=== PATIENT | female | born 1945 | race Caucasian/White ===

== ENCOUNTER 2020-07-30 17:31 | Emergency (ER) | payer OTHER, SELFPAY ==
[2020-07-30] VITALS (7 sets, daily range): BP systolic 78–140; BP diastolic 44–76; PULSE 77–100; RESP 16–24; O2SAT 95–99; BMI 24.1
--- NOTE | ~2020-07-30 | CT_ITS ---
EXAMINATION: CT HEAD WITHOUT CONTRAST CT CERVICAL SPINE WITHOUT CONTRAST CLINICAL INFORMATION: Fall. COMPARISON: CT head 10/11/2013. CT cervical spine 12/03/2012 TECHNIQUE: Imaging was performed from the skull base to vertex without intravenous administration of contrast. In addition, helical noncontrast CT imaging was acquired through the cervical spine and source images were reviewed along with axial reconstructions and sagittal and coronal MPRs. [This CT examination was performed using dose optimization techniques as appropriate, variously including the following: *Automated exposure control *Adjustment of mA and/or kV according to patient size (this includes techniques or standardized protocols for targeted exams where dose is matched to indication/reason for exam; i.e. extremities or head) *Use of iterative reconstruction technique] DLP: 1038 mGy-cm FINDINGS: There is motion which limits exams. HEAD: Small scalp hematoma the posterior right vertex. There is no skull fracture. No intracranial mass, hemorrhage, or midline shift is visualized. There is atrophy with prominence of the ventricles and the sulci and hypodensity of the periventricular white matter due to chronic small vessel ischemic disease. There are vascular calcifications of the internal carotid arteries bilaterally. No extra-axial collections are identified. The paranasal sinuses and mastoid air cells are well aerated. CERVICAL SPINE: There is no evidence of acute cervical spine fracture. Vertebral bodies remain normal in height. Cervical vertebrae have normal alignment. There is multilevel degenerative spondylosis of the cervical spine with disc height narrowing and endplate spurs and facet joint arthrosis No pre- or paravertebral soft tissue abnormality is identified. There are vascular calcification of the carotid arteries at the bifurcation bilaterally. Limited assessment of the lung apices is unremarkable. CT/CT cervical spine wo con IMPRESSION: 1. No acute intracranial pathology. 2. No CT evidence of acute cervical spine fracture or traumatic subluxation
--- NOTE | ~2020-07-30 | XR_ITS ---
EXAMINATION: XR CHEST CLINICAL INFORMATION: Aspiration COMPARISON: Chest x-ray 10/01/2014 TECHNIQUE: Frontal portable view of the chest was obtained. 6:08 PM FINDINGS: Lungs are clear. No pulmonary vascular congestion. There is no pleural effusion. The heart size is normal. The cardiac and mediastinal contours are normal. There are multilevel degenerative changes of dorsal spine. XR/XR chest 1V IMPRESSION: No acute abnormality of the chest.
--- NOTE | 2020-07-30 17:58 | ED_ITS ---
HPI - Alcohol General Chief Complaint: ETOH/Substance Use Stated Complaint: ? Time Seen by Provider: 07/30/20 17:58 Source: EMS Mode of arrival: EMS Limitations: altered mental status History of Present Illness HPI narrative: Patient with history of alcohol abuse was found by the family on the ground face down in her own vomit dried blood on the mouth and the nose initially was lethargic semi responsive to EMS later became agitated and combative patient is confused not answering properly at this time moving her all 4 extremities per family patient usually drinks beer today she had vodka and she fell in the basement complaint: alcohol intoxication Related Data Allergies Allergy/AdvReac Type Severity Reaction Status Date / Time No Known Allergies Allergy Unverified 02/23/20 14:35 Review of Systems Review of Systems: Yes Unobtainable due to mental status [facility] Past Medical History Medical History Alcohol abuse Dementia ETOH abuse Social History Social History Advance Directives: No Advance Directives Information Provided: Yes Physical Exam Vital Signs: Vital Signs: Last Vital Signs Pulse 77 07/30/20 23:51 Resp 16 07/30/20 23:51 BP 100/55 L 07/30/20 23:51 Pulse Ox 95 07/30/20 23:51 Body Mass Index 24.1 Const: General: alert and intoxicated appearing Orientation/consciousness: oriented to person HENMT: Head: Yes No palpable skull fracture present and Yes normocephalic Ears: hearing grossly normal bilaterally General nose exam: Other nasal findings present (Dried blood in the nostrils) Face and sinus: Yes normal facial exam Mouth: Normal oral and palatal mucosa present Eyes: General: appearance normal, both eyes and all related structures Conjunctivae: conjunctivae normal Sclerae: sclerae normal Pupils: Equal, round and reactive pupils present Neck: Neck: Yes normal visual inspection, Yes full ROM, Yes no lymphadenopathy and Yes no meningeal signs Chest: Chest palpation & inspection: normal palpation of entire chest wall Resp: Effort & Inspection: normal respiratory effort Auscultation: clear to auscultation bilaterally, no crackles, no rales, no rhonchi and no wheezes Cardio: Jugular venous distension: no JVD Palpation: normal PMI Rate: regular rate Rhythm: regular rhythm Heart sounds: S1 normal heart sound present and S2 normal heart sound present GI: Inspection: Yes normal to inspection Palpation (GI): Soft to palpation and nontender Auscultation: normal bowel sounds : General: Yes no CVA tenderness Back/Spine/Pelvis: Back: no CVA tenderness Thoracic/Lumbar Spine: thoracic and lumbar spine normal to inspection Skin: General skin exam: no rashes or lesions noted Neuro: General: oriented to person, moves all extremities, no meningeal signs and CN's II-XI intact bilaterally Cranial nerves: Yes Equal, round and reactive pupils present Extrem: General: Yes full ROM, Yes no calf tenderness and No pedal edema Course Reevaluation(s) Reevaluation #1: Patient got up from the floor bed and fell hitting her head to the ground. Will getting CT head and C-spine no significant obvious injury Time: 20:45 MDM - Alcohol MDM Narrative Medical decision making narrative: Patient status post mechanical fall after drinking alcohol on arrival patient ETOH level was 309 at 1840. Patient lives with with her family will watch till morning once she is sober will discharge her home patient's CT scan head and C-spine negative for any acute Differential Diagnosis Differential diagnosis: Likely alcohol dependence and alcohol intoxication Lab Data Attestation: I reviewed the patient's lab results. Result diagrams: 07/30/20 18:41 07/30/20 18:41 Labs: Lab Results 07/30/20 07/30/20 07/30/20 Range/Units 18:06 18:41 18:41 WBC 9.2 (4.8-10.8) X10*3/uL RBC 3.94 L (4.20-5.50) X10*6/uL Hgb 13.6 (12.0-16.0) g/dl Hct 40.6 (37-47) % MCV 103.0 H (80-98) fL MCH 34.5 H (27.0-33.0) pg MCHC 33.5 (31.0-35.0) g/dl RDW 13.3 (11.0-16.0) % Plt Count 354 (160-400) X10*3/uL MPV 9.1 L (9.4-12.3) fL Immature Gran % (Auto) 0.8 H (0.0-0.4) % Neut % (Auto) 66.8 (45-73) % Lymph % (Auto) 24.2 (20-40) % Banks % (Auto) 7.2 (2-11) % Eos % (Auto) 0.3 (0-4) % Baso % (Auto) 0.7 (0-2) % Lymph # (Auto) 2.2 (1.2-4.9) X10*3/uL Banks # (Auto) 0.7 (0.1-1.2) X10*3/uL Eos # (Auto) 0.0 (0.0-0.4) X10*3/uL Baso # (Auto) 0.1 (0.0-0.2) X10*3/uL Abs Immat Gran (auto) 0.07 H (0.00-0.03) X10*3/uL Absolute Neuts (auto) 6.2 (2.0-8.3) X10*3/uL Absolute Nucleated RBC 0.000 (0.0-0.012) X10*3/uL Nucleated RBC % (auto) 0.0 (0.0-0.2) /100WBC PT (10.8-13.0) SEC INR (0.9-1.1) APTT (24.1-38.0) SEC Sodium 143 (135-145) mmol/L Potassium 4.2 (3.3-5.1) mmol/L Chloride 104 (96-108) mmol/L Carbon Dioxide 26 (22-29) mmol/L Anion Gap 17 (12-20) BUN 10 (9-16) mg/dL Creatinine 0.72 (0.5-1.4) mg/dL Estim Creat Clear Calc 63.5 Estimated GFR > 60 POC Glucose 106 (60-115) mg/dL Random Glucose 106 (60-115) mg/dL Calcium 9.0 (8.4-10.2) mg/dL Magnesium (1.6-2.6) mg/dL Total Bilirubin < 0.2 (0.0-1.0) mg/dL Direct Bilirubin < 0.2 (0.0-0.5) mg/dL AST 22 (5-31) U/L ALT 14 (0-31) U/L Alkaline Phosphatase 70 (39-117) U/L Total Creatine Kinase 85 (26-140) U/L Troponin I High Sens (<3.5-17.0) ng/L Total Protein 6.9 (6.5-8.0) g/dL Albumin 4.1 (3.5-5.0) g/dL Lipase (8-78) U/L Urine Color Urine Appearance Urine pH (5.0-8.0) Ur Specific [place] (1.005-1.025) Urine Protein (NEG-TRACE) MG/DL Urine Glucose (UA) (NEG) MG/DL Urine Ketones (NEG) MG/DL Urine Blood (NEG) Urine Nitrite (NEG) Ur Leukocyte Esterase (NEG) Urine RBC (0) /HPF Urine WBC (0-4) /HPF Ur Squamous Epith Cells /LPF Urine Bacteria /LPF Ethyl Alcohol mg/dL COVID-19 (AMBER) (Negative) COVID-19 Clin Com 07/30/20 07/30/20 07/30/20 Range/Units 18:41 18:41 18:41 WBC (4.8-10.8) X10*3/uL RBC (4.20-5.50) X10*6/uL Hgb (12.0-16.0) g/dl Hct (37-47) % MCV (80-98) fL MCH (27.0-33.0) pg MCHC (31.0-35.0) g/dl RDW (11.0-16.0) % Plt Count (160-400) X10*3/uL MPV (9.4-12.3) fL Immature Gran % (Auto) (0.0-0.4) % Neut % (Auto) (45-73) % Lymph % (Auto) (20-40) % Banks % (Auto) (2-11) % Eos % (Auto) (0-4) % Baso % (Auto) (0-2) % Lymph # (Auto) (1.2-4.9) X10*3/uL Banks # (Auto) (0.1-1.2) X10*3/uL Eos # (Auto) (0.0-0.4) X10*3/uL Baso # (Auto) (0.0-0.2) X10*3/uL Abs Immat Gran (auto) (0.00-0.03) X10*3/uL Absolute Neuts (auto) (2.0-8.3) X10*3/uL Absolute Nucleated RBC (0.0-0.012) X10*3/uL Nucleated RBC % (auto) (0.0-0.2) /100WBC PT 11.0 (10.8-13.0) SEC INR 0.9 (0.9-1.1) APTT 33.5 (24.1-38.0) SEC Sodium (135-145) mmol/L Potassium (3.3-5.1) mmol/L Chloride (96-108) mmol/L Carbon Dioxide (22-29) mmol/L Anion Gap (12-20) BUN (9-16) mg/dL Creatinine (0.5-1.4) mg/dL Estim Creat Clear Calc Estimated GFR POC Glucose (60-115) mg/dL Random Glucose (60-115) mg/dL Calcium (8.4-10.2) mg/dL Magnesium 2.1 (1.6-2.6) mg/dL Total Bilirubin (0.0-1.0) mg/dL Direct Bilirubin (0.0-0.5) mg/dL AST (5-31) U/L ALT (0-31) U/L Alkaline Phosphatase (39-117) U/L Total Creatine Kinase (26-140) U/L Troponin I High Sens < 3.5 (<3.5-17.0) ng/L Total Protein (6.5-8.0) g/dL Albumin (3.5-5.0) g/dL Lipase 57 (8-78) U/L Urine Color Urine Appearance Urine pH (5.0-8.0) Ur Specific [place] (1.005-1.025) Urine Protein (NEG-TRACE) MG/DL Urine Glucose (UA) (NEG) MG/DL Urine Ketones (NEG) MG/DL Urine Blood (NEG) Urine Nitrite (NEG) Ur Leukocyte Esterase (NEG) Urine RBC (0) /HPF Urine WBC (0-4) /HPF Ur Squamous Epith Cells /LPF Urine Bacteria /LPF Ethyl Alcohol mg/dL COVID-19 (AMBER) (Negative) COVID-19 Clin Com 07/30/20 07/30/20 07/30/20 Range/Units 18:41 18:41 19:40 WBC (4.8-10.8) X10*3/uL RBC (4.20-5.50) X10*6/uL Hgb (12.0-16.0) g/dl Hct (37-47) % MCV (80-98) fL MCH (27.0-33.0) pg MCHC (31.0-35.0) g/dl RDW (11.0-16.0) % Plt Count (160-400) X10*3/uL MPV (9.4-12.3) fL Immature Gran % (Auto) (0.0-0.4) % Neut % (Auto) (45-73) % Lymph % (Auto) (20-40) % Banks % (Auto) (2-11) % Eos % (Auto) (0-4) % Baso % (Auto) (0-2) % Lymph # (Auto) (1.2-4.9) X10*3/uL Banks # (Auto) (0.1-1.2) X10*3/uL Eos # (Auto) (0.0-0.4) X10*3/uL Baso # (Auto) (0.0-0.2) X10*3/uL Abs Immat Gran (auto) (0.00-0.03) X10*3/uL Absolute Neuts (auto) (2.0-8.3) X10*3/uL Absolute Nucleated RBC (0.0-0.012) X10*3/uL Nucleated RBC % (auto) (0.0-0.2) /100WBC PT (10.8-13.0) SEC INR (0.9-1.1) APTT (24.1-38.0) SEC Sodium (135-145) mmol/L Potassium (3.3-5.1) mmol/L Chloride (96-108) mmol/L Carbon Dioxide (22-29) mmol/L Anion Gap (12-20) BUN (9-16) mg/dL Creatinine (0.5-1.4) mg/dL Estim Creat Clear Calc Estimated GFR POC Glucose (60-115) mg/dL Random Glucose (60-115) mg/dL Calcium (8.4-10.2) mg/dL Magnesium (1.6-2.6) mg/dL Total Bilirubin (0.0-1.0) mg/dL Direct Bilirubin (0.0-0.5) mg/dL AST (5-31) U/L ALT (0-31) U/L Alkaline Phosphatase (39-117) U/L Total Creatine Kinase (26-140) U/L Troponin I High Sens (<3.5-17.0) ng/L Total Protein (6.5-8.0) g/dL Albumin (3.5-5.0) g/dL Lipase (8-78) U/L Urine Color YELLOW Urine Appearance CLEAR Urine pH 6.0 (5.0-8.0) Ur Specific [place] 1.025 (1.005-1.025) Urine Protein 1+ H (NEG-TRACE) MG/DL Urine Glucose (UA) NEG (NEG) MG/DL Urine Ketones NEG (NEG) MG/DL Urine Blood TRACE (NEG) Urine Nitrite NEG (NEG) Ur Leukocyte Esterase NEG (NEG) Urine RBC 1-4 (0) /HPF Urine WBC 0 (0-4) /HPF Ur Squamous Epith Cells NONE /LPF Urine Bacteria 1+ /LPF Ethyl Alcohol 309 H* mg/dL COVID-19 (AMBER) Negative (Negative) COVID-19 Clin Com See Note ECG Data Attestation: I personally reviewed and interpreted this ECG as follows: Interpretation: Normal sinus rhythm heart rate 84 beats per minute normal axis normal intervals no acute ST T wave changes impression normal EKG
--- NOTE | 2020-07-30 17:58 | ECG_ITS ---
Test Reason : AMS Blood Pressure : / mmHG Vent. Rate : 084 BPM Atrial Rate : 084 BPM P-R Int : 154 ms QRS Dur : 074 ms QT Int : 384 ms P-R-T Axes : 072 078 078 degrees QTc Int : 453 ms Normal sinus rhythm Normal ECG When compared with ECG of 01-DEC-2013 15:15, No significant change was found Referred By: Felix Arriaga Electronically Signed By:SHAREE GONZALEZ MD
[2020-07-30 18:11] LABS: Glucose, Whole Blood 106 mg/dL (60-115)
[2020-07-30] MEDS: 0.9 % Sodium Chloride 1,000 ML 999 ML IVCONT ×2 (18:24→23:46)
[2020-07-30 18:50] LABS: MANUAL DIFF FLAG NO
[2020-07-30 18:56] LABS: Basophils Absolute Auto 0.1 X10*3/uL (0.0-0.2); Basophils Percent Auto 0.7 % (0-2); Eosinophils Percent Auto 0.3 % (0-4); Hematocrit 40.6 % (37-47); Hemoglobin 13.6 g/dl (12.0-16.0); Imm Gran Abs Auto 0.07 X10*3/uL (0.00-0.03); Imm Gran Pct Auto 0.8 % (0.0-0.4); Lymphocytes Absolute Auto 2.2 X10*3/uL (1.2-4.9); Lymphocytes Percent Auto 24.2 % (20-40); Mean Corpuscular HGB Conc 33.5 g/dl (31.0-35.0); Mean Corpuscular Hemoglobin 34.5 pg (27.0-33.0); Mean Platelet Volume 9.1 fL (9.4-12.3); Monocytes Absolute Auto 0.7 X10*3/uL (0.1-1.2); Monocytes Percent Auto 7.2 % (2-11); Neutrophils Absolute Auto 6.2 X10*3/uL (2.0-8.3); Neutrophils Percent Auto 66.8 % (45-73); Platelet Count 354 X10*3/uL (160-400); Red Blood Count 3.94 X10*6/uL (4.20-5.50); Red Cell Distribution Width 13.3 % (11.0-16.0); White Blood Count 9.2 X10*3/uL (4.8-10.8)
[2020-07-30 18:58] LABS: INTERNATIONAL NORM RATIO 0.9 (0.9-1.1)
[2020-07-30 19:01] LABS: Partial Thromboplastin Time 33.5 SEC (24.1-38.0)
[2020-07-30 19:10] LABS: COVID-19 Test Negative (Negative)
[2020-07-30 19:30] LABS: Ethanol 309 mg/dL
[2020-07-30 19:31] LABS: Lipase 57 U/L (8-78); Magnesium 2.1 mg/dL (1.6-2.6)
--- NOTE | 2020-07-30 19:33 | PC.NURSE ---
Pt resting on stretcher in NAD, breathing with ease on RA. Monitor in pt's room not working, pt placed on zoll at bedside per recommendation from education and development manager. Pt restless on stretcher but denies pain. Pt alert but disoriented, does respond when her name is called. Pt not answering questions appropriately. Plan for CT. Sitter at bedside.
[2020-07-30 19:37] LABS: Troponin-I High Sensitivity < 3.5 ng/L (<3.5-17.0)
[2020-07-30 19:39] LABS: Alanine Aminotransferase 14 U/L (0-31); Albumin Level 4.1 g/dL (3.5-5.0); Alkaline Phosphatase 70 U/L (39-117); Anion Gap 17 (12-20); Aspartate Amino Transferase 22 U/L (5-31); Bilirubin Direct < 0.2 mg/dL (0.0-0.5); Bilirubin Total < 0.2 mg/dL (0.0-1.0); Blood Urea Nitrogen 10 mg/dL (9-16); Carbon Dioxide 26 mmol/L (22-29); Chloride 104 mmol/L (96-108); Creatinine Clr Calc Pharmacy 63.5; Estimated Glomerular Filt Rate > 60; Glucose Random 106 mg/dL (60-115); Potassium 4.2 mmol/L (3.3-5.1); Sodium 143 mmol/L (135-145); Total Protein 6.9 g/dL (6.5-8.0)
[2020-07-30 20:14] LABS: Appearance Urine CLEAR; Color Urine YELLOW; Glucose Urine UA NEG (NEG); Leukocyte Esterase Urine NEG (NEG); Nitrite Urine NEG (NEG); Specific Gravity - Urine 1.025 (1.005-1.025); Urine Blood TRACE (NEG); Urine Ketones NEG (NEG); Urine Protein 1+ MG/DL (NEG-TRACE)
[2020-07-30 20:24] LABS: Bacteria Urine 1+ /LPF; WBC Urine 0 /HPF (0-4)
--- NOTE | 2020-07-30 20:39 | MHC.RECOVSUP ---
Reason for consult o Current location: 22 o Identified substance use concern: - Support ? Intervention: ? Plan: ? Additional information:pt was asleep the few times that I attempted to go and speak with pt. I will try once again before I leave.
[2020-07-30] MEDS: LORazepam 2 MG/ML VIAL IVPUSH (20:55)
--- NOTE | 2020-07-30 21:13 | PC.NURSE ---
2044 late entry. This RN heard patient as she hit the floor. Had likely climbed over bedrail and fell in a mostly supine position. Pt was alert immediately following fall, c spine precautions were maintained and collar applied while on floor. Provider Bart and Kenyon to bedside. C spine precautions maintained as patient placed back in bed and brought to CT. Ativan administered to insure success of CT. Pt moving all extremities, PEERLA, iv right a/c dislodged during fall then replaced. Pt unable to follow commands p/t fall. RN remains with patient to maintain c spine precautions. Pt has been actively trying to remove equipment. IV's wrapped.
--- NOTE | 2020-07-30 22:44 | PC.NURSE ---
PROVIDER REMOVED COLLAR, PT ABLE TO RELAX AND STOPPED REACHING FOR IV LINE FOLLOWING ATIVAN. PT CURRENTLY SLEEPING. PT'S SON, Ilana CALLED AND UPDATED THAT SHE WILL BE HERE UNTIL MORNING.
--- NOTE | 2020-07-30 22:56 | PC.NURSE ---
Anwer aware of BP, plan to allow IVF to continue infusing, will reassess once infusion complete. Pt asleep on stretcher in NAD, VS WNL with exception of BP.
--- NOTE | 2020-07-30 23:49 | PC.NURSE ---
pt still sleeping, when pupils checked, pt cles eyelids tight. pt will randomly reposition extremities. good respiratory effort and rate.
[2020-07-31 01:49] VITALS: BP 116/57; PULSE 82; RESP 12; O2SAT 96
--- NOTE | 2020-07-31 01:50 | PC.NURSE ---
Pt asleep on stretcher in NAD, O2 sat down to 88% on RA, placed on 1.5LNC and sat now 94-96%. Pt without signs of pain/discomfort. Sitter at bedside. Stretcher in lowest locked position, rails raised x 2
--- NOTE | 2020-07-31 04:48 | PC.NURSE ---
PT MORE ALERT, ASKING WHAT HAPPENED. PT AWARE OF HER SURROUNDINGS, AND THAT SHE WAS AT [facility]. PT DIDN'T REMEMBER FALLING, OR WHY SHE FELL. PT EXPERIENCING NECK PAIN. PT ASKED TO GO TO THE BATHROOM, PT ASSISTED TO BEDSIDE COMMODE. PT UNSTEADY ON HER FEET. PT ABLE TO VOID. PT ALSO ABLE TO DRINK 4 OZ WATER, WITHOUT DIFFICULTY SWALLOWING OR COUGHING.
[2020-07-31 04:55] VITALS: BP 132/69; PULSE 86; RESP 21; O2SAT 94
--- NOTE | 2020-07-31 08:45 | PC.NURSE ---
Ambulated pt andpt remains unsteady at this time
[2020-07-31 09:43] VITALS: BP 154/69; PULSE 86; RESP 16; O2SAT 97
--- NOTE | 2020-07-31 09:47 | PC.NURSE ---
Spoke to Smith (son) aware pt is going to be monitored for sl longer and remains unsteady on feet. Smith states he will be pts ride home when time. Contact [phone] Pt is alert and oriented self only. Can recite the president but unable to say where she is and year. Vitals stable. B/L IV's removed. Pt only reports chronic ankle/foot pain at this time. Ambulatory to bathroom with this RN to void.
--- NOTE | 2020-07-31 11:13 | PC.NURSE ---
Pt ambulated to bathroom again and slow but steady on feet. Ate turkey sandwich and had sukhwinder beka, tolerated well. Spoke to Smith (son) who will pick pt up at approx 1130
== END 2020-07-31 11:50 | disposition home or self-care (01) ==
PROVIDERS: Emergency Provider Internal Medicine
DX: F10.120 Alcohol abuse with intoxication, uncomplicated (principal); Y90.8 Blood alcohol level of 240 mg/100 ml or more; Z20.822 Contact with and (suspected) exposure to COVID-19; Z91.81 History of falling
CPT/HCPCS: 36415; 70450; 71045; 72125; 80048; 80076; 80320; 81001; 82550; 82947; 83690; 83735; 84484; 85025; 85610; 85730; 87635; 93005; 96361; 96374; 99285; J2060

== ENCOUNTER 2021-01-10 19:40 | Emergency (ER) | payer OTHER, SELFPAY ==
--- NOTE | 2021-01-10 | ECG_ITS ---
Test Reason : WEAKNESS Blood Pressure : / mmHG Vent. Rate : 070 BPM Atrial Rate : 070 BPM P-R Int : 146 ms QRS Dur : 074 ms QT Int : 422 ms P-R-T Axes : 061 065 062 degrees QTc Int : 455 ms Sinus rhythm with Premature atrial complexes Otherwise normal ECG When compared with ECG of 30-JUL-2020 19:38, Premature atrial complexes are now Present Referred By: Generic ED Physician Electronically Signed By:Liam Waterman
[2021-01-10 19:41] VITALS: BP 102/56; BP 119/59; PULSE 64; PULSE 74; RESP 18; TEMP 36.6; O2SAT 96; O2SAT 97; BMI 17.9
[2021-01-10 20:18] LABS: MANUAL DIFF FLAG NO
[2021-01-10 20:20] LABS: Basophils Absolute Auto 0.1 X10*3/uL (0.0-0.2); Basophils Percent Auto 0.5 % (0-2); Eosinophils Absolute Auto 0.2 X10*3/uL (0.0-0.4); Eosinophils Percent Auto 1.9 % (0-4); Hematocrit 40.5 % (37-47); Hemoglobin 13.2 g/dl (12.0-16.0); Imm Gran Abs Auto 0.04 X10*3/uL (0.00-0.03); Imm Gran Pct Auto 0.3 % (0.0-0.4); Lymphocytes Absolute Auto 4.6 X10*3/uL (1.2-4.9); Lymphocytes Percent Auto 39.6 % (20-40); Mean Corpuscular HGB Conc 32.6 g/dl (31.0-35.0); Mean Corpuscular Hemoglobin 33.9 pg (27.0-33.0); Mean Corpuscular Volume 104.1 fL (80-98); Monocytes Absolute Auto 0.7 X10*3/uL (0.1-1.2); Monocytes Percent Auto 5.8 % (2-11); Neutrophils Absolute Auto 6.1 X10*3/uL (2.0-8.3); Neutrophils Percent Auto 51.9 % (45-73); Platelet Count 291 X10*3/uL (160-400); Red Blood Count 3.89 X10*6/uL (4.20-5.50); Red Cell Distribution Width 13.7 % (11.0-16.0); White Blood Count 11.7 X10*3/uL (4.8-10.8)
[2021-01-10 20:33] VITALS: BP 122/57; PULSE 70; RESP 15; TEMP 36.9; O2SAT 97
[2021-01-10 20:45] LABS: Alanine Aminotransferase 10 U/L (0-31); Albumin Level 4.1 g/dL (3.5-5.0); Alkaline Phosphatase 61 U/L (39-117); Anion Gap 16 (12-20); Aspartate Amino Transferase 20 U/L (5-31); Bilirubin Total 0.2 mg/dL (0.0-1.0); Blood Urea Nitrogen 12 mg/dL (9-16); Calcium 9.4 mg/dL (8.4-10.2); Carbon Dioxide 21 mmol/L (22-29); Chloride 105 mmol/L (96-108); Creatinine Clr Calc Pharmacy 50.7; Estimated Glomerular Filt Rate > 60; Glucose Random 109 mg/dL (60-115); Lipase 45 U/L (8-78); Potassium 4.2 mmol/L (3.3-5.1); Sodium 138 mmol/L (135-145); Total Protein 6.9 g/dL (6.5-8.0); Troponin-I High Sensitivity < 3.5 ng/L (<3.5-17.0)
[2021-01-10 21:12] LABS: Influenza A PCR NEGATIVE (Negative); Influenza B PCR NEGATIVE (Negative); Resp Syncy Virus RNA Qual PCR NEGATIVE (Negative); SARS COV2 PCR INHOUSE NEGATIVE (Negative)
--- NOTE | 2021-01-10 21:30 | ED_ITS ---
HPI - Abdominal Pain General Chief Complaint: Abdominal Pain Stated Complaint: abd pain vomiting Time Seen by Provider: 01/10/21 21:18 Source: EMS Mode of arrival: EMS Limitations: altered mental status History of Present Illness HPI narrative: Patient is brought to the emergency room by EMS, patient has baseline dementia, patient states that she has been vomiting and having diarrhea. Patient has baseline dementia. According to EMS, the caregiver stated that the patient reported that patient has not bowel movement in several days . Per EMS, patient had a large bowel movement prior to arriving to the emergency room. Patient is poor historian, patient given mg of Zofran by EMS. Patient denies abdominal pain, no nausea. Related Data Home Medications Medication Instructions Recorded Confirmed diclofenac sodium 1 % topical gel 1 applic TOPICAL QID PRN 01/10/21 01/10/21 gabapentin 300 mg capsule 300 mg PO TID 01/10/21 01/10/21 multivitamin (Daily-Loy) 1 tab PO DAILY 01/10/21 01/10/21 sertraline 25 mg tablet 1 tab PO DAILY 01/10/21 01/10/21 Previous Rx's Medication Instructions Recorded ondansetron HCl 4 mg tablet 4 mg PO Q6H PRN #14 tab 01/11/21 (Zofran) Allergies Allergy/AdvReac Type Severity Reaction Status Date / Time No Known Allergies Allergy Unverified 02/23/20 14:35 Review of Systems Review of Systems Constitutional : No Weight loss, No Fever, No Chills, No Night Sweats, No Fatigue, No Malaise ENT/Mouth : No Hearing loss, No Ear Pain, No Nasal Congestion, No Sinus Pain, No Hoarseness, No sore throat, No Rhinorrhea, No Swallowing Difficulty Eyes: No Eye Pain, No Swelling, No Redness, No Foreign Body, No Discharge, No Vision Changes Cardiovascular : No Chest Pain, No SOB, No Dyspnea on Exertion, No Orthopnea, No Edema, No Palpitations Respiratory : No Cough, No Sputum, No Wheezing, No Smoke Exposure, No Dyspnea Gastrointestinal : Complaining of nausea, vomiting and loose stool, per caregiver the patient has been constipated, no abdominal Pain, No Hematochezia, No Melena Genitourinary : no irregular bleeding, No Dysuria, No Urinary Frequency, No Hematuria, No Urinary Incontinence, No Urgency, No Flank Pain, No Urinary Flow Changes, No Hesitancy Musculoskeletal : No joint pain, No Myalgias, No Joint Swelling Skin : No Skin Lesions, No rash Neuro : No Weakness, No Numbness, No Paresthesias, No Loss of Consciousness, No Dizziness, No Headache Psych : No Anxiety/Panic, No Depression, No SI/HI/AH/VH, No Social Issues, Heme/Lymph: No Bruising, No Bleeding,No Lymphadenopathy Endocrine : No Polyuria, No Polydipsia, No Temperature Intolerance Physical Exam Vital Signs: Vital Signs: Last Vital Signs Temp 98.0 F 01/10/21 22:22 Pulse 79 01/10/21 22:59 Resp 18 01/10/21 22:59 BP 133/55 L 01/10/21 22:59 Pulse Ox 100 01/10/21 22:59 Body Mass Index 17.9 Const: Other: Appearance: Alert. Oriented X3. No acute distress. Seems intoxicated Eyes: Pupils equal, round and reactive to light. ENT: Pharynx normal. Neck: Normal inspection. Neck supple. No lymph nodes noted. No crepitus CVS: Normal heart rate and rhythm. Pulses normal. Normal S1 and S2 Respiratory: No respiratory distress. Breath sounds normal. No Wheezing. No rales Abdomen: Soft and nontender. No rigidity. No distention. good BS x4 Skin: Skin warm and dry. Normal skin color. Normal skin turgor. Extremities: No lower extremity edema. No Lacerations. No Rash Neuro: Oriented X 3. No motor deficit. No sensory deficit. Moving all extermities. No slurred speech. Course Course Course Narrative: Patient has a white blood cell count of 11.7. Likely reactive leukocytosis. Patient remains asymptomatic, she has not vomited in the emergency room, no episodes of diarrhea, no abdominal pain. Patient feels well. On physical exam prior to discharge, patient has no abdominal pain in any quadrant. Patient's son will be picking her up. MDM - Abdominal Pain Lab Data Result diagrams: 01/10/21 20:13 01/10/21 20:13 Labs: Lab Results 01/10/21 01/10/21 01/10/21 Range/Units 20:13 20:13 20:13 WBC 11.7 H (4.8-10.8) X10*3/uL RBC 3.89 L (4.20-5.50) X10*6/uL Hgb 13.2 (12.0-16.0) g/dl Hct 40.5 (37-47) % MCV 104.1 H (80-98) fL MCH 33.9 H (27.0-33.0) pg MCHC 32.6 (31.0-35.0) g/dl RDW 13.7 (11.0-16.0) % Plt Count 291 (160-400) X10*3/uL MPV 9.0 L (9.4-12.3) fL Immature Gran % (Auto) 0.3 (0.0-0.4) % Neut % (Auto) 51.9 (45-73) % Lymph % (Auto) 39.6 (20-40) % [place] % (Auto) 5.8 (2-11) % Eos % (Auto) 1.9 (0-4) % Baso % (Auto) 0.5 (0-2) % Lymph # (Auto) 4.6 (1.2-4.9) X10*3/uL [place] # (Auto) 0.7 (0.1-1.2) X10*3/uL Eos # (Auto) 0.2 (0.0-0.4) X10*3/uL Baso # (Auto) 0.1 (0.0-0.2) X10*3/uL Abs Immat Gran (auto) 0.04 H (0.00-0.03) X10*3/uL Absolute Neuts (auto) 6.1 (2.0-8.3) X10*3/uL Absolute Nucleated RBC 0.000 (0.0-0.012) X10*3/uL Nucleated RBC % (auto) 0.0 (0.0-0.2) /100WBC PT (9.9-13.0) SEC INR (0.9-1.1) Sodium 138 (135-145) mmol/L Potassium 4.2 (3.3-5.1) mmol/L Chloride 105 (96-108) mmol/L Carbon Dioxide 21 L (22-29) mmol/L Anion Gap 16 (12-20) BUN 12 (9-16) mg/dL Creatinine 0.74 (0.5-1.4) mg/dL Estim Creat Clear Calc 50.7 Estimated GFR > 60 Random Glucose 109 (60-115) mg/dL Calcium 9.4 (8.4-10.2) mg/dL Total Bilirubin 0.2 (0.0-1.0) mg/dL AST 20 (5-31) U/L ALT 10 (0-31) U/L Alkaline Phosphatase 61 (39-117) U/L Ammonia (13-55) umol/L Troponin I High Sens (<3.5-17.0) ng/L Total Protein 6.9 (6.5-8.0) g/dL Albumin 4.1 (3.5-5.0) g/dL Lipase 45 (8-78) U/L Urine Color Urine Appearance Urine pH (5.0-8.0) Ur Specific [place] (1.005-1.025) Urine Protein (NEG-TRACE) MG/DL Urine Glucose (UA) (NEG) MG/DL Urine Ketones (NEG) MG/DL Urine Blood (NEG) Urine Nitrite (NEG) Ur Leukocyte Esterase (NEG) Urine RBC (0) /HPF Urine WBC (0-4) /HPF Ur Squamous Epith Cells /LPF Urine Bacteria /LPF Urine Opiates Screen (Not Detect) Ur Barbiturates Screen (Not Detect) Ur Phencyclidine Scrn (Not Detect) Ur Amphetamines Screen (Not Detect) U Benzodiazepines Scrn (Not Detect) Urine Cocaine Screen (Not Detect) U Marijuana (THC) Screen (Not Detect) Ethyl Alcohol mg/dL Coronavirus (PCR) NEGATIVE (Negative) Influenza Type A (PCR) NEGATIVE (Negative) Influenza Type B (PCR) NEGATIVE (Negative) RSV RNA Qual (PCR) NEGATIVE (Negative) 01/10/21 01/10/21 01/10/21 Range/Units 20:13 21:50 21:50 WBC (4.8-10.8) X10*3/uL RBC (4.20-5.50) X10*6/uL Hgb (12.0-16.0) g/dl Hct (37-47) % MCV (80-98) fL MCH (27.0-33.0) pg MCHC (31.0-35.0) g/dl RDW (11.0-16.0) % Plt Count (160-400) X10*3/uL MPV (9.4-12.3) fL Immature Gran % (Auto) (0.0-0.4) % Neut % (Auto) (45-73) % Lymph % (Auto) (20-40) % [place] % (Auto) (2-11) % Eos % (Auto) (0-4) % Baso % (Auto) (0-2) % Lymph # (Auto) (1.2-4.9) X10*3/uL [place] # (Auto) (0.1-1.2) X10*3/uL Eos # (Auto) (0.0-0.4) X10*3/uL Baso # (Auto) (0.0-0.2) X10*3/uL Abs Immat Gran (auto) (0.00-0.03) X10*3/uL Absolute Neuts (auto) (2.0-8.3) X10*3/uL Absolute Nucleated RBC (0.0-0.012) X10*3/uL Nucleated RBC % (auto) (0.0-0.2) /100WBC PT 11.1 (9.9-13.0) SEC INR 1.0 (0.9-1.1) Sodium (135-145) mmol/L Potassium (3.3-5.1) mmol/L Chloride (96-108) mmol/L Carbon Dioxide (22-29) mmol/L Anion Gap (12-20) BUN (9-16) mg/dL Creatinine (0.5-1.4) mg/dL Estim Creat Clear Calc Estimated GFR Random Glucose (60-115) mg/dL Calcium (8.4-10.2) mg/dL Total Bilirubin (0.0-1.0) mg/dL AST (5-31) U/L ALT (0-31) U/L Alkaline Phosphatase (39-117) U/L Ammonia (13-55) umol/L Troponin I High Sens < 3.5 (<3.5-17.0) ng/L Total Protein (6.5-8.0) g/dL Albumin (3.5-5.0) g/dL Lipase (8-78) U/L Urine Color Urine Appearance Urine pH (5.0-8.0) Ur Specific [place] (1.005-1.025) Urine Protein (NEG-TRACE) MG/DL Urine Glucose (UA) (NEG) MG/DL Urine Ketones (NEG) MG/DL Urine Blood (NEG) Urine Nitrite (NEG) Ur Leukocyte Esterase (NEG) Urine RBC (0) /HPF Urine WBC (0-4) /HPF Ur Squamous Epith Cells /LPF Urine Bacteria /LPF Urine Opiates Screen (Not Detect) Ur Barbiturates Screen (Not Detect) Ur Phencyclidine Scrn (Not Detect) Ur Amphetamines Screen (Not Detect) U Benzodiazepines Scrn (Not Detect) Urine Cocaine Screen (Not Detect) U Marijuana (THC) Screen (Not Detect) Ethyl Alcohol < 10 mg/dL Coronavirus (PCR) (Negative) Influenza Type A (PCR) (Negative) Influenza Type B (PCR) (Negative) RSV RNA Qual (PCR) (Negative) 01/10/21 01/10/21 01/10/21 Range/Units 21:50 22:26 22:26 WBC (4.8-10.8) X10*3/uL RBC (4.20-5.50) X10*6/uL Hgb (12.0-16.0) g/dl Hct (37-47) % MCV (80-98) fL MCH (27.0-33.0) pg MCHC (31.0-35.0) g/dl RDW (11.0-16.0) % Plt Count (160-400) X10*3/uL MPV (9.4-12.3) fL Immature Gran % (Auto) (0.0-0.4) % Neut % (Auto) (45-73) % Lymph % (Auto) (20-40) % [place] % (Auto) (2-11) % Eos % (Auto) (0-4) % Baso % (Auto) (0-2) % Lymph # (Auto) (1.2-4.9) X10*3/uL [place] # (Auto) (0.1-1.2) X10*3/uL Eos # (Auto) (0.0-0.4) X10*3/uL Baso # (Auto) (0.0-0.2) X10*3/uL Abs Immat Gran (auto) (0.00-0.03) X10*3/uL Absolute Neuts (auto) (2.0-8.3) X10*3/uL Absolute Nucleated RBC (0.0-0.012) X10*3/uL Nucleated RBC % (auto) (0.0-0.2) /100WBC PT (9.9-13.0) SEC INR (0.9-1.1) Sodium (135-145) mmol/L Potassium (3.3-5.1) mmol/L Chloride (96-108) mmol/L Carbon Dioxide (22-29) mmol/L Anion Gap (12-20) BUN (9-16) mg/dL Creatinine (0.5-1.4) mg/dL Estim Creat Clear Calc Estimated GFR Random Glucose (60-115) mg/dL Calcium (8.4-10.2) mg/dL Total Bilirubin (0.0-1.0) mg/dL AST (5-31) U/L ALT (0-31) U/L Alkaline Phosphatase (39-117) U/L Ammonia 29 (13-55) umol/L Troponin I High Sens (<3.5-17.0) ng/L Total Protein (6.5-8.0) g/dL Albumin (3.5-5.0) g/dL Lipase (8-78) U/L Urine Color YELLOW Urine Appearance CLEAR Urine pH 6.0 (5.0-8.0) Ur Specific [place] 1.015 (1.005-1.025) Urine Protein TRACE (NEG-TRACE) MG/DL Urine Glucose (UA) NEG (NEG) MG/DL Urine Ketones NEG (NEG) MG/DL Urine Blood 1+ H (NEG) Urine Nitrite NEG (NEG) Ur Leukocyte Esterase NEG (NEG) Urine RBC 5-9 H (0) /HPF Urine WBC 1-4 (0-4) /HPF Ur Squamous Epith Cells 1+ /LPF Urine Bacteria 1+ /LPF Urine Opiates Screen Not Detected (Not Detect) Ur Barbiturates Screen Not Detected (Not Detect) Ur Phencyclidine Scrn Not Detected (Not Detect) Ur Amphetamines Screen Not Detected (Not Detect) U Benzodiazepines Scrn Not Detected (Not Detect) Urine Cocaine Screen Not Detected (Not Detect) U Marijuana (THC) Screen Not Detected (Not Detect) Ethyl Alcohol mg/dL Coronavirus (PCR) (Negative) Influenza Type A (PCR) (Negative) Influenza Type B (PCR) (Negative) RSV RNA Qual (PCR) (Negative) Discharge Plan Discharge Clinical Impression: Vomiting, Diarrhea Patient Disposition: Home, Self-Care Instructions: Acute Nausea and Vomiting (ED) Additional Instructions: Please follow-up with your primary care physician tomorrow. If you have any worsening or new symptoms, please return to the emergency room or call 911 Prescriptions: New ondansetron HCl [Zofran] 4 mg tablet 4 mg PO Q6H PRN (Reason: nausea and vomiting) Qty: 14 RF: 0 No Action multivitamin [Daily-Loy] Tablet 1 tab PO DAILY RF: 0 gabapentin 300 mg capsule 300 mg PO TID RF: 0 sertraline 25 mg tablet 1 tab PO DAILY RF: 0 diclofenac sodium 1 % gel 1 applic topical QID PRN (Reason: pain) RF: 0 PMFSH Past Medical History Medical History Alcohol abuse Dementia ETOH abuse Social History Social History Alcohol intake: unknown Patient Tobacco Use Status: Refuse Tobacco use screen Use of substances other than those prescribed or required for medical reasons: Unknown Advance Directives: No Advance Directives Information Provided: Yes
[2021-01-10] MEDS: 0.9 % Sodium Chloride 1,000 ML 999 ML IVCONT (21:38)
[2021-01-10 22:05] LABS: Ammonia 29 umol/L (13-55)
[2021-01-10 22:09] LABS: Ethanol < 10 mg/dL
[2021-01-10 22:22] VITALS: BP 142/87; PULSE 93; RESP 23; TEMP 36.7; O2SAT 98
[2021-01-10 22:35] LABS: Glucose Urine UA NEG (NEG); Leukocyte Esterase Urine NEG (NEG); Nitrite Urine NEG (NEG); Specific Gravity - Urine 1.015 (1.005-1.025); UACC Culture Trigger NO; Urine Blood 1+ (NEG); Urine Ketones NEG (NEG); Urine Protein TRACE MG/DL (NEG-TRACE)
[2021-01-10 22:40] LABS: Prothrombin Time 11.1 SEC (9.9-13.0)
[2021-01-10 22:41] LABS: Appearance Urine CLEAR; Color Urine YELLOW
[2021-01-10 22:51] LABS: Bacteria Urine 1+ /LPF; Squamous Epithelial Cell Urine 1+ /LPF
[2021-01-10 22:55] LABS: Amphetamine Screen Urine Not Detected (Not Detect); Barbiturates, Urine Not Detected (Not Detect); Benzodiazepines Screen Urine Not Detected (Not Detect); Cannabinoid Screen Urine Not Detected (Not Detect); Cocaine Screen Urine Not Detected (Not Detect); Opiate Screen Urine Not Detected (Not Detect); Phencyclidine Screen Urine Not Detected (Not Detect)
[2021-01-10 22:59] VITALS: BP 133/55; PULSE 79; RESP 18; O2SAT 100
[2021-01-11 00:22] VITALS: BP 164/72; PULSE 75; RESP 16; TEMP 37; O2SAT 96
== END 2021-01-11 01:17 | disposition home or self-care (01) ==
PROVIDERS: Emergency Provider Emergency Medicine
DX: R11.10 Vomiting, unspecified (principal); R19.7 Diarrhea, unspecified; Z79.899 Other long term (current) drug therapy; Z20.822 Contact with and (suspected) exposure to COVID-19
CPT/HCPCS: 0241U; 36415; 80053; 80307; 81001; 82077; 82140; 83690; 84484; 85025; 85610; 87040; 93005; 99285

== ENCOUNTER 2021-06-18 15:46 | Inpatient (IN) | payer OTHER, SELFPAY ==
--- NOTE | ~2021-06-18 | IR_ITS ---
EXAMINATION: FL GUIDANCE FOR ANGIOGRAM FL STENT FEM/POP WITH ATHERECTOMY CLINICAL INFORMATION: Peripheral vascular disease. Pain and redness. COMPARISON: Noninvasive arterial ultrasound exam 06/18/2020 TECHNIQUE/FINDINGS:: Fluoroscopy guidance was provided for angiogram: aortogram, pelvic arteriogram, right leg runoff and right SFA balloon angioplasty and stent placement and limited angiogram imaging of the left thigh. Fluoroscopy time 70 minutes. 297 cGy-cm2. See Dr. Ortzi's report for detailed findings. IR/IR stent fem/pop w atherectomy IMPRESSION: Fluoroscopy guidance for angiogram, right SFA angioplasty and stent.
--- NOTE | ~2021-06-18 | US_ITS ---
EXAMINATION: NONINVASIVE ASSESSMENT OF THE ARTERIES OF THE RIGHT LOWER EXTREMITY WITH LOWER EXTREMITY DUPLEX. CLINICAL INFORMATION: Pain and redness with no palpable pulses COMPARISON: CT abdomen pelvis 06/30/2015 TECHNIQUE: Doppler techniques with wave form analysis and measurement of velocities in the common femoral, profunda femoral, superficial femoral, popliteal, tibial and peroneal arteries. The study was performed only at rest. FINDINGS: RIGHT LEG DIRECT DUPLEX: Scattered plaque is seen with moderate in the profunda femoris as well as in distal SFA (image 23/67). Collateral vessels are seen around this area of stenosis. The waveforms are as follows: Common femoral artery: 170 cm/s, triphasic Profunda femoris artery: 115 cm/s, monophasic Superficial femoral artery (proximal): 66 cm/s, biphasic Superficial femoral artery (mid): 294 cm/s, monophasic Superficial femoral artery (distal): 43 cm/s, monophasic Proximal Popliteal artery: 37 cm/s, monophasic Distal popliteal artery versus collateral: 294 cm/s, monophasic Mid posterior tibial artery: 4 cm/s, monophasic Peroneal artery: 70 cm/s, monophasic US/US arterial duplex LE RT IMPRESSION: Significant peripheral vascular disease with monophasic flow in the profunda femoris artery and probable severe SFA disease as well. Some element of inflow disease may be present as well.
--- NOTE | ~2021-06-18 | IR_ITS ---
EXAMINATION: FL GUIDANCE FOR ANGIOGRAM FL STENT FEM/POP WITH ATHERECTOMY CLINICAL INFORMATION: Peripheral vascular disease. Pain and redness. COMPARISON: Noninvasive arterial ultrasound exam 06/18/2020 TECHNIQUE/FINDINGS:: Fluoroscopy guidance was provided for angiogram: aortogram, pelvic arteriogram, right leg runoff and right SFA balloon angioplasty and stent placement and limited angiogram imaging of the left thigh. Fluoroscopy time 70 minutes. 297 cGy-cm2. See Dr. Ortiz's report for detailed findings. IR/IR us guide venous access IMPRESSION: Fluoroscopy guidance for angiogram, right SFA angioplasty and stent.
[2021-06-18 16:52] VITALS: BP 139/64; PULSE 75; RESP 18; TEMP 36.1; O2SAT 99; BMI 23.2
--- NOTE | 2021-06-18 21:40 | ECG_ITS ---
Test Reason : WEAKNESS Blood Pressure : / mmHG Vent. Rate : 076 BPM Atrial Rate : 076 BPM P-R Int : 148 ms QRS Dur : 072 ms QT Int : 388 ms P-R-T Axes : 063 043 048 degrees QTc Int : 436 ms Normal sinus rhythm Normal ECG When compared with ECG of 10-JAN-2021 20:04, No significant changes seen Referred By: Armida Luna Electronically Signed By:ALIDA FUNK
--- NOTE | 2021-06-18 21:42 | ED_ITS ---
HPI - Extremity Problem General Chief complaint: Skin/Abscess/Foreign Body Stated complaint: hole R foot pain Time Seen by Provider: 06/18/21 21:39 Source: patient Mode of arrival: ambulatory History of Present Illness HPI Narrative: 75-year-old female, every day smoker as well as every day alcohol consumption comes in with complaints of about 5 days of right foot pain, redness, swelling and had been started on antibiotics by urgent care but patient denies any fever, chills. Patient ask whether not she experiences pain in her calf when she walks and she denies. Patient additionally asked if it feels better when her foot is hanging over the edge of the bed and she is unable to qualify whether not that occurs. Related Data Home Medications Medication Instructions Recorded Confirmed diclofenac sodium 1 % topical gel 1 applic TOPICAL QID PRN 01/10/21 01/10/21 gabapentin 300 mg capsule 300 mg PO TID 01/10/21 01/10/21 multivitamin (Daily-Loy) 1 tab PO DAILY 01/10/21 01/10/21 sertraline 25 mg tablet 1 tab PO DAILY 01/10/21 01/10/21 Previous Rx's Medication Instructions Recorded ondansetron HCl 4 mg tablet 4 mg PO Q6H PRN #14 tab 01/11/21 (Zofran) cephalexin 500 mg capsule 500 mg PO TID #30 cap 06/15/21 Allergies Allergy/AdvReac Type Severity Reaction Status Date / Time No Known Allergies Allergy Verified 06/15/21 11:25 Review of Systems Review of Systems: Pertinent positives and negatives as stated in HPI 10 point review of systems is otherwise negative. [facility] Past Medical History Source: nursing notes reviewed Medical History Alcohol abuse Dementia ETOH abuse Social History Social History Alcohol intake: unknown Patient Tobacco Use Status: Refuse Tobacco use screen Advance Directives: No Advance Directives Information Provided: Yes Physical Exam Vital Signs: Vital Signs: Last Vital Signs Temp 97.0 F 06/18/21 16:52 Pulse 75 06/18/21 16:52 Resp 18 06/18/21 16:52 BP 139/64 06/18/21 16:52 Pulse Ox 99 06/18/21 16:52 BMI result Body Mass Index 23.2 VITAL SIGNS: Reviewed. GENERAL: Chronically ill, cachectic, in no acute distress. HEAD: Normocephalic/atraumatic EYES: PERRLA, EOMI OROPHARYNX: no oral lesions noted, posterior pharynx clear LUNGS: Normal breath sounds. No adventitious sounds or accessory muscle use. SpO2<99> CARDIOVASCULAR: Regular rate and rhythm without noted murmurs, no JVD or lower extremity edema. ABDOMEN: Soft, non-tender, non-distended with bowel sounds. LOWER RIGHT EXTREMITY: There are punctate ulcerations along the medial aspect of the ankle that are dry and non erythematous and appear to be arterial in nature as patient has no history of diabetes, unable to palpate either PT or DP (Doppler AT obtained, but PT is not dopplerable), entire foot appears red and edematous more consistent with lack of low than infectious in appearance although there is noted ulceration between the 4th and 3rd toes. FEMORAL PULSE PALPABLE, POPLITEAL PULSE UNABLE TO PALPATE LOWER LEFT EXTREMITY: PALPABLE FEMORAL, POPLITEAL, BUT PT AND AT REQUIRE DOPPLER, IS NOT RED/WHITE AND CAPILLARY REFILL IS LESS THAN 3 SECONDS. NEUROLOGIC: Alert and oriented x 3. Strength and sensation to light touch were grossly intact x 4. Course Course Course Narrative: 75-year-old female with history and clinical presentation consistent with vascular compromise, this is not acute limb ischemia but suspect gradual progression. Obtained arterial duplex as well as labs and then discussed the case with vascular surgery. Review of all investigations otherwise negative for acute findings. Patient started on a CIWA and given a negative derm patch. All results and findings discussed with her at bedside as well as informing her son. I also discussed this case with the inpatient hospitalist who accepts admission. Initial antibiotics provided here in the emergency room. Reevaluation(s) Reevaluation #1: I discussed the case with vascular surgery, Dr. Ortiz, and jocelyne mmendation is for admission no heparin at this time/start on antibiotics, and he will see the patient in the morning. Time: 22:59 MDM - Extremity (Nontraumatic) Lab Data Result diagrams: 06/18/21 21:55 06/18/21 21:55 Labs: Lab Results 06/18/21 06/18/21 06/18/21 Range/Units 21:55 21:55 21:55 WBC 10.1 (4.8-10.8) X10*3/uL RBC 4.26 (4.20-5.50) X10*6/uL Hgb 13.6 (12.0-16.0) g/dl Hct 42.4 (37.0-47.0) % MCV 99.5 H (80.0-98.0) fL MCH 31.9 (27.0-33.0) pg MCHC 32.1 (31.0-35.0) g/dl RDW 13.8 (11.0-16.0) % Plt Count 360 (160-400) X10*3/uL MPV 8.8 L (9.4-12.3) fL Immature Gran % (Auto) 0.6 H (0.0-0.4) % Neut % (Auto) 47.8 (45-73) % Lymph % (Auto) 38.6 (20-40) % [place] % (Auto) 9.5 (2-11) % Eos % (Auto) 2.7 (0-4) % Baso % (Auto) 0.8 (0-2) % Lymph # (Auto) 3.9 (1.2-4.9) X10*3/uL [place] # (Auto) 1.0 (0.1-1.2) X10*3/uL Eos # (Auto) 0.3 (0.0-0.4) X10*3/uL Baso # (Auto) 0.1 (0.0-0.2) X10*3/uL Abs Immat Gran (auto) 0.06 H (0.00-0.03) X10*3/uL Absolute Neuts (auto) 4.8 (2.0-8.3) x10*3/uL Absolute Nucleated RBC 0.000 (0.0-0.012) X10*3/uL Nucleated RBC % (auto) 0.0 (0.0-0.2) /100WBC PT (9.9-13.0) SEC INR (0.9-1.1) APTT (24.1-38.0) SEC Sodium 137 (135-145) mmol/L Potassium 4.4 (3.3-5.1) mmol/L Chloride 103 (96-108) mmol/L Carbon Dioxide 28 (22-29) mmol/L Anion Gap 10 L (12-20) BUN 7 L (9-16) mg/dL Creatinine 0.68 (0.5-1.4) mg/dL Estim Creat Clear Calc 58.2 Estimated GFR > 60 Random Glucose 105 (60-115) mg/dL Lactic Acid (0.5-2.0) mmol/L Calcium 9.6 (8.4-10.2) mg/dL Total Bilirubin 0.2 (0.0-1.0) mg/dL AST 19 (5-31) U/L ALT 11 (0-31) U/L Alkaline Phosphatase 82 D (39-117) U/L Total Protein 6.9 (6.5-8.0) g/dL Albumin 3.8 (3.5-5.0) g/dL COVID-19 (AMBER) Negative (Negative) COVID-19 Clin Com See Note 06/18/21 06/18/21 Range/Units 21:55 21:55 WBC (4.8-10.8) X10*3/uL RBC (4.20-5.50) X10*6/uL Hgb (12.0-16.0) g/dl Hct (37.0-47.0) % MCV (80.0-98.0) fL MCH (27.0-33.0) pg MCHC (31.0-35.0) g/dl RDW (11.0-16.0) % Plt Count (160-400) X10*3/uL MPV (9.4-12.3) fL Immature Gran % (Auto) (0.0-0.4) % Neut % (Auto) (45-73) % Lymph % (Auto) (20-40) % [place] % (Auto) (2-11) % Eos % (Auto) (0-4) % Baso % (Auto) (0-2) % Lymph # (Auto) (1.2-4.9) X10*3/uL [place] # (Auto) (0.1-1.2) X10*3/uL Eos # (Auto) (0.0-0.4) X10*3/uL Baso # (Auto) (0.0-0.2) X10*3/uL Abs Immat Gran (auto) (0.00-0.03) X10*3/uL Absolute Neuts (auto) (2.0-8.3) x10*3/uL Absolute Nucleated RBC (0.0-0.012) X10*3/uL Nucleated RBC % (auto) (0.0-0.2) /100WBC PT 11.0 (9.9-13.0) SEC INR 1.0 (0.9-1.1) APTT 33.3 (24.1-38.0) SEC Sodium (135-145) mmol/L Potassium (3.3-5.1) mmol/L Chloride (96-108) mmol/L Carbon Dioxide (22-29) mmol/L Anion Gap (12-20) BUN (9-16) mg/dL Creatinine (0.5-1.4) mg/dL Estim Creat Clear Calc Estimated GFR Random Glucose (60-115) mg/dL Lactic Acid 1.6 (0.5-2.0) mmol/L Calcium (8.4-10.2) mg/dL Total Bilirubin (0.0-1.0) mg/dL AST (5-31) U/L ALT (0-31) U/L Alkaline Phosphatase (39-117) U/L Total Protein (6.5-8.0) g/dL Albumin (3.5-5.0) g/dL COVID-19 (AMBER) (Negative) COVID-19 Clin Com ECG Data Attestation EKG: I personally reviewed and interpreted this ECG as follows: Prior ECG tracings: available for review (01/10/2021) Interpretation: Normal sinus rhythm, HR-76, no STEMI, GA/QRS/QTC are within normal limits. Discharge Plan Discharge Clinical Impression: Insufficiency, vascular, Alcohol dependence, Cigarette smoker Patient Disposition: Admitted As Inpatient Prescriptions: No Action multivitamin [Daily-Loy] Tablet 1 tab PO DAILY RF: 0 gabapentin 300 mg capsule 300 mg PO TID RF: 0 sertraline 25 mg tablet 1 tab PO DAILY RF: 0 diclofenac sodium 1 % gel 1 applic topical QID PRN (Reason: pain) RF: 0 ondansetron HCl [Zofran] 4 mg tablet 4 mg PO Q6H PRN (Reason: nausea and vomiting) Qty: 14 RF: 0 cephalexin 500 mg capsule 500 mg PO TID Qty: 30 RF: 0
[2021-06-18 22:07] LABS: MANUAL DIFF FLAG NO
[2021-06-18 22:09] LABS: Basophils Absolute Auto 0.1 X10*3/uL (0.0-0.2); Basophils Percent Auto 0.8 % (0-2); Eosinophils Absolute Auto 0.3 X10*3/uL (0.0-0.4); Eosinophils Percent Auto 2.7 % (0-4); Hematocrit 42.4 % (37.0-47.0); Hemoglobin 13.6 g/dl (12.0-16.0); Imm Gran Abs Auto 0.06 X10*3/uL (0.00-0.03); Imm Gran Pct Auto 0.6 % (0.0-0.4); Lymphocytes Absolute Auto 3.9 X10*3/uL (1.2-4.9); Lymphocytes Percent Auto 38.6 % (20-40); Mean Corpuscular HGB Conc 32.1 g/dl (31.0-35.0); Mean Corpuscular Hemoglobin 31.9 pg (27.0-33.0); Mean Corpuscular Volume 99.5 fL (80.0-98.0); Mean Platelet Volume 8.8 fL (9.4-12.3); Monocytes Percent Auto 9.5 % (2-11); Neutrophils Absolute Auto 4.8 x10*3/uL (2.0-8.3); Neutrophils Percent Auto 47.8 % (45-73); Platelet Count 360 X10*3/uL (160-400); Red Blood Count 4.26 X10*6/uL (4.20-5.50); Red Cell Distribution Width 13.8 % (11.0-16.0); White Blood Count 10.1 X10*3/uL (4.8-10.8)
[2021-06-18 22:18] LABS: Lactic Acid 1.6 mmol/L (0.5-2.0)
[2021-06-18 22:24] LABS: Alanine Aminotransferase 11 U/L (0-31); Albumin Level 3.8 g/dL (3.5-5.0); Alkaline Phosphatase 82 U/L (39-117); Anion Gap 10 (12-20); Aspartate Amino Transferase 19 U/L (5-31); Bilirubin Total 0.2 mg/dL (0.0-1.0); Blood Urea Nitrogen 7 mg/dL (9-16); Calcium 9.6 mg/dL (8.4-10.2); Carbon Dioxide 28 mmol/L (22-29); Chloride 103 mmol/L (96-108); Creatinine Clr Calc Pharmacy 58.2; Estimated Glomerular Filt Rate > 60; Glucose Random 105 mg/dL (60-115); Potassium 4.4 mmol/L (3.3-5.1); Sodium 137 mmol/L (135-145); Total Protein 6.9 g/dL (6.5-8.0)
[2021-06-18 22:29] LABS: COVID-19 Test Negative (Negative)
[2021-06-18 22:59] LABS: Partial Thromboplastin Time 33.3 SEC (24.1-38.0)
[2021-06-18] MEDS: Nicotine 21 MG PATCH.TD24 TRANSDERMA (23:14)
[2021-06-18] MEDS: Piperacillin Sodium/Tazobactam 3.375 GM in 0.9 % Sodium Chloride 50 ML IV (23:15)
[2021-06-18 23:25] VITALS: BP 126/72; PULSE 98; RESP 22; TEMP 36.9; O2SAT 98
[2021-06-18 23:49] LABS: Ethanol < 10 mg/dL
--- NOTE | 2021-06-18 23:58 | PM.IMHP ---
History of Present Illness Date of Service: 06/18/21 Chief Complaint: feet pain 75-year-old female with past medical history of alcohol and tobacco abuse who is brought into the hospital by her son with complaints of bilateral foot pain. Patient appears to have some dementia as she is oriented to self and place but not date. She thinks she is in the 90s. Her son reports that she has had progressive dementia. Patient reports that for the past 4-5 day she has had pain in her toes bilaterally. She describes the pain as severe, nonradiating, and she also reports changes in the color of her feet that have now turned purplish. She denies any fever or chills, no chest pain, no shortness of breath, no abdominal pain nausea or vomiting, no diarrhea constipation, no urinary symptoms and no lower extremity edema. On arrival to the ED patient hemodynamically stable with no significant abnormal vitals Labs are significant for WBC count of 10.1, otherwise unremarkable Arterial duplex of bilateral lower extremity show significant peripheral vascular disease with monophasic flow in the profundus femoris artery and probable severe SFA disease as well. Some element of inflow disease may be present as well. Case was discussed with vascular surgery use will see patient in am Review of Systems Review of Systems: Yes all other systems are reviewed and are negative PMFSH Medical History Alcohol abuse Dementia ETOH abuse Pertinent family history: denies any cardiovascularh istory and family Surgical History (Updated 06/19/21 @ 06:50 by Gera Drew MD) No pertinent past surgical history Social History Alcohol intake: current Alcohol intake frequency: a few times a week Alcohol type: beer Patient Tobacco Use Status: Current everyday Tobacco user Use of substances other than those prescribed or required for medical reasons: No Advance Directives: No Advance Directives Information Provided: Yes Meds Allergies Allergy/AdvReac Type Severity Reaction Status Date / Time No Known Allergies Allergy Verified 06/15/21 11:25 Home Medications Medication Instructions Recorded Confirmed Last Taken Type diclofenac sodium 1 % topical gel 1 applic TOPICAL QID PRN 01/10/21 01/10/21 Unknown History gabapentin 300 mg capsule 300 mg PO TID 01/10/21 01/10/21 Unknown History multivitamin (Daily-Loy) 1 tab PO DAILY 01/10/21 01/10/21 Unknown History sertraline 25 mg tablet 1 tab PO DAILY 01/10/21 01/10/21 Unknown History Physical Exam Vital Signs and Narrative: Vital Signs: Last Vital Signs Temp 98.5 F 06/18/21 23:25 Pulse 98 06/18/21 23:25 Resp 22 H 06/18/21 23:25 BP 126/72 06/18/21 23:25 Pulse Ox 98 06/18/21 23:25 BMI result Body Mass Index 23.2 Const: General: cooperative and no acute distress Eyes: General: appearance normal, both eyes and all related structures Pupils: Equal, round and reactive pupils present Resp: Effort & Inspection: normal respiratory effort Auscultation: clear to auscultation bilaterally Cardio: Rate: regular rate Rhythm: regular rhythm GI: Palpation (GI): Soft to palpation Auscultation: normal bowel sounds Skin: General skin exam: no rashes or lesions noted Neuro: Cranial nerves: Yes Equal, round and reactive pupils present Cognition (Neuro): normal cognition Extrem: Other: bilateral toes discoloration, pedal pulses present by dopple General: Yes no pedal edema Results Labs CBC and Chem 7: 06/19/21 04:10 06/19/21 04:10 Labs: Laboratory Results - last 24 hr 06/18/21 06/18/21 06/18/21 21:55 21:55 21:55 MCV 99.5 H MCH 31.9 MCHC 32.1 RDW 13.8 Plt Count 360 MPV 8.8 L Immature Gran % (Auto) 0.6 H Neut % (Auto) 47.8 Lymph % (Auto) 38.6 [place] % (Auto) 9.5 Eos % (Auto) 2.7 Baso % (Auto) 0.8 Lymph # (Auto) 3.9 [place] # (Auto) 1.0 Eos # (Auto) 0.3 Baso # (Auto) 0.1 Abs Immat Gran (auto) 0.06 H Absolute Neuts (auto) 4.8 Absolute Nucleated RBC 0.000 Nucleated RBC % (auto) 0.0 PT INR APTT Anion Gap 10 L Estim Creat Clear Calc 58.2 Estimated GFR > 60 Random Glucose 105 Lactic Acid Calcium 9.6 Total Bilirubin 0.2 AST 19 ALT 11 Alkaline Phosphatase 82 D Total Protein 6.9 Albumin 3.8 Ethyl Alcohol COVID-19 (AMBER) Negative COVID-19 Clin Com See Note 06/18/21 06/18/21 06/18/21 21:55 21:55 21:55 MCV MCH MCHC RDW Plt Count MPV Immature Gran % (Auto) Neut % (Auto) Lymph % (Auto) [place] % (Auto) Eos % (Auto) Baso % (Auto) Lymph # (Auto) [place] # (Auto) Eos # (Auto) Baso # (Auto) Abs Immat Gran (auto) Absolute Neuts (auto) Absolute Nucleated RBC Nucleated RBC % (auto) PT 11.0 INR 1.0 APTT 33.3 Anion Gap Estim Creat Clear Calc Estimated GFR Random Glucose Lactic Acid 1.6 Calcium Total Bilirubin AST ALT Alkaline Phosphatase Total Protein Albumin Ethyl Alcohol < 10 COVID-19 (AMBER) COVID-19 Clin Com Imaging Radiologist's Impressions: Impressions Duplex Scan Lower Extremity Artery 06/18/21 22:31 IMPRESSION: Significant peripheral vascular disease with monophasic flow in the profunda femoris artery and probable severe SFA disease as well. Some element of inflow disease may be present as well. Assessment and Plan (1) Insufficiency, vascular: Status: Acute (2) Alcohol dependence: Status: Acute (3) Cigarette smoker: Status: Acute 75-year-old female with past medical history of dementia, tobacco and alcohol dependence presents to the hospital with bilateral toe pain found to have vascular insufficiency # vascular insufficiency - arterial duplex as above - most likely related to her history of alcohol and tobacco use - vascular surgery consult, recommended antibiotics and will evaluate patient in a.m. - IV antibiotics ordered - follow culture # tobacco use disorder - nicotine patch order # alcohol depending - reports last drink was 2-3 days ago - no evidence of withdrawal at this time - CIWA # dementia - will most likely need workup palpation DVT prophylaxis: SCDs in the anticipation of possible surgical intervention per vascular surgeon Quality Stroke Does the patient have a stroke diagnosis?: No VTE Prior VTE?: No VTE Risk Level:: Medical - moderate - high VTE Device Contraindication: N/A - Device Ordered VTE Drug Contraindication: Treatment Not Indicated
[2021-06-19] MEDS: hydrOXYzine HCL 50 MG TABLET PO (00:58)
--- NOTE | 2021-06-19 01:00 | PC.NURSE ---
pt pull out Iv, second Iv placed and pt medicated per Mar.
--- NOTE | 2021-06-19 01:20 | PC.NURSE ---
pt medicated and taken to x-ray.
--- NOTE | 2021-06-19 03:44 | PC.NURSE ---
pt is sleeping no sign of distress at this time. pt has positive pedal pulses to right foot area by Doppler marked with marker. Will continue to monitor.
[2021-06-19 03:50] VITALS: BP 148/72; PULSE 78; RESP 17
[2021-06-19] MEDS: vancomycin HCL 1,000 MG in 0.9 % Sodium Chloride 250 ML 270 MG IV (04:14)
[2021-06-19] MEDS: 0.9 % Sodium Chloride Flush 3 ML SYRINGE IVFLUSH ×3 (04:18→17:28)
[2021-06-19 04:24] LABS: MANUAL DIFF FLAG NO
[2021-06-19 04:29] LABS: Basophils Absolute Auto 0.1 X10*3/uL (0.0-0.2); Basophils Percent Auto 0.8 % (0-2); Eosinophils Absolute Auto 0.3 X10*3/uL (0.0-0.4); Eosinophils Percent Auto 2.5 % (0-4); Hemoglobin 12.7 g/dl (12.0-16.0); Imm Gran Abs Auto 0.03 X10*3/uL (0.00-0.03); Imm Gran Pct Auto 0.3 % (0.0-0.4); Lymphocytes Absolute Auto 3.6 X10*3/uL (1.2-4.9); Lymphocytes Percent Auto 31.2 % (20-40); Mean Corpuscular HGB Conc 31.8 g/dl (31.0-35.0); Mean Corpuscular Hemoglobin 31.4 pg (27.0-33.0); Monocytes Percent Auto 8.9 % (2-11); Neutrophils Absolute Auto 6.5 x10*3/uL (2.0-8.3); Neutrophils Percent Auto 56.3 % (45-73); Platelet Count 367 X10*3/uL (160-400); Red Blood Count 4.04 X10*6/uL (4.20-5.50); Red Cell Distribution Width 13.6 % (11.0-16.0); White Blood Count 11.5 X10*3/uL (4.8-10.8)
[2021-06-19 04:40] LABS: Anion Gap 12 (12-20); Blood Urea Nitrogen 7 mg/dL (9-16); Calcium 9.2 mg/dL (8.4-10.2); Carbon Dioxide 25 mmol/L (22-29); Chloride 105 mmol/L (96-108); Creatinine Clr Calc Pharmacy 62.9; Estimated Glomerular Filt Rate > 60; Glucose Random 85 mg/dL (60-115); Sodium 138 mmol/L (135-145)
[2021-06-19] MEDS: Enoxaparin Sodium 40 MG/0.4 ML SYRINGE SUBCUT (05:41)
[2021-06-19] MEDS: Piperacillin Sodium/Tazobactam 3.375 GM in 0.9 % Sodium Chloride 50 ML IV ×3 (05:41→17:30)
--- NOTE | 2021-06-19 07:03 | PHA.PROG ---
Admission Date/Time: June 18, 2021 23:58 Indication: Skin infection due to vascular insufficiency Weight in k.606 kg Adjusted body weight in K kg [place] body weight in K kg Obesity Dosing Indication % IBW:N/A Serum Creatinine - Last 168 Hours 06/18/21 06/19/21 21:55 04:10 Creatinine 0.68 0.63 Estimated CrCl and GFR - Last 168 Hours 06/18/21 06/19/21 21:55 04:10 Estim Creat Clear Calc 58.2 62.9 Estimated GFR > 60 > 60 Vancomycin Loading Dose: N/A Current Vancomycin Dosing Regimen: 1250 mg Q24H Date and Time for next Vancomycin Level to be drawn: 06/21 @ 1999 Pharmacist Comments on Vancomycin Plan: First dose Vancomycin 1000 mg given in the ED at 06/19 @ 0414 Will start Maintenance dose Vancomycin 1250 mg on 06/19 @ 2200 which is 18 hours first dose to create a LD so that patient with be in therapuetic ranges after 3 doses. Trough to be drawn prior to 4th dose Pharmacy will monitor renal function daily Juanita Green PharmD Vancomycin dosing will take advantage of [employer] as a clinical decision support tool that uses Bayesian modeling to calculate individual patient's pharmacokinetic parameters and forecast the patient's drug concentration time course with the target goal AUC 24 range of 400 - 600 mg/L/hr.
--- NOTE | 2021-06-19 08:00 | PHA.MEDREC ---
Pharmacy Consult ? Medication Reconciliation Pharmacy has completed the medication reconciliation. Patient had no idea what medications she takes. Reports no one helps her with her medications. Contacted [facility] to confirm medications. Juanita Green, AmyD
[2021-06-19] MEDS: Thiamine HCL 100 MG TABLET PO (08:25)
[2021-06-19] MEDS: Folic Acid 1 MG TABLET PO (08:25)
[2021-06-19 08:26] VITALS: BP 152/69; PULSE 82; RESP 20; O2SAT 96
[2021-06-19] MEDS: Acetaminophen 325 MG TABLET 650 MG PO (08:31)
--- NOTE | 2021-06-19 08:32 | PC.NURSE ---
pt awake and alert. medicated as charted. states she has a headache and was given tylenol otherwise no stated complaints.
[2021-06-19] MEDS: Gabapentin 300 MG CAPSULE 600 MG PO ×3 (09:06→22:31)
[2021-06-19] MEDS: Sertraline HCL 25 MG TABLET PO (09:06)
[2021-06-19] MEDS: Multivitamin TABLET 1 TAB PO (09:06)
[2021-06-19 09:16] LABS: Estimated Average Glucose 100 mg/dL; Hemoglobin A1c % 5.1 %
[2021-06-19 09:21] LABS: Appearance Urine HAZY; Color Urine YELLOW; Glucose Urine UA NEG (NEG); Leukocyte Esterase Urine NEG (NEG); Nitrite Urine NEG (NEG); PH 6.5 (5.0-8.0); Urine Blood NEG (NEG); Urine Ketones NEG (NEG); Urine Protein NEG (NEG-TRACE)
[2021-06-19 09:34] LABS: Thyroid Stimulating Hormone 3.18 uIU/mL (0.32-4.0)
[2021-06-19 09:48] LABS: Vitamin B12 436 pg/mL (200-900)
--- NOTE | 2021-06-19 09:57 | P.CONGS_ITS ---
History of Present Illness Consult details Consult date: 06/19/21 Reason for consult: ischemic leg Narrative: 75-year-old female with a longstanding history of smoking nearly a pack a day presents for right lower extremity ischemia. It appears to be all chronic in nature as it has been progressing over the past several months. She has had a difficult time ambulating. It has gotten to the point where it is nearly rest pain. She has some skin discoloration and is quite tender on the right lower extremity. She was admitted yesterday evening due to intractable pain. Of note she was seen an outpatient urgent care clinic and was treated for cellulitis with no improvement. Noninvasive testing has been performed. Review of Systems Review of Systems: Yes all other systems are reviewed and are negative Constitutional: Constitutional: Reports no additional constitutional complaints ENT: Reports Normal hearing present Cardiovascular: Cardiovascular: Denies chest pain, Denies chest pain at rest, Denies chest pain with activity and Denies pedal edema Respiratory: Respiratory: Denies cough Gastrointestinal: Gastrointestinal: Denies abdominal pain Musculoskeletal: Musculoskeletal: Reports abnormal gait, Reports muscle cramps and Reports radiating pain into limb Integumentary/Breasts: Skin/Breast: Denies skin ulcer and Denies wounds Neurologic: Reports Normal hearing present and Reports abnormal gait Psychiatric: Psychiatric: Reports no additional psychiatric complaints PMFSH Past Medical History Medical History Alcohol abuse Dementia ETOH abuse Surgical History Surgical History (Updated 06/19/21 @ 06:50 by Gera Drew MD) No pertinent past surgical history Social History Social History Alcohol intake: current Alcohol intake frequency: a few times a week Alcohol type: beer Patient Tobacco Use Status: Current everyday Tobacco user Use of substances other than those prescribed or required for medical reasons: No Advance Directives: No Advance Directives Information Provided: Yes Meds Allergies Allergy/AdvReac Type Severity Reaction Status Date / Time No Known Allergies Allergy Verified 06/15/21 11:25 Active Medications: Current Medications Acetaminophen (Acetaminophen 325 Mg Tablet) 650 mg PO Q6H PRN PRN Reason: Pain, Mild (Pain Scale 1-3) Last Admin: 06/19/21 08:31 Dose: 650 mg Documented by: Docusate Sodium (Docusate Sodium 100 Mg Capsule) 100 mg PO DAILY PRN PRN Reason: Constipation Enoxaparin Sodium (Enoxaparin Sodium 40 Mg/0.4 Ml Syringe) 40 mg SUBCUT Q24H [facility] Last Admin: 06/19/21 05:41 Dose: 40 mg Documented by: Folic Acid (Folic Acid 1 Mg Tablet) 1 mg PO DAILY [facility] Last Admin: 06/19/21 08:25 Dose: 1 mg Documented by: Gabapentin (Gabapentin 300 Mg Capsule) 600 mg PO TID [facility] Last Admin: 06/19/21 09:06 Dose: 600 mg Documented by: Piperacillin Sod/Tazobactam (Sod 3.375 gm/ Sodium Chloride) 50 mls @ 100 mls/hr IV Q6H [facility] Last Admin: 06/19/21 05:41 Dose: 100 mls/hr Documented by: Vancomycin HCl 1,250 mg/ (Sodium Chloride) 250 mls @ 166.667 mls/hr IV Q24H [facility] Multivitamins/Vitamin C (Multivitamin Tablet) 1 tab PO DAILY [facility] Last Admin: 06/19/21 09:06 Dose: 1 tab Documented by: Ondansetron HCl (Ondansetron Hcl 4 Mg/2 Ml Vial) 4 mg IVPUSH Q8H PRN PRN Reason: Nausea and Vomiting Oxycodone HCl (Oxycodone Hcl Immed Release 5 Mg Tablet) 5 mg PO Q6H PRN PRN Reason: Pain, Severe (Pain Scale 7-10) Pharmacy Consult (Consult Rx Vancomycin Dosing) 1 each MISCELLANE DAILY PRN PRN Reason: Consult order Sertraline HCl (Sertraline Hcl 25 Mg Tablet) 25 mg PO DAILY [facility] Last Admin: 06/19/21 09:06 Dose: 25 mg Documented by: Sodium Chloride (0.9 % Sodium Chloride Flush 3 Ml Syringe) 3 ml IVFLUSH QSHIFT [facility] Last Admin: 06/19/21 08:25 Dose: 3 ml Documented by: Thiamine HCl (Thiamine Hcl 100 Mg Tablet) 100 mg PO DAILY [facility] Last Admin: 06/19/21 08:25 Dose: 100 mg Documented by: Home Medications Medication Instructions Recorded Confirmed Last Taken Type gabapentin 300 mg capsule 600 mg PO TID 01/10/21 06/19/21 Unknown History multivitamin (Daily-Loy) 1 tab PO DAILY 01/10/21 06/19/21 Unknown History sertraline 25 mg tablet 1 tab PO DAILY 01/10/21 06/19/21 Unknown History Physical Exam Vital Signs: Vital Signs: Last Vital Signs Temp 98.5 F 06/18/21 23:25 Pulse 82 06/19/21 08:26 Resp 20 06/19/21 08:26 BP 152/69 H 06/19/21 08:26 Pulse Ox 96 06/19/21 08:26 BMI result Body Mass Index 23.2 Const: General: cooperative, healthy appearing and comfortable Orientation/consciousness: oriented to person, oriented to place and oriented to time HENMT: Head: Yes normal to inspection Neck: Neck: Yes normal visual inspection Carotids: no bruits Chest: Chest palpation & inspection: normal inspection of the chest Resp: Effort & Inspection: normal respiratory effort and able to speak in complete sentences Auscultation: clear to auscultation bilaterally, no crackles, no rales, no rhonchi and no wheezes Cardio: Rate: regular rate Rhythm: regular rhythm Heart sounds: S1 normal heart sound present and S2 normal heart sound present Bruits: no carotid bruits Peripheral pulses: dorsalis pedis present (Bilateral DP signals) GI: Inspection: Yes normal to inspection Skin: Wounds: no wounds Hair: normal Neuro: General: oriented to person, oriented to place and oriented to time Cranial nerves: Yes CN's II-XII intact bilaterally and Yes Normal hearing present Cognition (Neuro): normal cognition Motor exam (neuro): 5/5 motor strength present throughout Extrem: Other: venous exam: No significant superficial varicosities or spider telangiectasias, minimal edema General: No clubbing, No cyanosis and No edema Psych: Appearance: grossly normal Mental Status: mental status grossly n ormal Speech and movement: Normal speech and movement present Results Labs Result diagrams: 06/19/21 04:10 06/19/21 04:10 Labs: Abnormal lab results 06/18/21 06/18/21 06/19/21 Range/Units 21:55 21:55 04:10 WBC 11.5 H (4.8-10.8) X10*3/uL RBC 4.04 L (4.20-5.50) X10*6/uL MCV 99.5 H 99.0 H (80.0-98.0) fL MPV 8.8 L 9.0 L (9.4-12.3) fL Immature Gran % (Auto) 0.6 H (0.0-0.4) % Abs Immat Gran (auto) 0.06 H (0.00-0.03) X10*3/uL Anion Gap 10 L (12-20) BUN 7 L (9-16) mg/dL 06/19/21 Range/Units 04:10 WBC (4.8-10.8) X10*3/uL RBC (4.20-5.50) X10*6/uL MCV (80.0-98.0) fL MPV (9.4-12.3) fL Immature Gran % (Auto) (0.0-0.4) % Abs Immat Gran (auto) (0.00-0.03) X10*3/uL Anion Gap (12-20) BUN 7 L (9-16) mg/dL Short CBC 06/18/21 06/19/21 Range/Units 21:55 04:10 WBC 10.1 11.5 H (4.8-10.8) X10*3/uL Hgb 13.6 12.7 (12.0-16.0) g/dl Hct 42.4 40.0 (37.0-47.0) % Plt Count 360 367 (160-400) X10*3/uL BMP 06/18/21 06/19/21 21:55 04:10 Sodium 137 138 Potassium 4.4 4.0 Chloride 103 105 Carbon Dioxide 28 25 BUN 7 L 7 L Creatinine 0.68 0.63 Calcium 9.6 9.2 Liver Function 06/18/21 Range/Units 21:55 Total Bilirubin 0.2 (0.0-1.0) mg/dL AST 19 (5-31) U/L ALT 11 (0-31) U/L Alkaline Phosphatase 82 D (39-117) U/L Albumin 3.8 (3.5-5.0) g/dL Urine 06/19/21 Range/Units 09:15 Urine Color YELLOW Urine Appearance HAZY Urine pH 6.5 (5.0-8.0) Ur Specific [place] 1.010 (1.005-1.025) Urine Protein NEG (NEG-TRACE) MG/DL Urine Glucose (UA) NEG (NEG) MG/DL All other labs normal. Imaging Additional studies: Arterial ultrasound from 06/18 noted SFA disease written report and images were reviewed. Assessment and Plan (1) PAD (peripheral artery disease): Status: Acute Patient notes critical right lower extremity ischemia with rest pain equivalent I have discussed the pathophysiology of peripheral vascular disease with the patient. I have also discussed risk factor modification. I have reviewed the patient's arterial testing which reveals right SFA disease. the patient would benefit from a right leg endovascular peripheral angiogram with possible angioplasty, stent, and/or atherectomy. This has been discussed in detail with the patient along with risks, benefits, and complications. This includes but is not limited to bleeding, infection, heart attack, need for emergent surgical repair, limb ischemia, blood vessel damage, bleeding, puncture, kidney injury, bruising, allergic reaction, and skin reaction. The patient demonstrates a clear understanding. We will schedule for the next appropriate time. Thank you for allowing us to assist in this patient's care. Procedures Date of Service Date of Service: 06/19/21
[2021-06-19 10:42] VITALS: BP 169/77; PULSE 85; RESP 17; TEMP 36.9; O2SAT 95
[2021-06-19 14:12] VITALS: BP 108/83; PULSE 81; RESP 18; TEMP 36.9; O2SAT 95
--- NOTE | 2021-06-19 15:13 | P.PNIM_ITS ---
Subjective Subjective Date of Service: 06/19/21 Interval History: RLE discoloration over the past few weeks, painful. No chest pain. Review of Systems Review of Systems: Yes all other systems are reviewed and are negative Physical Exam Vital Signs: Vital Signs: Last Vital Signs Temp 98.5 F 06/19/21 14:12 Pulse 81 06/19/21 14:12 Resp 18 06/19/21 14:12 BP 108/83 06/19/21 14:12 Pulse Ox 95 06/19/21 14:12 BMI result Body Mass Index 23.2 Gen: in no acute distress HEENT: sclera anicteric, moist mucus membranes Neck: supple Lungs: clear to auscultation bilaterally Heart: regular rate and rhythm, no murmurs Abd: soft, non-tender, non-distended Ext: no edema Skin: discoloration of R foot Neuro: alert and oriented x3, no focal findings Psych: appropriate affect Objective Data Active Medications Acetaminophen (Acetaminophen 325 Mg Tablet) 650 mg PO Q6H PRN PRN Reason: Pain, Mild (Pain Scale 1-3) Last Admin: 06/19/21 08:31 Dose: 650 mg Documented by: DORITA Docusate Sodium (Docusate Sodium 100 Mg Capsule) 100 mg PO DAILY PRN PRN Reason: Constipation Enoxaparin Sodium (Enoxaparin Sodium 40 Mg/0.4 Ml Syringe) 40 mg SUBCUT Q24H [facility] Last Admin: 06/19/21 05:41 Dose: 40 mg Documented by: ANTONIO Folic Acid (Folic Acid 1 Mg Tablet) 1 mg PO DAILY [facility] Last Admin: 06/19/21 08:25 Dose: 1 mg Documented by: DORITA Gabapentin (Gabapentin 300 Mg Capsule) 600 mg PO TID [facility] Last Admin: 06/19/21 09:06 Dose: 600 mg Documented by: DORITA Piperacillin Sod/Tazobactam (Sod 3.375 gm/ Sodium Chloride) 50 mls @ 100 mls/hr IV Q6H [facility] Last Admin: 06/19/21 11:41 Dose: 100 mls/hr Documented by: DORITA Vancomycin HCl 1,250 mg/ (Sodium Chloride) 250 mls @ 166.667 mls/hr IV Q24H [facility] Sodium Chloride (Ns) 1,000 mls @ 100 mls/hr IVCONT .Q10H [facility] Multivitamins/Vitamin C (Multivitamin Tablet) 1 tab PO DAILY [facility] Last Admin: 06/19/21 09:06 Dose: 1 tab Documented by: DORITA Ondansetron HCl (Ondansetron Hcl 4 Mg/2 Ml Vial) 4 mg IVPUSH Q8H PRN PRN Reason: Nausea and Vomiting Oxycodone HCl (Oxycodone Hcl Immed Release 5 Mg Tablet) 5 mg PO Q6H PRN PRN Reason: Pain, Severe (Pain Scale 7-10) Pharmacy Consult (Consult Rx Vancomycin Dosing) 1 each MISCELLANE DAILY PRN PRN Reason: Consult order Sertraline HCl (Sertraline Hcl 25 Mg Tablet) 25 mg PO DAILY [facility] Last Admin: 06/19/21 09:06 Dose: 25 mg Documented by: DORITA Sodium Chloride (0.9 % Sodium Chloride Flush 3 Ml Syringe) 3 ml IVFLUSH QSHIFT [facility] Last Admin: 06/19/21 08:25 Dose: 3 ml Documented by: DORITA Thiamine HCl (Thiamine Hcl 100 Mg Tablet) 100 mg PO DAILY [facility] Last Admin: 06/19/21 08:25 Dose: 100 mg Documented by: DORITA Labs CBC & Chem 7: 06/19/21 04:10 06/19/21 04:10 Labs: Laboratory Results - last 24 hr 06/18/21 06/18/21 06/18/21 21:55 21:55 21:55 MCV 99.5 H MCH 31.9 MCHC 32.1 RDW 13.8 Plt Count 360 MPV 8.8 L Immature Gran % (Auto) 0.6 H Neut % (Auto) 47.8 Lymph % (Auto) 38.6 King % (Auto) 9.5 Eos % (Auto) 2.7 Baso % (Auto) 0.8 Lymph # (Auto) 3.9 King # (Auto) 1.0 Eos # (Auto) 0.3 Baso # (Auto) 0.1 Abs Immat Gran (auto) 0.06 H Absolute Neuts (auto) 4.8 Absolute Nucleated RBC 0.000 Nucleated RBC % (auto) 0.0 PT INR APTT Anion Gap 10 L Estim Creat Clear Calc 58.2 Estimated GFR > 60 Random Glucose 105 Estimat Average Glucose Hemoglobin A1c % Lactic Acid Calcium 9.6 Total Bilirubin 0.2 AST 19 ALT 11 Alkaline Phosphatase 82 D Total Protein 6.9 Albumin 3.8 Vitamin B12 TSH Urine Color Urine Appearance Urine pH Ur Specific [place] Urine Protein Urine Glucose (UA) Urine Ketones Urine Blood Urine Nitrite Ur Leukocyte Esterase Ethyl Alcohol COVID-19 ([facility]BER) Negative COVID-19 Clin Com See Note 06/18/21 06/18/21 06/18/21 21:55 21:55 21:55 MCV MCH MCHC RDW Plt Count MPV Immature Gran % (Auto) Neut % (Auto) Lymph % (Auto) King % (Auto) Eos % (Auto) Baso % (Auto) Lymph # (Auto) King # (Auto) Eos # (Auto) Baso # (Auto) Abs Immat Gran (auto) Absolute Neuts (auto) Absolute Nucleated RBC Nucleated RBC % (auto) PT 11.0 INR 1.0 APTT 33.3 Anion Gap Estim Creat Clear Calc Estimated GFR Random Glucose Estimat Average Glucose Hemoglobin A1c % Lactic Acid 1.6 Calcium Total Bilirubin AST ALT Alkaline Phosphatase Total Protein Albumin Vitamin B12 TSH Urine Color Urine Appearance Urine pH Ur Specific [place] Urine Protein Urine Glucose (UA) Urine Ketones Urine Blood Urine Nitrite Ur Leukocyte Esterase Ethyl Alcohol < 10 COVID-19 ([facility]) COVID-19 Clin Com 06/19/21 06/19/21 06/19/21 04:10 04:10 04:10 MCV 99.0 H MCH 31.4 MCHC 31.8 RDW 13.6 Plt Count 367 MPV 9.0 L Immature Gran % (Auto) 0.3 Neut % (Auto) 56.3 Lymph % (Auto) 31.2 King % (Auto) 8.9 Eos % (Auto) 2.5 Baso % (Auto) 0.8 Lymph # (Auto) 3.6 King # (Auto) 1.0 Eos # (Auto) 0.3 Baso # (Auto) 0.1 Abs Immat Gran (auto) 0.03 Absolute Neuts (auto) 6.5 Absolute Nucleated RBC 0.000 Nucleated RBC % (auto) 0.0 PT INR APTT Anion Gap 12 Estim Creat Clear Calc 62.9 Estimated GFR > 60 Random Glucose 85 Estimat Average Glucose 100 Hemoglobin A1c % 5.1 Lactic Acid Calcium 9.2 Total Bilirubin AST ALT Alkaline Phosphatase Total Protein Albumin Vitamin B12 TSH 3.18 Urine Color Urine Appearance Urine pH Ur Specific [place] Urine Protein Urine Glucose (UA) Urine Ketones Urine Blood Urine Nitrite Ur Leukocyte Esterase Ethyl Alcohol COVID-19 ([facility]) COVID-19 Clin Com 06/19/21 06/19/21 04:10 09:15 MCV MCH MCHC RDW Plt Count MPV Immature Gran % (Auto) Neut % (Auto) Lymph % (Auto) King % (Auto) Eos % (Auto) Baso % (Auto) Lymph # (Auto) King # (Auto) Eos # (Auto) Baso # (Auto) Abs Immat Gran (auto) Absolute Neuts (auto) Absolute Nucleated RBC Nucleated RBC % (auto) PT INR APTT Anion Gap Estim Creat Clear Calc Estimated GFR Random Glucose Estimat Average Glucose Hemoglobin A1c % Lactic Acid Calcium Total Bilirubin AST ALT Alkaline Phosphatase Total Protein Albumin Vitamin B12 436 TSH Urine Color YELLOW Urine Appearance HAZY Urine pH 6.5 Ur Specific [place] 1.010 Urine Protein NEG Urine Glucose (UA) NEG Urine Ketones NEG Urine Blood NEG Urine Nitrite NEG Ur Leukocyte Esterase NEG Ethyl Alcohol COVID-19 ([facility]) COVID-19 Clin Com Assessment and Plan (1) Arterial insufficiency of lower extremity: Status: Acute (2) PAD (peripheral artery disease): Status: Acute (3) Alcohol dependence: Status: Acute (4) Cigarette smoker: Status: Acute Assessment and Plan: hospital d#2 75yo F with dementia, tobacco + EtOH abuse presenting with foot pain and admitted for arterial insufficiency, possible cellulitis of R foot # PAD - Vascular Surgery consulted, NPO for angiogram in am - on broad-spectrm ABX- vanco + pip/fahad d#2 - start statin - prn oxycodone for pain # dementia - TSH + B12 normal. check thiamine level and give empiric thiamine for suspected EtOH dementia # AUD - CIWA scoring, Addiction Medicine consultation # tobacco abuse - NRT # VTE ppx - SCDs Quality Stroke Does the patient have a stroke diagnosis?: No VTE Prior VTE?: No VTE Risk Level:: Medical - moderate - high VTE Device Contraindication: N/A - Device Ordered VTE Drug Contraindication: Treatment Not Indicated
--- NOTE | 2021-06-19 16:01 | PC.NURSE ---
up to bedside commode with assist of one
[2021-06-19 20:33] VITALS: BP 115/92; PULSE 89; RESP 20; TEMP 36.9; O2SAT 98
--- NOTE | 2021-06-19 20:57 | MHC.CM.PN ---
CM met with admitted patient with bed assignment pending. A&Ox3. IMM reviewed and signed per protocol 06/19/2021@[id number]. Pt is a bit vague, poor historian and repeats herself. Has hx of dementia. daily etoh & smoking and PVD. Pt thinks she had a covid vaccine but cannot remember. Pt is aware that her HCP is her son, Epifanio and that he is helpful. Tells CM she has a boarder who helps her. Tells CM she has MOW and a deep well contractor. No CLERICAL AND ADMINISTRATIVE WORKERS. Pt thinks her other son, Silas is in prison. She is not sure. Permission given to speak with her son/HCP Epifanio ([phone]). Epifanio tells CM that his mother is at times confused, especially at night. He tells PORSCHE that his friend lives in the basement, keeps an eye on her, cooks for her and helps with medication management. Epifanio is in process of having [facility] evaluate his mother for additional home services. He is hoping for CLERICAL AND ADMINISTRATIVE WORKERS assistance. Epifanio verifies that [facility] is involved and provides INTELLIGENCE SUPPORT OFFICER and MOW. Epifanio feels his mother is safe at home, but needs extra services. Epifanio tells PORSCHE that his brother was in prison and has been in and out of his mother's home, causing much disruption for her. There is a restraining order against Silas Marbella to enter his mother's home. Epifanio tells PORSCHE that he has cameras set up at home. Epifanio feels that the extra stress of his brother at the home recently has not been good for his mother. Epifanio verifies that the [facility] gave his mother the J&J Covid Vaccination. Both Epifanio and the patient are willing to have [facility] referral at discharge. Son will provide transportation home. Referral placed with [facility]. CM to follow for d/c needs.
[2021-06-19] MEDS: Atorvastatin Calcium 80 MG TABLET PO (22:31)
[2021-06-19] MEDS: vancomycin HCL 1,250 MG in 0.9 % Sodium Chloride 250 ML 166.67 MG IV (22:33)
[2021-06-20] VITALS (14 sets, daily range): BP systolic 105–172; BP diastolic 52–76; PULSE 72–87; RESP 16–18; TEMP 36.1–37.2; O2SAT 93–96
[2021-06-20] MEDS: Piperacillin Sodium/Tazobactam 3.375 GM in 0.9 % Sodium Chloride 50 ML IV ×3 (02:40→18:51)
--- NOTE | 2021-06-20 05:57 | PC.NURSE ---
Report given to PACKING AND STAMPING MACHINE OPERATOR.
[2021-06-20] MEDS: 0.9 % Sodium Chloride 1,000 ML 100 ML IVCONT ×2 (07:17→18:34)
[2021-06-20] MEDS: Gabapentin 300 MG CAPSULE 600 MG PO ×3 (09:47→21:10)
[2021-06-20] MEDS: Sertraline HCL 25 MG TABLET PO (09:48)
--- NOTE | 2021-06-20 09:49 | W.PM.OPN ---
Operative Note Operative Note Date of Service: 06/20/21 Narrative: Angiogram report from [facility] Preoperative diagnosis: Atherosclerosis of right lower extremity with rest pain Postoperative diagnosis: Same Procedure: 1. Ultrasound-guided left common femoral access 2. Aortogram with right lower extremity runoff 3. Atherectomy and stent of right SFA Surgeon:Marcus Ortiz M.D., FACS, RPVI Anthropology Lecturer:None Anesthesia: Local with moderate conscious sedation. Total intraservice moderate sedation time was 70 minutes. I monitored the patient's level of consciousness and physiologic status continuously throughout the procedure. Specimens:none Drains:none Estimated blood loss: Less than 10 ml Implant: Medtronic Ev 3: 5 x 120 and 5 x 60 Indications: 75-year-old female presented to the emergency room with onset of right lower extremity rest pain. She had actually originally presented to an Urgent Care Center week prior which was treated for cellulitis no significant improvement she had intractable pain and was subsequently admitted. She had noninvasive testing which demonstrated SFA disease she now presents for endovascular intervention The patient healthcare proxy the informed consent after reviewing risks, complications, benefits, and alternatives previously discussed with the patient. The patient was given the opportunity to ask any additional questions or voice any concerns. All questions were answered to the patient's satisfaction. Procedure in detail: Patient was brought to the angiography suite prior to which a time-out was called for patient identification and site verification. Bilateral groins were prepped and draped in the standard surgical fashion. Under ultrasound guidance left common femoral was punctured with micro puncture needle and wire. Subsequently a precision 5 [place] sheath was then placed. Bentson wire was advanced to the level of the aorta. 5 [place] Flush catheter was brought up and parked at the level of the renal arteries. Aortogram was then undertaken. Catheter was brought down to the level of the iliac bifurcation. Iliacs were subsequently imaged. Catheter was then brought in up and over to the right side SFA. Runoff study was then undertaken. It was recognized that there was a total occlusion in the mid SFA. At this time 5000 units of systemic heparin was administered. After 5 minutes of circulation time up and over 6 [place] sheath was then placed. We were then able to traverse the lesion with a 035 glidewire Advantage. We confirmed true lumen with a now be cross catheter instilled with contrast. Subsequent to that we exchanged out for 5 [place] spider wire. Hawk 1 atherectomy was performed in the mid to distal SFA. Multiple unidirectional passes were undertaken. Lumen was created and improved. Once this was accomplished there was residual stenosis. This area was plasty and with a 5 x 100 balloon. There was still residual stenosis a decision was then made to place stents. We 1st placed a 5 x 120 stent and subsequently more proximally we placed a 5 x 60 stent. We then subsequently plasty this with a 5 x 100 balloon to obtain good wall apposition. Completion angiogram was then undertaken. Catheter wire sheath were then removed. StarClose closure device was then placed. Patient tolerated the procedure well. Returned to recovery with stable vitals. Interpretation of films: 1. Ultrasound demonstrates appropriate femoral puncture. Image of which was saved. 2. Aortogram demonstrates appropriate caliber aorta. Minimal disease. Appropriate take-off of the renals. 3. Iliac images demonstrate mild disease throughout 4. RightLeg Common femoral artery: Patent no significant disease Profundus Femoris: No significant disease Superficial femoral artery: Occlusion mid to distal SFA with reconstitution at the above knee popliteal Popliteal artery (p1,p2,p3): Patent Anterior tibial artery: Jkea-hd-kintffua disease but dominant runoff Peroneal artery: Occluded Posterior tibial artery: Occluded Dorsalis pedis/plantar arch: Partial fill via anterior tibial 5. Post atherectomy and stent right lower extremity good fill throughout the SFA Conclusion: 1. Successful atherectomy and stent placement of right SFA 2. Anticoagulation status: Patient will require 6 months of aspirin and Plavix This note is constructed using voice recognition software. While every effort has been made to ensure accuracy, development representative errors may have been included. Thank you for allowing me to participate in the care of your patient. Yours sincerely, Marcus Ortiz MD, FACS, R.P.V.I.
[2021-06-20] MEDS: Morphine Sulfate 4 MG/ML CARTRIDGE IVPUSH (10:21)
[2021-06-20] MEDS: ondansetron HCL 4 MG/2 ML VIAL IVPUSH (10:32)
[2021-06-20] MEDS: Clopidogrel Bisulfate 300 MG TABLET PO (10:32)
[2021-06-20] MEDS: Aspirin 325 MG TABLET 650 MG PO (10:52)
[2021-06-20] MEDS: Thiamine HCL 100 MG TABLET PO (10:53)
[2021-06-20] MEDS: Folic Acid 1 MG TABLET PO (10:53)
[2021-06-20] MEDS: Multivitamin TABLET 1 TAB PO (10:53)
[2021-06-20 13:06] LABS: Hematocrit 39.1 % (37.0-47.0); Hemoglobin 12.5 g/dl (12.0-16.0); Mean Corpuscular Hemoglobin 31.9 pg (27.0-33.0); Mean Corpuscular Volume 99.7 fL (80.0-98.0); Mean Platelet Volume 8.8 fL (9.4-12.3); Platelet Count 351 X10*3/uL (160-400); Red Blood Count 3.92 X10*6/uL (4.20-5.50); Red Cell Distribution Width 13.6 % (11.0-16.0); White Blood Count 8.3 X10*3/uL (4.8-10.8)
[2021-06-20 13:16] LABS: Creatinine Clr Calc Pharmacy 52.1; Estimated Glomerular Filt Rate > 60
--- NOTE | 2021-06-20 16:06 | HO.PM.IMPN ---
Subjective Subjective Date of Service: 06/20/21 Interval History: Patient seen at [facility] , awake alert oriented to self only, patient underwent atherectomy and stent placement of right SFA this a.m. by Dr. Ortiz for diagnosis of right lower extremity rest pain due to atherosclerosis, patient complaining of right foot pain, otherwise no other acute complaints. Review of Systems Review of Systems: Yes Unobtainable due to mental status Physical Exam Vital Signs: Vital Signs: Last Vital Signs Temp 97.8 F 06/20/21 16:00 Pulse 76 06/20/21 16:00 Resp 18 06/20/21 16:00 BP 113/53 L 06/20/21 16:00 Pulse Ox 96 06/20/21 16:00 BMI result Body Mass Index 23.2 Gen: Awake alert, in no acute distress HEENT: sclera anicteric, moist mucus membranes Neck: supple Lungs: clear to auscultation bilaterally Heart: regular rate and rhythm, no murmurs Abd: soft, non-tender, non-distended Ext: no edema Skin: discoloration of R foot toes extending towards the dorsum of foot Neuro: alert and oriented x 1, no focal findings Psych: appropriate affect Objective Data Active Medications Acetaminophen (Acetaminophen 325 Mg Tablet) 650 mg PO Q6H PRN PRN Reason: Pain, Mild (Pain Scale 1-3) Last Admin: 06/19/21 08:31 Dose: 650 mg Documented by: DORITA Aspirin (Aspirin 81 Mg Tab.Chew) 81 mg PO DAILY [facility] Atorvastatin Calcium (Atorvastatin Calcium 80 Mg Tablet) 80 mg PO BEDTIME [facility] Last Admin: 06/19/21 22:31 Dose: 80 mg Documented by: KENDRICK Clopidogrel Bisulfate (Clopidogrel Bisulfate 75 Mg Tablet) 75 mg PO DAILY [facility] Docusate Sodium (Docusate Sodium 100 Mg Capsule) 100 mg PO DAILY PRN PRN Reason: Constipation Enoxaparin Sodium (Enoxaparin Sodium 40 Mg/0.4 Ml Syringe) 40 mg SUBCUT Q24H [facility] Last Admin: 06/19/21 05:41 Dose: 40 mg Documented by: ANTONIO Folic Acid (Folic Acid 1 Mg Tablet) 1 mg PO DAILY [facility] Last Admin: 06/20/21 10:53 Dose: 1 mg Documented by: NALINI Gabapentin (Gabapentin 300 Mg Capsule) 600 mg PO TID [facility] Last Admin: 06/20/21 14:37 Dose: 600 mg Documented by: NALINI Piperacillin Sod/Tazobactam (Sod 3.375 gm/ Sodium Chloride) 50 mls @ 100 mls/hr IV Q6H [facility] Last Infusion: 06/20/21 12:07 Dose: 0 mls/hr Documented by: NALINI Vancomycin HCl 1,250 mg/ (Sodium Chloride) 250 mls @ 166.667 mls/hr IV Q24H [facility] Last Infusion: 06/20/21 02:01 Dose: 0 mls/hr Documented by: KENDRICK Sodium Chloride (Ns) 1,000 mls @ 100 mls/hr IVCONT .Q10H [facility] Last Admin: 06/20/21 07:17 Dose: 100 mls/hr Documented by: CHARLEY Sodium Chloride (Ns) 1,000 mls @ 100 mls/hr IVCONT .Q10H [facility] Morphine Sulfate (Morphine Sulfate 4 Mg/Ml Cartridge) 4 mg IVPUSH Q2H PRN; Protocol PRN Reason: Pain, Severe (Pain Scale 7-10) Last Admin: 06/20/21 10:21 Dose: 4 mg Documented by: NALINI Multivitamins/Vitamin C (Multivitamin Tablet) 1 tab PO DAILY [facility] Last Admin: 06/20/21 10:53 Dose: 1 tab Documented by: NALINI Ondansetron HCl (Ondansetron Hcl 4 Mg/2 Ml Vial) 4 mg IVPUSH Q8H PRN PRN Reason: Nausea and Vomiting Last Admin: 06/20/21 10:32 Dose: 4 mg Documented by: NALINI Oxycodone HCl (Oxycodone Hcl Immed Release 5 Mg Tablet) 5 mg PO Q6H PRN PRN Reason: Pain, Severe (Pain Scale 7-10) Pharmacy Consult (Consult Rx Vancomycin Dosing) 1 each MISCELLANE DAILY PRN PRN Reason: Consult order Sertraline HCl (Sertraline Hcl 25 Mg Tablet) 25 mg PO DAILY [facility] Last Admin: 06/20/21 09:48 Dose: 25 mg Documented by: NALINI Sodium Chloride (0.9 % Sodium Chloride Flush 3 Ml Syringe) 3 ml IVFLUSH QSHIFT [facility] Last Admin: 06/20/21 02:41 Dose: Not Given Documented by: KENDRICK Non-Admin Reason: IV Running Thiamine HCl (Thiamine Hcl 100 Mg Tablet) 100 mg PO DAILY [facility] Last Admin: 06/20/21 10:53 Dose: 100 mg Documented by: WARM Labs CBC & Chem 7: 06/20/21 12:50 06/20/21 12:50 Labs: Laboratory Results - last 24 hr 06/20/21 06/20/21 12:50 12:50 MCV 99.7 H MCH 31.9 MCHC 32.0 RDW 13.6 Plt Count 351 MPV 8.8 L Absolute Nucleated RBC 0.000 Nucleated RBC % (auto) 0.0 Estim Creat Clear Calc 52.1 Estimated GFR > 60 Microbiology Microbiology Results: Microbiology 06/18/21 22:46 Blood Culture - Preliminary Blood - Venous No growth after 24 hours. 06/18/21 22:46 Blood Culture - Preliminary Blood - Venous No growth after 24 hours. Assessment and Plan (1) Arterial insufficiency of lower extremity: Status: Acute (2) PAD (peripheral artery disease): Status: Acute (3) Cellulitis of right foot: Status: Acute (4) Cigarette smoker: Status: Acute (5) Alcohol dependence: Status: Acute Assessment and Plan: 75yo F with dementia, tobacco + EtOH abuse presenting with foot pain and admitted for arterial insufficiency, possible cellulitis of R foot # PAD/right foot cellulitis - status post right SFA stent placement and atherectomy by Dr. Ortiz - continue IV vanco + pip/fahad d#3 - continue prn IV morphine and oxycodone for pain -continue dual antiplatelet therapy as per vascular surgeon # dementia - TSH + B12 normal, thiamine level pending , CT head last year showed no acute abnormality # alcohol use disorder - follow CIWA scoring, await Addiction Medicine and care team consultation # tobacco abuse - will add Nicorette gums as needed for cravings # VTE ppx - on Lovenox Quality Stroke Does the patient have a stroke diagnosis?: No VTE Prior VTE?: No VTE Risk Level:: Medical - moderate - high VTE Device Contraindication: N/A - Device Ordered VTE Drug Contraindication: Treatment Not Indicated
[2021-06-20] MEDS: vancomycin HCL 1,250 MG in 0.9 % Sodium Chloride 250 ML 166.67 MG IV (21:09)
[2021-06-20] MEDS: Atorvastatin Calcium 80 MG TABLET PO (21:09)
[2021-06-21] VITALS (7 sets, daily range): BP systolic 112–168; BP diastolic 57–110; PULSE 71–99; RESP 18–20; TEMP 36.2–37; O2SAT 92–98
[2021-06-21] MEDS: Piperacillin Sodium/Tazobactam 3.375 GM in 0.9 % Sodium Chloride 50 ML IV ×5 (00:34→23:15)
[2021-06-21] MEDS: Enoxaparin Sodium 40 MG/0.4 ML SYRINGE SUBCUT (05:20)
[2021-06-21] MEDS: 0.9 % Sodium Chloride 1,000 ML 100 ML IVCONT ×2 (05:59→19:32)
[2021-06-21 06:47] LABS: Estimated Glomerular Filt Rate > 60
[2021-06-21] MEDS: oxyCODONE HCl Immed Release 5 MG TABLET PO ×2 (07:18→13:05)
[2021-06-21] MEDS: Clopidogrel Bisulfate 75 MG TABLET PO (07:19)
[2021-06-21] MEDS: Aspirin 81 MG TAB.CHEW PO (07:19)
[2021-06-21] MEDS: Thiamine HCL 100 MG TABLET PO (07:19)
[2021-06-21] MEDS: Folic Acid 1 MG TABLET PO (07:19)
[2021-06-21] MEDS: Multivitamin TABLET 1 TAB PO (07:19)
[2021-06-21] MEDS: Gabapentin 300 MG CAPSULE 600 MG PO ×3 (07:19→21:30)
[2021-06-21] MEDS: 0.9 % Sodium Chloride Flush 3 ML SYRINGE IVFLUSH (07:19)
[2021-06-21] MEDS: Sertraline HCL 25 MG TABLET PO (07:19)
--- NOTE | 2021-06-21 11:29 | P.PNVS_ITS ---
Subjective Subjective Date of Service: 06/21/21 Patient reports: no new complaints and feels better Interval history: 75-year-old female postop day 1 status post right lower extremity endovascular intervention. She appears to be doing significantly better. Pain and discomfort have decreased. She still does have some pain and erythema of the foot. She is now for routine postprocedure follow-up. Physical Exam 2 Vital Signs: Vital Signs: Last Vital Signs Temp 97.7 F 06/21/21 08:00 Pulse 71 06/21/21 08:00 Resp 20 06/21/21 08:00 BP 144/69 H 06/21/21 08:00 Pulse Ox 92 06/21/21 08:00 BMI result Body Mass Index 23.2 Const: General: cooperative, healthy appearing and no acute distress Orientation/consciousness: oriented to person, oriented to place and oriented to time HENMT: Head: Yes normal to inspection Neck: Carotids: no bruits Chest: Chest palpation & inspection: normal inspection of the chest Resp: Effort & Inspection: normal respiratory effort and able to speak in complete sentences Auscultation: clear to auscultation bilaterally Cardio: Rate: regular rate Heart sounds: S1 normal heart sound present and S2 normal heart sound present GI: Inspection: Yes normal to inspection Skin: General skin exam: no rashes or lesions noted Wounds: wounds noted (Right foot between 3rd and 4th toe web) Neuro: General: oriented to person, oriented to place, oriented to time and CN's II-XI intact bilaterally Extrem: General: Yes normal to inspection, Yes full ROM and Yes no clubbing, cyanosis or edema Psych: Appearance: grossly normal and well kempt Speech and movement: Normal speech and movement present Affect: normal affect Progress Note: A&P Assessment and plan (1) PAD (peripheral artery disease): Status: Acute Assessment and Plan: Patient is status post right SFA atherectomy and stent placement. She has done extremely well with the procedure. She is stable from a vascular standpoint. Upon discharge she will require to be on aspirin 81 mg and Plavix 75 mg daily. In addition I would treat the superficial cellulitis of the foot. She has a nonhealing ulcer between the webspace and may benefit from referral to [facility] as well. Thank you for allowing us to assist in her care. If there are any questions or concerns please do not hesitate to contact us. Fall Risk Details Current Medications: Current Medications Acetaminophen (Acetaminophen 325 Mg Tablet) 650 mg PO Q6H PRN PRN Reason: Pain, Mild (Pain Scale 1-3) Last Admin: 06/19/21 08:31 Dose: 650 mg Documented by: Aspirin (Aspirin 81 Mg Tab.Chew) 81 mg PO DAILY [facility] Last Admin: 06/21/21 07:19 Dose: 81 mg Documented by: Atorvastatin Calcium (Atorvastatin Calcium 80 Mg Tablet) 80 mg PO BEDTIME [facility] Last Admin: 06/20/21 21:09 Dose: 80 mg Documented by: Clopidogrel Bisulfate (Clopidogrel Bisulfate 75 Mg Tablet) 75 mg PO DAILY [facility] Last Admin: 06/21/21 07:19 Dose: 75 mg Documented by: Docusate Sodium (Docusate Sodium 100 Mg Capsule) 100 mg PO DAILY PRN PRN Reason: Constipation Enoxaparin Sodium (Enoxaparin Sodium 40 Mg/0.4 Ml Syringe) 40 mg SUBCUT Q24H [facility] Last Admin: 06/21/21 05:20 Dose: 40 mg Documented by: Folic Acid (Folic Acid 1 Mg Tablet) 1 mg PO DAILY [facility] Last Admin: 06/21/21 07:19 Dose: 1 mg Documented by: Gabapentin (Gabapentin 300 Mg Capsule) 600 mg PO TID [facility] Last Admin: 06/21/21 07:19 Dose: 600 mg Documented by: Piperacillin Sod/Tazobactam (Sod 3.375 gm/ Sodium Chloride) 50 mls @ 100 mls/hr IV Q6H [facility] Last Infusion: 06/21/21 05:59 Dose: Infused Documented by: Vancomycin HCl 1,250 mg/ (Sodium Chloride) 250 mls @ 166.667 mls/hr IV Q24H [facility] Last Infusion: 06/21/21 00:07 Dose: Infused Documented by: Sodium Chloride (Ns) 1,000 mls @ 100 mls/hr IVCONT .Q10H [facility] Last Admin: 06/21/21 05:59 Dose: 100 mls/hr Documented by: Morphine Sulfate (Morphine Sulfate 4 Mg/Ml Cartridge) 4 mg IVPUSH Q2H PRN; Protocol PRN Reason: Pain, Severe (Pain Scale 7-10) Last Admin: 06/20/21 10:21 Dose: 4 mg Documented by: Multivitamins/Vitamin C (Multivitamin Tablet) 1 tab PO DAILY [facility] Last Admin: 06/21/21 07:19 Dose: 1 tab Documented by: Nicotine Polacrilex (Nicotine Polacrilex Lozenge 2 Mg Lozenge) 2 mg BUCCAL Q2H PRN PRN Reason: Nicotine Cravings Ondansetron HCl (Ondansetron Hcl 4 Mg/2 Ml Vial) 4 mg IVPUSH Q8H PRN PRN Reason: Nausea and Vomiting Last Admin: 06/20/21 10:32 Dose: 4 mg Documented by: Oxycodone HCl (Oxycodone Hcl Immed Release 5 Mg Tablet) 5 mg PO Q6H PRN PRN Reason: Pain, Severe (Pain Scale 7-10) Last Admin: 06/21/21 07:18 Dose: 5 mg Documented by: Pharmacy Consult (Consult Rx Vancomycin Dosing) 1 each MISCELLANE DAILY PRN PRN Reason: Consult order Sertraline HCl (Sertraline Hcl 25 Mg Tablet) 25 mg PO DAILY [facility] Last Admin: 06/21/21 07:19 Dose: 25 mg Documented by: Sodium Chloride (0.9 % Sodium Chloride Flush 3 Ml Syringe) 3 ml IVFLUSH QSHIFT [facility] Last Admin: 06/21/21 07:19 Dose: 3 ml Documented by: Thiamine HCl (Thiamine Hcl 100 Mg Tablet) 100 mg PO DAILY [facility] Last Admin: 06/21/21 07:19 Dose: 100 mg Documented by: Time Spent With Patient Time: Total time spent is greater than 50% in coordination of care (as documented) at patient's floor/unit and/or counseling patient: Time with patient: 15 - 24 minutes Procedures Date of Service Date of Service: 06/21/21 Quality Stroke Does the patient have a stroke diagnosis?: No VTE Prior VTE?: No VTE Risk Level:: Medical - moderate - high VTE Device Contraindication: N/A - Device Ordered VTE Drug Contraindication: Treatment Not Indicated
--- NOTE | 2021-06-21 11:53 | MHC.RECOVRN ---
Met with pt in 347 after consult placed to CARE Team and Addiction Medicine for alcohol use. Pt awake, alert, engaged in conversation, however, pt is a poor historian and answers questions vaguely. When asked about alcohol use pt states I don't have a problem. I can't even tell you the last time I was drunk. I only drink when someone brings it over, I don't have the money anymore. Pt unable to elaborate on frequency of alcohol use. Reports if someone is visiting and brings a 6 pack of beer, pt will drink 4. Pt denies experiencing withdrawal symptoms as well as any history of treatment for AUD. Pt is not interested in recovery support at this time but is accepting of written materials. Pt provided with resources as well as t/w contact information if needed.
--- NOTE | 2021-06-21 13:54 | P.PNIM_ITS ---
Subjective Subjective Date of Service: 06/21/21 Interval History: Patient awake alert, admits to have less right leg pain, agreeing for nicotine patch smokes 1 pack per day, no other acute issues overnight, no fevers, no chills, Review of Systems Review of Systems: Yes all other systems are reviewed and are negative Physical Exam Vital Signs: Vital Signs: Last Vital Signs Temp 97.2 F 06/21/21 12:00 Pulse 71 06/21/21 12:01 Resp 20 06/21/21 12:00 BP 144/69 H 06/21/21 12:01 Pulse Ox 92 06/21/21 12:01 BMI result Body Mass Index 23.2 Gen:? Awake alert, no acute distress HEENT: sclera anicteric, moist mucus membranes Neck: supple Lungs: clear to auscultation bilaterally Heart: regular rate and rhythm, no murmurs Abd: soft, non-tender, non-distended Ext: no edema Skin: Less erythema dorsum of right foot good peripheral pulses Neuro: alert and oriented x 1, no focal findings Psych: appropriate affect Objective Data Active Medications Acetaminophen (Acetaminophen 325 Mg Tablet) 650 mg PO Q6H PRN PRN Reason: Pain, Mild (Pain Scale 1-3) Last Admin: 06/19/21 08:31 Dose: 650 mg Documented by: DORITA Aspirin (Aspirin 81 Mg Tab.Chew) 81 mg PO DAILY [facility] Last Admin: 06/21/21 07:19 Dose: 81 mg Documented by: RUDDY Atorvastatin Calcium (Atorvastatin Calcium 80 Mg Tablet) 80 mg PO BEDTIME [facility] Last Admin: 06/20/21 21:09 Dose: 80 mg Documented by: THEODORE Clopidogrel Bisulfate (Clopidogrel Bisulfate 75 Mg Tablet) 75 mg PO DAILY [facility] Last Admin: 06/21/21 07:19 Dose: 75 mg Documented by: RUDDY Docusate Sodium (Docusate Sodium 100 Mg Capsule) 100 mg PO DAILY PRN PRN Reason: Constipation Enoxaparin Sodium (Enoxaparin Sodium 40 Mg/0.4 Ml Syringe) 40 mg SUBCUT Q24H [facility] Last Admin: 06/21/21 05:20 Dose: 40 mg Documented by: THEODORE Folic Acid (Folic Acid 1 Mg Tablet) 1 mg PO DAILY [facility] Last Admin: 06/21/21 07:19 Dose: 1 mg Documented by: RUDDY Gabapentin (Gabapentin 300 Mg Capsule) 600 mg PO TID [facility] Last Admin: 06/21/21 07:19 Dose: 600 mg Documented by: RUDDY Piperacillin Sod/Tazobactam (Sod 3.375 gm/ Sodium Chloride) 50 mls @ 100 mls/hr IV Q6H [facility] Last Infusion: 06/21/21 05:59 Dose: 0 mls/hr Documented by: THEODORE Vancomycin HCl 1,250 mg/ (Sodium Chloride) 250 mls @ 166.667 mls/hr IV Q24H [facility] Last Infusion: 06/21/21 00:07 Dose: 0 mls/hr Documented by: THEODORE Sodium Chloride (Ns) 1,000 mls @ 100 mls/hr IVCONT .Q10H [facility] Last Admin: 06/21/21 13:04 Dose: Not Given Documented by: RUDDY Non-Admin Reason: IV Running Morphine Sulfate (Morphine Sulfate 4 Mg/Ml Cartridge) 4 mg IVPUSH Q2H PRN; Protocol PRN Reason: Pain, Severe (Pain Scale 7-10) Last Admin: 06/20/21 10:21 Dose: 4 mg Documented by: ANLINI Multivitamins/Vitamin C (Multivitamin Tablet) 1 tab PO DAILY [facility] Last Admin: 06/21/21 07:19 Dose: 1 tab Documented by: RUDDY Nicotine Polacrilex (Nicotine Polacrilex Lozenge 2 Mg Lozenge) 2 mg BUCCAL Q2H PRN PRN Reason: Nicotine Cravings Ondansetron HCl (Ondansetron Hcl 4 Mg/2 Ml Vial) 4 mg IVPUSH Q8H PRN PRN Reason: Nausea and Vomiting Last Admin: 06/20/21 10:32 Dose: 4 mg Documented by: NALINI Oxycodone HCl (Oxycodone Hcl Immed Release 5 Mg Tablet) 5 mg PO Q6H PRN PRN Reason: Pain, Severe (Pain Scale 7-10) Last Admin: 06/21/21 13:05 Dose: 5 mg Documented by: RUDDY Pharmacy Consult (Consult Rx Vancomycin Dosing) 1 each MISCELLANE DAILY PRN PRN Reason: Consult order Sertraline HCl (Sertraline Hcl 25 Mg Tablet) 25 mg PO DAILY [facility] Last Admin: 06/21/21 07:19 Dose: 25 mg Documented by: RUDDY Sodium Chloride (0.9 % Sodium Chloride Flush 3 Ml Syringe) 3 ml IVFLUSH QSHIFT [facility] Last Admin: 06/21/21 07:19 Dose: 3 ml Documented by: RUDDY Thiamine HCl (Thiamine Hcl 100 Mg Tablet) 100 mg PO DAILY [facility] Last Admin: 06/21/21 07:19 Dose: 100 mg Documented by: RUDDY Labs CBC & Chem 7: 06/20/21 12:50 06/21/21 06:00 Labs: Laboratory Results - last 24 hr 06/21/21 06:00 Estim Creat Clear Calc 55.0 Estimated GFR > 60 Microbiology Microbiology Results: Microbiology 06/18/21 22:46 Blood Culture - Preliminary Blood - Venous No growth after 48 hours. 06/18/21 22:46 Blood Culture - Preliminary Blood - Venous No growth after 48 hours. Assessment and Plan (1) Arterial insufficiency of lower extremity: Status: Acute (2) PAD (peripheral artery disease): Status: Acute (3) Alcohol dependence: Status: Acute (4) Cigarette smoker: Status: Acute (5) Cellulitis of right foot: Status: Acute Assessment and Plan: 75yo F with dementia, tobacco + EtOH abuse presenting with foot pain and admitted for arterial insufficiency, possible cellulitis of R foot # PAD/right foot cellulitis - less foot pain and erythema, allowing examination - status post right SFA stent placement and atherectomy pod #2 - continue IV vanco + pip/fahad d#4 will transition to by mouth Keflex at a.m. - continue oxycodone for pain, DC IV morphine - continue dual antiplatelet therapy as per vascular surgeon - small open ulcer in between 3rd and 4th toes, continue dry dressing and outpatient wound care follow-up -patient seen by physical therapy they recommend 1-2 days of close 247 follow up, case discussed with son he agreed for short-term rehab but if unable to find a place than he will take patient home and arrange for 247 care. # dementia - TSH + B12 normal, thiamine level pending , CT head last year showed no acute abnormality # alcohol use disorder - no withdrawal symptoms, seen by care team, patient not interested in recovery support at this time but accepted written material # tobacco abuse - will order nicotine patch 21 mg daily, continue Nicorette gums as needed for cravings, counseling # VTE ppx - on Lovenox Quality Stroke Does the patient have a stroke diagnosis?: No VTE Prior VTE?: No VTE Risk Level:: Medical - moderate - high VTE Device Contraindication: N/A - Device Ordered VTE Drug Contraindication: Treatment Not Indicated
--- NOTE | 2021-06-21 15:36 | MHC.CM.PN ---
physical therapy receommending str called and spoke with son leola /hcpwho is agreeable to str referrals made
--- NOTE | 2021-06-21 17:11 | PM.EVENT ---
Event Note Date of Service: 06/21/21 Event Note: Addiction consult: Please see Recovery support RN note
[2021-06-21 21:10] LABS: Vancomycin Trough 8.8 mcg/mL (10.0-20.0)
[2021-06-21] MEDS: vancomycin HCL 1,500 MG in 0.9 % Sodium Chloride 500 ML 333.33 MG IV (21:29)
[2021-06-21] MEDS: Atorvastatin Calcium 80 MG TABLET PO (21:30)
[2021-06-22] VITALS: BP 160/71; PULSE 96; RESP 18; TEMP 36.5; O2SAT 99
[2021-06-22 04:00] VITALS: BP 163/77; PULSE 94; RESP 18; TEMP 36.3; O2SAT 94
[2021-06-22] MEDS: Piperacillin Sodium/Tazobactam 3.375 GM in 0.9 % Sodium Chloride 50 ML IV (05:03)
[2021-06-22] MEDS: Enoxaparin Sodium 40 MG/0.4 ML SYRINGE SUBCUT (05:05)
[2021-06-22 05:49] LABS: Creatinine Clr Calc Pharmacy 62.9; Estimated Glomerular Filt Rate > 60
[2021-06-22] MEDS: cephALEXin 500 MG CAPSULE PO ×3 (08:24→22:33)
[2021-06-22] MEDS: Gabapentin 300 MG CAPSULE 600 MG PO ×3 (08:24→21:24)
[2021-06-22] MEDS: Folic Acid 1 MG TABLET PO (08:24)
[2021-06-22] MEDS: Sertraline HCL 25 MG TABLET PO (08:25)
[2021-06-22] MEDS: Multivitamin TABLET 1 TAB PO (08:25)
[2021-06-22] MEDS: Nicotine 14 MG PATCH.TD24 TRANSDERMA (08:25)
[2021-06-22] MEDS: Thiamine HCL 100 MG TABLET PO (08:25)
[2021-06-22] MEDS: Aspirin 81 MG TAB.CHEW PO (08:25)
[2021-06-22] MEDS: Clopidogrel Bisulfate 75 MG TABLET PO (08:25)
[2021-06-22 11:20] VITALS: BP 125/62; PULSE 76; RESP 18; TEMP 35.5; O2SAT 94
--- NOTE | 2021-06-22 12:06 | P.PNIM_ITS ---
Subjective Subjective Date of Service: 06/22/21 Interval History: Feeling better this morning less foot pain, denies fever chills no other acute issues overnight tolerating diet. Review of Systems Review of Systems: Yes all other systems are reviewed and are negative Physical Exam Vital Signs: Vital Signs: Last Vital Signs Temp 96 F L 06/22/21 11:20 Pulse 76 06/22/21 11:20 Resp 18 06/22/21 11:20 BP 125/62 06/22/21 11:20 Pulse Ox 94 06/22/21 11:20 BMI result Body Mass Index 23.2 Gen:? Awake alert, no acute distress HEENT: sclera ani cteric, moist mucu s membranes Neck: supple Lungs: chang r to auscultation bilaterally Heart: regular rate and rhythm, no murmurs Abd: soft, non-te nder, non-distende d Ext: no edema Sk in:? Less erythema dorsum of right f oot good periphera l pulses, small op en area in between 3rd and 4th toe N euro: alert and or iented x 1, no foc al findings Psych: appropriate affec t Objective Data Active Medications Acetaminophen (Acetaminophen 325 Mg Tablet) 650 mg PO Q6H PRN PRN Reason: Pain, Mild (Pain Scale 1-3) Last Admin: 06/19/21 08:31 Dose: 650 mg Documented by: DORITA Aspirin (Aspirin 81 Mg Tab.Chew) 81 mg PO DAILY [facility] Last Admin: 06/22/21 08:25 Dose: 81 mg Documented by: JOANNE Atorvastatin Calcium (Atorvastatin Calcium 80 Mg Tablet) 80 mg PO BEDTIME [facility] Last Admin: 06/21/21 21:30 Dose: 80 mg Documented by: ABHISHEK Cephalexin HCl (Cephalexin 500 Mg Capsule) 500 mg PO Q8H [facility] Last Admin: 06/22/21 08:24 Dose: 500 mg Documented by: JOANNE Clopidogrel Bisulfate (Clopidogrel Bisulfate 75 Mg Tablet) 75 mg PO DAILY [facility] Last Admin: 06/22/21 08:25 Dose: 75 mg Documented by: JOANNE Docusate Sodium (Docusate Sodium 100 Mg Capsule) 100 mg PO DAILY PRN PRN Reason: Constipation Enoxaparin Sodium (Enoxaparin Sodium 40 Mg/0.4 Ml Syringe) 40 mg SUBCUT Q24H [facility] Last Admin: 06/22/21 05:05 Dose: 40 mg Documented by: ABHISHEK Folic Acid (Folic Acid 1 Mg Tablet) 1 mg PO DAILY [facility] Last Admin: 06/22/21 08:24 Dose: 1 mg Documented by: JOANNE Gabapentin (Gabapentin 300 Mg Capsule) 600 mg PO TID [facility] Last Admin: 06/22/21 08:24 Dose: 600 mg Documented by: JOANNE Morphine Sulfate (Morphine Sulfate 4 Mg/Ml Cartridge) 4 mg IVPUSH Q2H PRN; Protocol PRN Reason: Pain, Severe (Pain Scale 7-10) Last Admin: 06/20/21 10:21 Dose: 4 mg Documented by: NALINI Multivitamins/Vitamin C (Multivitamin Tablet) 1 tab PO DAILY [facility] Last Admin: 06/22/21 08:25 Dose: 1 tab Documented by: JOANNE Nicotine (Nicotine 14 Mg Patch.Td24) 14 mg TRANSDERMA DAILY [facility] Last Admin: 06/22/21 08:25 Dose: 14 mg Documented by: JOANNE Nicotine Polacrilex (Nicotine Polacrilex Lozenge 2 Mg Lozenge) 2 mg BUCCAL Q2H PRN PRN Reason: Nicotine Cravings Ondansetron HCl (Ondansetron Hcl 4 Mg/2 Ml Vial) 4 mg IVPUSH Q8H PRN PRN Reason: Nausea and Vomiting Last Admin: 06/20/21 10:32 Dose: 4 mg Documented by: NALINI Oxycodone HCl (Oxycodone Hcl Immed Release 5 Mg Tablet) 5 mg PO Q6H PRN PRN Reason: Pain, Severe (Pain Scale 7-10) Last Admin: 06/21/21 13:05 Dose: 5 mg Documented by: RUDDY Pharmacy Consult (Consult Rx Vancomycin Dosing) 1 each MISCELLANE DAILY PRN PRN Reason: Consult order Sertraline HCl (Sertraline Hcl 25 Mg Tablet) 25 mg PO DAILY [facility] Last Admin: 06/22/21 08:25 Dose: 25 mg Documented by: JOANNE Sodium Chloride (0.9 % Sodium Chloride Flush 3 Ml Syringe) 3 ml IVFLUSH QSHIFT [facility] Last Admin: 06/22/21 08:23 Dose: Not Given Documented by: JOANNE Non-Admin Reason: IV Running Thiamine HCl (Thiamine Hcl 100 Mg Tablet) 100 mg PO DAILY [facility] Last Admin: 06/22/21 08:25 Dose: 100 mg Documented by: JOANNE Labs CBC & Chem 7: 06/20/21 12:50 06/22/21 05:16 Labs: Laboratory Results - last 24 hr 06/21/21 06/22/21 19:52 05:16 Estim Creat Clear Calc 62.9 Estimated GFR > 60 Vancomycin Trough 8.8 L Assessment and Plan (1) Arterial insufficiency of lower extremity: Status: Acute (2) PAD (peripheral artery disease): Status: Acute (3) Cellulitis of right foot: Status: Acute (4) Cigarette smoker: Status: Acute (5) Alcohol dependence: Status: Acute Assessment and Plan: 75yo F with dementia, tobacco + EtOH abuse presenting with foot pain and admitted for arterial insufficiency, possible cellulitis of R foot # PAD/right foot cellulitis - less foot pain and erythema gradually improving - status post right SFA stent placement and atherectomy pod #3 - on IV vanco + pip/fahad d#5 will transition to by mouth Keflex 500 mg q.8 hours - continue oxycodone for pain - continue dual antiplatelet therapy as per vascular surgeon - small open ulcer in between 3rd and 4th toes, continue dry dressing and outpatient wound care follow-up - patient seen by physical therapy they recommend 1-2 days of close 247 follow up, case discussed with son he agreed for short-term rehab but if unable to find a place than he will take patient home and arrange for 247 care. Case management looking for rehab bed # dementia - TSH + B12 normal, thiamine level pending , CT head last year showed no acute abnormality # alcohol use disorder - no withdrawal symptoms, seen by care team, patient not interested in recovery support at this time but accepted written material # tobacco abuse - will order nicotine patch 14 mg daily, continue Nicorette gums as needed for cravings, counseling done # VTE ppx - on Lovenox Quality Stroke Does the patient have a stroke diagnosis?: No VTE Prior VTE?: No VTE Risk Level:: Medical - moderate - high VTE Device Contraindication: N/A - Device Ordered VTE Drug Contraindication: Treatment Not Indicated
[2021-06-22] MEDS: 0.9 % Sodium Chloride Flush 3 ML SYRINGE IVFLUSH ×2 (15:15→21:25)
[2021-06-22 15:24] VITALS: BP 165/74; PULSE 88; RESP 18; TEMP 36.2; O2SAT 99
[2021-06-22 19:37] VITALS: BP 144/69; PULSE 88; RESP 18; TEMP 36.7; O2SAT 97
[2021-06-22] MEDS: Atorvastatin Calcium 80 MG TABLET PO (21:25)
[2021-06-23 00:17] VITALS: BP 123/75; PULSE 95; RESP 16; TEMP 36.8; O2SAT 94
[2021-06-23] MEDS: Enoxaparin Sodium 40 MG/0.4 ML SYRINGE SUBCUT (04:48)
[2021-06-23 06:31] LABS: Estimated Glomerular Filt Rate > 60
[2021-06-23 07:12] VITALS: BP 114/55; PULSE 77; RESP 18; TEMP 36.1; O2SAT 93
[2021-06-23] MEDS: Sertraline HCL 25 MG TABLET PO (07:52)
[2021-06-23] MEDS: Aspirin 81 MG TAB.CHEW PO (07:52)
[2021-06-23] MEDS: Gabapentin 300 MG CAPSULE 600 MG PO ×3 (07:52→19:30)
[2021-06-23] MEDS: Folic Acid 1 MG TABLET PO (07:52)
[2021-06-23] MEDS: Clopidogrel Bisulfate 75 MG TABLET PO (07:52)
[2021-06-23] MEDS: cephALEXin 500 MG CAPSULE PO ×3 (07:52→22:21)
[2021-06-23] MEDS: 0.9 % Sodium Chloride Flush 3 ML SYRINGE IVFLUSH ×3 (07:52→19:31)
[2021-06-23] MEDS: Thiamine HCL 100 MG TABLET PO (07:53)
[2021-06-23] MEDS: Multivitamin TABLET 1 TAB PO (07:53)
[2021-06-23] MEDS: Nicotine 14 MG PATCH.TD24 TRANSDERMA (07:53)
[2021-06-23 11:09] VITALS: BP 123/61; PULSE 74; RESP 18; TEMP 36.1; O2SAT 95
--- NOTE | 2021-06-23 12:11 | HO.PM.IMPN ---
Subjective Subjective Date of Service: 06/23/21 Interval History: vague historian, history of baseline confusion with underlying dementia, complaining of right foot discomfort but better, no overnight issues, no fevers, no chills, no nausea, no vomiting, tolerating diet, denies withdrawal symptoms. Review of Systems Review of Systems: Yes all other systems are reviewed and are negative Physical Exam Vital Signs: Vital Signs: Last Vital Signs Temp 97 F 06/23/21 11:09 Pulse 74 06/23/21 11:09 Resp 18 06/23/21 11:09 BP 123/61 06/23/21 11:09 Pulse Ox 95 06/23/21 11:09 BMI result Body Mass Index 23.2 Gen:? Awake alert,?no acute distress HEENT: sclera anicteric, moist mucus membranes Neck:supple Lungs: clear to auscultation Heart:?regular rate andrhythm, no murmurs Abd: soft, non-tender, non-distended Ext: no edema Skin:? Less erythema?dorsum of right foot good peripheral pulses, small open area in between?3rd and 4th toe Neuro: alert and oriented x 1, no focal findings Objective Data Active Medications Acetaminophen (Acetaminophen 325 Mg Tablet) 650 mg PO Q6H PRN PRN Reason: Pain, Mild (Pain Scale 1-3) Last Admin: 06/19/21 08:31 Dose: 650 mg Documented by: DORITA Aspirin (Aspirin 81 Mg Tab.Chew) 81 mg PO DAILY [facility] Last Admin: 06/23/21 07:52 Dose: 81 mg Documented by: JOANNE Atorvastatin Calcium (Atorvastatin Calcium 80 Mg Tablet) 80 mg PO BEDTIME [facility] Last Admin: 06/22/21 21:25 Dose: 80 mg Documented by: ABHISHEK Cephalexin HCl (Cephalexin 500 Mg Capsule) 500 mg PO Q8H [facility] Last Admin: 06/23/21 07:52 Dose: 500 mg Documented by: JOANNE Clopidogrel Bisulfate (Clopidogrel Bisulfate 75 Mg Tablet) 75 mg PO DAILY [facility] Last Admin: 06/23/21 07:52 Dose: 75 mg Documented by: JOANNE Docusate Sodium (Docusate Sodium 100 Mg Capsule) 100 mg PO DAILY PRN PRN Reason: Constipation Enoxaparin Sodium (Enoxaparin Sodium 40 Mg/0.4 Ml Syringe) 40 mg SUBCUT Q24H [facility] Last Admin: 06/23/21 04:48 Dose: 40 mg Documented by: ABHISHEK Folic Acid (Folic Acid 1 Mg Tablet) 1 mg PO DAILY [facility] Last Admin: 06/23/21 07:52 Dose: 1 mg Documented by: JOANNE Gabapentin (Gabapentin 300 Mg Capsule) 600 mg PO TID [facility] Last Admin: 06/23/21 07:52 Dose: 600 mg Documented by: JOANNE Morphine Sulfate (Morphine Sulfate 4 Mg/Ml Cartridge) 4 mg IVPUSH Q2H PRN; Protocol PRN Reason: Pain, Severe (Pain Scale 7-10) Last Admin: 06/20/21 10:21 Dose: 4 mg Documented by: NALINI Multivitamins/Vitamin C (Multivitamin Tablet) 1 tab PO DAILY [facility] Last Admin: 06/23/21 07:53 Dose: 1 tab Documented by: JOANNE Nicotine (Nicotine 14 Mg Patch.Td24) 14 mg TRANSDERMA DAILY [facility] Last Admin: 06/23/21 07:53 Dose: 14 mg Documented by: JOANNE Nicotine Polacrilex (Nicotine Polacrilex Lozenge 2 Mg Lozenge) 2 mg BUCCAL Q2H PRN PRN Reason: Nicotine Cravings Ondansetron HCl (Ondansetron Hcl 4 Mg/2 Ml Vial) 4 mg IVPUSH Q8H PRN PRN Reason: Nausea and Vomiting Last Admin: 06/20/21 10:32 Dose: 4 mg Documented by: NALINI Oxycodone HCl (Oxycodone Hcl Immed Release 5 Mg Tablet) 5 mg PO Q6H PRN PRN Reason: Pain, Severe (Pain Scale 7-10) Last Admin: 06/21/21 13:05 Dose: 5 mg Documented by: RUDDY Pharmacy Consult (Consult Rx Vancomycin Dosing) 1 each MISCELLANE DAILY PRN PRN Reason: Consult order Sertraline HCl (Sertraline Hcl 25 Mg Tablet) 25 mg PO DAILY [facility] Last Admin: 06/23/21 07:52 Dose: 25 mg Documented by: JOANNE Sodium Chloride (0.9 % Sodium Chloride Flush 3 Ml Syringe) 3 ml IVFLUSH QSHIFT [facility] Last Admin: 06/23/21 07:52 Dose: 3 ml Documented by: JOANNE Thiamine HCl (Thiamine Hcl 100 Mg Tablet) 100 mg PO DAILY [facility] Last Admin: 06/23/21 07:53 Dose: 100 mg Documented by: JOANNE Labs CBC & Chem 7: 06/20/21 12:50 06/23/21 04:48 Labs: Laboratory Results - last 24 hr 06/23/21 04:48 Estim Creat Clear Calc 66.0 Estimated GFR > 60 Assessment and Plan (1) Arterial insufficiency of lower extremity: Status: Acute (2) PAD (peripheral artery disease): Status: Acute (3) Alcohol dependence: Status: Acute (4) Cigarette smoker: Status: Acute (5) Cellulitis of right foot: Status: Acute Assessment and Plan: 75yo F with dementia, tobacco + EtOH abuse presenting with foot pain and admitted for arterial insufficiency, possible cellulitis of R foot # PAD/right foot cellulitis - foot pain and erythema gradually improving - status post right SFA stent placement and atherectomy pod #4 - s/p IV vanco + pip/fahad time 5 days, transitioned to by mouth Keflex 500 mg q.8 hours on 06/22/21 for total 10 days - continue oxycodone for pain - continue dual antiplatelet therapy as per vascular surgeon - small open ulcer in between 3rd and 4th toes, will recommend Aquasol Ag daily dressing and outpatient wound care follow-up - patient seen by physical therapy they recommend 1-2 days of close 247 follow up, case discussed with son he agreed for short-term rehab but if unable to find a place than he will take patient home and arrange for 247 care. ? Case management looking for rehab bed, if goes home will need front wheel walker ? # dementia - TSH + B12 normal, thiamine level pending , CT head last year showed no acute abnormality. # alcohol use disorder - no withdrawal symptoms, seen by care team, patient not interested in recovery support at this time but accepted written material, will DC [facility] protocol # tobacco abuse - continue nicotine patch 14 mg daily, continue Nicorette gums as needed for cravings, counseling done # VTE ppx - on Lovenox Quality Stroke Does the patient have a stroke diagnosis?: No VTE Prior VTE?: No VTE Risk Level:: Medical - moderate - high VTE Device Contraindication: N/A - Device Ordered VTE Drug Contraindication: Treatment Not Indicated
[2021-06-23 15:48] VITALS: BP 135/54; PULSE 84; RESP 18; TEMP 37.2; O2SAT 95
[2021-06-23 19:16] VITALS: BP 113/73; PULSE 85; RESP 18; TEMP 36.6; O2SAT 99
[2021-06-23] MEDS: Atorvastatin Calcium 80 MG TABLET PO (19:30)
[2021-06-23 20:09] LABS: Vancomycin Trough < 3.0 mcg/mL (10.0-20.0)
[2021-06-24] VITALS: BP 146/69; PULSE 80; RESP 20; TEMP 36.4; O2SAT 93
[2021-06-24 03:07] VITALS: BP 137/73; PULSE 85; RESP 20; TEMP 36.3; O2SAT 93
[2021-06-24] MEDS: Enoxaparin Sodium 40 MG/0.4 ML SYRINGE SUBCUT (05:11)
[2021-06-24 05:37] LABS: Creatinine Clr Calc Pharmacy 67.2; Estimated Glomerular Filt Rate > 60
[2021-06-24 07:32] VITALS: BP 136/69; PULSE 87; RESP 18; TEMP 37.1; O2SAT 94
--- NOTE | 2021-06-24 08:28 | HO.VASCPN ---
Subjective Subjective Date of Service: 06/24/21 Patient reports: no new complaints and feels better Interval history: Patient seen and examined. No significant events over the weekend. Now for routine follow-up. Of note her lower extremity feels significantly better pain and erythema have decreased a fair amount. Physical Exam Vital Signs: Vital Signs: Last Vital Signs Temp 98.7 F 06/24/21 07:32 Pulse 87 06/24/21 07:32 Resp 18 06/24/21 07:32 BP 136/69 06/24/21 07:32 Pulse Ox 94 06/24/21 07:32 BMI result Body Mass Index 23.2 Const: General: cooperative, healthy appearing and no acute distress Orientation/consciousness: oriented to person, oriented to place and oriented to time HENMT: Head: Yes normal to inspection Neck: Carotids: no bruits Chest: Chest palpation & inspection: normal inspection of the chest Resp: Effort & Inspection: normal respiratory effort and able to speak in complete sentences Auscultation: clear to auscultation bilaterally Cardio: Rate: regular rate Heart sounds: S1 normal heart sound present and S2 normal heart sound present GI: Inspection: Yes normal to inspection Skin: General skin exam: no rashes or lesions noted Wounds: no wounds Neuro: General: oriented to person, oriented to place, oriented to time and CN's II-XI intact bilaterally Extrem: General: Yes normal to inspection, Yes full ROM and Yes no clubbing, cyanosis or edema Psych: Appearance: grossly normal and well kempt Speech and movement: Normal speech and movement present Affect: normal affect Progress Note: A&P Assessment and plan (1) PAD (peripheral artery disease): Status: Acute Assessment and Plan: Patient is status post right atherectomy and stent placement. She is doing extremely well. Foot appears to be doing significantly better. Stable from my perspective. She will require aspirin and Plavix. Upon discharge see me in approximately 2 weeks time. Thank you for allowing us to assist in this patient's care. Fall Risk Details Current Medications: Current Medications Acetaminophen (Acetaminophen 325 Mg Tablet) 650 mg PO Q6H PRN PRN Reason: Pain, Mild (Pain Scale 1-3) Last Admin: 06/19/21 08:31 Dose: 650 mg Documented by: Aspirin (Aspirin 81 Mg Tab.Chew) 81 mg PO DAILY [facility] Last Admin: 06/23/21 07:52 Dose: 81 mg Documented by: Atorvastatin Calcium (Atorvastatin Calcium 80 Mg Tablet) 80 mg PO BEDTIME [facility] Last Admin: 06/23/21 19:30 Dose: 80 mg Documented by: Cephalexin HCl (Cephalexin 500 Mg Capsule) 500 mg PO Q8H [facility] Last Admin: 06/23/21 22:21 Dose: 500 mg Documented by: Clopidogrel Bisulfate (Clopidogrel Bisulfate 75 Mg Tablet) 75 mg PO DAILY [facility] Last Admin: 06/23/21 07:52 Dose: 75 mg Documented by: Docusate Sodium (Docusate Sodium 100 Mg Capsule) 100 mg PO DAILY PRN PRN Reason: Constipation Enoxaparin Sodium (Enoxaparin Sodium 40 Mg/0.4 Ml Syringe) 40 mg SUBCUT Q24H [facility] Last Admin: 06/24/21 05:11 Dose: 40 mg Documented by: Folic Acid (Folic Acid 1 Mg Tablet) 1 mg PO DAILY [facility] Last Admin: 06/23/21 07:52 Dose: 1 mg Documented by: Gabapentin (Gabapentin 300 Mg Capsule) 600 mg PO TID [facility] Last Admin: 06/23/21 19:30 Dose: 600 mg Documented by: Morphine Sulfate (Morphine Sulfate 4 Mg/Ml Cartridge) 4 mg IVPUSH Q2H PRN; Protocol PRN Reason: Pain, Severe (Pain Scale 7-10) Last Admin: 06/20/21 10:21 Dose: 4 mg Documented by: Multivitamins/Vitamin C (Multivitamin Tablet) 1 tab PO DAILY [facility] Last Admin: 06/23/21 07:53 Dose: 1 tab Documented by: Nicotine (Nicotine 14 Mg Patch.Td24) 14 mg TRANSDERMA DAILY [facility] Last Admin: 06/23/21 07:53 Dose: 14 mg Documented by: Nicotine Polacrilex (Nicotine Polacrilex Lozenge 2 Mg Lozenge) 2 mg BUCCAL Q2H PRN PRN Reason: Nicotine Cravings Ondansetron HCl (Ondansetron Hcl 4 Mg/2 Ml Vial) 4 mg IVPUSH Q8H PRN PRN Reason: Nausea and Vomiting Last Admin: 06/20/21 10:32 Dose: 4 mg Documented by: Pharmacy Consult (Consult Rx Vancomycin Dosing) 1 each MISCELLANE DAILY PRN PRN Reason: Consult order Sertraline HCl (Sertraline Hcl 25 Mg Tablet) 25 mg PO DAILY [facility] Last Admin: 06/23/21 07:52 Dose: 25 mg Documented by: Sodium Chloride (0.9 % Sodium Chloride Flush 3 Ml Syringe) 3 ml IVFLUSH QSHIFT [facility] Last Admin: 06/23/21 19:31 Dose: 3 ml Documented by: Thiamine HCl (Thiamine Hcl 100 Mg Tablet) 100 mg PO DAILY [facility] Last Admin: 06/23/21 07:53 Dose: 100 mg Documented by: Time Spent With Patient Time: Total time spent is greater than 50% in coordination of care (as documented) at patient's floor/unit and/or counseling patient: Time with patient: 15 - 24 minutes Procedures Date of Service Date of Service: 06/24/21 Quality Stroke Does the patient have a stroke diagnosis?: No VTE Prior VTE?: No VTE Risk Level:: Medical - moderate - high VTE Device Contraindication: N/A - Device Ordered VTE Drug Contraindication: Treatment Not Indicated
[2021-06-24] MEDS: Sertraline HCL 25 MG TABLET PO (09:05)
[2021-06-24] MEDS: Nicotine 14 MG PATCH.TD24 TRANSDERMA (09:05)
[2021-06-24] MEDS: Thiamine HCL 100 MG TABLET PO (09:05)
[2021-06-24] MEDS: Clopidogrel Bisulfate 75 MG TABLET PO (09:05)
[2021-06-24] MEDS: Aspirin 81 MG TAB.CHEW PO (09:05)
[2021-06-24] MEDS: cephALEXin 500 MG CAPSULE PO ×2 (09:05→15:38)
[2021-06-24] MEDS: Multivitamin TABLET 1 TAB PO (09:05)
[2021-06-24] MEDS: Folic Acid 1 MG TABLET PO (09:05)
[2021-06-24] MEDS: Gabapentin 300 MG CAPSULE 600 MG PO ×3 (09:05→20:05)
[2021-06-24] MEDS: 0.9 % Sodium Chloride Flush 3 ML SYRINGE IVFLUSH ×2 (09:06→18:11)
--- NOTE | 2021-06-24 11:46 | PC.NURSE ---
Skin/wound assessment completed today. Patient has venous stasis ulcers to inner 3rd and 4th toes. Silver alginate applied to wound bed wrapped with roll gauze and taped. Scattered bruising to arms. no other skin issues noted at this time.
[2021-06-24 12:00] VITALS: BP 132/55; PULSE 91; RESP 18; TEMP 36.8; O2SAT 95
--- NOTE | 2021-06-24 13:22 | MHC.CM.PN ---
SNF search is ongoing and CM will continue to follow.
--- NOTE | 2021-06-24 14:23 | HO.PM.IMPN ---
Subjective Subjective Date of Service: 06/24/21 Interval History: R foot pain controlled Review of Systems Review of Systems: Yes all other systems are reviewed and are negative Physical Exam Vital Signs: Vital Signs: Last Vital Signs Temp 98.3 F 06/24/21 12:00 Pulse 91 06/24/21 12:00 Resp 18 06/24/21 12:00 BP 132/55 L 06/24/21 12:00 Pulse Ox 95 06/24/21 12:00 BMI result Body Mass Index 23.2 Gen:? Awake alert,?no acute distress HEENT: sclera anicteric, moist mucus membranes Neck:supple Lungs: clear to auscultation Heart:?regular rate andrhythm, no murmurs Abd: soft, non-tender, non-distended Ext: no edema Skin:? Less erythema?dorsum of right foot good peripheral pulses, small open area in between?3rd and 4th toe Neuro: alert and oriented x 1, no focal findings Objective Data Active Medications Acetaminophen (Acetaminophen 325 Mg Tablet) 650 mg PO Q6H PRN PRN Reason: Pain, Mild (Pain Scale 1-3) Last Admin: 06/19/21 08:31 Dose: 650 mg Documented by: DORITA Aspirin (Aspirin 81 Mg Tab.Chew) 81 mg PO DAILY [facility] Last Admin: 06/24/21 09:05 Dose: 81 mg Documented by: ALONSO Atorvastatin Calcium (Atorvastatin Calcium 80 Mg Tablet) 80 mg PO BEDTIME [facility] Last Admin: 06/23/21 19:30 Dose: 80 mg Documented by: ABHISHEK Cephalexin HCl (Cephalexin 500 Mg Capsule) 500 mg PO Q8H [facility] Last Admin: 06/24/21 09:05 Dose: 500 mg Documented by: ALONSO Clopidogrel Bisulfate (Clopidogrel Bisulfate 75 Mg Tablet) 75 mg PO DAILY [facility] Last Admin: 06/24/21 09:05 Dose: 75 mg Documented by: ALONSO Docusate Sodium (Docusate Sodium 100 Mg Capsule) 100 mg PO DAILY PRN PRN Reason: Constipation Enoxaparin Sodium (Enoxaparin Sodium 40 Mg/0.4 Ml Syringe) 40 mg SUBCUT Q24H [facility] Last Admin: 06/24/21 05:11 Dose: 40 mg Documented by: ABHISHEK Folic Acid (Folic Acid 1 Mg Tablet) 1 mg PO DAILY [facility] Last Admin: 06/24/21 09:05 Dose: 1 mg Documented by: ALONSO Gabapentin (Gabapentin 300 Mg Capsule) 600 mg PO TID [facility] Last Admin: 06/24/21 09:05 Dose: 600 mg Documented by: ALONSO Morphine Sulfate (Morphine Sulfate 4 Mg/Ml Cartridge) 4 mg IVPUSH Q2H PRN; Protocol PRN Reason: Pain, Severe (Pain Scale 7-10) Last Admin: 06/20/21 10:21 Dose: 4 mg Documented by: NALINI Multivitamins/Vitamin C (Multivitamin Tablet) 1 tab PO DAILY [facility] Last Admin: 06/24/21 09:05 Dose: 1 tab Documented by: ALONSO Nicotine (Nicotine 14 Mg Patch.Td24) 14 mg TRANSDERMA DAILY [facility] Last Admin: 06/24/21 09:05 Dose: 14 mg Documented by: ALONSO Nicotine Polacrilex (Nicotine Polacrilex Lozenge 2 Mg Lozenge) 2 mg BUCCAL Q2H PRN PRN Reason: Nicotine Cravings Ondansetron HCl (Ondansetron Hcl 4 Mg/2 Ml Vial) 4 mg IVPUSH Q8H PRN PRN Reason: Nausea and Vomiting Last Admin: 06/20/21 10:32 Dose: 4 mg Documented by: NALINI Pharmacy Consult (Consult Rx Vancomycin Dosing) 1 each MISCELLANE DAILY PRN PRN Reason: Consult order Sertraline HCl (Sertraline Hcl 25 Mg Tablet) 25 mg PO DAILY [facility] Last Admin: 06/24/21 09:05 Dose: 25 mg Documented by: ALONSO Sodium Chloride (0.9 % Sodium Chloride Flush 3 Ml Syringe) 3 ml IVFLUSH QSHIFT [facility] Last Admin: 06/24/21 09:06 Dose: 3 ml Documented by: ALONSO Thiamine HCl (Thiamine Hcl 100 Mg Tablet) 100 mg PO DAILY [facility] Last Admin: 06/24/21 09:05 Dose: 100 mg Documented by: ALONSO Labs CBC & Chem 7: 06/20/21 12:50 06/24/21 04:20 Labs: Laboratory Results - last 24 hr 06/23/21 06/24/21 19:40 04:20 Estim Creat Clear Calc 67.2 Estimated GFR > 60 Vancomycin Trough < 3.0 L Microbiology Microbiology Results: Microbiology 06/18/21 22:46 Blood Culture - Final Blood - Venous No growth after 5 days. 06/18/21 22:46 Blood Culture - Final Blood - Venous No growth after 5 days. Assessment and Plan (1) Arterial insufficiency of lower extremity: Status: Acute (2) PAD (peripheral artery disease): Status: Acute (3) Alcohol dependence: Status: Acute (4) Cigarette smoker: Status: Acute (5) Cellulitis of right foot: Status: Acute Assessment and Plan: hospital d#7 75yo F with dementia, tobacco + EtOH abuse presenting with foot pain and admitted for arterial insufficiency, possible cellulitis of R foot # PAD/right foot cellulitis - foot pain and erythema gradually improving - POD#5 right SFA stent placement and atherectomy - s/p IV vanco + pip/fahad x5d, transitioned to by mouth cephalexin 500 mg q8h on 06/22/21 for total 10 days - continue oxycodone for pain - continue dual antiplatelet therapy as per vascular surgeon - small open ulcer in between 3rd and 4th toes: recommend Aquasol Ag daily dressing and outpatient wound care follow-up - patient seen by physical therapy they recommend 1-2 days of close 24/7 follow up, case discussed with son he agreed for short-term rehab but if unable to find a place than he will take patient home and arrange for 24/7 care. - case management looking for rehab bed, if goes home will need front wheel walker ? # dementia - TSH + B12 normal, thiamine level pending , CT head last year showed no acute abnormality. # alcohol use disorder - no withdrawal symptoms, seen by care team, patient not interested in recovery support at this time but accepted written material, [facility] protocol d/c'ed # tobacco abuse - continue nicotine patch 14 mg daily, continue Nicorette gums as needed for cravings, counseling done # VTE ppx - on Lovenox Quality Stroke Does the patient have a stroke diagnosis?: No VTE Prior VTE?: No VTE Risk Level:: Medical - moderate - high VTE Device Contraindication: N/A - Device Ordered VTE Drug Contraindication: Treatment Not Indicated
[2021-06-24 15:13] VITALS: BP 138/71; PULSE 87; RESP 18; TEMP 36.4; O2SAT 97
[2021-06-24 19:08] VITALS: BP 149/70; PULSE 90; RESP 18; TEMP 36.8; O2SAT 98
[2021-06-24] MEDS: Atorvastatin Calcium 80 MG TABLET PO (20:05)
[2021-06-24] MEDS: Acetaminophen 325 MG TABLET 650 MG PO (20:05)
[2021-06-25] VITALS: BP 140/72; PULSE 79; RESP 18; TEMP 36.3; O2SAT 94
[2021-06-25] MEDS: cephALEXin 500 MG CAPSULE PO ×3 (00:11→15:55)
[2021-06-25] MEDS: 0.9 % Sodium Chloride Flush 3 ML SYRINGE IVFLUSH ×3 (00:12→15:57)
[2021-06-25 03:37] VITALS: BP 119/63; PULSE 74; RESP 18; TEMP 36.4; O2SAT 93
[2021-06-25] MEDS: Enoxaparin Sodium 40 MG/0.4 ML SYRINGE SUBCUT (05:44)
[2021-06-25 07:19] VITALS: BP 122/57; PULSE 76; RESP 18; TEMP 36.9; O2SAT 95
[2021-06-25] MEDS: Nicotine 14 MG PATCH.TD24 TRANSDERMA (08:44)
[2021-06-25] MEDS: Gabapentin 300 MG CAPSULE 600 MG PO ×2 (08:46→15:55)
[2021-06-25] MEDS: Clopidogrel Bisulfate 75 MG TABLET PO (08:46)
[2021-06-25] MEDS: Folic Acid 1 MG TABLET PO (08:46)
[2021-06-25] MEDS: Sertraline HCL 25 MG TABLET PO (08:47)
[2021-06-25] MEDS: Thiamine HCL 100 MG TABLET PO (08:47)
[2021-06-25] MEDS: Multivitamin TABLET 1 TAB PO (08:47)
[2021-06-25] MEDS: Aspirin 81 MG TAB.CHEW PO (08:47)
[2021-06-25 10:33] VITALS: BP 122/57; PULSE 76; O2SAT 95
--- NOTE | 2021-06-25 11:33 | MHC.CM.PN ---
Patient has been accepted at [facility] pending [facility] auth.PORSCHE spoke with Son/HCP/Epifanio at [phone], who is agreeable to the dc plan.CM addressed IMM and original to be mailed certified letter to Epifanio and a copy placed on the chart.
[2021-06-25 11:45] VITALS: BP 132/65; PULSE 79; RESP 18; TEMP 36.6; O2SAT 94
--- NOTE | 2021-06-25 13:59 | HO.PM.IMPN ---
Subjective Subjective Date of Service: 06/25/21 Interval History: R foot pain controlled No fever Review of Systems Review of Systems: Yes all other systems are reviewed and are negative Physical Exam Vital Signs: Vital Signs: Last Vital Signs Temp 97.9 F 06/25/21 11:45 Pulse 79 06/25/21 11:45 Resp 18 06/25/21 11:45 BP 132/65 06/25/21 11:45 Pulse Ox 94 06/25/21 11:45 BMI result Body Mass Index 23.2 Gen:? Awake alert,?no acute distress HEENT: sclera anicteric, moist mucus membranes Neck:supple Lungs: clear to auscultation Heart:?regular rate andrhythm, no murmurs Abd: soft, non-tender, non-distended Ext: no edema Skin:?minimal erythema?dorsum of right foot, good peripheral pulses, small open area in between?3rd and 4th toe Neuro: alert and oriented x 1, no focal findings Objective Data Active Medications Acetaminophen (Acetaminophen 325 Mg Tablet) 650 mg PO Q6H PRN PRN Reason: Pain, Mild (Pain Scale 1-3) Last Admin: 06/24/21 20:05 Dose: 650 mg Documented by: HARSH Aspirin (Aspirin 81 Mg Tab.Chew) 81 mg PO DAILY [facility] Last Admin: 06/25/21 08:47 Dose: 81 mg Documented by: SULY Atorvastatin Calcium (Atorvastatin Calcium 80 Mg Tablet) 80 mg PO BEDTIME [facility] Last Admin: 06/24/21 20:05 Dose: 80 mg Documented by: HARSH Cephalexin HCl (Cephalexin 500 Mg Capsule) 500 mg PO Q8H [facility] Last Admin: 06/25/21 08:45 Dose: 500 mg Documented by: SULY Clopidogrel Bisulfate (Clopidogrel Bisulfate 75 Mg Tablet) 75 mg PO DAILY [facility] Last Admin: 06/25/21 08:46 Dose: 75 mg Documented by: SULY Docusate Sodium (Docusate Sodium 100 Mg Capsule) 100 mg PO DAILY PRN PRN Reason: Constipation Enoxaparin Sodium (Enoxaparin Sodium 40 Mg/0.4 Ml Syringe) 40 mg SUBCUT Q24H [facility] Last Admin: 06/25/21 05:44 Dose: 40 mg Documented by: JJ Folic Acid (Folic Acid 1 Mg Tablet) 1 mg PO DAILY [facility] Last Admin: 06/25/21 08:46 Dose: 1 mg Documented by: SULY Gabapentin (Gabapentin 300 Mg Capsule) 600 mg PO TID [facility] Last Admin: 06/25/21 08:46 Dose: 600 mg Documented by: SULY Multivitamins/Vitamin C (Multivitamin Tablet) 1 tab PO DAILY [facility] Last Admin: 06/25/21 08:47 Dose: 1 tab Documented by: SULY Nicotine (Nicotine 14 Mg Patch.Td24) 14 mg TRANSDERMA DAILY [facility] Last Admin: 06/25/21 08:44 Dose: 14 mg Documented by: SULY Nicotine Polacrilex (Nicotine Polacrilex Lozenge 2 Mg Lozenge) 2 mg BUCCAL Q2H PRN PRN Reason: Nicotine Cravings Ondansetron HCl (Ondansetron Hcl 4 Mg/2 Ml Vial) 4 mg IVPUSH Q8H PRN PRN Reason: Nausea and Vomiting Last Admin: 06/20/21 10:32 Dose: 4 mg Documented by: NALINI Pharmacy Consult (Consult Rx Vancomycin Dosing) 1 each MISCELLANE DAILY PRN PRN Reason: Consult order Sertraline HCl (Sertraline Hcl 25 Mg Tablet) 25 mg PO DAILY [facility] Last Admin: 06/25/21 08:47 Dose: 25 mg Documented by: SULY Sodium Chloride (0.9 % Sodium Chloride Flush 3 Ml Syringe) 3 ml IVFLUSH QSHIFT [facility] Last Admin: 06/25/21 08:44 Dose: 3 ml Documented by: SULY Thiamine HCl (Thiamine Hcl 100 Mg Tablet) 100 mg PO DAILY [facility] Last Admin: 06/25/21 08:47 Dose: 100 mg Documented by: SULY Labs CBC & Chem 7: 06/20/21 12:50 06/24/21 04:20 Assessment and Plan (1) Arterial insufficiency of lower extremity: Status: Acute (2) PAD (peripheral artery disease): Status: Acute (3) Alcohol dependence: Status: Acute (4) Cigarette smoker: Status: Acute (5) Cellulitis of right foot: Status: Acute Assessment and Plan: hospital d#8 75yo F with dementia, tobacco + EtOH abuse presenting with foot pain and admitted for arterial insufficiency, possible cellulitis of R foot # PAD/right foot cellulitis - foot pain and erythema gradually improving - POD#6 right SFA stent placement and atherectomy - s/p IV vanco + pip/fahad x5d, transitioned to by mouth cephalexin 500 mg q8h on 06/22/21 for total 10 days - continue oxycodone for pain - continue dual antiplatelet therapy as per vascular surgeon - small open ulcer in between 3rd and 4th toes: recommend Aquasol Ag daily dressing and outpatient wound care follow-up - patient seen by physical therapy they recommend 1-2 days of close 29/12 follow up, case discussed with son he agreed for short-term rehab but if unable to find a place than he will take patient home and arrange for 29/12 care. - case management looking for rehab bed, if goes home will need front wheel walker ? # dementia - TSH + B12 normal, thiamine level pending, CT head last year showed no acute abnormality. # alcohol use disorder - no withdrawal symptoms, seen by care team, patient not interested in recovery support at this time but accepted written material, [facility] protocol d/c'ed # tobacco abuse - continue nicotine patch 14 mg daily, continue Nicorette gums as needed for cravings, counseling done # VTE ppx - on Lovenox Quality Stroke Does the patient have a stroke diagnosis?: No VTE Prior VTE?: No VTE Risk Level:: Medical - moderate - high VTE Device Contraindication: N/A - Device Ordered VTE Drug Contraindication: Treatment Not Indicated
[2021-06-25 14:24] LABS: COVID-19 Test Negative (Negative)
--- NOTE | 2021-06-25 15:34 | PM.DS ---
DS: Providers Provider Date of Service: 06/25/21 Date of admission: 06/18/21 23:58 Date of discharge: 06/25/21 Primary care physician: George Goldstein Admitting clinician: Gera Drew Consults: 06/19/21 03:45 Consult to Vascular Surgery Routine Consulting Provider: Marcus Ortiz Reason for consultation: PVD Has provider been notified: Yes 06/19/21 15:18 Addiction Medicine Routine Consulting Provider: Francheska Rod Reason for consultation: AUD Consult to Care Team Routine Comment: Reason for consultation: AUD Attending physician on discharge: Babak Boswell DS: Diagnosis Discharge Diagnosis (1) Arterial insufficiency of lower extremity: Status: Acute (2) PAD (peripheral artery disease): Status: Acute (3) Alcohol dependence: Status: Acute (4) Cigarette smoker: Status: Acute (5) Cellulitis of right foot: Status: Acute (6) Dementia: Status: Acute DS: Summary Hospital Course Hospital Course: from admit H+P, 06/18/21: 75-year-old female with past medical history of alcohol and tobacco abuse who? is brought into the hospital by her son with complaints of bilateral foot pain.? Patient appears to have some dementia as she is oriented to self? and place but not date.? She thinks she is in the 90s.? Her son reports that she has had progressive dementia.? Patient reports that for the past? 4-5 day she has had pain in her toes bilaterally.? She describes the pain as severe, nonradiating, and she also reports changes in the color of her feet that have now turned purplish.? She denies any fever or chills, no chest pain, no shortness of breath, no abdominal pain nausea or vomiting, no diarrhea constipation, no urinary symptoms and no lower extremity edema. ? On arrival to the ED patient hemodynamically stable with no significant abnormal? vitals Labs are significant for WBC count of? 10.1, otherwise unremarkable Arterial duplex of bilateral lower extremity show significant peripheral vascular disease with monophasic flow in the profundus femoris artery and probable severe SFA disease as well.? Some element of inflow disease may be present as well.? Case was discussed with? vascular surgery use will see patient in am This 75yo F with dementia, tobacco + EtOH abuse presenting with foot pain was admitted for arterial insufficiency with cellulitis of the R foot. Vascular Surgery was consulted. She underwent right SFA stent placement and atherotomy on 06/20/21. She was treated with vancomycin and piperacillin/tazobactam for 5 days then transitioned to cephalexin. Dual antiplatelet therapy and high-intensity statin were started. See has a small open ulcer between the R 3rd and 4th toes that was treated with Aquasol Ag daily dressing and outpatient wound care follow-up. Workup for reversible causes of dementia showed normal TSH and B12; thiamine level is pending; CT of the brain last year was normal. She was given thiamine and multivitamin empirically. She had no symptoms of alcohol withdrawal. She was counseled to quit smoking and started on NRT to aid in this. She was discharged to short-term SNF rehabilitation and will need Vascular Surgery and Wound Care follow-up. Time Spent with Patient Time attestation: Total time spent providing and/or coordinating discharge services: Discharge coordination time: Greater than 30 minutes Quality: Stroke Does the patient have a stroke diagnosis?: No Physical Exam Vital Signs: Vital Signs: Last Vital Signs Temp 97.9 F 06/25/21 11:45 Pulse 79 06/25/21 11:45 Resp 18 06/25/21 11:45 BP 132/65 06/25/21 11:45 Pulse Ox 94 06/25/21 11:45 BMI result Body Mass Index 23.2 Gen:? Awake alert,?no acute distress HEENT: sclera anicteric, moist mucus membranes Neck:supple Lungs: clear to auscultation Heart:?regular rate andrhythm, no murmurs Abd: soft, non-tender, non-distended Ext: no edema Skin:?minimal erythema?dorsum of right foot, good peripheral pulses, small open area in between?3rd and 4th toe Neuro: alert and oriented x 1, no focal findings DS: Data Data Completed and Pending Completed studies during hospitalization [Text1]: Laboratory Results WBC 8.3 X10*3/uL (4.8-10.8) 06/20/21 12:50 RBC 3.92 X10*6/uL (4.20-5.50) L 06/20/21 12:50 Hgb 12.5 g/dl (12.0-16.0) 06/20/21 12:50 Hct 39.1 % (37.0-47.0) 06/20/21 12:50 MCV 99.7 fL (80.0-98.0) H 06/20/21 12:50 MCH 31.9 pg (27.0-33.0) 06/20/21 12:50 MCHC 32.0 g/dl (31.0-35.0) 06/20/21 12:50 RDW 13.6 % (11.0-16.0) 06/20/21 12:50 Plt Count 351 X10*3/uL (160-400) 06/20/21 12:50 MPV 8.8 fL (9.4-12.3) L 06/20/21 12:50 Immature Gran % (Auto) 0.3 % (0.0-0.4) 06/19/21 04:10 Neut % (Auto) 56.3 % (45-73) 06/19/21 04:10 Lymph % (Auto) 31.2 % (20-40) 06/19/21 04:10 Gilmer % (Auto) 8.9 % (2-11) 06/19/21 04:10 Eos % (Auto) 2.5 % (0-4) 06/19/21 04:10 Baso % (Auto) 0.8 % (0-2) 06/19/21 04:10 Lymph # (Auto) 3.6 X10*3/uL (1.2-4.9) 06/19/21 04:10 Gilmer # (Auto) 1.0 X10*3/uL (0.1-1.2) 06/19/21 04:10 Eos # (Auto) 0.3 X10*3/uL (0.0-0.4) 06/19/21 04:10 Baso # (Auto) 0.1 X10*3/uL (0.0-0.2) 06/19/21 04:10 Abs Immat Gran (auto) 0.03 X10*3/uL (0.00-0.03) 06/19/21 04:10 Absolute Neuts (auto) 6.5 x10*3/uL (2.0-8.3) 06/19/21 04:10 Absolute Nucleated RBC 0.000 X10*3/uL (0.0-0.012) 06/20/21 12:50 Nucleated RBC % (auto) 0.0 /100WBC (0.0-0.2) 06/20/21 12:50 PT 11.0 SEC (9.9-13.0) 06/18/21 21:55 INR 1.0 (0.9-1.1) 06/18/21 21:55 APTT 33.3 SEC (24.1-38.0) 06/18/21 21:55 Sodium 138 mmol/L (135-145) 06/19/21 04:10 Potassium 4.0 mmol/L (3.3-5.1) 06/19/21 04:10 Chloride 105 mmol/L (96-108) 06/19/21 04:10 Carbon Dioxide 25 mmol/L (22-29) 06/19/21 04:10 Anion Gap 12 (12-20) 06/19/21 04:10 BUN 7 mg/dL (9-16) L 06/19/21 04:10 Creatinine 0.59 mg/dL (0.5-1.4) 06/24/21 04:20 Estim Creat Clear Calc 67.2 06/24/21 04:20 Estimated GFR > 60 06/24/21 04:20 Random Glucose 85 mg/dL (60-115) 06/19/21 04:10 Estimat Average Glucose 100 mg/dL 06/19/21 04:10 Hemoglobin A1c % 5.1 % 06/19/21 04:10 Lactic Acid 1.6 mmol/L (0.5-2.0) 06/18/21 21:55 Calcium 9.2 mg/dL (8.4-10.2) 06/19/21 04:10 Total Bilirubin 0.2 mg/dL (0.0-1.0) 06/18/21 21:55 AST 19 U/L (5-31) 06/18/21 21:55 ALT 11 U/L (0-31) 06/18/21 21:55 Alkaline Phosphatase 82 U/L (39-117) D 06/18/21 21:55 Total Protein 6.9 g/dL (6.5-8.0) 06/18/21 21:55 Albumin 3.8 g/dL (3.5-5.0) 06/18/21 21:55 Vitamin B12 436 pg/mL (200-900) 06/19/21 04:10 TSH 3.18 uIU/mL (0.32-4.0) 06/19/21 04:10 Urine Color YELLOW 06/19/21 09:15 Urine Appearance HAZY 06/19/21 09:15 Urine pH 6.5 (5.0-8.0) 06/19/21 09:15 Ur Specific Wilsons 1.010 (1.005-1.025) 06/19/21 09:15 Urine Protein NEG MG/DL (NEG-TRACE) 06/19/21 09:15 Urine Glucose (UA) NEG MG/DL (NEG) 06/19/21 09:15 Urine Ketones NEG MG/DL (NEG) 06/19/21 09:15 Urine Blood NEG (NEG) 06/19/21 09:15 Urine Nitrite NEG (NEG) 06/19/21 09:15 Ur Leukocyte Esterase NEG (NEG) 06/19/21 09:15 Vancomycin Trough < 3.0 mcg/mL (10.0-20.0) L 06/23/21 19:40 Ethyl Alcohol < 10 mg/dL 06/18/21 21:55 COVID-19 (AMBER) Negative (Negative) 06/25/21 14:00 COVID-19 Clin Com See Note 06/25/21 14:00 Impressions Duplex Scan Lower Extremity Artery 06/18/21 22:31 IMPRESSION: Significant peripheral vascular disease with monophasic flow in the profunda femoris artery and probable severe SFA disease as well. Some element of inflow disease may be present as well. Guidance Ultrasound 06/20/21 09:00 IMPRESSION: Fluoroscopy guidance for angiogram, right SFA angioplasty and stent. Vascular Stent Procedure 06/20/21 09:00 IMPRESSION: Fluoroscopy guidance for angiogram, right SFA angioplasty and stent. Discharge Plan Discharge Patient Disposition: [facility] Discharge Diagnosis: arterial insufficiency, cellulitis, tobacco abuse Referrals: George Goldstein [Primary Care Provider] - 1 Week Marcus Ortiz MD [Physician] - 2 Weeks Reba Greene MD [Physician] - 2 Weeks Discharge Medications: New atorvastatin 80 mg Tablet 80 mg PO BEDTIME Qty: 30 RF: 0 nicotine 14 mg/24 hr Patch 24 Hour 14 mg transdermal DAILY Qty: 30 RF: 0 clopidogrel 75 mg Tablet 75 mg PO DAILY Qty: 30 RF: 0 cephalexin 500 mg Capsule 500 mg PO Q8H Qty: 18 RF: 0 aspirin 81 mg Tablet,Chewable 81 mg PO DAILY Qty: 30 RF: 0 folic acid 1 mg Tablet 1 mg PO DAILY Qty: 30 RF: 0 nicotine (polacrilex) 2 mg Lozenge 2 mg buccal Q2H PRN (Reason: Nicotine Cravings) Qty: 100 RF: 0 thiamine mononitrate (vit B1) 100 mg Tablet 100 mg PO DAILY Qty: 30 RF: 0 Continued multivitamin [Daily-Loy] Tablet 1 tab PO DAILY RF: 0 gabapentin 300 mg capsule 600 mg PO TID RF: 0 sertraline 25 mg tablet 1 tab PO DAILY RF: 0 Discontinued cephalexin 500 mg capsule 500 mg PO TID Qty: 30 RF: 0 Discharge Orders: Discharge Order (Routine); Ordered 06/25/21 Ordered By: Babak Boswell Diet: advance to usual diet and low salt diet Activity on Discharge: As tolerated Stand Alone Forms: Patient Portal Discharge page Care Plan Goals: vascular health Health Concerns: arterial insufficiency, cellulitis, tobacco abuse, foot ulcer Plan of Treatment: start atorvastatin 80 mg daily PLUS aspirin 81 mg daily PLUS clopidogrel 75 mg daily; see Dr Ortiz [Vascular Surgery] in 2 weeks take cephalexin 500 mg q8h for 6 more days quit smoking; use nicotine patch/gum to quit take vitamins as prescribed; avoid alcohol; vitamin B1 [thiamine] level pending for foot ulcer: Aquasol Ag daily dressing and outpatient wound care follow-up see primary care doctor upon discharge from SNF Assessment: see Discharge Summary Patient Instructions: Peripheral Artery Disease (DC)
[2021-06-25 15:38] VITALS: BP 139/71; PULSE 77; RESP 20; TEMP 36.1; O2SAT 95
--- NOTE | 2021-06-25 15:43 | MHC.CM.PN ---
Patient has been medically cleared for dc to STR/SNF today. Patient will dc to [facility] today at 6PM, via [facility]. Son/HCP/Epifanio at [phone] is aware of and in agreement with the dc plan. IMM addressed with Epifanio and original will be mailed certified letter to Epifanio and a copy has been placed on the chart.
[2021-06-25] MEDS: Acetaminophen 325 MG TABLET 650 MG PO (15:56)
--- NOTE | 2021-06-25 16:03 | PC.NURSE ---
Attempted to call [facility] [place] [phone] was unavailable.Attempted second call to [facility] [place] [phone] was also unavailable.
[2021-06-25 16:57] LABS: Vitamin B1 50 nmol/L (8-30)
== END 2021-06-25 18:06 | disposition skilled nursing facility (03) | DRG 271 ==
LOC: HO.ED 23:31 → HO.EDOVER 06-19 → HO.S3 06-20 11:33
PROVIDERS: Surgery Vascular Surgery; Admitting Provider Internal Medicine; Emergency Provider Student in an Organized Health Care Education/Training Program; PCP Hospitalist; Visit Provider Family Medicine
PROC: 04CK3ZZ Extirpation of Matter from Right Femoral Artery, Percutaneous Approach (ICD-10-PCS; principal; 2021-06-20 07:30)
DX: I70.221 Atherosclerosis of native arteries of extremities with rest pain, right leg (principal); L03.115 Cellulitis of right lower limb; F03.90 Unspecified dementia, unspecified severity, without behavioral disturbance, psychotic disturbance, mood disturbance, and anxiety; F10.20 Alcohol dependence, uncomplicated; F17.210 Nicotine dependence, cigarettes, uncomplicated; Z71.6 Tobacco abuse counseling; Z20.822 Contact with and (suspected) exposure to COVID-19; Z79.02 Long term (current) use of antithrombotics/antiplatelets; Z79.82 Long term (current) use of aspirin; Z79.899 Other long term (current) drug therapy
CPT/HCPCS: 36415; 37227; 76937; 80048; 80053; 80202; 81003; 82077; 82565; 82607; 83036; 83605; 84425; 84443; 85025; 85027; 85610; 85730; 87040; 87635; 93005; 93926; 97110; 97116; 97162; 99152; 99153; 99285; C1714; C1725; C1760; C1769; C1876; C1884; C1887; J1650; J2270; J2405; J2543; J3370

== ENCOUNTER → 2021-07-09 13:41 | Outpatient (BNVA) | payer OTHER, SELFPAY | PROVIDERS: PCP Hospitalist; Visit Provider Surgery Vascular Surgery | DX: Z48.812 Encounter for surgical aftercare following surgery on the circulatory system (principal); I73.9 Peripheral vascular disease, unspecified; Z95.820 Peripheral vascular angioplasty status with implants and grafts | CPT/HCPCS: 99212 ==

== ENCOUNTER 2021-09-06 17:52 | Emergency (ER) | payer OTHER, SELFPAY ==
--- NOTE | ~2021-09-06 | US_ITS ---
EXAMINATION: US VENOUS ULTRASOUND WITH DOPPLER LOWER EXTREMITY, RIGHT CLINICAL INFORMATION: Right lower extremity swelling COMPARISON: None TECHNIQUE: Ultrasound of the deep veins is performed from the hip to the calf with compression sonography and color and pulse Doppler assessment. Spectral analysis with color-flow imaging is performed. FINDINGS: There is normal venous compression and respiratory variation and augmented flow. The visualized common femoral vein, superficial femoral vein, profunda femoral vein, popliteal vein, and the trifurcation region shows no evidence of deep venous thrombosis. There is no significant popliteal fossa cyst. If the patient's symptoms persist, followup ultrasound in 5 days 7 days might be of value to exclude proximal propagation from a non-visualized calf vein. US/US venous duplex LE RT IMPRESSION: No DVT demonstrated in the right lower extremity.
--- NOTE | ~2021-09-06 | XR_ITS ---
EXAMINATION: XR FOOT, RIGHT CLINICAL INFORMATION: Foot pain. COMPARISON: None TECHNIQUE: AP, lateral, and oblique views of the right foot. FINDINGS: The bones and soft tissues are normal. No fracture. Alignment is anatomic. Joint spaces are maintained. XR/XR foot RT 2V IMPRESSION: Normal right foot.
--- NOTE | ~2021-09-06 | US_ITS ---
EXAMINATION: NONINVASIVE ASSESSMENT OF THE ARTERIES OF THE RIGHT LOWER EXTREMITIES Lalo Gomez MD CLINICAL INFORMATION: Right lower extremity swelling with history of PVD TECHNIQUE: Bilateral lower extremity duplex ultrasound was performed with velocity measurements and waveform analysis in the common femoral arteries, profunda femoris arteries, proximal mid and distal superficial femoral arteries, popliteal arteries and tibial vessels. This study was performed only at rest. COMPARISON: Right lower extremity arterial study 06/18/2021 right lower extremity angiogram 06/20/2021 FINDINGS: Velocities in cm/sec and phasicity as well as the presence of plaque are reported below. RIGHT LEG: Since the prior study, the patient has undergone placement of a SFA stent. Common Femoral: 120 Profunda Femoris: 180 Proximal SFA: 390 -a tight focal stenosis can be seen at this level -monophasic flow is noted throughout extremity below this level. Proximal SFA in the stent: Patent with low velocity of 33 Mid SFA: Stent widely patent but decreased velocity 25 Distal SFA: Stent widely patent but decreased velocity at 39 Popliteal: An area of stenosis is seen in the popliteal with poststenotic velocity of 67 Posterior tibial artery: patent but with low flow Peroneal: Patent but with low flow US/US arterial duplex LE RT IMPRESSION: An SFA stent has been placed since the prior study which is patent. Proximal to this stent, there is a tight area of stenosis seen. Monophasic flow is present distal to this throughout the remainder of the lower extremity as described above with low flow.
[2021-09-06 18:06] VITALS: BP 140/66; PULSE 76; O2SAT 96; BMI 23.1
--- NOTE | 2021-09-06 18:14 | ED_ITS ---
HPI - General Adult General Chief complaint: Extremity Problem Stated complaint: r foot pain Time Seen by Provider: 09/06/21 18:14 Source: patient Mode of arrival: ambulatory Limitations: no limitations History of Present Illness HPI narrative: Patient is a 76 year old female presenting to the emergency department today with right foot pain. Patient states that she has chronic problems with her right foot. Patient states that she had a stent placed in her right femoral artery not too long ago and she is taking Eliquis still. Patient endorses alcohol consumption. Patient denies any dizziness, lightheadedness, abdominal pain, nausea, vomiting, fever, chills, blurry vision, double vision, loss of vision, chest pain, difficulty breathing, shortness of breath, back pain, night sweats, pain with urination, increased urinary frequency, increased urinary urgency, blood in her urine or stool, syncope or a near syncopal episode, recent trauma or falls, bowel incontinence, bladder incontinence, bowel retention, bladder retention, or any other complaints at this time. Onset (ago): month(s) Location: lower extremity Radiation: non-radiation Severity: mild Severity scale (1-10): 3 Quality: dull Pain Consistency: intermittent Relieving factors: none Exacerbating factors: none Associated symptoms: denies other symptoms Treatments prior to arrival: none Related Data Home Medications Medication Instructions Recorded Confirmed gabapentin 300 mg capsule 600 mg PO TID 01/10/21 06/19/21 multivitamin (Daily-Loy) 1 tab PO DAILY 01/10/21 06/19/21 sertraline 25 mg tablet 1 tab PO DAILY 01/10/21 06/19/21 Previous Rx's Medication Instructions Recorded aspirin 81 mg chewable tablet 81 mg PO DAILY #30 tab 06/25/21 atorvastatin 80 mg tablet 80 mg PO BEDTIME #30 tab 06/25/21 cephalexin 500 mg capsule 500 mg PO Q8H #18 cap 06/25/21 clopidogrel 75 mg tablet 75 mg PO DAILY #30 tab 06/25/21 folic acid 1 mg tablet 1 mg PO DAILY #30 tab 06/25/21 nicotine (polacrilex) 2 mg buccal 2 mg BUCCAL Q2H PRN #100 ea 06/25/21 lozenge nicotine 14 mg/24 hr daily 14 mg TRANSDERMAL DAILY #30 ea 06/25/21 transdermal patch thiamine mononitrate (vit B1) 100 100 mg PO DAILY #30 tab 06/25/21 mg tablet Allergies Allergy/AdvReac Type Severity Reaction Status Date / Time No Known Allergies Allergy Verified 07/09/21 13:53 Review of Systems Constitutional: Constitutional: Reports no additional constitutional complaints, Denies chills, Denies fever(s) and Denies night sweats Eyes: Eyes: Reports no additional eye complaints, Denies blurry vision, Denies change in vision, Denies diplopia, Denies eye discharge, Denies loss of vision and Denies eye pain ENT: Denies dizziness Cardiovascular: Cardiovascular: Reports no additional cardiovascular complai nts, Denies chest pain, Denies lightheadedness, Denies Loss of Consciousness and Denies dyspnea Respiratory: Respiratory: Reports no additional respiratory complaints and Denies dyspnea Gastrointestinal: Gastrointestinal: Reports no additional gastrointestinal complaints, Denies abdominal pain, Denies melena, Denies hematochezia, Denies change in bowel habits and Denies change in stool character Genitourinary: Genitourinary: Denies hematuria, Denies urinary frequency, Denies dysuria, Denies urinary incontinence, Denies urinary hesitancy and Denies urinary urgency Musculoskeletal: Musculoskeletal: Reports no additional musculoskeletal complaints, Denies numbness and Denies tingling Comments: right foot pain Neurologic: Denies dizziness, Denies loss of vision, Denies numbness and Denies tingling Psychiatric: Psychiatric: Reports no additional psychiatric complaints Endocrine: Endocrine: Reports no additional endocrine complaints Hematologic/Lymphatic: Hematologic/Lymphatic: Reports no additional hematologic/lymphatic complaints Allergic/Immunologic: Allergic/Immunologic: Reports no additional allergic/immunologic complaints PENDING SALE TO [facility] Past Medical History Attestation statement: The following information was validated with the patient. Source: old records reviewed Medical History Alcohol abuse Alcohol dependence Arterial insufficiency of lower extremity Cellulitis of right foot Cigarette smoker Dementia ETOH abuse Insufficiency, vascular PAD (peripheral artery disease) S/P angiogram of extremity (06/20/21) Surgical History No pertinent past surgical history Social History Social History Household Members: Family Housing: House Do you presently have visiting nurse or other home services: No Alcohol intake: current Alcohol intake frequency: a few times a week Alcohol type: beer Patient Tobacco Use Status: Current everyday Tobacco user Tobacco use type: Cigarette Second Hand Smoke Exposure: No Advance Directives: No Advance Directives Information Provided: Yes service: No Current occupational status: retired Physical Exam ED Vital Signs: BMI result Body Mass Index 23.1 Const General: cooperative, no acute distress, alert and awake Nutritional Appearance: well nourished Orientation/consciousness: patient oriented x3 Limitations: no limitations HENMT Head: Yes normal to inspection and Yes atraumatic Ears: hearing grossly normal bilaterally and external ears normal General nose exam: Normal external nose present, no nasal discharge noted and no epistaxis Face and sinus: Yes normal facial exam, No abrasion and No laceration Mouth: Normal oral and palatal mucosa present, no drooling and no muffled voice Eyes General: appearance normal, both eyes and all related structures Periorbital: periorbital findings normal Eyelids: Yes eyelids normal Conjunctivae: conjunctivae normal Pupils: Equal, round and reactive pupils present EOM: EOMs intact bilaterally Neck Neck: Yes normal visual inspection, Yes full ROM and Yes no lymphadenopathy Chest Chest palpation & inspection: normal inspection of the chest Resp Effort & Inspection: normal respiratory effort and able to speak in complete sentences Auscultation: clear to auscultation bilaterally Cardio Rate: regular rate Rhythm: regular rhythm GI Inspection: Yes normal to inspection Skin Other: venous stasis changes to bilateral lower extremities, mild swelling to the right ankle Neuro General: patient oriented x3 and moves all extremities Cranial nerves: Yes Equal, round and reactive pupils present Cognition (Neuro): normal cognition Motor exam (neuro): 5/5 motor strength present throughout Sensory Exam: Normal double simultaneous stimulation for sensation Coordination: [id number] test normal Extrem General: Yes normal to inspection, Yes full ROM and Yes capillary refill normal Psych Appearance: grossly normal Mental Status: mental status grossly normal Affect: normal affect Attitude: cooperative Thought process: Normal thought process present Thought content: Normal thought content present Insight: Good insight present (Psych) Medical Decision Making MDM Narrative Medical decision making narrative: Patient is a 76 year old female presenting to the emergency department today with right foot pain. Patient's physical exam was unremarkable. ROM, circulation, strength, and sensation were intact to the entire right lower extremity. Patient's right foot x-ray showed no acute process. Patient's right venous US showed no acute process. Patient's right arterial US showed an area of stenosis above the SFA stent however, flow was appreciated. Due to the patient's normal examination, flow being present on the US, and the patient still being no Eliquis, the patient is stable for discharge. I explained my physical exam findings as well as all test results to the patient. I answered all questions asked by the patient. I stressed the importance of the patient taking her medication as prescribed. I stressed the importance of the patient following up with her primary care provider and her vascular surgeon. I stressed the importance of the patient returning to the emergency department immediately if his symptoms were to worsen or if she were to develop any dizziness, shortness of breath, difficulty breathing, chest pain, blurry vision, loss of vision, nausea, vomiting, abdominal pain, fever, chills, back pain, or any other complaints. Patient verbalized agreement and understanding with this treatment plan and discharge. Differential Diagnosis Differential Diagnosis: PAD, alcoholic neuropathy Medical Records Medical records reviewed: Yes I reviewed the patient's medical records. Imaging Data Right foot x-ray: Attestation: I personally reviewed and interpreted this imaging study as follows: My impression: No acute process. Radiologist's impression: EXAMINATION: XR FOOT, RIGHT CLINICAL INFORMATION: Foot pain.? COMPARISON: None? TECHNIQUE: AP, lateral, and oblique views of the right foot. FINDINGS: The bones and soft tissues are normal. No fracture. Alignment is anatomic. Joint spaces are maintained.? XR/XR foot RT 2V IMPRESSION: Normal right foot. Dictated By: Andrei Cedillo MD Signed By: Electronically signed by Andrei Cedillo MD 09/06/21 9900 Right lower extremity artey US: Attestation: I personally reviewed and interpreted this imaging study as follows: Radiologist's impression: EXAMINATION: NONINVASIVE ASSESSMENT OF THE ARTERIES OF THE RIGHT LOWER EXTREMITIES Lalo Gomez MD CLINICAL INFORMATION: Right lower extremity swelling with history of PVD TECHNIQUE: Bilateral lower extremity duplex ultrasound was performed with velocity measurements and waveform analysis in the common femoral arteries, profunda femoris arteries, proximal mid and distal superficial femoral arteries, popliteal arteries and tibial vessels. This study was performed only at rest. COMPARISON: Right lower extremity arterial study 06/18/2021 right lower extremity angiogram 06/20/2021 FINDINGS: Velocities in cm/sec and phasicity as well as the presence of plaque are reported below. RIGHT LEG: Since the prior study, the patient has undergone placement of a SFA stent. Common Femoral: 120 Profunda Femoris: 180 Proximal SFA: 390 -a tight focal stenosis can be seen at this level -monophasic flow is noted throughout extremity below this level. Proximal SFA in the stent: Patent with low velocity of 33 Mid SFA: Stent widely patent but decreased velocity 25 Distal SFA: Stent widely patent but decreased velocity at 39 Popliteal: An area of stenosis is seen in the popliteal with poststenotic velocity of 67 Posterior tibial artery:? patent but with low flow Peroneal: Patent but with low flow US/US arterial duplex LE RT IMPRESSION: An SFA stent has been placed since the prior study which is patent. Proximal to this stent, there is a tight area of stenosis seen. Monophasic flow is present distal to this throughout the remainder of the lower extremity as described above with low flow. Dictated By: Lalo Gomez MD Signed By: Electronically signed by Lalo Gomez MD 09/06/212040 Right lower extremity venous US: Attestation: I personally reviewed and interpreted this imaging study as follows: My impression: No DVT. Radiologist's impression: EXAMINATION:? US VENOUS ULTRASOUND WITH DOPPLER LOWER EXTREMITY, RIGHT CLINICAL INFORMATION:? Right lower extremity swelling COMPARISON:? None TECHNIQUE: Ultrasound of the deep veins is performed from the hip to the calf with compression sonography and color and pulse Doppler assessment. Spectral analysis with color-flow imaging is performed. FINDINGS: There is normal venous compression and respiratory variation and augmented flow. The visualized common femoral vein, superficial femoral vein, profunda femoral vein, popliteal vein, and the trifurcation region shows no evidence of deep venous thrombosis. ? There is no significant popliteal fossa cyst. If the patient's symptoms persist, followup ultrasound in 5 days 7 days might be of value to exclude proximal propagation from a non-visualized calf vein. US/US venous duplex LE RT IMPRESSION: No DVT demonstrated in the right lower extremity. Dictated By: Lalo Gomez MD Signed By: Electronically signed by Lalo Gomez MD 09/06/21 2030 Discharge Plan Discharge Clinical Impression: PAD (peripheral artery disease) Patient Disposition: Home, Self-Care Additional Instructions: Follow up with your primary care provider and your vascular surgeon. Return to the emergency department immediately if your symptoms worsen or if you develop any dizziness, shortness of breath, difficulty breathing, chest pain, blurry vision, loss of vision, nausea, vomiting, abdominal pain, fever, chills, back pain, or any other complaints. Prescriptions: No Action multivitamin [Daily-Loy] Tablet 1 tab PO DAILY 0RF gabapentin 300 mg capsule 600 mg PO TID 0RF sertraline 25 mg tablet 1 tab PO DAILY 0RF atorvastatin 80 mg Tablet 80 mg PO BEDTIME Qty: 30 0RF nicotine 14 mg/24 hr Patch 24 Hour 14 mg transdermal DAILY Qty: 30 0RF clopidogrel 75 mg Tablet 75 mg PO DAILY Qty: 30 0RF cephalexin 500 mg Capsule 500 mg PO Q8H Qty: 18 0RF aspirin 81 mg Tablet,Chewable 81 mg PO DAILY Qty: 30 0RF folic acid 1 mg Tablet 1 mg PO DAILY Qty: 30 0RF nicotine (polacrilex) 2 mg Lozenge 2 mg buccal Q2H PRN (Reason: Nicotine Cravings) Qty: 100 0RF thiamine mononitrate (vit B1) 100 mg Tablet 100 mg PO DAILY Qty: 30 0RF Referrals: ED Physician,Generic [Physician] - 2 days (Follow up with your PCP) Interventions: ED Discharge Assessment Last Done: 09/06/21 21:20 Discharge Date/Time: 09/06/21 21:30 Print Language: Bhutanese
== END 2021-09-06 21:30 | disposition home or self-care (01) ==
PROVIDERS: Emergency Provider Student in an Organized Health Care Education/Training Program; PCP Hospitalist
DX: I73.9 Peripheral vascular disease, unspecified (principal); M79.671 Pain in right foot; F03.90 Unspecified dementia, unspecified severity, without behavioral disturbance, psychotic disturbance, mood disturbance, and anxiety; F17.200 Nicotine dependence, unspecified, uncomplicated; Z79.01 Long term (current) use of anticoagulants; Z79.02 Long term (current) use of antithrombotics/antiplatelets; Z79.899 Other long term (current) drug therapy; Z95.820 Peripheral vascular angioplasty status with implants and grafts
CPT/HCPCS: 73620; 93926; 93971; 99284

== ENCOUNTER 2021-10-30 14:28 | Emergency (ER) | payer OTHER, SELFPAY ==
--- NOTE | ~2021-10-30 | XR_ITS ---
EXAMINATION: XR ANKLE, RIGHT CLINICAL INFORMATION: Right ankle wound. COMPARISON: None TECHNIQUE: AP, lateral, and mortise views of the right ankle. FINDINGS: The ankle joint and mortise are intact. There is no acute fracture or dislocation. The joint spaces are unremarkable. Small plantar and retrocalcaneal spurs are seen. Mild soft tissue swelling. XR/XR ankle RT min 3V IMPRESSION: Mild soft tissue swelling and small degenerative calcaneal spurs. No acute abnormality. No overt cortical erosive changes.
[2021-10-30 14:36] VITALS: BP 172/80; O2SAT 96; BMI 18.6
--- NOTE | 2021-10-30 14:48 | PC.NURSE ---
EMS states pt walked with steady gait outside to EMS truck. Not falls risk at this time
[2021-10-30 14:50] VITALS: BP 147/78; PULSE 80; RESP 18; TEMP 36.6; O2SAT 97
[2021-10-30 14:57] VITALS: BP 147/71; PULSE 80; RESP 16; TEMP 37; O2SAT 98
--- NOTE | 2021-10-30 16:02 | ED.WOUNDLAC ---
HPI - Wound/Laceration General Chief Complaint: Wound/Laceration Stated Complaint: SORE ON RT FOOT S/P PROCEDURE Time Seen by Provider: 10/30/21 15:38 Source: patient Mode of arrival: ambulatory Limitations: no limitations History of Present Illness HPI narrative: 76-year-old female alcoholic presents to the emergency department complaining of right ankle sore. She states to triage that she had surgery 1 month ago there is no note here that she had surgery when asked if she has had surgery she states she has not she states she noticed have this bruising to her right ankle today she denies any falls or injuries she states it is tender to touch but she has got chronic peripheral arterial disease and she has seen Dr. Ortiz multiple times in the past. Related Data Home Medications Medication Instructions Recorded Confirmed gabapentin 300 mg capsule 600 mg PO TID 01/10/21 06/19/21 multivitamin (Daily-Loy) 1 tab PO DAILY 01/10/21 06/19/21 sertraline 25 mg tablet 1 tab PO DAILY 01/10/21 06/19/21 Previous Rx's Medication Instructions Recorded aspirin 81 mg chewable tablet 81 mg PO DAILY #30 tab 06/25/21 atorvastatin 80 mg tablet 80 mg PO BEDTIME #30 tab 06/25/21 cephalexin 500 mg capsule 500 mg PO Q8H #18 cap 06/25/21 clopidogrel 75 mg tablet 75 mg PO DAILY #30 tab 06/25/21 folic acid 1 mg tablet 1 mg PO DAILY #30 tab 06/25/21 nicotine (polacrilex) 2 mg buccal 2 mg BUCCAL Q2H PRN #100 ea 06/25/21 lozenge nicotine 14 mg/24 hr daily 14 mg TRANSDERMAL DAILY #30 ea 06/25/21 transdermal patch thiamine mononitrate (vit B1) 100 100 mg PO DAILY #30 tab 06/25/21 mg tablet Allergies Allergy/AdvReac Type Severity Reaction Status Date / Time No Known Allergies Allergy Verified 07/09/21 13:53 Review of Systems Review of Systems: Review of systems: General: Patient denies any fever chills recent illness or falls Musculoskeletal: Denies back pain or body aches or other injuries HEENT: denies headache, runny nose, ear pain Respiratory: denies shortness of breath, cough Cardiovascular: no chest pain or palpitations : denies dysuria, frequency Abdomen: no nausea vomiting denies abdominal pain Extremities: Right ankle pain no swelling Skin: no diaphoresis Yes all other systems are reviewed and are negative PMFSH Past Medical History Medical History Alcohol abuse Alcohol dependence Arterial insufficiency of lower extremity Cellulitis of right foot Cigarette smoker Dementia ETOH abuse Insufficiency, vascular PAD (peripheral artery disease) S/P angiogram of extremity (06/20/21) Surgical History No pertinent past surgical history Social History Social History Household Members: Family Housing: House Do you presently have visiting nurse or other home services: No Alcohol intake: current Alcohol intake frequency: a few times a week Alcohol type: beer Patient Tobacco Use Status: Current everyday Tobacco user Tobacco use type: Cigarette Second Hand Smoke Exposure: No Advance Directives: No Advance Directives Information Provided: Yes service: No Current occupational status: retired Physical Exam Vital Signs: Vital Signs: Last Vital Signs Temp 98.6 F 10/30/21 14:57 Pulse 80 10/30/21 14:57 Resp 16 10/30/21 14:57 BP 147/71 H 10/30/21 14:57 Pulse Ox 98 10/30/21 14:57 BMI result Body Mass Index 18.6 General: Well-appearing well-nourished in no signs of distress HEENT: Normocephalic atraumatic Neck: No signs of JVD, no masses no tenderness or lymphadenopathy Cardiovascular: Regular rate and rhythm Respiratory: Clear to auscultation bilaterally Abdomen: Soft nontender no masses Extremities: Small lesion around medial malleolus of the right ankle no signs of cellulitis no extension of redness up the leg patient has normal pulses all the way down the leg the they are definitely decreased in the dorsalis pedis both feet are warm and perfused she will move her extremities just fine. Normal pedal pulses no signs of edema Skin: Dry warm no rashes Back: No tenderness full ROM MDM - Wound/Laceration MDM Narrative Medical decision making narrative: Small abrasion to right ankle with word story that she had had surgery 1 month ago trans but is denying it for me. 1716 x-ray is normal patient had the wound dressed with foam some samples to change dressings explained need for the patient to come back does not look like it is infected at this time. Differential Diagnosis Differential diagnosis: Likely abrasion Medical Records Attestation: I reviewed the patient's medical records. Discharge Plan Discharge Clinical Impression: PAD (peripheral artery disease), Abrasion Patient Disposition: Home, Self-Care Instructions: Abrasion (ED) Additional Instructions: Pleaes change the dressing daily if it gets more painful you notice streaking or redness please return to the ED. Prescriptions: No Action multivitamin [Daily-Loy] Tablet 1 tab PO DAILY 0RF gabapentin 300 mg capsule 600 mg PO TID 0RF sertraline 25 mg tablet 1 tab PO DAILY 0RF atorvastatin 80 mg Tablet 80 mg PO BEDTIME Qty: 30 0RF nicotine 14 mg/24 hr Patch 24 Hour 14 mg transdermal DAILY Qty: 30 0RF clopidogrel 75 mg Tablet 75 mg PO DAILY Qty: 30 0RF cephalexin 500 mg Capsule 500 mg PO Q8H Qty: 18 0RF aspirin 81 mg Tablet,Chewable 81 mg PO DAILY Qty: 30 0RF folic acid 1 mg Tablet 1 mg PO DAILY Qty: 30 0RF nicotine (polacrilex) 2 mg Lozenge 2 mg buccal Q2H PRN (Reason: Nicotine Cravings) Qty: 100 0RF thiamine mononitrate (vit B1) 100 mg Tablet 100 mg PO DAILY Qty: 30 0RF
[2021-10-30] MEDS: Acetaminophen 325 MG TABLET 650 MG PO (16:38)
[2021-10-30 17:53] VITALS: BP 171/77; PULSE 86; RESP 16; O2SAT 95
== END 2021-10-30 18:18 | disposition home or self-care (01) ==
PROVIDERS: Emergency Provider Student in an Organized Health Care Education/Training Program; PCP Internal Medicine
DX: S90.511A Abrasion, right ankle, initial encounter (principal); I73.9 Peripheral vascular disease, unspecified; X58.XXXA Exposure to other specified factors, initial encounter; Y93.9 Activity, unspecified; Y92.9 Unspecified place or not applicable; Y99.9 Unspecified external cause status; Z79.899 Other long term (current) drug therapy; F17.210 Nicotine dependence, cigarettes, uncomplicated; Z71.6 Tobacco abuse counseling
CPT/HCPCS: 73610; 99283; 99284

== ENCOUNTER 2021-11-07 19:50 | Emergency (ER) | payer OTHER, SELFPAY ==
--- NOTE | ~2021-11-07 | XR_ITS ---
EXAMINATION: XR CHEST CLINICAL INFORMATION: Cough COMPARISON: 07/30/2020 TECHNIQUE: Frontal view of the chest was obtained. FINDINGS: Lung volumes are symmetric. Mild chronic interstitial prominence is noted. No focal consolidation is seen. No evidence of pneumothorax, significant pleural effusion, or overt pulmonary edema. Cardiac size is within normal limits. Calcification is present at the aortic arch. No acute osseous findings are seen. XR/XR chest 1V IMPRESSION: No acute cardiopulmonary findings.
--- NOTE | ~2021-11-07 | XR_ITS ---
EXAMINATION: XR ANKLE, RIGHT CLINICAL INFORMATION: Ulcer medial aspect COMPARISON: 10/30/2021 TECHNIQUE: AP, lateral, and mortise views of the right ankle. FINDINGS: Osseous alignment is anatomic. Diffuse osteopenia is noted. No acute fracture is seen. Mild to moderate diffuse soft tissue swelling is noted. No appreciable soft tissue gas or cortical erosion. Posterior and plantar calcaneal spurs are present. XR/XR ankle RT min 3V IMPRESSION: Soft tissue swelling without acute osseous findings.
[2021-11-07 20:34] VITALS: BP 154/94; BP 180/78; PULSE 112; PULSE 82; RESP 14; TEMP 36.9; O2SAT 95; O2SAT 97; BMI 28.3
[2021-11-08] VITALS (11 sets, daily range): BP systolic 135–162; BP diastolic 61–88; PULSE 71–93; RESP 14–18; TEMP 36.5–36.9; O2SAT 93–98
[2021-11-08] MEDS: Amoxicillin/Potassium Clav 875 MG TABLET PO (00:49)
--- NOTE | 2021-11-08 00:49 | ED_ITS ---
HPI - General Adult General Chief complaint: Extremity Injury, Lower Stated complaint: ankle pain Time Seen by Provider: 11/08/21 00:36 History of Present Illness HPI narrative: This is a 77-year-old female with history of alcohol abuse, dementia, peripheral artery disease, status post placement of a femoral artery stent in June, complains of pain to her right medial ankle. She notes she has a scab to the ankle and severe pain to the area. She is able to get around with a cane. She denies any fever. Patient is a poor historian and despite her history of having had vascular surgery, does not seem to recognize what a vascular surgeon is. Related Data Home Medications Medication Instructions Recorded Confirmed gabapentin 300 mg capsule 600 mg PO TID 01/10/21 06/19/21 multivitamin (Daily-Loy) 1 tab PO DAILY 01/10/21 06/19/21 sertraline 25 mg tablet 1 tab PO DAILY 01/10/21 06/19/21 Previous Rx's Medication Instructions Recorded aspirin 81 mg chewable tablet 81 mg PO DAILY #30 tab 06/25/21 atorvastatin 80 mg tablet 80 mg PO BEDTIME #30 tab 06/25/21 cephalexin 500 mg capsule 500 mg PO Q8H #18 cap 06/25/21 clopidogrel 75 mg tablet 75 mg PO DAILY #30 tab 06/25/21 folic acid 1 mg tablet 1 mg PO DAILY #30 tab 06/25/21 nicotine (polacrilex) 2 mg buccal 2 mg BUCCAL Q2H PRN #100 ea 06/25/21 lozenge nicotine 14 mg/24 hr daily 14 mg TRANSDERMAL DAILY #30 ea 06/25/21 transdermal patch thiamine mononitrate (vit B1) 100 100 mg PO DAILY #30 tab 06/25/21 mg tablet amoxicillin 875 mg-potassium 1 tab PO Q12H #20 tab 11/08/21 clavulanate 125 mg tablet Allergies Allergy/AdvReac Type Severity Reaction Status Date / Time No Known Allergies Allergy Verified 07/09/21 13:53 Review of Systems Constitutional: Constitutional: Denies fever(s) Eyes: Eyes: Reports no additional eye complaints ENT: Reports system reviewed and no additional complaints, except as documented Cardiovascular: Cardiovascular: Reports no additional cardiovascular complaints Respiratory: Respiratory: Reports cough Gastrointestinal: Gastrointestinal: Reports no additional gastrointestinal complaints Musculoskeletal: Comments: Right lower leg and ankle pain PMFSH Past Medical History Medical History Alcohol abuse Alcohol dependence Arterial insufficiency of lower extremity Cellulitis of right foot Cigarette smoker Dementia ETOH abuse Insufficiency, vascular PAD (peripheral artery disease) S/P angiogram of extremity (06/20/21) Surgical History No pertinent past surgical history Social History Social History Household Members: Family Housing: House Do you presently have visiting nurse or other home services: No Alcohol intake: current Alcohol intake frequency: a few times a week Alcohol type: beer Patient Tobacco Use Status: Current everyday Tobacco user Tobacco use type: Cigarette Second Hand Smoke Exposure: No Advance Directives: No service: No Current occupational status: retired Physical Exam ED Vital Signs: Vital Signs - 24 hr 11/07/21 20:34 11/08/21 01:12 11/08/21 01:50 Temperature 98.4 F 98.2 F 97.9 F Pulse Rate 112 H 84 93 Respiratory Rate 14 16 16 Blood Pressure 154/94 H 162/88 H 162/67 H Pulse Oximetry 97 98 BMI result Body Mass Index 28.3 Const General: no acute distress Orientation/consciousness: oriented to person HENWV Head: Yes normal to inspection General nose exam: Normal external nose present Mouth: moist mucous membranes Throat: Yes posterior oropharynx normal, Yes tonsils normal and Yes uvula midline Eyes Eyelids: Yes eyelids normal Conjunctivae: conjunctivae normal Pupils: Equal, round and reactive pupils present Neck Neck: Yes supple Resp Effort & Inspection: normal respiratory effort Auscultation: clear to auscultation bilaterally Cardio Rate: regular rate Rhythm: regular rhythm Heart sounds: S1 normal heart sound present, S2 normal heart sound present, no gallops, no murmurs and no rubs GI Inspection: No distended Palpation (GI): Soft to palpation and nontender Auscultation: normal bowel sounds Skin Other: Approximately 1.5 cm superficial ulcer right medial malleolus with localized erythema, mild swelling, no drainage. Right toes are cool to touch with decreased capillary refill. Proximal foot and ankle are not cold. Dorsalis pedis pulse cannot be palpated. General skin exam: other (Warm and dry) Neuro General: oriented to person and CN's II-XI intact bilaterally Cranial nerves: Yes Equal, round and reactive pupils present Extrem General: Yes no pedal edema Psych Affect: normal affect Attitude: cooperative Medical Decision Making MDM Narrative Medical decision making narrative: The patient had had her atrial vascular studies done in September, as workup for right foot pain, which showed IMPRESSION: An SFA stent has been placed since the prior study which is patent. Proximal to this stent, there is a tight area of stenosis seen. Monophasic flow is present distal to this throughout the remainder of the lower extremity as described above with low flow. Case was discussed with Dr. Ortiz of vascular surgery. He is familiar with the patient. He will have his office reach out and make sure the patient gets followed up early next week. I explained to Dr. Scott that the patient has dementia and does not seem competent, and he said he was aware of that and in the past had work with the family member to get her evaluated. He agreed with starting p.o. antibiotics I called the patient's son 2 discussed the patient's condition with him. He stated that he works in [place] and could not be in the area until around 3 04:00 o'clock tomorrow. He stated in the past the patient got admitted to a rehab facility for treatment. I explained that he needed vascular surgery consultation. Patient appears mentally incompetent to take care of herself at home. Patient has been started on Augmentin. Labs and chest x-ray unremarkable. X-ray of the right ankle shows soft tissue swelling no osteomyelitis. Patient is to stay in the ED and have case management consul tation in the morning for possible rehab placement. Lab Data Lab results reviewed: Yes I reviewed the patient's lab results. Result diagrams: 11/08/21 03:00 11/08/21 03:00 Labs: Lab Results 11/08/21 11/08/21 Range/Units 03:00 03:00 WBC 9.8 (4.8-10.8) X10*3/uL RBC 4.42 (4.20-5.50) X10*6/uL Hgb 13.2 (12.0-16.0) g/dl Hct 40.4 (37.0-47.0) % MCV 91.4 (80.0-98.0) fL MCH 29.9 (27.0-33.0) pg MCHC 32.7 (31.0-35.0) g/dl RDW 15.0 (11.0-16.0) % Plt Count 451 H D (160-400) X10*3/uL MPV 9.2 L (9.4-12.3) fL Immature Gran % (Auto) 0.3 (0.0-0.4) % Neut % (Auto) 53.5 (45-73) % Lymph % (Auto) 34.8 (20-40) % [place] % (Auto) 7.9 (2-11) % Eos % (Auto) 2.6 (0-4) % Baso % (Auto) 0.9 (0-2) % Lymph # (Auto) 3.4 (1.2-4.9) X10*3/uL [place] # (Auto) 0.8 (0.1-1.2) X10*3/uL Eos # (Auto) 0.3 (0.0-0.4) X10*3/uL Baso # (Auto) 0.1 (0.0-0.2) X10*3/uL Abs Immat Gran (auto) 0.03 (0.00-0.03) X10*3/uL Absolute Neuts (auto) 5.3 (2.0-8.3) x10*3/uL Absolute Nucleated RBC 0.000 (0.0-0.012) X10*3/uL Nucleated RBC % (auto) 0.0 (0.0-0.2) /100WBC Sodium 138 (135-145) mmol/L Potassium 4.1 (3.3-5.1) mmol/L Chloride 103 (96-108) mmol/L Carbon Dioxide 23 (22-29) mmol/L Anion Gap 16 (12-20) BUN 16 D (9-16) mg/dL Creatinine 0.65 (0.5-1.4) mg/dL Estim Creat Clear Calc 69.7 Estimated GFR > 60 Random Glucose 86 (60-115) mg/dL Calcium 10.1 D (8.4-10.2) mg/dL Total Bilirubin 0.5 (0.0-1.0) mg/dL AST 25 (5-31) U/L ALT 15 (0-31) U/L Alkaline Phosphatase 88 (39-117) U/L Total Protein 7.4 (6.5-8.0) g/dL Albumin 4.1 (3.5-5.0) g/dL Imaging Data Right ankle x-ray: Radiologist's impression: MPRESSION: Soft tissue swelling without acute osseous findings. Discharge Plan Discharge Clinical Impression: Ulcer of right ankle, PAD (peripheral artery disease) Patient Disposition: Still a Patient Instructions: Peripheral Artery Disease (ED), Acute Wounds (ED) Additional Instructions: Start the antibiotics as prescribed. Follow-up with your vascular surgeon, Dr. Ortiz. I discussed her case with him and he is going to reach out to make sure you get into the office next week for follow-up, as your blood flow to yourright foot is compromised today. Soak your right foot in warm water for 10 minutes daily, then pat dry and apply antibiotic ointment to the skin ulcer on the ankle. Cover with a bandage. Prescriptions: New amoxicillin-pot clavulanate 875-125 mg tablet 1 tab PO Q12H Qty: 20 0RF No Action multivitamin [Daily-Loy] Tablet 1 tab PO DAILY 0RF gabapentin 300 mg capsule 600 mg PO TID 0RF sertraline 25 mg tablet 1 tab PO DAILY 0RF atorvastatin 80 mg Tablet 80 mg PO BEDTIME Qty: 30 0RF nicotine 14 mg/24 hr Patch 24 Hour 14 mg transdermal DAILY Qty: 30 0RF clopidogrel 75 mg Tablet 75 mg PO DAILY Qty: 30 0RF cephalexin 500 mg Capsule 500 mg PO Q8H Qty: 18 0RF aspirin 81 mg Tablet,Chewable 81 mg PO DAILY Qty: 30 0RF folic acid 1 mg Tablet 1 mg PO DAILY Qty: 30 0RF nicotine (polacrilex) 2 mg Lozenge 2 mg buccal Q2H PRN (Reason: Nicotine Cravings) Qty: 100 0RF thiamine mononitrate (vit B1) 100 mg Tablet 100 mg PO DAILY Qty: 30 0RF Referrals: Marcus Ortiz MD [Physician] - 3 days
[2021-11-08 03:05] LABS: Basophils Absolute Auto 0.1 X10*3/uL (0.0-0.2); Basophils Percent Auto 0.9 % (0-2); Eosinophils Absolute Auto 0.3 X10*3/uL (0.0-0.4); Eosinophils Percent Auto 2.6 % (0-4); Hematocrit 40.4 % (37.0-47.0); Hemoglobin 13.2 g/dl (12.0-16.0); Imm Gran Abs Auto 0.03 X10*3/uL (0.00-0.03); Imm Gran Pct Auto 0.3 % (0.0-0.4); Lymphocytes Absolute Auto 3.4 X10*3/uL (1.2-4.9); Lymphocytes Percent Auto 34.8 % (20-40); MANUAL DIFF FLAG NO; Mean Corpuscular HGB Conc 32.7 g/dl (31.0-35.0); Mean Corpuscular Hemoglobin 29.9 pg (27.0-33.0); Mean Corpuscular Volume 91.4 fL (80.0-98.0); Mean Platelet Volume 9.2 fL (9.4-12.3); Monocytes Absolute Auto 0.8 X10*3/uL (0.1-1.2); Monocytes Percent Auto 7.9 % (2-11); Neutrophils Absolute Auto 5.3 x10*3/uL (2.0-8.3); Neutrophils Percent Auto 53.5 % (45-73); Platelet Count 451 X10*3/uL (160-400); Red Blood Count 4.42 X10*6/uL (4.20-5.50); White Blood Count 9.8 X10*3/uL (4.8-10.8)
[2021-11-08 03:25] LABS: Alanine Aminotransferase 15 U/L (0-31); Albumin Level 4.1 g/dL (3.5-5.0); Alkaline Phosphatase 88 U/L (39-117); Anion Gap 16 (12-20); Aspartate Amino Transferase 25 U/L (5-31); Bilirubin Total 0.5 mg/dL (0.0-1.0); Blood Urea Nitrogen 16 mg/dL (9-16); Calcium 10.1 mg/dL (8.4-10.2); Carbon Dioxide 23 mmol/L (22-29); Chloride 103 mmol/L (96-108); Creatinine Clr Calc Pharmacy 69.7; Estimated Glomerular Filt Rate > 60; Glucose Random 86 mg/dL (60-115); Potassium 4.1 mmol/L (3.3-5.1); Sodium 138 mmol/L (135-145); Total Protein 7.4 g/dL (6.5-8.0)
--- NOTE | 2021-11-08 07:09 | PC.NURSE ---
Report given KRISTEL Vargas
[2021-11-08 09:04] LABS: Influenza A PCR NEGATIVE (Negative); Influenza B PCR NEGATIVE (Negative); Resp Syncy Virus RNA Qual PCR NEGATIVE (Negative); SARS COV2 PCR INHOUSE NEGATIVE (Negative)
--- NOTE | 2021-11-08 09:09 | PC.NURSE ---
pt has a dime size scabbed area to r ankle and r ankle swelling/slight redness noted.
--- NOTE | 2021-11-08 10:46 | PHA.MEDREC ---
Pharmacy Consult ? Medication Reconciliation Pharmacy has completed the medication reconciliation. Patient seems confused. Reports medications get delivered to house. Claim history up to date and matched pervious medical records. Juanita Green, AmyD
[2021-11-08] MEDS: oxyCODONE HCl Immed Release 5 MG TABLET PO (11:24)
[2021-11-08] MEDS: Acetaminophen 325 MG TABLET PO (11:24)
--- NOTE | 2021-11-08 12:17 | MHC.CM.ED ---
Received case management consult overnight. Patient came to the ER due to left ankle pain. Physical therapy eval completed. Short term rehab is recommended. Attempted to meet with patient in regards to discharge planning. Patient currently confused. Spoke with patient's son/HCP, Epifanio, via telephone at [phone]. Patient lives alone, but family has a patient friend that stays in the house to keep an eye on patient. Patient ambulates independently and has some services through [facility]. PCP verified. Copy of HCP verified to be on file. Patient received J&J vaccine. No booster. Epifanio aware patient may be difficult to place due to not being Covid boosted. Epifanio agreeable to referral being broadcasted in [facility]. Referral broadcasted in [facility] to all facilities that are contracted with patient's insurance within [address]. [facility] will be able to offer a bed on 11/09 with insurance auth has been obtained. Epifanio aware and agreeable. Continue to monitor for d/c needs.
[2021-11-08] MEDS: Atorvastatin Calcium 80 MG TABLET PO (20:34)
[2021-11-08] MEDS: Gabapentin 300 MG CAPSULE 600 MG PO (20:34)
--- NOTE | 2021-11-08 22:34 | PC.NURSE ---
Tele monitor placed at bedside as pt noted to be a high fall risk. Per primary RN, pt very impulsive and unsteady on feet.
--- NOTE | 2021-11-08 22:36 | PC.NURSE ---
Addendum entered by Estuardo Marie 11/08/21 22:43: Bed rails up, fall risk socks on. Patient moved to room 22, closer to the nurses station. Observation camera still in patients room. Original Note: Patient increasingly confused and disoriented. Observation camera placed in room and confirmed vision with observation room.
[2021-11-09 00:26] VITALS: BP 174/82; PULSE 86; RESP 16; TEMP 36.9; O2SAT 97
[2021-11-09] MEDS: oxyCODONE HCl Immed Release 5 MG TABLET PO (00:38)
[2021-11-09 08:00] VITALS: BP 172/88; PULSE 81; RESP 18; O2SAT 92
[2021-11-09] MEDS: Clopidogrel Bisulfate 75 MG TABLET PO (08:39)
[2021-11-09] MEDS: Multivitamin TABLET 1 TAB PO (08:39)
[2021-11-09] MEDS: Thiamine HCL 100 MG TABLET PO (08:39)
[2021-11-09] MEDS: Gabapentin 300 MG CAPSULE 600 MG PO (08:39)
[2021-11-09] MEDS: Folic Acid 1 MG TABLET PO (08:39)
[2021-11-09] MEDS: Sertraline HCL 25 MG TABLET PO (08:40)
[2021-11-09] MEDS: Aspirin 81 MG TAB.CHEW PO (08:40)
== END 2021-11-09 09:33 | disposition home or self-care (01) ==
PROVIDERS: Student in an Organized Health Care Education/Training Program; Emergency Provider Emergency Medicine; PCP Hospitalist
DX: L97.319 Non-pressure chronic ulcer of right ankle with unspecified severity (principal); I73.9 Peripheral vascular disease, unspecified; M25.571 Pain in right ankle and joints of right foot; F03.90 Unspecified dementia, unspecified severity, without behavioral disturbance, psychotic disturbance, mood disturbance, and anxiety; Z95.820 Peripheral vascular angioplasty status with implants and grafts; Z20.822 Contact with and (suspected) exposure to COVID-19
CPT/HCPCS: 0241U; 36415; 71045; 73610; 80053; 85025; 97162; 99284; 99285

== ENCOUNTER 2021-12-23 13:26 | Outpatient (REF) | payer OTHER, SELFPAY ==
--- NOTE | ~2021-12-23 | US_ITS ---
EXAMINATION: Noninvasive assessment of the bilateral lower extremities with ARTERIAL DUPLEX and ANKLE BRACHIAL INDICES (ABIs). ? CLINICAL INFORMATION: Peripheral vascular disease, history of prior angiogram ? TECHNIQUE: Duplex Doppler techniques with waveform analysis and measurement of velocities in the bilateral common femoral, profunda femoris, superficial femoral, popliteal and tibial arteries were performed. Additionally, ankle pulse volume recordings, ankle pressure measurements and ankle brachial indices were obtained of the lower extremity arterial system bilaterally. The study was performed only at rest. ? COMPARISON: 09/06/2021 ? FINDINGS: ? DIRECT DUPLEX DOPPLER FINDINGS: ? RIGHT LEG: Common femoral artery:?164 cm/s, phasicity: Triphasic. Mild atherosclerotic plaque Profunda femoris artery:??234 cm/s, phasicity: Triphasic Superficial femoral artery (proximal):?Occluded. Pre-existing stent is occluded Superficial femoral artery (mid):?Occluded. Pre-existing stent is occluded Superficial femoral artery (distal):?23 cm/s. Pre-existing stent is occluded. Reconstituted flow seen just distal to the stent with monophasic waveforms Popliteal artery:?37 cm/s, phasicity: Monophasic Posterior tibial artery:?59 cm/s, phasicity: Monophasic. Posterior tibial artery is occluded in the mid and distal calf Peroneal artery:?38.1 cm/s, phasicity: Monophasic ? LEFT LEG: Common femoral artery:?160 cm/s, phasicity: Biphasic. Mild atherosclerotic plaque Profunda femoris artery:?167?cm/s, phasicity: Triphasic Superficial femoral artery (proximal):?122?cm/s, phasicity: Biphasic Superficial femoral artery (mid):?102 cm/s, phasicity: Triphasic Superficial femoral artery (distal):?126?cm/s, phasicity: Monophasic. Moderate atherosclerotic plaque Popliteal artery:?192?cm/s, phasicity: Monophasic Posterior tibial artery:?Occluded? Peroneal artery:?Occluded ANKLE-BRACHIAL INDEX: ? Right: 0.21? Left: 0.6 ? ANKLE PRESSURES: ? Right: PT occluded, DP?37?? Left: PT?101, DP?106?? ? ANKLE PVR WAVEFORMS: ? Right: Abnormal Left: Abnormal? ? Right leg:???Severely decreased ankle brachial index and arterial waveforms. There is occlusion of the right superficial femoral artery through pre-existing stents. This is new compared to the prior exam. Severely dampened reconstituted flow seen in the distal superficial femoral artery, popliteal artery and runoff vessels just below the stent. ? Left leg:???Moderately decreased ankle brachial index and arterial waveforms. Mild to moderate stenoses is seen in the distal left superficial femoral artery and popliteal artery. Occlusive changes in the below-knee runoff vessels. ? ?? SINDI Reference: - >1.4 = calcified vessels - 0.9 - 1.4 = normal - no significant arterial disease - 0.7 - 0.89 = mild peripheral arterial disease - 0.51 - 0.69 = moderate peripheral arterial disease - ? 0.50 = severe peripheral arterial disease - < .30 = critical arterial disease US/US arterial duplex LE BI IMPRESSION: ?
== END 2021-12-23 13:27 | disposition home or self-care (01) ==
LOC: HO.US 13:26
PROVIDERS: Visit Provider Surgery Vascular Surgery
DX: I73.9 Peripheral vascular disease, unspecified (principal)
CPT/HCPCS: 93923; 93925

== ENCOUNTER → 2021-12-26 13:07 | Outpatient (BNVA) | payer OTHER, SELFPAY | PROVIDERS: PCP Internal Medicine; Visit Provider Surgery Vascular Surgery | DX: I73.9 Peripheral vascular disease, unspecified (principal); L97.519 Non-pressure chronic ulcer of other part of right foot with unspecified severity; Z95.820 Peripheral vascular angioplasty status with implants and grafts | CPT/HCPCS: 99212 ==

== ENCOUNTER 2021-12-31 14:45 | Inpatient (IN) | payer OTHER, SELFPAY ==
[2021-12-31] VITALS (13 sets, daily range): BP systolic 118–162; BP diastolic 62–82; PULSE 82–107; RESP 16–20; TEMP 36.6–37.8; O2SAT 91–98; BMI 28.3
--- NOTE | ~2021-12-31 | XR_ITS ---
EXAMINATION: XR FOOT, RIGHT CLINICAL INFORMATION: Ulcer right foot. COMPARISON: Radiographs right ankle 11/08/2021 and right foot 09/06/2021. TECHNIQUE: Right foot is imaged portably in 4 views. FINDINGS: There is mild generalized osteopenia. There is no focal bony destructive process seen. No periostitis. No acute or healing fracture or dislocation. There is no gas tracking in the soft tissues. Again, there are moderate posterior and plantar calcaneal spurs. XR/XR foot RT min 3V IMPRESSION: -No bony destructive process or periostitis. -No gas tracking in soft tissues.
--- NOTE | ~2021-12-31 | XR_ITS ---
EXAMINATION: XR CHEST CLINICAL INFORMATION: Cough and fever COMPARISON: 11/08/2021 TECHNIQUE: Frontal view of the chest was obtained. FINDINGS: Patchy opacities in the left lower lung. Background chronic lung markings. Normal heart size and pulmonary vascularity. No pleural effusion or pneumothorax. No acute osseous abnormalities. XR/XR chest 1V IMPRESSION: Left lower lung patchy airspace opacities compatible with pneumonia Chronic lung markings redemonstrated.
[2021-12-31] MEDS: 0.9 % Sodium Chloride 1,000 ML 100 ML IVCONT ×2 (10:24→19:00)
[2021-12-31 10:29] LABS: MANUAL DIFF FLAG NO
--- NOTE | 2021-12-31 10:44 | PC.NURSE ---
when touching right leg patient yelling in pain repositioned patient for comfort with minimial relief dr robertson aware of patient pain status no new orders
[2021-12-31 10:45] LABS: Anion Gap 12 (12-20); Blood Urea Nitrogen 10 mg/dL (9-16); Calcium 8.8 mg/dL (8.4-10.2); Carbon Dioxide 25 mmol/L (22-29); Chloride 102 mmol/L (96-108); Creatinine Clr Calc Pharmacy 74.3; Estimated Glomerular Filt Rate > 60; Glucose Random 100 mg/dL (60-115); Potassium 4.4 mmol/L (3.3-5.1); Sodium 135 mmol/L (135-145)
[2021-12-31 10:46] LABS: Basophils Absolute Auto 0.1 X10*3/uL (0.0-0.2); Basophils Percent Auto 0.4 % (0-2); Eosinophils Absolute Auto 0.1 X10*3/uL (0.0-0.4); Eosinophils Percent Auto 0.5 % (0-4); Imm Gran Abs Auto 0.06 X10*3/uL (0.00-0.03); Imm Gran Pct Auto 0.5 % (0.0-0.4); Lymphocytes Absolute Auto 1.9 X10*3/uL (1.2-4.9); Lymphocytes Percent Auto 16.7 % (20-40); Mean Corpuscular HGB Conc 31.7 g/dl (31.0-35.0); Mean Corpuscular Hemoglobin 28.4 pg (27.0-33.0); Mean Corpuscular Volume 89.8 fL (80.0-98.0); Mean Platelet Volume 8.4 fL (9.4-12.3); Monocytes Absolute Auto 1.1 X10*3/uL (0.1-1.2); Monocytes Percent Auto 9.3 % (2-11); Neutrophils Absolute Auto 8.2 x10*3/uL (2.0-8.3); Neutrophils Percent Auto 72.6 % (45-73); Platelet Count 661 X10*3/uL (160-400); Red Blood Count 3.34 X10*6/uL (4.20-5.50); Red Cell Distribution Width 15.8 % (11.0-16.0); White Blood Count 11.4 X10*3/uL (4.8-10.8)
--- NOTE | 2021-12-31 10:53 | PC.NURSE ---
spoke to monique nurse from the [facility] pt been in pain for 1 week given oxycodone for pain at 0830 today with her plavix, and see mar
[2021-12-31 10:56] LABS: Hemoglobin 9.5 g/dl (12.0-16.0)
--- NOTE | 2021-12-31 11:00 | PC.NURSE ---
pt resting comfortable at this time eyes closed resp easy and reg no grimaicing noted pwd spoke to son leola hcp aware dr robertson will call around 12 for comsent
--- NOTE | 2021-12-31 14:50 | P.OP_ITS ---
Operative Note Operative Note Date of Service: 12/31/21 Narrative: Angiogram report from [facility] Preoperative diagnosis: Atherosclerosis of right lower extremity with nonhealing ulceration Postoperative diagnosis: Same Procedure: 1. Ultrasound-guided left common femoral access 2. Aortogram with right lower extremity runoff 3. right SFA plasty and stent 4. right popliteal plasty Surgeon:Marcus Ortiz M.D., FACS, RPVI Infant Lead Teacher:None Anesthesia: Local with moderate conscious sedation. Total intraservice moderate sedation time was 72 minutes. I monitored the patient's level of consciousness and physiologic status continuously throughout the procedure. Specimens:none Drains:none Estimated blood loss: Less than 10 ml Implant: Medtronic Ev 3 6 x 200 stent; Impact DCB 6 x 200; Impact DCB 5 x 40 Indications: 76-year-old female with a history peripheral vascular disease with a nonhealing right lower extremity ulcer presents for endovascular intervention. Risks benefits complications were discussed with the son Smith who is the healthcare proxy and we informed telephone consent from The patient has signed the informed consent after reviewing risks, complications, benefits, and alternatives previously discussed with the patient. The patient was given the opportunity to ask any additional questions or voice any concerns. All questions were answered to the patient's satisfaction. Procedure in detail: Patient was brought to the angiography suite prior to which a time-out was called for patient identification and site verification. Bilateral groins were prepped and draped in the standard surgical fashion. Under ultrasound guidance common femoral was punctured with micro puncture needle and wire. Subsequently a precision 5 Taiwanese sheath was then placed. Bentson wire was advanced to the level of the aorta. 5 Taiwanese Flush catheter was brought up and parked at the level of the renal arteries. Aortogram was t hen undertaken. Catheter was brought down to the level of the iliac bifurcation. Iliacs were subsequently imaged. Catheter was then brought in up and over to the right side SFA. Runoff study was then undertaken. we then advanced an 035 glidewire Advantage and we were able to traverse the occlusion throughout the SFA. We confirmed true lumen with a now be cross catheter. At this time 5000 units of systemic heparin was administered. After 5 minutes of circulation time an up and over 6 Taiwanese sheath was then placed. We 1st turned our attention to the distal portion and plastied the entire length of the SFA with a regular 6 x 150 balloon. We then turned our attention to the distal SFA and we plasty this with a 6 x 200 drug coated balloon which encompassed the prior stent into that SFA. This was brought into position in under 3 minutes and insufflated for total of 3 minutes in duration. We then brought in a 6 x 200 stent in we stented the proximal portion of the SFA and brought it all the way up to the junction of the common femoral. This was once again plasty did into position after deployment. And we obtained good results a we then did a completion angiogram and there was a short-segment high-grade stenosis at the behind P2 segment of the popliteal. This was plasty and with a 5 x 40 drug coated balloon. Once again this was brought into position in 3 minutes and i nsufflated for a total of 3 minutes in duration. Once this was all accomplished we did a completion angiogram which showed an excellent result. Catheter wire sheath was then brought back to the ipsilateral side. StarClose closure device was then deployed. Patient tolerated the procedure well. Returned to recovery with stable vitals. Interpretation of films: 1. Ultrasound demonstrates appropriate femoral puncture. Image of which was saved. 2. Aortogram demonstrates appropriate caliber aorta. Minimal disease. Appropriate take-off of the renals. 3. Iliac images demonstrate No significant disease 4. right Leg Common femoral artery: no significant disease Profundus Femoris: No significant disease Superficial femoral artery: small proximal portion. Beyond that total occlusion reconstitution at the above knee popliteal Popliteal artery (p1,p2,p3): normal with a high-grade stenosis at the behind knee popliteal P2 segment Anterior tibial artery: supplies down to the ankle Peroneal artery: occluded Posterior tibial artery: occluded Dorsalis pedis/plantar arch: incomplete Conclusion: 1. successful plasty and stent of right SFA and popliteal. Patient has 1 vessel runoff. 2. Anticoagulation status: Patient will require a minimum of 6 months of aspirin and Plavix. This note is constructed using voice recognition software. While every effort has been made to ensure accuracy, pupil personnel services director errors may have been included. Thank you for allowing me to participate in the care of your patient. Yours sincerely, Marcus Ortiz MD, FACS, R.P.V.I.
--- NOTE | 2021-12-31 15:30 | PHA.MEDREC ---
Pharmacy Consult ? Medication Reconciliation Pharmacy has completed the medication reconciliation.
--- NOTE | 2021-12-31 15:38 | HO.VASCH&P ---
History of Present Illness History of Present Illness Date of Service: 12/31/21 Chief complaint: nonhealing ulcer Narrative: Alicia Tyson is a 76 year old female With a history of peripheral vascular disease and dementia. She had originally had an endovascular intervention and the right lower extremity dating back to June she had seen me as an outpatient and she presented for endovascular intervention. She had undergone a angioplasty and stent of a total occlusion of the right SFA. Of concern was her level of pain and the nonhealing ulcers including the right medial calf and gangrene of a toe. She now presents for hospital admission. Review of Systems Review of Systems: Yes all other systems are reviewed and are negative Constitutional: Constitutional: Reports no additional constitutional complaints ENT: Reports Normal hearing present Cardiovascular: Cardiovascular: Denies chest pain, Denies chest pain at rest, Denies chest pain with activity and Denies pedal edema Respiratory: Respiratory: Denies cough Gastrointestinal: Gastrointestinal: Denies abdominal pain Musculoskeletal: Musculoskeletal: Denies abnormal gait, Denies muscle cramps and Denies radiating pain into limb Integumentary/Breasts: Skin/Breast: Denies skin ulcer and Denies wounds Neurologic: Reports Normal hearing present and Denies abnormal gait Psychiatric: Psychiatric: Reports no additional psychiatric complaints PMFSH Past Medical History Medical History Alcohol abuse Alcohol dependence Arterial insufficiency of lower extremity Cellulitis of right foot Cigarette smoker Dementia ETOH abuse Insufficiency, vascular PAD (peripheral artery disease) S/P angiogram of extremity (06/20/21) Surgical History Surgical History No pertinent past surgical history Social History Social History Household Members: Family Housing: House Do you presently have visiting nurse or other home services: No Alcohol intake: never Patient Tobacco Use Status: Current everyday Tobacco user Tobacco use type: Cigarette Second Hand Smoke Exposure: No Advance Directives: No Advance Directives Information Provided: Yes service: No Current occupational status: retired [employer] Allergies Allergy/AdvReac Type Severity Reaction Status Date / Time No Known Allergies Allergy Verified 12/26/21 13:21 Active Medications: Current Medications Aspirin (Aspirin Enteric Coated 81 Mg Tablet.) 81 mg PO DAILY [facility] Clopidogrel Bisulfate (Clopidogrel Bisulfate 75 Mg Tablet) 75 mg PO DAILY [facility] Heparin Sodium (Porcine) (Heparin Sodium,Porcine 5,000 Unit/Ml Vial) 5,000 unit SUBCUT Q8H [facility] Sodium Chloride (Ns) 1,000 mls @ 100 mls/hr IVCONT .Q10H [facility] Last Admin: 12/31/21 10:24 Dose: 100 mls/hr Morphine Sulfate (Morphine Sulfate 2 Mg/Ml Cartridge) 2 mg IVPUSH Q4H PRN; Protocol PRN Reason: Pain, Severe (Pain Scale 7-10) Oxycodone HCl (Oxycodone Hcl Immed Release 5 Mg Tablet) 5 mg PO Q4H PRN PRN Reason: Pain, Moderate (Pain Scale 4-6 Sodium Chloride (0.9 % Sodium Chloride Flush 3 Ml Syringe) 3 ml IVFLUSH QSHIFT [facility] Home Medications Medication Instructions Recorded Confirmed Last Taken Type gabapentin 300 mg capsule 600 mg PO TID 01/10/21 12/31/21 Unknown History multivitamin (Daily-Loy tablet) 1 tab PO DAILY 01/10/21 12/31/21 Unknown History sertraline 25 mg tablet 1 tab PO DAILY 01/10/21 12/31/21 Unknown History oxycodone 5 mg tablet 5 mg PO Q8H PRN Pain 12/26/21 12/31/21 Unknown History thiamine HCl (vitamin B1) 100 mg 100 mg PO DAILY 12/26/21 12/31/21 Unknown History tablet folic acid 1 mg tablet 1,000 mg PO DAILY 12/31/21 12/31/21 Unknown History Physical Exam Vital Signs: Vital Signs: Last Vital Signs Temp 98.9 F 12/31/21 14:55 Pulse 95 12/31/21 15:10 Resp 18 12/31/21 15:10 BP 153/82 H 12/31/21 15:10 Pulse Ox 96 12/31/21 15:10 O2 Del Method 12/31/21 15:10 BMI result Body Mass Index 28.3 Const: General: cooperative, healthy appearing and comfortable Orientation/consciousness: oriented to person, oriented to place and oriented to time HEENT: Head: Yes normal to inspection Neck: Neck: Yes normal visual inspection Carotids: no bruits Chest: Chest palpation & inspection: normal inspection of the chest Resp: Effort & Inspection: normal respiratory effort and able to speak in complete sentences Auscultation: clear to auscultation bilaterally, no crackles, no rales, no rhonchi and no wheezes Cardio: Rate: regular rate Rhythm: regular rhythm Heart sounds: S1 normal heart sound present and S2 normal heart sound present Bruits: no carotid bruits Peripheral pulses: dorsalis pedis present ( Bilateral DP signals) GI: Inspection: Yes normal to inspection Skin: Other: right medial ankle ulcerations and toe gangrene Hair: normal Neuro: General: oriented to person, oriented to place and oriented to time Cranial nerves: Yes CN's II-XII intact bilaterally and Yes Normal hearing present Cognition (Neuro): normal cognition Motor exam (neuro): 5/5 motor strength present throughout Extrem: Other: venous exam: No significant superficial varicosities or spider telangiectasias, minimal edema General: No clubbing, No cyanosis and No edema Psych: Appearance: grossly normal Mental Status: mental status grossly normal Speech and movement: Normal speech and movement present Results Results Labs: Short CBC 12/31/21 Range/Units 10:25 WBC 11.4 H (4.8-10.8) X10*3/uL Hgb 9.5 L D (12.0-16.0) g/dl Hct 30.0 L D (37.0-47.0) % Plt Count 661 H D (160-400) X10*3/uL BMP 12/31/21 10:25 Sodium 135 Potassium 4.4 Chloride 102 Carbon Dioxide 25 BUN 10 Creatinine 0.61 Calcium 8.8 D Assessment and Plan (1) PAD (peripheral artery disease): Status: Acute Plan in short patient has done well with her endovascular intervention. She will be started on aspirin and Plavix. I did admit her for pain control and antibiotic therapy for those nonhealing ulcers. We will continue with local wound care. We will see how she does over the next several days in hopes that the pain does improve. The case was discussed with the hospitalist team who will assist in the patients antibiotic regimen along with medical management. please note a total of 60 minutes was required for this patients admission between coordination of in patient care, discussion with the hospitalist team and discussion with son along with direct patient contact Quality Stroke Does the patient have a stroke diagnosis?: No VTE Prior VTE?: No VTE Risk Level:: Surgical - moderate VTE Device Contraindication: N/A - Device Ordered VTE Drug Contraindication: N/A - Med Ordered Procedures Date of Service Date of Service: 12/31/21
--- NOTE | 2021-12-31 17:05 | P.CONHOSP_ITS ---
History of Present Illness Data of Consult Service Date: 12/31/21 Requesting physician: Marcus Ortiz Primary Care Provider: George MANZANARES 76-year-old female status post right SFA plasty in stent with right popliteal plasty earlier today. Asked to see in consult for nonhealing ankle ulcers. Review of Systems Review of Systems: Denies chest pain Denies shortness of breath Denies nausea vomiting diarrhea Denies fever chills PMFSH Medical History Alcohol abuse Alcohol dependence Arterial insufficiency of lower extremity Cellulitis of right foot Cigarette smoker Dementia ETOH abuse Insufficiency, vascular PAD (peripheral artery disease) S/P angiogram of extremity (06/20/21) Surgical History No pertinent past surgical history Social History Household Members: Other Housing: [facility] Unable to assess alcohol history related to: Unknown Alcohol intake: never Patient Tobacco Use Status: Former Tobacco user Tobacco use type: Cigarette Smoked in Last 30 Days: No Second Hand Smoke Exposure: No Use of substances other than those prescribed or required for medical reasons: No Currently Displaying Signs/Symptoms of Drug Intoxication Withdrawal: No Have you been hit, kicked, punched, or otherwise hurt by someone within the past year? If so, by whom?: No Do you feel safe in your current relationship?: No Current Relationship Is there a partner from a previous relationship who is making you feel unsafe now?: No Are you made to feel afraid or neglected: No Spiritual Healthcare Practices: unknown, patient confused unable to answer questions at this time Advance Directives: No Advance Directives Information Provided: Yes Do you have thoughts of harming others: None Do you have a plan to hurt others: No Plan Recently lost weight without trying: Unsure Nutrition Risks: No Nutritional Risk Patient : No : No Poor oral hygiene: Yes service: No Current occupational status: retired [employer] Allergies Allergy/AdvReac Type Severity Reaction Status Date / Time No Known Allergies Allergy Verified 12/26/21 13:21 Active Medications: Current Medications Aspirin (Aspirin Enteric Coated 81 Mg Tablet.) 81 mg PO DAILY [facility] Clopidogrel Bisulfate (Clopidogrel Bisulfate 75 Mg Tablet) 75 mg PO DAILY [facility] Heparin Sodium (Porcine) (Heparin Sodium,Porcine 5,000 Unit/Ml Vial) 5,000 unit SUBCUT Q8H [facility] Sodium Chloride (Ns) 1,000 mls @ 100 mls/hr IVCONT .Q10H [facility] Last Admin: 12/31/21 10:24 Dose: 100 mls/hr Vancomycin HCl 1,250 mg/ (Sodium Chloride) 250 mls @ 166.667 mls/hr IV ONCE ONE Stop: 12/31/21 18:32 Morphine Sulfate (Morphine Sulfate 2 Mg/Ml Cartridge) 2 mg IVPUSH Q4H PRN; Protocol PRN Reason: Pain, Severe (Pain Scale 7-10) Oxycodone HCl (Oxycodone Hcl Immed Release 5 Mg Tablet) 5 mg PO Q4H PRN PRN Reason: Pain, Moderate (Pain Scale 4-6 Pharmacy Consult (Consult Rx Vancomycin Dosing) 1 each MISCELLANE DAILY PRN PRN Reason: Consult order Sodium Chloride (0.9 % Sodium Chloride Flush 3 Ml Syringe) 3 ml IVFLUSH QSHIFT [facility] Home Medications Medication Instructions Recorded Confirmed Last Taken Type gabapentin 300 mg capsule 600 mg PO TID 01/10/21 12/31/21 Unknown History multivitamin (Daily-Loy tablet) 1 tab PO DAILY 01/10/21 12/31/21 Unknown History sertraline 25 mg tablet 1 tab PO DAILY 01/10/21 12/31/21 Unknown History oxycodone 5 mg tablet 5 mg PO Q8H PRN Pain 12/26/21 12/31/21 Unknown History thiamine HCl (vitamin B1) 100 mg 100 mg PO DAILY 12/26/21 12/31/21 Unknown History tablet folic acid 1 mg tablet 1,000 mcg PO DAILY 12/31/21 12/31/21 Unknown History Physical Exam Vital Signs and Narrative: Vital Signs: Last Vital Signs Temp 98.5 F 12/31/21 16:25 Pulse 96 12/31/21 16:25 Resp 18 12/31/21 16:25 BP 152/75 H 12/31/21 16:25 Pulse Ox 96 12/31/21 16:25 O2 Del Method 12/31/21 16:25 BMI result Body Mass Index 28.3 Results Labs CBC and Chem 7: 01/01/22 06:42 01/01/22 06:42 Labs: Laboratory Results - last 24 hr 12/31/21 12/31/21 10:25 10:25 MCV 89.8 MCH 28.4 MCHC 31.7 RDW 15.8 Plt Count 661 H D MPV 8.4 L Immature Gran % (Auto) 0.5 H Neut % (Auto) 72.6 Lymph % (Auto) 16.7 L Hawkins % (Auto) 9.3 Eos % (Auto) 0.5 Baso % (Auto) 0.4 Lymph # (Auto) 1.9 Hawkins # (Auto) 1.1 Eos # (Auto) 0.1 Baso # (Auto) 0.1 Abs Immat Gran (auto) 0.06 H Absolute Neuts (auto) 8.2 Absolute Nucleated RBC 0.000 Nucleated RBC % (auto) 0.0 Anion Gap 12 Estim Creat Clear Calc 74.3 Estimated GFR > 60 Random Glucose 100 Calcium 8.8 D Assessment and Plan (1) Non-healing ulcer of right ankle: Status: Acute (2) PAD (peripheral artery disease): Status: Acute (3) Dementia: Status: Acute Plan 76-year-old female status post right SFA plasty in stent with right popliteal plasty earlier today.? Asked to see in consult for nonhealing ankle ulcers. 1. Nonhealing right ankle ulcers -vancomycin/Zosyn (2 ( -wound care as per vascular surgery 2. Dementia -continue outpatient therapies 3. PAD -continue Plavix statin Full code Heparin Requires ongoing hospitalization for IV antibiotics to treat nonhealing right ankle ulcers
[2021-12-31] MEDS: Morphine Sulfate 2 MG/ML CARTRIDGE IVPUSH (17:19)
[2021-12-31] MEDS: vancomycin HCL 1,250 MG in 0.9 % Sodium Chloride 250 ML 166.67 MG IV (17:27)
[2021-12-31] MEDS: Clopidogrel Bisulfate 75 MG TABLET PO (17:37)
[2021-12-31] MEDS: Piperacillin Sodium/Tazobactam 3.375 GM in 0.9 % Sodium Chloride 50 ML IV (17:41)
--- NOTE | 2021-12-31 17:49 | PHA.PROG ---
Admission Date/Time: December 31, 2021 14:45 Indication: Skin and Soft Tissue Weight in k.307 kg Adjusted body weight in K.3 [place] body weight in K.2 Obesity Dosing Indication % IBW: 1.20% Serum Creatinine - Last 168 Hours 12/31/21 10:25 Creatinine 0.61 Estimated CrCl and GFR - Last 168 Hours 12/31/21 10:25 Estim Creat Clear Calc 74.3 Estimated GFR > 60 Vancomycin Loading Dose: 1500mg ONCE Current Vancomycin Dosing Regimen: 1250mg Q24h Vancomycin Monitoring using AUC goal of 400 - 600 range with trough as surrogate marker: 497 mg/L/hr Date and Time for next Vancomycin Level to be drawn: Random 01/02/2022 @1600 Pharmacist Comments on Vancomycin Plan: Loading dose of around 20mg/kg. Maintence dose 1250mg Q24h. Patient at her baseline renal function. Q24 dosing chosen to allow patient to clear given her age. Random to be taken before the third dose on 01/02/22 @1600 to monitor efficacy vs safety. Predicted AUC 497 mg/L/hr, Trough 14.7 mg/L. Vancomycin dosing will take advantage of QUIQ as a clinical decision support tool that uses Bayesian modeling to calculate individual patient's pharmacokinetic parameters and forecast the patient's drug concentration time course with the target goal AUC 24 range of 400 - 600 mg/L/hr.
[2021-12-31] MEDS: Aspirin Enteric Coated 81 MG TABLET.DR PO (18:08)
[2021-12-31] MEDS: oxyCODONE HCl Immed Release 5 MG TABLET PO (18:27)
[2021-12-31] MEDS: vancomycin HCL 1,500 MG in 0.9 % Sodium Chloride 500 ML 333.33 MG IV (18:32)
[2021-12-31] MEDS: Gabapentin 300 MG CAPSULE 600 MG PO (20:26)
[2022-01-01 00:12] VITALS: RESP 18
[2022-01-01] MEDS: Morphine Sulfate 2 MG/ML CARTRIDGE IVPUSH (00:12)
[2022-01-01] MEDS: Heparin Sodium,Porcine 5,000 UNIT/ML VIAL 5000 UNIT SUBCUT ×4 (00:12→22:18)
[2022-01-01] MEDS: Piperacillin Sodium/Tazobactam 3.375 GM in 0.9 % Sodium Chloride 50 ML IV ×5 (00:13→22:19)
[2022-01-01] MEDS: 0.9 % Sodium Chloride 1,000 ML 100 ML IVCONT ×3 (00:20→18:41)
[2022-01-01 06:48] LABS: MANUAL DIFF FLAG NO
[2022-01-01 06:50] LABS: Basophils Absolute Auto 0.1 X10*3/uL (0.0-0.2); Basophils Percent Auto 0.6 % (0-2); Eosinophils Absolute Auto 0.1 X10*3/uL (0.0-0.4); Eosinophils Percent Auto 0.4 % (0-4); Hematocrit 25.5 % (37.0-47.0); Hemoglobin 8.2 g/dl (12.0-16.0); Imm Gran Abs Auto 0.05 X10*3/uL (0.00-0.03); Imm Gran Pct Auto 0.4 % (0.0-0.4); Lymphocytes Absolute Auto 2.6 X10*3/uL (1.2-4.9); Lymphocytes Percent Auto 22.4 % (20-40); Mean Corpuscular HGB Conc 32.2 g/dl (31.0-35.0); Mean Corpuscular Hemoglobin 28.6 pg (27.0-33.0); Mean Corpuscular Volume 88.9 fL (80.0-98.0); Mean Platelet Volume 8.5 fL (9.4-12.3); Monocytes Absolute Auto 1.1 X10*3/uL (0.1-1.2); Monocytes Percent Auto 9.5 % (2-11); Neutrophils Absolute Auto 7.7 x10*3/uL (2.0-8.3); Neutrophils Percent Auto 66.7 % (45-73); Platelet Count 559 X10*3/uL (160-400); Red Blood Count 2.87 X10*6/uL (4.20-5.50); Red Cell Distribution Width 15.8 % (11.0-16.0); White Blood Count 11.6 X10*3/uL (4.8-10.8)
[2022-01-01 07:40] VITALS: BP 128/64; PULSE 99; RESP 18; TEMP 36.4; O2SAT 92
[2022-01-01 08:09] LABS: Creatinine Clr Calc Pharmacy 78.1; Estimated Glomerular Filt Rate > 60
[2022-01-01 08:18] LABS: Anion Gap 11 (12-20); Blood Urea Nitrogen 6 mg/dL (9-16); Carbon Dioxide 23 mmol/L (22-29); Chloride 103 mmol/L (96-108); Creatinine Clr Calc Pharmacy 75.5; Estimated Glomerular Filt Rate > 60; Glucose Random 96 mg/dL (60-115); Potassium 3.8 mmol/L (3.3-5.1); Sodium 133 mmol/L (135-145)
[2022-01-01 08:22] LABS: Calcium 8.2 mg/dL (8.4-10.2)
[2022-01-01] MEDS: Thiamine HCL 100 MG TABLET PO (08:59)
[2022-01-01] MEDS: Clopidogrel Bisulfate 75 MG TABLET PO (08:59)
[2022-01-01] MEDS: Sertraline HCL 25 MG TABLET PO (08:59)
[2022-01-01] MEDS: 0.9 % Sodium Chloride Flush 3 ML SYRINGE IVFLUSH ×3 (08:59→22:19)
[2022-01-01] MEDS: Folic Acid 1 MG TABLET PO (08:59)
[2022-01-01] MEDS: Aspirin 81 MG TAB.CHEW PO (08:59)
[2022-01-01] MEDS: Multivitamin TABLET 1 TAB PO (08:59)
[2022-01-01] MEDS: Gabapentin 300 MG CAPSULE 600 MG PO ×3 (08:59→22:17)
[2022-01-01] MEDS: Morphine Sulfate 4 MG/ML CARTRIDGE IVPUSH ×3 (09:17→18:42)
--- NOTE | 2022-01-01 09:35 | HO.VASCPN ---
Subjective Subjective Date of Service: 01/01/22 Patient reports: no new complaints and feels better Interval history: 76-year-old postop day 1 status post right lower extremity endovascular intervention. Appears to be much more coherent today. Pain better controlled. Had only 1 dose of morphine overnight. In general appears to be doing somewhat better since yesterday. Now for routine follow-up. Physical Exam Vital Signs: Vital Signs: Last Vital Signs Temp 97.5 F 01/01/22 07:40 Pulse 99 01/01/22 07:40 Resp 18 01/01/22 07:40 BP 128/64 01/01/22 07:40 Pulse Ox 92 01/01/22 07:40 O2 Del Method 01/01/22 07:40 BMI result Body Mass Index 28.3 Const: General: cooperative, healthy appearing and no acute distress Orientation/consciousness: oriented to person, oriented to place and oriented to time HEENT: Head: Yes normal to inspection Neck: Carotids: no bruits Chest: Chest palpation & inspection: normal inspection of the chest Resp: Effort & Inspection: normal respiratory effort and able to speak in complete sentences Auscultation: clear to auscultation bilaterally Cardio: Rate: regular rate Heart sounds: S1 normal heart sound present and S2 normal heart sound present Peripheral pulses: dorsalis pedis present (Right side biphasic DP signal just above marked x) GI: Inspection: Yes normal to inspection Skin: Other: Right medial ankle 4 cm in diameter ischemic changes of right 2nd and 3rd toe General skin exam: no rashes or lesions noted Neuro: General: oriented to person, oriented to place, oriented to time and CN's II-XI intact bilaterally Extrem: General: Yes normal to inspection, Yes full ROM and Yes no clubbing, cyanosis or edema Psych: Appearance: grossly normal and well kempt Speech and movement: Normal speech and movement present Affect: normal affect Progress Note: A&P Assessment and plan (1) PAD (peripheral artery disease): Status: Acute Plan Patient is status post endovascular intervention of right lower extremity. Appears to be doing somewhat better. Pain is still an issue. I have taken the liberty of ordering an x-ray of that right foot. We will continue to monitor her CBC as her hemoglobin has decreased in her white count is still slightly elevated. Will continue with antibiotics. Case discussed with the hospitalist team. We will see how she progresses over the next few days. Time Spent With Patient Time: Total time spent is greater than 50% in coordination of care (as documented) at patient's floor/unit and/or counseling patient: Procedures Date of Service Date of Service: 01/01/22 Quality Stroke Does the patient have a stroke diagnosis?: No VTE Prior VTE?: No VTE Risk Level:: Surgical - moderate VTE Device Contraindication: N/A - Device Ordered VTE Drug Contraindication: N/A - Med Ordered
[2022-01-01 11:15] VITALS: BP 105/52; PULSE 84; RESP 18; TEMP 36.1
[2022-01-01 12:25] VITALS: BMI 28.3
--- NOTE | 2022-01-01 13:00 | MHC.CM.PN ---
IMM addressed with patient's son (Epifanio), original left at bedside for patient/family per family's request, copy filed in chart. IMM addendum completed. [facility]. HCP on file, Lazara waldron [facility], PCP: [facility] transport. D/C Plan: Return to [facility]
--- NOTE | 2022-01-01 13:14 | HE.PHANOTE ---
RE Vanco Patient SCr remains stable today as 0.58. New predicted AUC is 500; trough is 14.8. Tomorrow's random trough due@1600 on 01/02. In patient's orders, it looks like a vancomycin 1250mg was administered before the order was cancelled. Based on the MAR, patient only received 50mg of that bag before it was stopped and the order was changed to the proper 1500mg load. Verified with PM pharmacist that the 1250mg bag that was hung via override before the order was looked at was stopped shortly after starting. Thanks Roberto
--- NOTE | 2022-01-01 14:53 | HO.PM.IMPN ---
Subjective Subjective Date of Service: 01/01/22 Interval History: No acute issues overnight Review of Systems Complains of right ankle pain Denies chest pain Denies fever chills Denies nausea vomiting diarrhea Physical Exam Vital Signs: Vital Signs: Last Vital Signs Temp 97 F 01/01/22 11:15 Pulse 84 01/01/22 11:15 Resp 18 01/01/22 11:15 BP 105/52 L 01/01/22 11:15 Pulse Ox 92 01/01/22 07:40 O2 Del Method 01/01/22 11:15 BMI result Body Mass Index 28.3 Const: Other: Uncomfortable appearing Resp: Other: Clear to auscultation bilaterally no rales rhonchi wheezes Cardio: Other: No S4; positive S1-S2; no S3 murmurs rubs gallops GI: Other: Soft nontender nondistended normoactive bowel sounds Extrem: Other: Erythema just proximal to medial malleoli distending to the foot Objective Data Active Medications Aspirin (Aspirin 81 Mg Tab.Chew) 81 mg PO DAILY [facility] Last Admin: 01/01/22 08:59 Dose: 81 mg Documented By: EVERT Atorvastatin Calcium (Atorvastatin Calcium 80 Mg Tablet) 80 mg PO BEDTIME [facility] Last Admin: 12/31/21 20:34 Dose: Not Given Documented By: FELIPE Non-Admin Reason: Patient Refused Clopidogrel Bisulfate (Clopidogrel Bisulfate 75 Mg Tablet) 75 mg PO DAILY [facility] Last Admin: 01/01/22 08:59 Dose: 75 mg Documented By: EVERT Folic Acid (Folic Acid 1 Mg Tablet) 1 mg PO DAILY [facility] Last Admin: 01/01/22 08:59 Dose: 1 mg Documented By: EVERT Gabapentin (Gabapentin 300 Mg Capsule) 600 mg PO TID [facility] Last Admin: 01/01/22 08:59 Dose: 600 mg Documented By: EVERT Heparin Sodium (Porcine) (Heparin Sodium,Porcine 5,000 Unit/Ml Vial) 5,000 unit SUBCUT Q8H [facility] Last Admin: 01/01/22 06:06 Dose: 5,000 unit Documented By: FELIPE Sodium Chloride (Ns) 1,000 mls @ 100 mls/hr IVCONT .Q10H [facility] Last Admin: 01/01/22 09:24 Dose: 100 mls/hr Documented By: EVERT Piperacillin Sod/Tazobactam (Sod 3.375 gm/ Sodium Chloride) 50 mls @ 100 mls/hr IV Q6H [facility] Last Infusion: 01/01/22 12:18 Dose: 0 mls/hr Documented By: EVERT Vancomycin HCl 1,250 mg/ (Sodium Chloride) 250 mls @ 166.667 mls/hr IV Q24H [facility] Morphine Sulfate (Morphine Sulfate 4 Mg/Ml Cartridge) 4 mg IVPUSH Q3H PRN; Protocol PRN Reason: Pain, Severe (Pain Scale 7-10) Last Admin: 01/01/22 13:18 Dose: 4 mg Documented By: EVERT Multivitamins/Vitamin C (Multivitamin Tablet) 1 tab PO DAILY [facility] Last Admin: 01/01/22 08:59 Dose: 1 tab Documented By: EVERT Oxycodone HCl (Oxycodone Hcl Immed Release 5 Mg Tablet) 5 mg PO Q4H PRN PRN Reason: Pain, Moderate (Pain Scale 4-6 Last Admin: 12/31/21 18:27 Dose: 5 mg Documented By: [facility] Pharmacy Consult (Consult Rx Vancomycin Dosing) 1 each MISCELLANE DAILY PRN PRN Reason: Consult order Sertraline HCl (Sertraline Hcl 25 Mg Tablet) 25 mg PO DAILY [facility] Last Admin: 01/01/22 08:59 Dose: 25 mg Documented By: EVERT Sodium Chloride (0.9 % Sodium Chloride Flush 3 Ml Syringe) 3 ml IVFLUSH QSHIFT [facility] Last Admin: 01/01/22 08:59 Dose: 3 ml Documented By: EVERT Thiamine HCl (Thiamine Hcl 100 Mg Tablet) 100 mg PO DAILY [facility] Last Admin: 01/01/22 08:59 Dose: 100 mg Documented By: EVERT Labs CBC & Chem 7: 01/01/22 06:42 01/01/22 06:42 Labs: Laboratory Results - last 24 hr 01/01/22 01/01/22 01/01/22 06:42 06:42 06:42 MCV 88.9 MCH 28.6 MCHC 32.2 RDW 15.8 Plt Count 559 H MPV 8.5 L Immature Gran % (Auto) 0.4 Neut % (Auto) 66.7 Lymph % (Auto) 22.4 [place] % (Auto) 9.5 Eos % (Auto) 0.4 Baso % (Auto) 0.6 Lymph # (Auto) 2.6 [place] # (Auto) 1.1 Eos # (Auto) 0.1 Baso # (Auto) 0.1 Abs Immat Gran (auto) 0.05 H Absolute Neuts (auto) 7.7 Absolute Nucleated RBC 0.000 Nucleated RBC % (auto) 0.0 Anion Gap 11 L Estim Creat Clear Calc 75.5 78.1 Estimated GFR > 60 > 60 Random Glucose 96 Calcium 8.2 L D Assessment and Plan (1) Non-healing ulcer of right ankle: Status: Acute (2) PAD (peripheral artery disease): Status: Acute (3) Dementia: Status: Acute Plan 76-year-old female status post right SFA plasty in stent with right popliteal plasty earlier today.? Asked to see in consult for nonhealing ankle ulcers. 1. Nonhealing right ankle ulcers -vancomycin/Zosyn (2) -wound care as per vascular surgery -pain meds adjusted secondary to poor control 2. Dementia -continue outpatient therapies 3. PAD -continue Plavix statin Full code Heparin Requires ongoing hospitalization for IV antibiotics to treat nonhealing right ankle ulcers Quality Stroke Does the patient have a stroke diagnosis?: No VTE Prior VTE?: No VTE Risk Level:: Surgical - moderate VTE Device Contraindication: N/A - Device Ordered VTE Drug Contraindication: N/A - Med Ordered
[2022-01-01 16:00] VITALS: BP 111/62; PULSE 86; RESP 18; TEMP 36.4; O2SAT 93
[2022-01-01] MEDS: vancomycin HCL 1,250 MG in 0.9 % Sodium Chloride 250 ML 166.67 MG IV (18:40)
[2022-01-01 20:00] VITALS: BP 118/58; PULSE 96; RESP 16; TEMP 37.4; O2SAT 92
[2022-01-01] MEDS: Atorvastatin Calcium 80 MG TABLET PO (22:17)
[2022-01-01] MEDS: oxyCODONE HCl Immed Release 5 MG TABLET PO (22:30)
[2022-01-01 22:37] VITALS: TEMP 38.1
[2022-01-01 23:55] LABS: Lactic Acid 0.9 mmol/L (0.5-2.0)
[2022-01-02] VITALS (7 sets, daily range): BP systolic 95–124; BP diastolic 42–76; PULSE 84–111; RESP 14–19; TEMP 36.2–37.8; O2SAT 90–99
[2022-01-02] MEDS: Acetaminophen 325 MG TABLET 650 MG PO (05:43)
[2022-01-02] MEDS: Piperacillin Sodium/Tazobactam 3.375 GM in 0.9 % Sodium Chloride 50 ML IV ×4 (05:47→23:01)
[2022-01-02] MEDS: Heparin Sodium,Porcine 5,000 UNIT/ML VIAL 5000 UNIT SUBCUT ×3 (05:49→23:01)
[2022-01-02] MEDS: 0.9 % Sodium Chloride 1,000 ML 100 ML IVCONT (05:51)
--- NOTE | 2022-01-02 06:00 | MHC.PIE ---
P.TEMP/COUGH I.PT WITH TEMP 100.1,AND CONGESTED BARKING NON PROD COUGH.BLOOD CULTURES DRAWN EARLIER PENDING.PT ON IV ZOSYN AND VANCO. UPDATED.NEW ORDERS FOR PRN TYLENOL AND STAT CXR GIVEN.AND PRN TESSALON. E.CONT TO MONITOR.
--- NOTE | 2022-01-02 06:01 | PM.EVENT ---
Event Note Date of Service: 01/02/22 Event Note: Patient developed fever, hemodynamically stable, will obtain blood cultures, lactic acid, chest x-ray anywhere
[2022-01-02 06:48] LABS: MANUAL DIFF FLAG NO
[2022-01-02 06:54] LABS: Basophils Absolute Auto 0.1 X10*3/uL (0.0-0.2); Basophils Percent Auto 0.4 % (0-2); Eosinophils Absolute Auto 0.1 X10*3/uL (0.0-0.4); Eosinophils Percent Auto 0.9 % (0-4); Hematocrit 22.7 % (37.0-47.0); Hemoglobin 7.2 g/dl (12.0-16.0); Imm Gran Abs Auto 0.09 X10*3/uL (0.00-0.03); Imm Gran Pct Auto 0.8 % (0.0-0.4); Lymphocytes Absolute Auto 2.4 X10*3/uL (1.2-4.9); Lymphocytes Percent Auto 20.7 % (20-40); Mean Corpuscular HGB Conc 31.7 g/dl (31.0-35.0); Mean Corpuscular Volume 91.5 fL (80.0-98.0); Mean Platelet Volume 8.8 fL (9.4-12.3); Monocytes Percent Auto 8.8 % (2-11); Neutrophils Absolute Auto 7.9 x10*3/uL (2.0-8.3); Neutrophils Percent Auto 68.4 % (45-73); Platelet Count 471 X10*3/uL (160-400); Red Blood Count 2.48 X10*6/uL (4.20-5.50); White Blood Count 11.6 X10*3/uL (4.8-10.8)
[2022-01-02 07:24] LABS: Alanine Aminotransferase 15 U/L (0-31); Albumin Level 2.6 g/dL (3.5-5.0); Alkaline Phosphatase 63 U/L (39-117); Anion Gap 11 (12-20); Aspartate Amino Transferase 24 U/L (5-31); Bilirubin Total 0.3 mg/dL (0.0-1.0); Blood Urea Nitrogen 7 mg/dL (9-16); Carbon Dioxide 21 mmol/L (22-29); Chloride 107 mmol/L (96-108); Creatinine Clr Calc Pharmacy 79.5; Estimated Glomerular Filt Rate > 60; Glucose Random 97 mg/dL (60-115); Potassium 4.2 mmol/L (3.3-5.1); Sodium 135 mmol/L (135-145); Total Protein 5.1 g/dL (6.5-8.0)
--- NOTE | 2022-01-02 09:06 | P.PNVS_ITS ---
Subjective Subjective Date of Service: 01/02/22 Patient reports: no new complaints and feels better Interval history: patient seen and examined. No significant events overnight. Reports that the pain is significantly better. She is in much better spirits and much more coherent now that she is in the hospital. She is now for routine follow-up of that right lower extremity. Physical Exam Vital Signs: Vital Signs: Last Vital Signs Temp 98.9 F 01/02/22 07:25 Pulse 84 01/02/22 07:25 Resp 17 01/02/22 07:25 BP 115/59 L 01/02/22 07:25 Pulse Ox 96 01/02/22 07:25 O2 Del Method 01/02/22 07:25 O2 Flow Rate 2 01/02/22 07:25 BMI result Body Mass Index 28.3 Const: General: cooperative, healthy appearing and no acute distress Orientation/consciousness: oriented to person, oriented to place and oriented to time HEENT: Head: Yes normal to inspection Neck: Carotids: no bruits Chest: Chest palpation & inspection: normal inspection of the chest Resp: Effort & Inspection: normal respiratory effort and able to speak in comp lete sentences Auscultation: clear to auscultation bilaterally Cardio: Rate: regular rate Heart sounds: S1 normal heart sound present and S2 normal heart sound present GI: Inspection: Yes normal to inspection Skin: Other: Right leg medial ankle ulcer. Foot has surrounding cellulitis. General skin exam: no rashes or lesions noted Wounds: wounds noted Neuro: General: oriented to person, oriented to place, oriented to time and CN's II-XI intact bilaterally Extrem: General: Yes normal to inspection, Yes full ROM and Yes no clubbing, cyanosis or edema Psych: Appearance: grossly normal and well kempt Speech and movement: Normal speech and movement present Affect: normal affect Progress Note: A&P Assessment and plan (1) PAD (peripheral artery disease): Status: Acute Assessment and Plan: In short patient is doing well with her endovascular treatment. Will continue antibiotics as she has developed cellulitis of that foot. Continue local wound care for now. Of note she has also developed pneumonia as seen on x-ray. Will discuss with the hospitalist team. Thank you for allowing us to assist in Her care per Time Spent With Patient Time: Total time spent is greater than 50% in coordination of care (as documented) at patient's floor/unit and/or counseling patient: Procedures Date of Service Date of Service: 01/02/22 Quality Stroke Does the patient have a stroke diagnosis?: No VTE Prior VTE?: No VTE Risk Level:: Surgical - moderate VTE Device Contraindication: N/A - Device Ordered VTE Drug Contraindication: N/A - Med Ordered
[2022-01-02] MEDS: Morphine Sulfate 4 MG/ML CARTRIDGE IVPUSH ×2 (10:43→23:02)
[2022-01-02] MEDS: Aspirin 81 MG TAB.CHEW PO (10:46)
[2022-01-02] MEDS: Sertraline HCL 25 MG TABLET PO (10:47)
[2022-01-02] MEDS: Folic Acid 1 MG TABLET PO (10:47)
[2022-01-02] MEDS: Thiamine HCL 100 MG TABLET PO (10:47)
[2022-01-02] MEDS: Clopidogrel Bisulfate 75 MG TABLET PO (10:47)
[2022-01-02] MEDS: Gabapentin 300 MG CAPSULE 600 MG PO ×3 (10:47→21:27)
[2022-01-02] MEDS: Multivitamin TABLET 1 TAB PO (10:48)
--- NOTE | 2022-01-02 13:25 | HO.PM.IMPN ---
Subjective Subjective Date of Service: 01/02/22 Interval History: Appears more comfortable today. Overnight issues noted... Developed fever; chest x-ray demonstrates left lower lobe infiltrate Review of Systems Complains of right ankle pain Denies chest pain Denies fever chills Denies nausea vomiting diarrhea Physical Exam Vital Signs: Vital Signs: Last Vital Signs Temp 97.7 F 01/02/22 11:26 Pulse 91 01/02/22 11:26 Resp 18 01/02/22 11:26 BP 121/67 01/02/22 11:26 Pulse Ox 99 01/02/22 11:26 O2 Del Method 01/02/22 11:26 O2 Flow Rate 2 01/02/22 11:26 BMI result Body Mass Index 28.3 Const: Other: Uncomfortable appearing Resp: Other: Dense crackles left lower lobe Cardio: Other: No S4; positive S1-S2; no S3 murmurs rubs gallops GI: Other: Soft nontender nondistended normoactive bowel sounds Extrem: Other: Erythema just proximal to medial malleoli distending to the foot Objective Data Active Medications Acetaminophen (Acetaminophen 325 Mg Tablet) 650 mg PO Q8H PRN PRN Reason: Fever Last Admin: 01/02/22 05:43 Dose: 650 mg Documented By: MIRIAM Aspirin (Aspirin 81 Mg Tab.Chew) 81 mg PO DAILY [facility] Last Admin: 01/02/22 10:46 Dose: 81 mg Documented By: YENI Atorvastatin Calcium (Atorvastatin Calcium 80 Mg Tablet) 80 mg PO BEDTIME [facility] Last Admin: 01/01/22 22:17 Dose: 80 mg Documented By: YADIEL Benzonatate (Benzonatate 100 Mg Capsule) 100 mg PO TID PRN PRN Reason: Cough Clopidogrel Bisulfate (Clopidogrel Bisulfate 75 Mg Tablet) 75 mg PO DAILY [facility] Last Admin: 01/02/22 10:47 Dose: 75 mg Documented By: YENI Folic Acid (Folic Acid 1 Mg Tablet) 1 mg PO DAILY [facility] Last Admin: 01/02/22 10:47 Dose: 1 mg Documented By: YENI Gabapentin (Gabapentin 300 Mg Capsule) 600 mg PO TID [facility] Last Admin: 01/02/22 10:47 Dose: 600 mg Documented By: YENI Heparin Sodium (Porcine) (Heparin Sodium,Porcine 5,000 Unit/Ml Vial) 5,000 unit SUBCUT Q8H [facility] Last Admin: 01/02/22 05:49 Dose: 5,000 unit Documented By: MIRIAM Piperacillin Sod/Tazobactam (Sod 3.375 gm/ Sodium Chloride) 50 mls @ 100 mls/hr IV Q6H [facility] Last Infusion: 01/02/22 11:35 Dose: 0 mls/hr Documented By: YENI Vancomycin HCl 1,250 mg/ (Sodium Chloride) 250 mls @ 166.667 mls/hr IV Q24H [facility] Last Infusion: 01/01/22 22:40 Dose: 0 mls/hr Documented By: YADIEL Morphine Sulfate (Morphine Sulfate 4 Mg/Ml Cartridge) 4 mg IVPUSH Q3H PRN; Protocol PRN Reason: Pain, Severe (Pain Scale 7-10) Last Admin: 01/02/22 10:43 Dose: 4 mg Documented By: YENI Multivitamins/Vitamin C (Multivitamin Tablet) 1 tab PO DAILY [facility] Last Admin: 01/02/22 10:48 Dose: 1 tab Documented By: YENI Oxycodone HCl (Oxycodone Hcl Immed Release 5 Mg Tablet) 5 mg PO Q4H PRN PRN Reason: Pain, Moderate (Pain Scale 4-6 Last Admin: 01/01/22 22:30 Dose: 5 mg Documented By: YADIEL Pharmacy Consult (Consult Rx Vancomycin Dosing) 1 each MISCELLANE DAILY PRN PRN Reason: Consult order Sertraline HCl (Sertraline Hcl 25 Mg Tablet) 25 mg PO DAILY [facility] Last Admin: 01/02/22 10:47 Dose: 25 mg Documented By: YENI Sodium Chloride (0.9 % Sodium Chloride Flush 3 Ml Syringe) 3 ml IVFLUSH QSHIFT [facility] Last Admin: 01/02/22 10:48 Dose: Not Given Documented By: YENI Non-Admin Reason: IV Running Thiamine HCl (Thiamine Hcl 100 Mg Tablet) 100 mg PO DAILY [facility] Last Admin: 01/02/22 10:47 Dose: 100 mg Documented By: YENI Labs CBC & Chem 7: 01/02/22 06:30 01/02/22 06:30 Labs: Laboratory Results - last 24 hr 01/01/22 01/02/22 01/02/22 23:25 06:30 06:30 MCV 91.5 MCH 29.0 MCHC 31.7 RDW 16.0 Plt Count 471 H MPV 8.8 L Immature Gran % (Auto) 0.8 H Neut % (Auto) 68.4 Lymph % (Auto) 20.7 [place] % (Auto) 8.8 Eos % (Auto) 0.9 Baso % (Auto) 0.4 Lymph # (Auto) 2.4 [place] # (Auto) 1.0 Eos # (Auto) 0.1 Baso # (Auto) 0.1 Abs Immat Gran (auto) 0.09 H Absolute Neuts (auto) 7.9 Absolute Nucleated RBC 0.000 Nucleated RBC % (auto) 0.0 Anion Gap 11 L Estim Creat Clear Calc 79.5 Estimated GFR > 60 Random Glucose 97 Lactic Acid 0.9 Calcium 8.0 L Total Bilirubin 0.3 AST 24 ALT 15 Alkaline Phosphatase 63 D Total Protein 5.1 L D Albumin 2.6 L D Assessment and Plan (1) Non-healing ulcer of right ankle: Status: Acute (2) Left lower lobe pulmonary infiltrate: Status: Acute (3) PAD (peripheral artery disease): Status: Acute (4) Dementia: Status: Acute Plan 76-year-old female status post right SFA plasty in stent with right popliteal plasty earlier today.? Asked to see in consult for nonhealing ankle ulcers. 1. Nonhealing right ankle ulcers -vancomycin/Zosyn (3) -wound care as per vascular surgery -pain meds adjusted secondary to poor control 2. Left lower lobe infiltrate -blood cultures pending -continue with vancomycin/Zosyn 3. Dementia -continue outpatient therapies 4. PAD -continue Plavix statin Full code Heparin Requires ongoing hospitalization for IV antibiotics to treat nonhealing right ankle ulcers Quality Stroke Does the patient have a stroke diagnosis?: No VTE Prior VTE?: No VTE Risk Level:: Surgical - moderate VTE Device Contraindication: N/A - Device Ordered VTE Drug Contraindication: N/A - Med Ordered
--- NOTE | 2022-01-02 13:49 | MHC.CM.PN ---
Per ROUNDS discussion, patient is Not yet medically cleared for discharge today r/t need for IV antibiotics to treat non-healing right ankle ulcers. CM will continue to follow for D/C needs.
[2022-01-02] MEDS: 0.9 % Sodium Chloride Flush 3 ML SYRINGE IVFLUSH (17:05)
[2022-01-02] MEDS: oxyCODONE HCl Immed Release 5 MG TABLET PO ×2 (17:06→21:27)
--- NOTE | 2022-01-02 17:13 | HE.PHANOTE ---
Vancomycin Addendum Patient random level came back at 4. Expeceted AUC with Q24H dosing is going to be subtherapuetic. Will Start patient on vancomycin 1000 mg Q12H starting 01/02 @ 1800. Trough to be drawn 01/03 @ 1500. Pharmacy will continue to monitor renal fucntion daily. uJanita Green, AmyD
[2022-01-02] MEDS: vancomycin HCL 1,000 MG in 0.9 % Sodium Chloride 250 ML 270 MG IV (18:15)
[2022-01-02] MEDS: Atorvastatin Calcium 80 MG TABLET PO (21:27)
[2022-01-03] MEDS: 0.9 % Sodium Chloride Flush 3 ML SYRINGE IVFLUSH ×4 (00:16→20:24)
[2022-01-03 04:00] VITALS: BP 126/57; PULSE 102; RESP 19; TEMP 36.4; O2SAT 96
[2022-01-03] MEDS: Piperacillin Sodium/Tazobactam 3.375 GM in 0.9 % Sodium Chloride 50 ML IV ×4 (05:09→23:08)
[2022-01-03] MEDS: Heparin Sodium,Porcine 5,000 UNIT/ML VIAL 5000 UNIT SUBCUT ×3 (05:31→23:07)
[2022-01-03] MEDS: vancomycin HCL 1,000 MG in 0.9 % Sodium Chloride 250 ML 27 MG IV (05:34)
[2022-01-03] MEDS: oxyCODONE HCl Immed Release 5 MG TABLET PO ×3 (06:13→17:46)
[2022-01-03 07:02] LABS: MANUAL DIFF FLAG NO
[2022-01-03 07:05] LABS: Basophils Percent Auto 0.3 % (0-2); Eosinophils Absolute Auto 0.2 X10*3/uL (0.0-0.4); Eosinophils Percent Auto 1.8 % (0-4); Hematocrit 22.8 % (37.0-47.0); Hemoglobin 7.2 g/dl (12.0-16.0); Imm Gran Abs Auto 0.05 X10*3/uL (0.00-0.03); Imm Gran Pct Auto 0.4 % (0.0-0.4); Lymphocytes Absolute Auto 3.1 X10*3/uL (1.2-4.9); Lymphocytes Percent Auto 25.3 % (20-40); Mean Corpuscular HGB Conc 31.6 g/dl (31.0-35.0); Mean Corpuscular Hemoglobin 28.6 pg (27.0-33.0); Mean Corpuscular Volume 90.5 fL (80.0-98.0); Mean Platelet Volume 8.5 fL (9.4-12.3); Monocytes Absolute Auto 1.1 X10*3/uL (0.1-1.2); Neutrophils Absolute Auto 7.8 x10*3/uL (2.0-8.3); Neutrophils Percent Auto 63.2 % (45-73); Platelet Count 483 X10*3/uL (160-400); Red Blood Count 2.52 X10*6/uL (4.20-5.50); Red Cell Distribution Width 15.9 % (11.0-16.0); White Blood Count 12.3 X10*3/uL (4.8-10.8)
[2022-01-03 07:26] LABS: Alanine Aminotransferase 15 U/L (0-31); Albumin Level 2.8 g/dL (3.5-5.0); Alkaline Phosphatase 65 U/L (39-117); Anion Gap 12 (12-20); Aspartate Amino Transferase 23 U/L (5-31); Bilirubin Total 0.3 mg/dL (0.0-1.0); Blood Urea Nitrogen 9 mg/dL (9-16); Calcium 8.2 mg/dL (8.4-10.2); Carbon Dioxide 26 mmol/L (22-29); Chloride 103 mmol/L (96-108); Creatinine Clr Calc Pharmacy 75.5; Estimated Glomerular Filt Rate > 60; Glucose Fasting 99 mg/dL (60-99); Potassium 4.1 mmol/L (3.3-5.1); Sodium 137 mmol/L (135-145); Total Protein 5.3 g/dL (6.5-8.0)
[2022-01-03 08:00] VITALS: BP 106/58; PULSE 103; RESP 17; TEMP 37.4; O2SAT 92
--- NOTE | 2022-01-03 08:54 | P.CDIC_ITS ---
CDI Concurrent Query Documentation Clarification: PHYSICIAN'S DOCUMENTATION REQUEST Date of Query: 01/03/22 0854 Patient Name: Alicia Tyson Admit Date: 12/31/21 Dear Doctor, A review of the medical record indicates additional documentation may be indicated. Please review below and update the documentation accordingly. Clinical Indicators: Risk Factors/Clinical Indicators/Treatments Wound care notes 12/31 -Pressure injury unstageable 3rd digit right foot. Beefy, red, nectrotic, black. placed gauze between toes. Based on the above, could you please provide, in the Progress Notes, further information regarding the ulcer/wound: * For a non-pressure ulcer, please indicate the depth/severity: * Limited to the breakdown of skin * With fat layer exposed * With necrosis of muscle * With necrosis of bone * Other * Unable to determine * If a pressure ulcer, please also include the stage* of the ulcer: * Stage 1 - Skin intact, non-blanchable redness * Stage 2 - Partial thickness loss of dermis, includes intact or open blister * Stage 3 - Full thickness tissue not including bone, tendon, or muscle * Stage 4 - Full thickness tissue loss, including exposed bones, tendon, or muscle * Unstageable Other * Unable to determine *Source: National Pressure Ulcer Advisory Panel (NPUAP) Use of terms such as suspected, likely, concern for, or probable (associated with a specific diagnosis that is being evaluated, monitored, or treated as if it exists) are acceptable and can be coded in the inpatient setting, when documented at the time of discharge. Thank you, Ana Lazaro [facility], CDIS Extension: [phone] Please use your independent medical judgment in providing your response. THIS QUERY IS PART OF THE PERMANENT MEDICAL RECORD Provider Response: Other Other Diagnosis: Non pressure ulcer with fat layer exposed
--- NOTE | 2022-01-03 08:54 | MHC.CDI.CONC ---
CDI Concurrent Query Documentation Clarification: PHYSICIAN'S DOCUMENTATION REQUEST Date of Query: 01/03/22 0854 Patient Name: Alicia Tyson Admit Date: 12/31/21 Dear Doctor, A review of the medical record indicates additional documentation may be indicated. Please review below and update the documentation accordingly. Clinical Indicators: Risk Factors/Clinical Indicators/Treatments Wound care notes 12/31 -Pressure injury unstageable 3rd digit right foot. Beefy, red, nectrotic, black. placed gauze between toes. Based on the above, could you please provide, in the Progress Notes, further information regarding the ulcer/wound: For a non-pressure ulcer, please indicate the depth/severity: Limited to the breakdown of skin With fat layer exposed With necrosis of muscle With necrosis of bone Other Unable to determine If a pressure ulcer, please also include the stage* of the ulcer: Stage 1 - Skin intact, non-blanchable redness Stage 2 - Partial thickness loss of dermis, includes intact or open blister Stage 3 - Full thickness tissue not including bone, tendon, or muscle Stage 4 - Full thickness tissue loss, including exposed bones, tendon, or muscle Unstageable Other Unable to determine *Source: National Pressure Ulcer Advisory Panel (NPUAP) Use of terms such as suspected, likely, concern for, or probable (associated with a specific diagnosis that is being evaluated, monitored, or treated as if it exists) are acceptable and can be coded in the inpatient setting, when documented at the time of discharge. Thank you, Ana Lazaro [facility], CDIS Extension: [phone] Please use your independent medical judgment in providing your response. THIS QUERY IS PART OF THE PERMANENT MEDICAL RECORD Provider Response: Other Other Diagnosis: Non pressure ulcer with fat layer exposed
--- NOTE | 2022-01-03 08:58 | P.CDIC_ITS ---
CDI Concurrent Query Documentation Clarification: PHYSICIAN'S DOCUMENTATION REQUEST Date of Query: 01/03/22 0859 Patient Name: Alicia Tyson Admit Date: 12/31/21 Dear Doctor, A review of the medical record indicates additional documentation may be indicated. Please review below and update the documentation accordingly. Clinical Indicators: Risk Factors/Clinical Indicators/Treatments Wound care notes documents right medial ankle pressure injury unstageable. Open to air. Nutrition 01/01 - patient with increased risk R/T pressure injury. Based on the above, could you please provide, in the Progress Notes, further information regarding the ulcer/wound: * For a non-pressure ulcer, please indicate the depth/severity: * Limited to the breakdown of skin * With necrosis of muscle * With necrosis of bone * Other * Unable to determine * If a pressure ulcer, please also include the stage* of the ulcer: * Stage 1 - Skin intact, non-blanchable redness * Stage 2 - Partial thickness loss of dermis, includes intact or open blister * Stage 3 - Full thickness tissue not including bone, tendon, or muscle * Stage 4 - Full thickness tissue loss, including exposed bones, tendon, or muscle * Unstageable - Full thickness tissue loss in which the base of the ulcer is covered by slough (yellow, aldridge, briseno, green or brown) and/or eschar (aldridge, brown, or black) in the wound bed. Other * Unable to determine *Source: National Pressure Ulcer Advisory Panel (NPUAP) Use of terms such as suspected, likely, concern for, or probable (associated with a specific diagnosis that is being evaluated, monitored, or treated as if it exists) are acceptable and can be coded in the inpatient setting, when documented at the time of discharge. Thank you, Ana Lazaro [facility], CDIS Extension: [phone] Please use your independent medical judgment in providing your response. THIS QUERY IS PART OF THE PERMANENT MEDICAL RECORD Provider Response: Other Other Diagnosis: Unable to determine
--- NOTE | 2022-01-03 08:58 | MHC.CDI.CONC ---
CDI Concurrent Query Documentation Clarification: PHYSICIAN'S DOCUMENTATION REQUEST Date of Query: 01/03/22 0859 Patient Name: Alicia Tyson Admit Date: 12/31/21 Dear Doctor, A review of the medical record indicates additional documentation may be indicated. Please review below and update the documentation accordingly. Clinical Indicators: Risk Factors/Clinical Indicators/Treatments Wound care notes documents right medial ankle pressure injury unstageable. Open to air. Nutrition 01/01 - patient with increased risk R/T pressure injury. Based on the above, could you please provide, in the Progress Notes, further information regarding the ulcer/wound: For a non-pressure ulcer, please indicate the depth/severity: Limited to the breakdown of skin With necrosis of muscle With necrosis of bone Other Unable to determine If a pressure ulcer, please also include the stage* of the ulcer: Stage 1 - Skin intact, non-blanchable redness Stage 2 - Partial thickness loss of dermis, includes intact or open blister Stage 3 - Full thickness tissue not including bone, tendon, or muscle Stage 4 - Full thickness tissue loss, including exposed bones, tendon, or muscle Unstageable - Full thickness tissue loss in which the base of the ulcer is covered by slough (yellow, aldridge, briseno, green or brown) and/or eschar (aldridge, brown, or black) in the wound bed. Other Unable to determine *Source: National Pressure Ulcer Advisory Panel (NPUAP) Use of terms such as suspected, likely, concern for, or probable (associated with a specific diagnosis that is being evaluated, monitored, or treated as if it exists) are acceptable and can be coded in the inpatient setting, when documented at the time of discharge. Thank you, Ana Lazaro [facility], CDIS Extension: [phone] Please use your independent medical judgment in providing your response. THIS QUERY IS PART OF THE PERMANENT MEDICAL RECORD Provider Response: Other Other Diagnosis: Unable to determine
--- NOTE | 2022-01-03 10:12 | HO.VASCPN ---
Subjective Subjective Date of Service: 01/03/22 Patient reports: no new complaints and feels better Interval history: Patient seen examined. No significant events overnight. Appears to be much more coherent and in better spirits. Pain appears to be much better controlled. She is now for routine vascular follow-up. Physical Exam Vital Signs: Vital Signs: Last Vital Signs Temp 99.4 F 01/03/22 08:00 Pulse 103 H 01/03/22 08:00 Resp 17 01/03/22 08:00 BP 106/58 L 01/03/22 08:00 Pulse Ox 92 01/03/22 08:00 O2 Del Method 01/03/22 08:00 O2 Flow Rate 2 01/03/22 08:00 BMI result Body Mass Index 28.3 Const: General: cooperative, healthy appearing and no acute distress Orientation/consciousness: oriented to person, oriented to place and oriented to time HEENT: Head: Yes normal to inspection Neck: Carotids: no bruits Chest: Chest palpation & inspection: normal inspection of the chest Resp: Effort & Inspection: normal respiratory effort and able to speak in complete sentences Auscultation: clear to auscultation bilaterally Cardio: Rate: regular rate Heart sounds: S1 normal heart sound present and S2 normal heart sound present Peripheral pulses: dorsalis pedis present ( Bilateral DP signals) GI: Inspection: Yes normal to inspection Skin: Other: right 2nd and 3rd toe appear ischemic ankle ulcer improving General skin exam: no rashes or lesions noted Wounds: no wounds Neuro: General: oriented to person, oriented to place, oriented to time and CN's II-XI intact bilaterally Extrem: General: Yes normal to inspection, Yes full ROM and Yes no clubbing, cyanosis or edema Psych: Appearance: grossly normal and well kempt Speech and movement: Normal speech and movement present Affect: normal affect Progress Note: A&P Assessment and plan (1) PAD (peripheral artery disease): Status: Acute Plan in short patient has done well with her endovascular intervention. Leg appears to be slowly improving. Would like to manage this as conservatively as possible at the current time. Would recommend continued antibiotics and local wound care. in addition she needs to be continued on aspirin and Plavix.She can follow up with me as an outpatient. If the ankle heals we may be able to salvage the foot. If it does not she is at risk for BKA. Once again we will have to see where it demarcates. We will have the patient see us as an outpatient. Stable from my perspective for discharge. Wound care upon discharge: Aleveyn to ankle ulcer 4x4 gauze in between toes Time Spent With Patient Time: Total time spent is greater than 50% in coordination of care (as documented) at patient's floor/unit and/or counseling patient: Procedures Date of Service Date of Service: 01/03/22 Quality Stroke Does the patient have a stroke diagnosis?: No VTE Prior VTE?: No VTE Risk Level:: Surgical - moderate VTE Device Contraindication: N/A - Device Ordered VTE Drug Contraindication: N/A - Med Ordered
[2022-01-03] MEDS: Gabapentin 300 MG CAPSULE 600 MG PO ×3 (10:55→20:23)
[2022-01-03] MEDS: Sertraline HCL 25 MG TABLET PO (10:55)
[2022-01-03] MEDS: Thiamine HCL 100 MG TABLET PO (10:55)
[2022-01-03] MEDS: Folic Acid 1 MG TABLET PO (10:55)
[2022-01-03] MEDS: Aspirin 81 MG TAB.CHEW PO (10:55)
[2022-01-03] MEDS: Multivitamin TABLET 1 TAB PO (10:56)
[2022-01-03] MEDS: Clopidogrel Bisulfate 75 MG TABLET PO (10:56)
[2022-01-03 11:11] VITALS: BP 109/55; PULSE 105; RESP 17; TEMP 37.2; O2SAT 95
--- NOTE | 2022-01-03 11:46 | MHC.CLN ---
PT WITH INCREASED NUTRITION RISK R/T PRESSURE INJURY PO INTAKE 75% X 3 MEALS DIET RX: REGULAR-APPROPRIATE PT RECEIVING ENSURE BID TO INCREASE KCALS AND PROMOTE WOUND HEALING SUPP PROVIDES 700KCALS, 40G PROTEIN MONITOR PO INTAKE CLOSELY
--- NOTE | 2022-01-03 15:10 | P.PNIM_ITS ---
Subjective Subjective Date of Service: 01/03/22 Interval History: Appears much more comfortable today. No acute events overnight Review of Systems Complains of right ankle pain Denies chest pain Denies fever chills Denies nausea vomiting diarrhea Physical Exam Vital Signs: Vital Signs: Last Vital Signs Temp 99.0 F 01/03/22 11:11 Pulse 105 H 01/03/22 11:11 Resp 17 01/03/22 11:11 BP 109/55 L 01/03/22 11:11 Pulse Ox 95 01/03/22 11:11 O2 Del Method 01/03/22 11:11 O2 Flow Rate 2 01/03/22 08:00 BMI result Body Mass Index 28.3 Const: Other: Uncomfortable appearing Resp: Other: Dense crackles left lower lobe Cardio: Other: No S4; positive S1-S2; no S3 murmurs rubs gallops GI: Other: Soft nontender nondistended normoactive bowel sounds Extrem: Other: Erythema right foot at mid tarsal level distally. Foot markedly less tender Objective Data Active Medications Acetaminophen (Acetaminophen 325 Mg Tablet) 650 mg PO Q8H PRN PRN Reason: Fever Last Admin: 01/02/22 05:43 Dose: 650 mg Documented By: MIRIAM Aspirin (Aspirin 81 Mg Tab.Chew) 81 mg PO DAILY [facility] Last Admin: 01/03/22 10:55 Dose: 81 mg Documented By: AUDELIA Atorvastatin Calcium (Atorvastatin Calcium 80 Mg Tablet) 80 mg PO BEDTIME [facility] Last Admin: 01/02/22 21:27 Dose: 80 mg Documented By: MITCHELL Benzonatate (Benzonatate 100 Mg Capsule) 100 mg PO TID PRN PRN Reason: Cough Clopidogrel Bisulfate (Clopidogrel Bisulfate 75 Mg Tablet) 75 mg PO DAILY [facility] Last Admin: 01/03/22 10:56 Dose: 75 mg Documented By: AUDELIA Folic Acid (Folic Acid 1 Mg Tablet) 1 mg PO DAILY [facility] Last Admin: 01/03/22 10:55 Dose: 1 mg Documented By: AUDELIA Gabapentin (Gabapentin 300 Mg Capsule) 600 mg PO TID [facility] Last Admin: 01/03/22 14:42 Dose: 600 mg Documented By: AUDELIA Heparin Sodium (Porcine) (Heparin Sodium,Porcine 5,000 Unit/Ml Vial) 5,000 unit SUBCUT Q8H [facility] Last Admin: 01/03/22 14:43 Dose: 5,000 unit Documented By: AUDELIA Piperacillin Sod/Tazobactam (Sod 3.375 gm/ Sodium Chloride) 50 mls @ 100 mls/hr IV Q6H [facility] Last Infusion: 01/03/22 11:54 Dose: 0 mls/hr Documented By: AUDELIA Vancomycin HCl 1,000 mg/ (Sodium Chloride) 270 mls @ 270 mls/hr IV Q12H [facility] Last Admin: 01/03/22 05:34 Dose: 27 mls/hr Documented By: MIRIAM Morphine Sulfate (Morphine Sulfate 4 Mg/Ml Cartridge) 4 mg IVPUSH Q3H PRN; Protocol PRN Reason: Pain, Severe (Pain Scale 7-10) Last Admin: 01/02/22 23:02 Dose: 4 mg Documented By: MITCHELL Multivitamins/Vitamin C (Multivitamin Tablet) 1 tab PO DAILY [facility] Last Admin: 01/03/22 10:56 Dose: 1 tab Documented By: AUDELIA Ondansetron HCl (Ondansetron Hcl 4 Mg/2 Ml Vial) 4 mg IVPUSH Q4H PRN PRN Reason: Nausea and Vomiting Oxycodone HCl (Oxycodone Hcl Immed Release 5 Mg Tablet) 5 mg PO Q4H PRN PRN Reason: Pain, Moderate (Pain Scale 4-6 Last Admin: 01/03/22 11:17 Dose: 5 mg Documented By: AUDELIA Pharmacy Consult (Consult Rx Vancomycin Dosing) 1 each MISCELLANE DAILY PRN PRN Reason: Consult order Sertraline HCl (Sertraline Hcl 25 Mg Tablet) 25 mg PO DAILY [facility] Last Admin: 01/03/22 10:55 Dose: 25 mg Documented By: AUDELIA Sodium Chloride (0.9 % Sodium Chloride Flush 3 Ml Syringe) 3 ml IVFLUSH QSHIFT [facility] Last Admin: 01/03/22 10:56 Dose: 3 ml Documented By: AUDELIA Thiamine HCl (Thiamine Hcl 100 Mg Tablet) 100 mg PO DAILY [facility] Last Admin: 01/03/22 10:55 Dose: 100 mg Documented By: AUDELIA Labs CBC & Chem 7: 01/03/22 06:51 01/03/22 06:51 Labs: Laboratory Results - last 24 hr 01/02/22 01/03/22 01/03/22 15:45 06:51 06:51 MCV 90.5 MCH 28.6 MCHC 31.6 RDW 15.9 Plt Count 483 H MPV 8.5 L Immature Gran % (Auto) 0.4 Neut % (Auto) 63.2 Lymph % (Auto) 25.3 Teller % (Auto) 9.0 Eos % (Auto) 1.8 Baso % (Auto) 0.3 Lymph # (Auto) 3.1 Teller # (Auto) 1.1 Eos # (Auto) 0.2 Baso # (Auto) 0.0 Abs Immat Gran (auto) 0.05 H Absolute Neuts (auto) 7.8 Absolute Nucleated RBC 0.000 Nucleated RBC % (auto) 0.0 Anion Gap 12 Estim Creat Clear Calc 75.5 Estimated GFR > 60 Fasting Glucose 99 Calcium 8.2 L Total Bilirubin 0.3 AST 23 ALT 15 Alkaline Phosphatase 65 Total Protein 5.3 L Albumin 2.8 L Random Vancomycin 4.0 L Microbiology Microbiology Results: Microbiology 01/01/22 23:35 Blood Culture - Preliminary Blood - Venous No growth after 24 hours. 01/01/22 23:35 Blood Culture - Preliminary Blood - Venous No growth after 24 hours. Assessment and Plan (1) Non-healing ulcer of right ankle: Status: Acute (2) Left lower lobe pulmonary infiltrate: Status: Acute (3) PAD (peripheral artery disease): Status: Acute (4) Dementia: Status: Acute Plan 76-year-old female status post right SFA plasty in stent with right popliteal plasty earlier today.? Asked to see in consult for nonhealing ankle ulcers. 1. Nonhealing right ankle ulcers -vancomycin/Zosyn (4)... Will switch to Augmentin and doxycycline upon discharge -wound care as per vascular surgery -pain meds adjusted secondary to poor control 2. Left lower lobe infiltrate -blood cultures negative x2 -continue with vancomycin/Zosyn.. As per 1. At discharge 3. Dementia -continue outpatient therapies 4. PAD -continue Plavix statin Full code Heparin Requires ongoing hospitalization for IV antibiotics to treat nonhealing right ankle ulcers Quality Stroke Does the patient have a stroke diagnosis?: No VTE Prior VTE?: No VTE Risk Level:: Surgical - moderate VTE Device Contraindication: N/A - Device Ordered VTE Drug Contraindication: N/A - Med Ordered
--- NOTE | 2022-01-03 15:19 | MHC.CM.PN ---
Per ROUNDS discussion, patient is Not medically cleared for discharge r/t IV antibiotics to treat non-healing right ankle ulcers. D/C is return to [place] [facility]. CM will continue to follow for D/C needs.
[2022-01-03 15:44] VITALS: BP 102/52; PULSE 105; RESP 17; TEMP 37.9; O2SAT 93
[2022-01-03 16:29] LABS: Vancomycin Random 9.3 mcg/mL (15-20)
[2022-01-03] MEDS: vancomycin HCL 1,250 MG in 0.9 % Sodium Chloride 250 ML 166.67 MG IV (18:42)
[2022-01-03 18:49] VITALS: RESP 16
[2022-01-03] MEDS: Morphine Sulfate 4 MG/ML CARTRIDGE IVPUSH (18:49)
[2022-01-03 20:00] VITALS: BP 113/53; PULSE 97; RESP 18; TEMP 36.8; O2SAT 97
[2022-01-03] MEDS: Atorvastatin Calcium 80 MG TABLET PO (20:23)
[2022-01-04] VITALS (7 sets, daily range): BP systolic 101–145; BP diastolic 53–84; PULSE 76–104; RESP 18–20; TEMP 36.1–37.1; O2SAT 94–99
[2022-01-04] MEDS: Piperacillin Sodium/Tazobactam 3.375 GM in 0.9 % Sodium Chloride 50 ML IV ×2 (05:28→12:37)
[2022-01-04] MEDS: vancomycin HCL 1,250 MG in 0.9 % Sodium Chloride 250 ML 166.67 MG IV (06:12)
[2022-01-04] MEDS: Heparin Sodium,Porcine 5,000 UNIT/ML VIAL 5000 UNIT SUBCUT ×2 (06:13→15:59)
[2022-01-04 07:07] LABS: Alanine Aminotransferase 13 U/L (0-31); Albumin Level 2.5 g/dL (3.5-5.0); Alkaline Phosphatase 58 U/L (39-117); Anion Gap 13 (12-20); Aspartate Amino Transferase 16 U/L (5-31); Bilirubin Total 0.2 mg/dL (0.0-1.0); Blood Urea Nitrogen 11 mg/dL (9-16); Calcium 8.1 mg/dL (8.4-10.2); Carbon Dioxide 26 mmol/L (22-29); Chloride 104 mmol/L (96-108); Creatinine Clr Calc Pharmacy 80.9; Estimated Glomerular Filt Rate > 60; Glucose Fasting 97 mg/dL (60-99); Sodium 139 mmol/L (135-145); Total Protein 4.9 g/dL (6.5-8.0)
[2022-01-04] MEDS: Gabapentin 300 MG CAPSULE 600 MG PO ×3 (08:25→20:32)
[2022-01-04] MEDS: Aspirin 81 MG TAB.CHEW PO (08:25)
[2022-01-04] MEDS: Folic Acid 1 MG TABLET PO (08:25)
[2022-01-04] MEDS: Clopidogrel Bisulfate 75 MG TABLET PO (08:25)
[2022-01-04] MEDS: Thiamine HCL 100 MG TABLET PO (08:25)
[2022-01-04] MEDS: 0.9 % Sodium Chloride Flush 3 ML SYRINGE IVFLUSH (08:25)
[2022-01-04] MEDS: Sertraline HCL 25 MG TABLET PO (08:25)
[2022-01-04] MEDS: Multivitamin TABLET 1 TAB PO (08:25)
[2022-01-04] MEDS: oxyCODONE HCl Immed Release 5 MG TABLET PO ×2 (12:37→20:32)
[2022-01-04 14:40] LABS: COVID-19 Test Negative (Negative); IDNOW Serial# 16C4AD1C
--- NOTE | 2022-01-04 14:43 | P.DS_ITS ---
DS: Providers Provider Date of Service: 01/04/22 Date of admission: 12/31/21 14:45 Primary care physician: George Goldstein Consults: 12/31/21 14:45 Consult to Hospitalist Routine Consulting Provider: Hospitalist Reason For Exam: med management DS: Diagnosis Discharge Diagnosis (1) Non-healing ulcer of right ankle: Status: Acute (2) Left lower lobe pulmonary infiltrate: Status: Acute (3) PAD (peripheral artery disease): Status: Acute (4) Dementia: Status: Acute DS: Summary Hospital Course Hospital Course: Admission HPI: Chief complaint: nonhealing ulcer Alicia Tyson is a 76 year old female ? With a history of peripheral vascular disease and dementia.? She had originally had an endovascular intervention and the right lower extremity dating back to June she had seen me as an outpatient and she presented for endovascular intervention.? ? She had undergone a angioplasty and stent of a total occlusion of the right SFA.? Of concern was her level of pain and the nonhealing ulcers including the right medial calf and gangrene of a toe.? She now presents for? hospital admission. Hospital course: # Nonhealing right ankle ulcers-- Dr. Ortiz performed on 12/31 * Aortogram with? right lower extremity runoff * ? right SFA plasty and stent * ? right popliteal plasty. Following surgery she has been treated with IVn vancomycin/Zosyn for 5 days now? Will switch to Augmentin and doxycycline upon discharge. Dr Ortiz writes on 01/03 Would like to manage this as conservatively as possible at the current time.? Would recommend continued antibiotics and local wound care. ? in addition she needs to be continued on aspirin and Plavix.She can follow up with me as an outpatient.? If the ankle heals we may be able to salvage the foot.? If it does not she is at risk for BKA.? Once again we will have to see where it demarcates. ? We will have the patient see us as an outpatient.? Stable from my perspective for discharge.? Wound care upon discharge:? Aleveyn to ankle ulcer 4x4 gauze in between toes # Left lower lobe infiltrate -blood cultures negative x2, treated with Vanco and Zosyn x 5 days # Dementia -continue outpatient therapies # PAD -continue, Aspirin, Plavix and statin Time Spent with Patient Time attestation: Total time spent providing and/or coordinating discharge services: Discharge coordination time: Greater than 30 minutes Quality: Safe Use of Opioids Does Pt have an Active Cancer Diagnosis on the Problem List?: No Quality: Stroke Does the patient have a stroke diagnosis?: No Physical Exam Vital Signs: Vital Signs: Last Vital Signs Temp 98.6 F 01/04/22 11:38 Pulse 98 01/04/22 11:38 Resp 20 01/04/22 11:38 BP 121/56 L 01/04/22 11:38 Pulse Ox 95 01/04/22 11:38 O2 Del Method 01/04/22 11:38 O2 Flow Rate 2 01/03/22 20:00 BMI result Body Mass Index 28.3 DS: Data Data Completed and Pending Completed studies during hospitalization [Text1]: Procedures Dilation of Right Femoral Artery with Intraluminal Device, using Drug-Coated Balloon, Percutaneous Approach (06/18/21) Extirpation of Matter from Right Femoral Artery, Percutaneous Approach (06/18/21) Labs on day of discharge: Laboratory Results - last 24 hr 01/03/22 01/04/22 01/04/22 15:47 05:52 14:10 Sodium 139 Potassium 4.0 Chloride 104 Carbon Dioxide 26 Anion Gap 13 BUN 11 Creatinine 0.56 Estim Creat Clear Calc 80.9 Estimated GFR > 60 Fasting Glucose 97 Calcium 8.1 L Total Bilirubin 0.2 AST 16 ALT 13 Alkaline Phosphatase 58 Total Protein 4.9 L Albumin 2.5 L Random Vancomycin 9.3 L COVID-19 ([facility]) Negative COVID-19 Clin Com See Note Preliminary micro results at discharge 01/01/22 23:35 Blood Culture - Preliminary Blood - Venous No growth after 48 hours. 01/01/22 23:35 Blood Culture - Preliminary Blood - Venous No growth after 48 hours. Discharge Plan Discharge Anticipated Discharge Date/Time: 01/04/22 14:55 Patient Disposition: Xfer SNF Discharge Diagnosis: Non healing foot ulcer Referrals: George Goldstein [Primary Care Provider] - 1 Week Discharge Medications: New clopidogrel 75 mg Tablet 75 mg PO DAILY Qty: 30 0RF oxycodone 5 mg Tablet 5 mg PO Q4H PRN (Reason: Pain, Moderate (Pain Scale 4-6) Qty: 20 0RF Rx Instructions: Partial Fill upon patient request. amoxicillin-pot clavulanate 875-125 mg tablet 1 tab PO BID Qty: 14 0RF doxycycline hyclate 100 mg tablet 100 mg PO BID Qty: 14 0RF Continued multivitamin [Daily-Loy] Tablet 1 tab PO DAILY gabapentin 300 mg capsule 600 mg PO TID sertraline 25 mg tablet 1 tab PO DAILY atorvastatin 80 mg Tablet 80 mg PO BEDTIME Qty: 30 0RF clopidogrel 75 mg Tablet 75 mg PO DAILY Qty: 30 0RF aspirin 81 mg Tablet,Chewable 81 mg PO DAILY Qty: 30 0RF folic acid 1 mg tablet 1,000 mcg PO DAILY oxycodone 5 mg tablet 5 mg PO Q8H PRN (Reason: Pain) thiamine HCl (vitamin B1) 100 mg tablet 100 mg PO DAILY Discharge Orders: Discharge Order (Routine); Ordered 01/04/22 Ordered By: Tommy Giang Diet: Advance to usual diet Activity on Discharge: As tolerated Stand Alone Forms: Patient Portal Discharge page Activity Restrictions/Additional Instructions: Wound care upon discharge: Aleveyn to ankle ulcer 4x4 gauze in between toes Care Plan Goals: Full recovery from non healing ulcer Health Concerns: non healing ulcer Plan of Treatment: take Doxycyline and Augmentin, dressing change as above, follow up with Dr. Ortiz Assessment: As above
--- NOTE | 2022-01-04 15:04 | MHC.CM.PN ---
Addendum entered by Michelle Garsia 01/05/22 08:52: PT WAS STILL HERE THIS MORNING WHEN CM ARRIVED. [facility] WAS ON SCENE AT APPROXIMATELY 0835 TO TRANSPORT CM CALLED [facility] AND SPOKE TO SERENA ON PTS UNIT TO INFORM HER PT WOULD BE ARRIVING SOON SHE WAS AGREEABLE AVOIDABLE DAY ENTERED AND PTS SON NOTIFIED VIA T/C Original Note: PT CLEARED TO RETURN TO SNF TODAY SON/HCP, FABIOLA [phone] CONTACTED VIA T/C AND INFORMED OF INTENT TO DC HE REPORTS BEING AGREEABLE BLS TRANSPORT
[2022-01-04] MEDS: Atorvastatin Calcium 80 MG TABLET PO (20:32)
[2022-01-05] MEDS: Heparin Sodium,Porcine 5,000 UNIT/ML VIAL 5000 UNIT SUBCUT ×2 (00:05→06:35)
[2022-01-05 03:56] VITALS: BP 136/63; PULSE 98; RESP 17; TEMP 37.2; O2SAT 98
[2022-01-05] MEDS: oxyCODONE HCl Immed Release 5 MG TABLET PO (06:38)
[2022-01-05 07:36] LABS: Alanine Aminotransferase 16 U/L (0-31); Albumin Level 2.9 g/dL (3.5-5.0); Alkaline Phosphatase 65 U/L (39-117); Anion Gap 14 (12-20); Aspartate Amino Transferase 20 U/L (5-31); Bilirubin Total 0.3 mg/dL (0.0-1.0); Blood Urea Nitrogen 8 mg/dL (9-16); Calcium 8.5 mg/dL (8.4-10.2); Carbon Dioxide 27 mmol/L (22-29); Chloride 101 mmol/L (96-108); Creatinine Clr Calc Pharmacy 85.5; Estimated Glomerular Filt Rate > 60; Glucose Fasting 90 mg/dL (60-99); Potassium 4.3 mmol/L (3.3-5.1); Sodium 138 mmol/L (135-145); Total Protein 5.6 g/dL (6.5-8.0)
[2022-01-05 07:56] VITALS: BP 131/58; PULSE 86; RESP 20; TEMP 37.1; O2SAT 93
== END 2022-01-05 08:52 | disposition skilled nursing facility (03) | DRG 252 ==
LOC: HO.EDOVER 15:04 → HO.IMC 17:02
PROVIDERS: Hospitalist; Internal Medicine; Admitting Provider Surgery Vascular Surgery; PCP Hospitalist; Visit Provider Internal Medicine
PROC: 047M3D1 Dilation of Right Popliteal Artery with Intraluminal Device, using Drug-Coated Balloon, Percutaneous Approach (ICD-10-PCS; principal; 2021-12-31 12:00)
DX: I70.233 Atherosclerosis of native arteries of right leg with ulceration of ankle (principal); J18.9 Pneumonia, unspecified organism; L97.319 Non-pressure chronic ulcer of right ankle with unspecified severity; L97.512 Non-pressure chronic ulcer of other part of right foot with fat layer exposed; F03.90 Unspecified dementia, unspecified severity, without behavioral disturbance, psychotic disturbance, mood disturbance, and anxiety; Z20.822 Contact with and (suspected) exposure to COVID-19; Z87.891 Personal history of nicotine dependence; Z79.82 Long term (current) use of aspirin; Z79.899 Other long term (current) drug therapy
CPT/HCPCS: 36415; 37226; 71045; 73630; 76937; 80048; 80053; 80202; 82565; 83605; 85025; 87040; 87635; 99152; 99153; C1725; C1760; C1769; C1876; C1887; J2250; J2270; J2543; J3010; J3370; Q9967

== ENCOUNTER → 2022-01-21 12:33 | Outpatient (BNVA) | payer OTHER, SELFPAY | PROVIDERS: PCP Internal Medicine; Visit Provider Surgery Vascular Surgery | DX: I73.9 Peripheral vascular disease, unspecified (principal); Z95.820 Peripheral vascular angioplasty status with implants and grafts | CPT/HCPCS: 99212 ==

== ENCOUNTER 2022-01-24 09:38 | Outpatient (REF) | payer OTHER, SELFPAY ==
--- NOTE | ~2022-01-24 | US_ITS ---
EXAMINATION: US ARTERIAL LOWER EXTREMITY, RIGHT CLINICAL INFORMATION: Peripheral vascular disease. History of right SFA angioplasty and stent and right popliteal angioplasty December 2021. COMPARISON: Previous arterial ultrasound December 2021. TECHNIQUE: Doppler color and grayscale evaluation of the arteries of the right lower extremity including waveform spectral analysis. FINDINGS: There is evidence of atherosclerotic disease with wall calcification. There is mild calcified plaque in the right common femoral artery. Right common femoral artery peak systolic velocity is slightly elevated measuring 212 cm/s. This has a monophasic waveform. There is stenosis at the origin of the right profunda. Right profunda peak systolic velocity is 164 cm/s with a monophasic waveform. There is a stent seen throughout the right superficial femoral artery. The [place] proximal right superficial femoral artery proximal to the stent demonstrates peak systolic velocity of 177 cm/s with a biphasic waveform. The stent is patent with peak systolic velocities measuring 185, 96 and 123 cm/s in the proximal mid and distal portions with a monophasic waveform. The [place] distal superficial femoral artery distal to the stent peak systolic velocity measures 122 cm/s and demonstrates biphasic waveform. There is a collateral vessel arising from the right superficial femoral artery distal to the stent. The right popliteal artery appears patent. Peak systolic velocity measures 75 cm/s with a monophasic waveform. There is diffuse disease of the posterior tibial artery. Peak systolic velocity is elevated measuring 291 cm/s with a monophasic waveform. US/US arterial duplex LE RT IMPRESSION: Diseased posterior tibial artery. Patent right SFA stent. Patent popliteal artery.
== END 2022-01-24 09:39 | disposition home or self-care (01) ==
LOC: HO.US 09:38
PROVIDERS: Visit Provider Surgery Vascular Surgery
DX: I73.9 Peripheral vascular disease, unspecified (principal)
CPT/HCPCS: 93926

== ENCOUNTER → 2022-02-11 12:32 | Outpatient (BNVA) | payer OTHER, SELFPAY | PROVIDERS: PCP Internal Medicine; Visit Provider Surgery Vascular Surgery | DX: I73.9 Peripheral vascular disease, unspecified (principal) | CPT/HCPCS: 99212 ==

== ENCOUNTER 2022-02-12 09:33 | Inpatient (IN) | payer OTHER, SELFPAY ==
--- NOTE | ~2022-02-12 | XR_ITS ---
EXAMINATION: XR FOOT, RIGHT CLINICAL INFORMATION: Gangrene COMPARISON: 01/01/2022 TECHNIQUE: AP, lateral, and oblique views of the right foot. FINDINGS: Diffuse osteopenia limits evaluation. There is demineralization of the distal maryse of the first, second, and fifth toes concerning for osteomyelitis. Multifocal osteoarthritis is present. No fracture seen. There is enthesopathy of the distal Achilles tendon attachment and a small to moderate plantar calcaneal osteophyte. Mild diffuse soft tissue swelling. XR/XR foot RT min 3V IMPRESSION: Limited study due to diffuse osteopenia and suboptimal technique. There is demineralization of the distal maryse of the first, second, and fifth toes concerning for osteomyelitis.
[2022-02-12 09:47] VITALS: BP 115/53; BP 125/60; PULSE 70; PULSE 77; RESP 16; O2SAT 97; O2SAT 98; BMI 24.7
--- NOTE | 2022-02-12 10:02 | ECG_ITS ---
Test Reason : Clearance Blood Pressure : / mmHG Vent. Rate : 071 BPM Atrial Rate : 071 BPM P-R Int : 132 ms QRS Dur : 064 ms QT Int : 404 ms P-R-T Axes : 046 052 060 degrees QTc Int : 439 ms Normal sinus rhythm Normal ECG When compared with ECG of 18-JUN-2021 23:07, No significant change was found Referred By: Laura Brandon Electronically Signed By:ANGELO VILLAREAL
--- NOTE | 2022-02-12 10:18 | ED_ITS ---
HPI - Extremity Injury (Lower) General Chief Complaint: Extremity Injury, Lower Stated Complaint: Gangrene Time Seen by Provider: 02/12/22 09:52 Source: patient Mode of arrival: ambulatory History of Present Illness HPI Narrative: 76-year-old female with a past medical history dementia, ETOH abuse, PAD with nonhealing right lower extremity wounds/gangrene sent to ED by Dr. Ortiz for admission for IV antibiotics and likely amputation. Patient denies fever, chills, CP/SOB, pain, nausea/vomiting MD complaint: foot injury Related Data Home Medications Medication Instructions Recorded Confirmed gabapentin 300 mg capsule 600 mg PO TID 01/10/21 02/12/22 sertraline 25 mg tablet 1 tab PO DAILY 01/10/21 02/12/22 oxycodone 5 mg tablet 5 mg PO TID PRN Pain 12/26/21 02/12/22 thiamine HCl (vitamin B1) 100 mg 100 mg PO DAILY 12/26/21 02/12/22 tablet folic acid 1 mg tablet 1 mg PO DAILY 12/31/21 02/12/22 Previous Rx's Medication Instructions Recorded aspirin 81 mg chewable tablet 81 mg PO DAILY #30 tabs 06/25/21 atorvastatin 80 mg tablet 80 mg PO BEDTIME #30 tabs 06/25/21 clopidogrel 75 mg tablet 75 mg PO DAILY #30 tabs 06/25/21 oxycodone 5 mg tablet 5 mg PO Q4H PRN Pain, Moderate 01/04/22 (Pain Scale 4-6 #20 tabs Allergies Allergy/AdvReac Type Severity Reaction Status Date / Time No Known Allergies Allergy Verified 02/11/22 13:12 Review of Systems Review of Systems: Constitutional:No Fever, No Chills, No Fatigue, No Malaise ENT/Mouth: No Ear Pain, No Nasal Congestion, No Sinus Pain, No Hoarseness, No sore throat, No Rhinorrhea, No Swallowing Difficulty Eyes: No Eye Pain, No Swelling, No Redness, No Vision Changes Cardiovascular: No Chest Pain, No SOB, No Edema, No Palpitations Respiratory: No Cough, No Sputum, No Dyspnea Gastrointestinal: No Nausea, No Vomiting, No Diarrhea, No Constipation, No Abdominal pain Genitourinary: No Dysuria, No Urinary Frequency, No Hematuria, No Urinary Incontinence/retention, No Flank Pain Musculoskeletal: + joint pain, No Myalgias, No Joint Swelling Skin: + Skin Lesions, No rash Neuro: No Weakness, No Numbness, No Dizziness, No Headache Yes all other systems are reviewed and are negative Constitutional: Constitutional: Reports as per [facility] Past Medical History Attestation statement: The following information was validated with the patient. Medical History Alcohol abuse Alcohol dependence Arterial insufficiency of lower extremity Cellulitis of right foot Cigarette smoker Dementia Dementia ETOH abuse Insufficiency, vascular Non-healing ulcer of right ankle PAD (peripheral artery disease) S/P angiogram of extremity (06/20/21) Surgical History No pertinent past surgical history Social History Social History Household Members: Other Housing: Senior Living Unable to assess alcohol history related to: Unknown Alcohol intake: never Patient Tobacco Use Status: Former Tobacco user Tobacco use type: Cigarette Second Hand Smoke Exposure: No Advance Directives: No Advance Directives Information Provided: No service: No Current occupational status: retired Physical Exam Vital Signs: Vital Signs: Last Vital Signs Pulse 70 02/12/22 09:47 Resp 16 02/12/22 09:47 BP 115/53 L 02/12/22 09:47 Pulse Ox 97 02/12/22 09:47 O2 Del Method 02/12/22 09:47 BMI result Body Mass Index 24.7 Const: General: cooperative, healthy appearing and no acute distress Or ientation/consciousness: patient oriented x3 Limitations: no limitations HEENT: Head: Yes normal to inspection and Yes atraumatic Ears: hearing grossly normal bilaterally General nose exam: Normal external nose present Face and sinus: Yes normal facial exam Eyes: General: appearance normal, both eyes and all related structures EOM: EOMs intact bilaterally Neck: Neck: Yes normal visual inspection and Yes no meningeal signs Resp: Effort & Inspection: normal respiratory effort and no respiratory distress Auscultation: clear to auscultation bilaterally Cardio: Rate: regular rate Heart sounds: S1 normal heart sound present and S2 normal heart sound present GI: Inspection: Yes normal to inspection Palpation (GI): Soft to palpation, nontender, no guarding and not rigid : General: Yes no CVA tenderness Back/Spine/Pelvis: Back: no CVA tenderness Skin: Rashes: no rashes Neuro: General: patient oriented x3, tone normal and no meningeal signs Gait exam (Neuro): Normal gait present Extrem: Other: Please refer to images above. Right foot digits 2-4 with noted gangrene and malodor. Swollen with erythema. DP pulses intact Course Course Course Narrative: -no leukocytosis. H&H at patient's baseline. Labs otherwise reassuring. Lact ic acid negative. XR foot RT min 3V IMPRESSION: Limited study due to diffuse osteopenia and suboptimal technique. ? There is demineralization of the distal maryse of the first, second, and fifth toes concerning for osteomyelitis. > plan to admit for further management MDM - Extremity Injury (Lower) MDM Narrative Medical decision making narrative: 76-year-old female with a past medical history dementia, ETOH abuse, PAD with nonhealing right lower extremity wounds Sent to ED by Dr. Ortiz for right foot gangrene, admission for IV antibiotics and likely amputation. On exam vital signs stable, in the ED, nontoxic appearing, physical exam as above, please refer to images. Concern for gangrene and osteomyelitis. Low suspicion for severe sepsis at this time Plan: Labs, lactic/blood cultures, x-ray, empiric Vancomycin/Zosyn, admission Medical Records Attestation: I reviewed the patient's medical records. Lab Data Attestation: I reviewed the patient's lab results. Result diagrams: 02/12/22 10:27 02/12/22 10:27 Labs: Lab Results 02/12/22 02/12/22 02/12/22 Range/Units 10:27 10:27 10:27 WBC 10.5 (4.8-10.8) X10*3/uL RBC 3.66 L D (4.20-5.50) X10*6/uL Hgb 9.6 L D (12.0-16.0) g/dl Hct 31.7 L D (37.0-47.0) % MCV 86.6 (80.0-98.0) fL MCH 26.2 L (27.0-33.0) pg MCHC 30.3 L (31.0-35.0) g/dl RDW 15.9 (11.0-16.0) % Plt Count 545 H (160-400) X10*3/uL MPV 9.2 L (9.4-12.3) fL Immature Gran % (Auto) 0.3 (0.0-0.4) % Neut % (Auto) 67.2 (45-73) % Lymph % (Auto) 21.9 (20-40) % [place] % (Auto) 8.1 (2-11) % Eos % (Auto) 2.1 (0-4) % Baso % (Auto) 0.4 (0-2) % Lymph # (Auto) 2.3 (1.2-4.9) X10*3/uL [place] # (Auto) 0.9 (0.1-1.2) X10*3/uL Eos # (Auto) 0.2 (0.0-0.4) X10*3/uL Baso # (Auto) 0.0 (0.0-0.2) X10*3/uL Abs Immat Gran (auto) 0.03 (0.00-0.03) X10*3/uL Absolute Neuts (auto) 7.1 (2.0-8.3) x10*3/uL Absolute Nucleated RBC 0.000 (0.0-0.012) X10*3/uL Nucleated RBC % (auto) 0.0 (0.0-0.2) /100WBC PT 13.1 (10.0-13.1) SEC INR 1.1 (0.9-1.1) Sodium 141 (135-145) mmol/L Potassium 4.6 (3.3-5.1) mmol/L Chloride 104 (96-108) mmol/L Carbon Dioxide 28 (22-29) mmol/L Anion Gap 14 (12-20) BUN 15 D (9-16) mg/dL Creatinine 0.66 (0.5-1.4) mg/dL Estim Creat Clear Calc 67.1 Estimated GFR > 60 Random Glucose 94 (60-115) mg/dL Lactic Acid (0.5-2.0) mmol/L Calcium 9.3 D (8.4-10.2) mg/dL Magnesium 1.9 (1.6-2.6) mg/dL Total Bilirubin 0.2 (0.0-1.0) mg/dL Direct Bilirubin < 0.2 (0.0-0.5) mg/dL AST 16 (5-31) U/L ALT 11 (0-31) U/L Alkaline Phosphatase 101 D (39-117) U/L Total Protein 6.7 (6.5-8.0) g/dL Albumin 3.6 D (3.5-5.0) g/dL COVID-19 (AMBER) (Negative) COVID-19 Clin Com 02/12/22 02/12/22 Range/Units 10:27 10:27 WBC (4.8-10.8) X10*3/uL RBC (4.20-5.50) X10*6/uL Hgb (12.0-16.0) g/dl Hct (37.0-47.0) % MCV (80.0-98.0) fL MCH (27.0-33.0) pg MCHC (31.0-35.0) g/dl RDW (11.0-16.0) % Plt Count (160-400) X10*3/uL MPV (9.4-12.3) fL Immature Gran % (Auto) (0.0-0.4) % Neut % (Auto) (45-73) % Lymph % (Auto) (20-40) % [place] % (Auto) (2-11) % Eos % (Auto) (0-4) % Baso % (Auto) (0-2) % Lymph # (Auto) (1.2-4.9) X10*3/uL [place] # (Auto) (0.1-1.2) X10*3/uL Eos # (Auto) (0.0-0.4) X10*3/uL Baso # (Auto) (0.0-0.2) X10*3/uL Abs Immat Gran (auto) (0.00-0.03) X10*3/uL Absolute Neuts (auto) (2.0-8.3) x10*3/uL Absolute Nucleated RBC (0.0-0.012) X10*3/uL Nucleated RBC % (auto) (0.0-0.2) /100WBC PT (10.0-13.1) SEC INR (0.9-1.1) Sodium (135-145) mmol/L Potassium (3.3-5.1) mmol/L Chloride (96-108) mmol/L Carbon Dioxide (22-29) mmol/L Anion Gap (12-20) BUN (9-16) mg/dL Creatinine (0.5-1.4) mg/dL Estim Creat Clear Calc Estimated GFR Random Glucose (60-115) mg/dL Lactic Acid 1.5 (0.5-2.0) mmol/L Calcium (8.4-10.2) mg/dL Magnesium (1.6-2.6) mg/dL Total Bilirubin (0.0-1.0) mg/dL Direct Bilirubin (0.0-0.5) mg/dL AST (5-31) U/L ALT (0-31) U/L Alkaline Phosphatase (39-117) U/L Total Protein (6.5-8.0) g/dL Albumin (3.5-5.0) g/dL COVID-19 (AMBER) Negative (Negative) COVID-19 Clin Com See Note Critical Care Time Critical Care Time Critical Care Time: Yes Total Critical Care Time: 40 Attestation: I have personally provided critical care time exclusive of time spent on separately billable procedures. Time includes review of lab data, radiology results, discussion with consultants, and monitoring for potential decompensation. Intervention performed as documented. Discharge Plan Discharge Clinical Impression: Gangrene Patient Disposition: Admitted As Inpatient
[2022-02-12 10:33] LABS: MANUAL DIFF FLAG NO
[2022-02-12 10:36] LABS: Basophils Percent Auto 0.4 % (0-2); Eosinophils Absolute Auto 0.2 X10*3/uL (0.0-0.4); Eosinophils Percent Auto 2.1 % (0-4); Hematocrit 31.7 % (37.0-47.0); Hemoglobin 9.6 g/dl (12.0-16.0); Imm Gran Abs Auto 0.03 X10*3/uL (0.00-0.03); Imm Gran Pct Auto 0.3 % (0.0-0.4); Lymphocytes Absolute Auto 2.3 X10*3/uL (1.2-4.9); Lymphocytes Percent Auto 21.9 % (20-40); Mean Corpuscular HGB Conc 30.3 g/dl (31.0-35.0); Mean Corpuscular Hemoglobin 26.2 pg (27.0-33.0); Mean Corpuscular Volume 86.6 fL (80.0-98.0); Mean Platelet Volume 9.2 fL (9.4-12.3); Monocytes Absolute Auto 0.9 X10*3/uL (0.1-1.2); Monocytes Percent Auto 8.1 % (2-11); Neutrophils Absolute Auto 7.1 x10*3/uL (2.0-8.3); Neutrophils Percent Auto 67.2 % (45-73); Platelet Count 545 X10*3/uL (160-400); Red Blood Count 3.66 X10*6/uL (4.20-5.50); Red Cell Distribution Width 15.9 % (11.0-16.0); White Blood Count 10.5 X10*3/uL (4.8-10.8)
[2022-02-12] MEDS: 0.9 % Sodium Chloride 1,000 ML 999 ML IV (10:38)
[2022-02-12 10:43] LABS: INTERNATIONAL NORM RATIO 1.1 (0.9-1.1); Prothrombin Time 13.1 SEC (10.0-13.1)
[2022-02-12 10:47] LABS: Lactic Acid 1.5 mmol/L (0.5-2.0)
[2022-02-12] MEDS: Piperacillin Sodium/Tazobactam 4.5 GM in 0.9 % Sodium Chloride 100 ML IV ×3 (10:50→22:42)
[2022-02-12 10:51] LABS: COVID-19 Test Negative (Negative); IDNOW Serial# 16C4AD1C
[2022-02-12 10:54] LABS: Alanine Aminotransferase 11 U/L (0-31); Albumin Level 3.6 g/dL (3.5-5.0); Alkaline Phosphatase 101 U/L (39-117); Anion Gap 14 (12-20); Aspartate Amino Transferase 16 U/L (5-31); Blood Urea Nitrogen 15 mg/dL (9-16); Calcium 9.3 mg/dL (8.4-10.2); Carbon Dioxide 28 mmol/L (22-29); Chloride 104 mmol/L (96-108); Creatinine Clr Calc Pharmacy 67.1; Estimated Glomerular Filt Rate > 60; Glucose Random 94 mg/dL (60-115); Magnesium 1.9 mg/dL (1.6-2.6); Potassium 4.6 mmol/L (3.3-5.1); Sodium 141 mmol/L (135-145); Total Protein 6.7 g/dL (6.5-8.0)
--- NOTE | 2022-02-12 10:54 | PHA.MEDREC ---
Pharmacy Consult ? Medication Reconciliation Pharmacy has completed the medication reconciliation. List from [place] [facility]
[2022-02-12 11:06] LABS: Bilirubin Direct < 0.2 mg/dL (0.0-0.5); Bilirubin Total 0.2 mg/dL (0.0-1.0)
[2022-02-12] MEDS: vancomycin HCL 1,500 MG in 0.9 % Sodium Chloride 500 ML 333.33 MG IV (11:15)
--- NOTE | 2022-02-12 11:15 | PC.NURSE ---
Right foot dressing removed, pictures taken by Laura RAMIREZ for chart. toes necrotic with slough in between 4 and 5th toe. minimal drainage. Cleansed and dcd applied. Also noted circular wound to inner malleolus with slough to base and red to maria g wound. Abx infusing as ordered.
[2022-02-12 12:05] VITALS: BP 146/62; PULSE 69; RESP 16; TEMP 36.7; O2SAT 97
--- NOTE | 2022-02-12 15:00 | PM.IMHP ---
History of Present Illness Date of Service: 02/12/22 Attending physician on admission: Deonte Guevara Chief Complaint: gangrene right toes, osteomyelitis 76 y/o female with history of dementia without behavioral disturbance, peripheral arterial disease, and history of alcohol dependence in remission residing at [facility] transported to the hospital from [facility] where she resides at the recommendation of Dr. robertson in vascular surgery who has been following the patient for her PAD. Has slowly healing chronic ulcer of the right medial malleolus and worsening gangrene of the right 2nd, 3rd, 4th toes. Underwent plasty and stent of right SFA and popliteal arteries in 12/27 with no improvement of gangrene but some improvement of the right ankle ulcer. She was seen yesterday and advised to come to ED for possible transmetatarsal amputation right foot. Xray of right foot in ED showing osteomyelitis of the first, second, and fifth toes. No leukocytosis. Blood cultures pending. Afebrile. Vitals stable. She is pleasantly confused at baseline and unable to provide much history and is incontinent of urine. UA negative. Review of Systems Review of Systems: Unable to fully assess history and ROS to patient mental status though answers simple questions. History obtained from SNF notes and ED nursing/provider. General: No fevers, malaise, unintentional weight loss Cardiovascular: No chest pain, palpitations, or leg edema. +pad Respiratory: No shortness of breath, wheezing, cough GI: No abdominal pain, nausea, vomiting, diarrhea, constipation, melena, hematochezia Neuro: No headaches, weakness, paresthesias Skin: No rashes or lesions. +gangrene right toes, +ulcer right ankle [facility] Medical History (Updated 02/12/22 @ 15:06 by JAMES Metcalf) Alcohol abuse Alcohol dependence Arterial insufficiency of lower extremity Cellulitis of right foot Cigarette smoker Dementia Dementia ETOH abuse Insufficiency, vascular Non-healing ulcer of right ankle PAD (peripheral artery disease) S/P angiogram of extremity (06/20/21) Surgical History No pertinent past surgical history Social History Household Members: Other Housing: Senior Living Unable to assess alcohol history related to: Unknown Alcohol intake: never Patient Tobacco Use Status: Former Tobacco user Tobacco use type: Cigarette Second Hand Smoke Exposure: No Advance Directives: No Advance Directives Information Provided: No service: No Current occupational status: retired Meds Allergies Allergy/AdvReac Type Severity Reaction Status Date / Time No Known Allergies Allergy Verified 02/11/22 13:12 Active Medications: Current Medications Pharmacy Consult (Consult Rx Perform Med Rec) 1 each MISCELLANE ONCE PRN PRN Reason: Consult order Pharmacy Consult (Consult Rx Vancomycin Dosing) 1 each MISCELLANE DAILY PRN PRN Reason: Consult order Home Medications Medication Instructions Recorded Confirmed Last Taken Type gabapentin 300 mg capsule 600 mg PO TID 01/10/21 02/12/22 Unknown History sertraline 25 mg tablet 1 tab PO DAILY 01/10/21 02/12/22 Unknown History oxycodone 5 mg tablet 5 mg PO TID PRN Pain 12/26/21 02/12/22 Unknown History thiamine HCl (vitamin B1) 100 mg 100 mg PO DAILY 12/26/21 02/12/22 Unknown History tablet folic acid 1 mg tablet 1 mg PO DAILY 12/31/21 02/12/22 Unknown History Physical Exam Vital Signs and Narrative: Vital Signs: Last Vital Signs Temp 98.1 F 02/12/22 12:05 Pulse 69 02/12/22 12:05 Resp 16 02/12/22 12:05 BP 146/62 H 02/12/22 12:05 Pulse Ox 97 02/12/22 12:05 O2 Del Method 02/12/22 12:05 BMI result Body Mass Index 24.7 Constitutional - Awake and Alert, No apparent distress Eyes - PERRLA, EOMI Cardiovascular - S1S2, RRR, No edema Respiratory - Normal lung expansion, Normal respiratory effort, No respiratory distress, CTA bilaterally Gastrointestinal - NT / ND; +BS; No rebound or guarding - Incontinent of urine Extremities - Tenderness right calf. No swelling. See photo Skin - Warm/Dry Neurological - Alert and orietned to self. Pleasantly confused. No focal deficit Psychological - Appropriate affect Results Labs CBC and Chem 7: 02/12/22 10:27 02/12/22 10:27 Labs: Laboratory Results - last 24 hr 02/12/22 02/12/22 02/12/22 10:27 10:27 10:27 MCV 86.6 MCH 26.2 L MCHC 30.3 L RDW 15.9 Plt Count 545 H MPV 9.2 L Immature Gran % (Auto) 0.3 Neut % (Auto) 67.2 Lymph % (Auto) 21.9 [place] % (Auto) 8.1 Eos % (Auto) 2.1 Baso % (Auto) 0.4 Lymph # (Auto) 2.3 [place] # (Auto) 0.9 Eos # (Auto) 0.2 Baso # (Auto) 0.0 Abs Immat Gran (auto) 0.03 Absolute Neuts (auto) 7.1 Absolute Nucleated RBC 0.000 Nucleated RBC % (auto) 0.0 PT 13.1 INR 1.1 Anion Gap 14 Estim Creat Clear Calc 67.1 Estimated GFR > 60 Random Glucose 94 Lactic Acid Calcium 9.3 D Magnesium 1.9 Total Bilirubin 0.2 Direct Bilirubin < 0.2 AST 16 ALT 11 Alkaline Phosphatase 101 D Total Protein 6.7 Albumin 3.6 D COVID-19 ([facility]BER) COVID-19 Clin Com 02/12/22 02/12/22 10:27 10:27 MCV MCH MCHC RDW Plt Count MPV Immature Gran % (Auto) Neut % (Auto) Lymph % (Auto) [place] % (Auto) Eos % (Auto) Baso % (Auto) Lymph # (Auto) [place] # (Auto) Eos # (Auto) Baso # (Auto) Abs Immat Gran (auto) Absolute Neuts (auto) Absolute Nucleated RBC Nucleated RBC % (auto) PT INR Anion Gap Estim Creat Clear Calc Estimated GFR Random Glucose Lactic Acid 1.5 Calcium Magnesium Total Bilirubin Direct Bilirubin AST ALT Alkaline Phosphatase Total Protein Albumin COVID-19 (AMBER) Negative COVID-19 Clin Com See Note Imaging Radiologist's Impressions: Impressions Foot X-Ray 02/12/22 10:13 IMPRESSION: Limited study due to diffuse osteopenia and suboptimal technique. There is demineralization of the distal maryse of the first, second, and fifth toes concerning for osteomyelitis. Assessment and Plan (1) Gangrene: Status: Acute (2) Non-healing ulcer of right ankle: Status: Acute (3) PAD (peripheral artery disease): Status: Acute Plan 76 y/o female with history of dementia without behavioral disturbance, peripheral arterial disease, and history of alcohol dependence in remission residing at [facility] admitted at the recommendation of vascular surgery for treatment of osteomyelitis and nonhealing wounds of the right foot/ankle with gangrene requiring transmetatarsal amputation. 1- Osteolyelitis right foot with worsening Gangrene 2nd, 3rd, 4th right toes with healing ulcer right ankle -Xray right foot with osteomyelitis. Given IV vanco and zosyn in ED. Continue IV zosyn and vanco -Vascular surgery consult placed for transmetatarsal amputation of right foot per Dr. Robertson. -Hold asa and plavix -Continue atorvastatin -Pain management with oxycodone and dilaudid 2-Peripheral arterial disease -Angiogram 12/31/21 Dr. robertson with plasty and stent R SFA and popliteal arteries. -As above 3-Hx alcohol depedence -No recent use. In remission 4-Dementia without behavioral disturbance -Pt pleasantly confused. At baseline DVT prophylaxis- mechanical for now. Hold anticoagulation as pt may be undergoing surgery. Reassess tomorrow Healthcare proxy on file- Epifanio Tyson Full code Pt requires inpt stay of at least 2 midnights for osteomyelitis with gangrene of the RLE requiring OV antibiotics and transmetatarsal amputation. Quality Stroke Does the patient have a stroke diagnosis?: No VTE Prior VTE?: No VTE Risk Level:: Medical - moderate - high VTE Device Contraindication: N/A - Device Ordered VTE Drug Contraindication: Treatment Not Indicated
--- NOTE | 2022-02-12 15:39 | PHA.PROG ---
Admission Date/Time: February 12, 2022 14:50 Indication: Osteomyelitis Weight in k.503 kg Adjusted body weight in K.84 Edson body weight in K.641 Obesity Dosing Indication % IBW: N/A Serum Creatinine - Last 168 Hours 02/12/22 10:27 Creatinine 0.66 Estimated CrCl and GFR - Last 168 Hours 02/12/22 10:27 Estim Creat Clear Calc 67.1 Estimated GFR > 60 Vancomycin Loading Dose: 1500 mg x 1 (~23 mg/kg) Current Vancomycin Dosing Regimen: 1250 mg Q 24H Vancomycin Monitoring using AUC goal of 400 - 600 range with trough as surrogate marker: 548 mg/L/hr Date and Time for next Vancomycin Level to be drawn: 02/14/22 @0900 Pharmacist Comments on Vancomycin Plan: Patient's Scr is 0.66, CrCl of 67.1. Proper load was given. Q 24 hour dosing chosen to allow patient to fully clear as patient is older. Patient has osteo which calls for a more aggressive approach. 1250 mg dosing to get levels up. Patient has history of substance abuse, however patient is living at [facility] at this time. Predicted AUC 548m mg/L/hr with a trough of 16.3 mg/L. Target trough 15-20 mg/L. Vancomycin dosing will take advantage of [employer] as a clinical decision support tool that uses Bayesian modeling to calculate individual patient's pharmacokinetic parameters and forecast the patient's drug concentration time course with the target goal AUC 24 range of 400 - 600 mg/L/hr.
[2022-02-12 16:00] VITALS: BP 146/67; PULSE 71; RESP 16; TEMP 36.9; O2SAT 98
[2022-02-12] MEDS: Thiamine HCL 100 MG TABLET PO (16:23)
[2022-02-12] MEDS: Folic Acid 1 MG TABLET PO (16:23)
[2022-02-12] MEDS: Gabapentin 300 MG CAPSULE 600 MG PO ×2 (16:23→21:30)
[2022-02-12] MEDS: 0.9 % Sodium Chloride Flush 3 ML SYRINGE IVFLUSH (16:24)
[2022-02-12 17:14] LABS: Appearance Urine Clear; Color Urine Yellow; Glucose Urine UA Negative (Negative); Leukocyte Esterase Urine Moderate (2+) (Negative); Nitrite Urine Negative (Negative); PH 7.5 (5.0-9.0); Urine Blood Negative (Negative); Urine Ketones Negative (Negative); Urine Protein Negative (Neg-Trace)
[2022-02-12 17:20] LABS: Bacteria Urine None Seen (None Seen); Hyaline Casts Urine 0-2 /LPF (0-2); RBC Urine 0-2 /HPF (0-2); Squamous Epithelial Cell Urine 0-2 /HPF (0-2); WBC Urine 21-50 /HPF (0-5)
--- NOTE | 2022-02-12 21:19 | MHC.CM.PN ---
CM attempted to meet with patient with diagnosis of dementia. Unable to review IMM. Pt is very pleasant, but is confused. Is not orientated to place or situation, but can tell CM that her toes are black and that she might be able to walk if they are gone Has gangrene of 3 toes Right foot and osteomyelitis. Will need IV antibiotics and probable amputation. Pt lives at [facility]. Attempted to call HCP/son Epifanio Yammerrociers ([phone]) to review IMM and complete CM assessment, including if HCP has been invoked. No answer and no ability to leave a message. CM attempted to call [place]. Transferred to pt unit, but nurse did not corn picker phone and extension was disconnected. Reviewed little medical record that came with patient. No documentation of HCP form or Covid vax status. Unknown if HCP has been invoked, but ? competency. Pt tells CM she uses a wheelchair. D/C plan: Return to [place]. Pt will need PT and retirement antibiotics. Will need BLS transport.
[2022-02-12] MEDS: Atorvastatin Calcium 80 MG TABLET PO (21:30)
[2022-02-12 22:21] VITALS: BP 140/58; PULSE 65; RESP 16; TEMP 36.7; O2SAT 98
[2022-02-13] VITALS: BP 157/73; PULSE 72; RESP 18; TEMP 36.4
--- NOTE | 2022-02-13 05:45 | PC.NURSE ---
pt continues to sleep without distress and/or issues
[2022-02-13] MEDS: Piperacillin Sodium/Tazobactam 4.5 GM in 0.9 % Sodium Chloride 100 ML IV ×3 (06:00→16:59)
[2022-02-13 08:06] VITALS: BP 161/69; PULSE 88; RESP 17; TEMP 36.6; O2SAT 96
[2022-02-13 08:33] LABS: Creatinine Clr Calc Pharmacy 64.2; Estimated Glomerular Filt Rate > 60
--- NOTE | 2022-02-13 09:26 | HE.PHANOTE ---
RUSSELL STEPHENSON CONTINUE CURRENT DOSE, NEXT TROUGH DUE @ 0900 ON 02/14
[2022-02-13] MEDS: Sertraline HCL 25 MG TABLET PO (09:49)
[2022-02-13] MEDS: Folic Acid 1 MG TABLET PO (09:49)
[2022-02-13] MEDS: Thiamine HCL 100 MG TABLET PO (09:49)
[2022-02-13] MEDS: Gabapentin 300 MG CAPSULE 600 MG PO ×3 (09:49→20:18)
--- NOTE | 2022-02-13 10:13 | P.PNIM_ITS ---
Subjective Subjective Date of Service: 02/13/22 Interval History: patient seen lying in hospital bed in no distress. Patient is a poor historian but denies any complaints at this time. No significant nursing events overnight. Review of Systems Unable to fully assess history and ROS to patient mental status though answers simple questions. History obtained from SNF notes and ED nursing/provider. General: No fevers, malaise, unintentional weight loss Cardiovascular: No chest pain, palpitations, or leg edema. +pad Respiratory: No shortness of breath, wheezing, cough GI: No abdominal pain, nausea, vomiting, diarrhea, constipation, melena, hematochezia Neuro: No headaches, weakness, paresthesias Skin: No rashes or lesions. +gangrene right toes, +ulcer right ankle Physical Exam 2 Vital Signs: Vital Signs: Last Vital Signs Temp 97.9 F 02/13/22 08:06 Pulse 88 02/13/22 08:06 Resp 17 02/13/22 08:06 BP 161/69 H 02/13/22 08:06 Pulse Ox 96 02/13/22 08:06 O2 Del Method 02/13/22 08:06 BMI result Body Mass Index 24.7 Elderly female lying in bed in no distress neck is supple, no JVD regular rate and rhythm, S1-S2 heard equal breath sounds bilaterally, no wheezing or crackles appreciated abdomen soft nontender, non rigid lower extremity: photo attached ; medial ulcer present and gangrene present on 2nd, 3rd and 4th toe patient is awake, alert and oriented only to self, disoriented to place and time Extrem: Other: Please refer to images above. Right foot digits 2-4 with noted gangrene and malodor. Swollen with erythema. DP pulses intact General: Yes normal to inspection Objective Data Active Medications Atorvastatin Calcium (Atorvastatin Calcium 80 Mg Tablet) 80 mg PO BEDTIME [facility] Last Admin: 02/12/22 21:30 Dose: 80 mg Documented By: XUAN Folic Acid (Folic Acid 1 Mg Tablet) 1 mg PO DAILY [facility] Last Admin: 02/13/22 09:49 Dose: 1 mg Documented By: JESSA Gabapentin (Gabapentin 300 Mg Capsule) 600 mg PO TID [facility] Last Admin: 02/13/22 09:49 Dose: 600 mg Documented By: JESSA Hydromorphone HCl (Hydromorphone Hcl 0.5 Mg/0.5 Ml Syringe) 0.5 mg IVPUSH Q4H PRN; Protocol PRN Reason: Pain, Severe (Pain Scale 7-10) Piperacillin Sod/Tazobactam (Sod 4.5 gm/ Sodium Chloride) 100 mls @ 200 mls/hr IV Q6H [facility] Last Admin: 02/13/22 09:52 Dose: 200 mls/hr Documented By: JESSA Vancomycin HCl 1,250 mg/ (Sodium Chloride) 250 mls @ 166.667 mls/hr IV Q24H [facility] Oxycodone HCl (Oxycodone Hcl Immed Release 5 Mg Tablet) 5 mg PO Q4H PRN PRN Reason: Pain, Moderate (Pain Scale 4-6 Pharmacy Consult (Consult Rx Perform Med Rec) 1 each MISCELLANE ONCE PRN PRN Reason: Consult order Pharmacy Consult (Consult Rx Vancomycin Dosing) 1 each MISCELLANE DAILY PRN PRN Reason: Consult order Pharmacy Consult (Consult Rx Vancomycin Dosing) 1 each MISCELLANE DAILY PRN PRN Reason: Consult order Sertraline HCl (Sertraline Hcl 25 Mg Tablet) 25 mg PO DAILY [facility] Last Admin: 02/13/22 09:49 Dose: 25 mg Documented By: JESSA Sodium Chloride (0.9 % Sodium Chloride Flush 3 Ml Syringe) 3 ml IVFLUSH QSHIFT [facility] Last Admin: 02/13/22 09:49 Dose: Not Given Documented By: JESSA Non-Admin Reason: Med Not Available Thiamine HCl (Thiamine Hcl 100 Mg Tablet) 100 mg PO DAILY [facility] Last Admin: 02/13/22 09:49 Dose: 100 mg Documented By: JESSA Labs CBC & Chem 7: 02/12/22 10:27 02/13/22 08:04 Labs: Laboratory Results - last 24 hr 02/12/22 02/12/22 02/12/22 10:27 10:27 10:27 MCV 86.6 MCH 26.2 L MCHC 30.3 L RDW 15.9 Plt Count 545 H MPV 9.2 L Immature Gran % (Auto) 0.3 Neut % (Auto) 67.2 Lymph % (Auto) 21.9 [place] % (Auto) 8.1 Eos % (Auto) 2.1 Baso % (Auto) 0.4 Lymph # (Auto) 2.3 [place] # (Auto) 0.9 Eos # (Auto) 0.2 Baso # (Auto) 0.0 Abs Immat Gran (auto) 0.03 Absolute Neuts (auto) 7.1 Absolute Nucleated RBC 0.000 Nucleated RBC % (auto) 0.0 PT 13.1 INR 1.1 Anion Gap 14 Estim Creat Clear Calc 67.1 Estimated GFR > 60 Random Glucose 94 Lactic Acid Calcium 9.3 D Magnesium 1.9 Total Bilirubin 0.2 Direct Bilirubin < 0.2 AST 16 ALT 11 Alkaline Phosphatase 101 D Total Protein 6.7 Albumin 3.6 D Urine Color Urine Appearance Urine pH Ur Specific [place] Urine Protein Urine Glucose (UA) Urine Ketones Urine Blood Urine Nitrite Ur Leukocyte Esterase Urine RBC Urine WBC Ur Squamous Epith Cells Urine Bacteria Hyaline Casts COVID-19 ([facility]) COVID-A [facility] POW 02/12/22 02/12/22 02/12/22 10:27 10:27 16:54 MCV MCH MCHC RDW Plt Count MPV Immature Gran % (Auto) Neut % (Auto) Lymph % (Auto) [place] % (Auto) Eos % (Auto) Baso % (Auto) Lymph # (Auto) [place] # (Auto) Eos # (Auto) Baso # (Auto) Abs Immat Gran (auto) Absolute Neuts (auto) Absolute Nucleated RBC Nucleated RBC % (auto) PT INR Anion Gap Estim Creat Clear Calc Estimated GFR Random Glucose Lactic Acid 1.5 Calcium Magnesium Total Bilirubin Direct Bilirubin AST ALT Alkaline Phosphatase Total Protein Albumin Urine Color Yellow Urine Appearance Clear Urine pH 7.5 Ur Specific [place] 1.010 Urine Protein Negative Urine Glucose (UA) Negative Urine Ketones Negative Urine Blood Negative Urine Nitrite Negative Ur Leukocyte Esterase Moderate (2+) H Urine RBC 0-2 Urine WBC 21-50 H Ur Squamous Epith Cells 0-2 Urine Bacteria None Seen Hyaline Casts 0-2 COVID-19 ([facility]BER) Negative COVID-19 Clin Com See Note 02/13/22 08:04 MCV MCH MCHC RDW Plt Count MPV Immature Gran % (Auto) Neut % (Auto) Lymph % (Auto) [place] % (Auto) Eos % (Auto) Baso % (Auto) Lymph # (Auto) [place] # (Auto) Eos # (Auto) Baso # (Auto) Abs Immat Gran (auto) Absolute Neuts (auto) Absolute Nucleated RBC Nucleated RBC % (auto) PT INR Anion Gap Estim Creat Clear Calc 64.2 Estimated GFR > 60 Random Glucose Lactic Acid Calcium Magnesium Total Bilirubin Direct Bilirubin AST ALT Alkaline Phosphatase Total Protein Albumin Urine Color Urine Appearance Urine pH Ur Specific [place] Urine Protein Urine Glucose (UA) Urine Ketones Urine Blood Urine Nitrite Ur Leukocyte Esterase Urine RBC Urine WBC Ur Squamous Epith Cells Urine Bacteria Hyaline Casts COVID-19 ([facility]) COVID-19 Clin Com Imaging Chest x-ray: Radiologist's impression: Impressions Foot X-Ray 02/12/22 10:13 IMPRESSION: Limited study due to diffuse osteopenia and suboptimal technique. There is demineralization of the distal maryse of the first, second, and fifth toes concerning for osteomyelitis. Assessment and Plan (1) Gangrene: Status: Acute (2) Non-healing ulcer of right ankle: Status: Acute (3) PAD (peripheral artery disease): Status: Acute (4) Osteomyelitis: Status: Acute Plan 76 y/o female with history of dementia without behavioral disturbance, per ipheral arterial disease, and history of alcohol dependence in remission residing at [facility] admitted at the recommendation of vascular surgery for treatment of osteomyelitis and nonhealing wounds of the right foot/ankle with gangrene requiring transmetatarsal amputation. 1- Worsening wet Gangrene of 2nd, 3rd, 4th right toes with underlying osteomyelitis - imaging evidence of osteomyelitis, no concern for sepsis or bacteremia currently. Patient is on broad-spectrum antibiotics, vancomycin and Zosyn -Vascular surgery consult placed for transmetatarsal amputation of right foot per Dr. Ortiz. -Hold asa and plavix -Continue atorvastatin -Pain management with oxycodone and dilaudid 2-Peripheral arterial disease -Angiogram 12/31/21 Dr. ortiz with plasty and stent R SFA and popliteal arteries. -As above 3-Hx alcohol depedence -No recent use. In remission 4-Dementia without behavioral disturbance -Pt pleasantly confused. At baseline DVT prophylaxis- mechanical for now. Hold anticoagulation as pt may be undergoing surgery. Healthcare proxy on file- Epifanio Tyson Full code Pt requires inpt stay of at least 2 midnights for osteomyelitis with gangrene of the RLE requiring OV antibiotics and transmetatarsal amputation. Quality Stroke Does the patient have a stroke diagnosis?: No VTE Prior VTE?: No VTE Risk Level:: Medical - moderate - high VTE Device Contraindication: N/A - Device Ordered VTE Drug Contraindication: Treatment Not Indicated
--- NOTE | 2022-02-13 10:17 | P.CONGS_ITS ---
History of Present Illness Consult details Consult date: 02/13/22 Narrative: Very pleasant 76-year-old female well known to me presents to the hospital with nonhealing ulcers of the right foot. She has gangrene digits 2 3 and 4. She had originally been seen in the hospital nearly 3 months ago. At that time she had an endovascular intervention. Her leg appears to be doing significantly better. She has gone on to heal a lot of her ankle ulcer and the toes have now demarcated. She was in my office yesterday and was requested by the facility to center to the hospital as the gangrene and the toes were starting to fall apart. She now presents to me for vascular evaluation. Review of Systems Review of Systems: Yes all other systems are reviewed and are negative Constitutional: Constitutional: Reports no additional constitutional complaints ENT: Reports Normal hearing present Cardiovascular: Cardiovascular: Denies chest pain, Denies chest pain at rest, Denies chest pain with activity and Denies pedal edema Respiratory: Respiratory: Denies cough Gastrointestinal: Gastrointestinal: Denies abdominal pain Musculoskeletal: Musculoskeletal: Denies abnormal gait, Denies muscle cramps and Denies radiating pain into limb Integumentary/Breasts: Skin/Breast: Denies skin ulcer and Denies wounds Neurologic: Reports Normal hearing present and Denies abnormal gait Psychiatric: Psychiatric: Reports no additional psychiatric complaints PMFSH Past Medical History Medical History (Updated 02/13/22 @ 10:18 by Deonte Guevara MD) Alcohol abuse Alcohol dependence Arterial insufficiency of lower extremity Cellulitis of right foot Cigarette smoker Dementia Dementia ETOH abuse Insufficiency, vascular Non-healing ulcer of right ankle PAD (peripheral artery disease) S/P angiogram of extremity (06/20/21) Surgical History Surgical History No pertinent past surgical history Social History Social History Household Members: Other Housing: Skilled Nursing Unable to assess alcohol history related to: Unknown Alcohol intake: never Patient Tobacco Use Status: Former Tobacco user Tobacco use type: Cigarette Second Hand Smoke Exposure: No Advance Directives: No Advance Directives Information Provided: No service: No Current occupational status: retired Meds Allergies Allergy/AdvReac Type Severity Reaction Status Date / Time No Known Allergies Allergy Verified 02/11/22 13:12 Active Medications: Current Medications Atorvastatin Calcium (Atorvastatin Calcium 80 Mg Tablet) 80 mg PO BEDTIME [facility] Last Admin: 02/12/22 21:30 Dose: 80 mg Folic Acid (Folic Acid 1 Mg Tablet) 1 mg PO DAILY [facility] Last Admin: 02/13/22 09:49 Dose: 1 mg Gabapentin (Gabapentin 300 Mg Capsule) 600 mg PO TID [facility] Last Admin: 02/13/22 09:49 Dose: 600 mg Hydromorphone HCl (Hydromorphone Hcl 0.5 Mg/0.5 Ml Syringe) 0.5 mg IVPUSH Q4H PRN; Protocol PRN Reason: Pain, Severe (Pain Scale 7-10) Piperacillin Sod/Tazobactam (Sod 4.5 gm/ Sodium Chloride) 100 mls @ 200 mls/hr IV Q6H [facility] Last Admin: 02/13/22 09:52 Dose: 200 mls/hr Vancomycin HCl 1,250 mg/ (Sodium Chloride) 250 mls @ 166.667 mls/hr IV Q24H [facility] Oxycodone HCl (Oxycodone Hcl Immed Release 5 Mg Tablet) 5 mg PO Q4H PRN PRN Reason: Pain, Moderate (Pain Scale 4-6 Pharmacy Consult (Consult Rx Perform Med Rec) 1 each MISCELLANE ONCE PRN PRN Reason: Consult order Pharmacy Consult (Consult Rx Vancomycin Dosing) 1 each MISCELLANE DAILY PRN PRN Reason: Consult order Pharmacy Consult (Consult Rx Vancomycin Dosing) 1 each MISCELLANE DAILY PRN PRN Reason: Consult order Sertraline HCl (Sertraline Hcl 25 Mg Tablet) 25 mg PO DAILY [facility] Last Admin: 02/13/22 09:49 Dose: 25 mg Sodium Chloride (0.9 % Sodium Chloride Flush 3 Ml Syringe) 3 ml IVFLUSH QSHIFT [facility] Last Admin: 02/13/22 09:49 Dose: Not Given Thiamine HCl (Thiamine Hcl 100 Mg Tablet) 100 mg PO DAILY [facility] Last Admin: 02/13/22 09:49 Dose: 100 mg Home Medications Medication Instructions Recorded Confirmed Last Taken Type gabapentin 300 mg capsule 600 mg PO TID 01/10/21 02/12/22 Unknown History sertraline 25 mg tablet 1 tab PO DAILY 01/10/21 02/12/22 Unknown History oxycodone 5 mg tablet 5 mg PO TID PRN Pain 12/26/21 02/12/22 Unknown History thiamine HCl (vitamin B1) 100 mg 100 mg PO DAILY 12/26/21 02/12/22 Unknown History tablet folic acid 1 mg tablet 1 mg PO DAILY 12/31/21 02/12/22 Unknown History Physical Exam Vital Signs: Vital Signs: Last Vital Signs Temp 97.9 F 02/13/22 08:06 Pulse 88 02/13/22 08:06 Resp 17 02/13/22 08:06 BP 161/69 H 02/13/22 08:06 Pulse Ox 96 02/13/22 08:06 O2 Del Method 02/13/22 08:06 BMI result Body Mass Index 24.7 Const: General: cooperative, healthy appearing and comfortable Orientation/consciousness: oriented to person, oriented to place and oriented to time HEENT: Head: Yes normal to inspection Neck: Neck: Yes normal visual inspection Carotids: no bruits Chest: Chest palpation & inspection: normal inspection of the chest Resp: Effort & Inspection: normal respiratory effort and able to speak in complete sentences Auscultation: clear to auscultation bilaterally, no crackles, no rales, no rhonchi and no wheezes Cardio: Rate: regular rate Rhythm: regular rhythm Heart sounds: S1 normal heart sound present and S2 normal heart sound present Bruits: no carotid bruits Peripheral pulses: Peripheral pulses 2+ throughout GI: Inspection: Yes normal to inspection Skin: Other: right foot gangrene digits 2 3 and 4, ankle ulceration as well Wounds: no wounds Hair: normal Neuro: General: oriented to person, oriented to place and oriented to time Cranial nerves: Yes CN's II-XII intact bilaterally and Yes Normal hearing present Cognition (Neuro): normal cognition Motor exam (neuro): 5/5 motor strength present throughout Extrem: Other: venous exam: No significant superficial varicosities or spider telangiectasias, minimal edema General: No clubbing, No cyanosis and No edema Psych: Appearance: grossly normal Mental Status: mental status grossly normal Speech and movement: Normal speech and movement present Results Labs Result diagrams: 02/12/22 10:27 02/13/22 08:04 Labs: Abnormal lab results 02/12/22 02/12/22 Range/Units 10:27 16:54 RBC 3.66 L D (4.20-5.50) X10*6/uL Hgb 9.6 L D (12.0-16.0) g/dl Hct 31.7 L D (37.0-47.0) % MCH 26.2 L (27.0-33.0) pg MCHC 30.3 L (31.0-35.0) g/dl Plt Count 545 H (160-400) X10*3/uL MPV 9.2 L (9.4-12.3) fL Ur Leukocyte Esterase Moderate (2+) H (Negative) Urine WBC 21-50 H (0-5) /HPF Short CBC 02/12/22 Range/Units 10:27 WBC 10.5 (4.8-10.8) X10*3/uL Hgb 9.6 L D (12.0-16.0) g/dl Hct 31.7 L D (37.0-47.0) % Plt Count 545 H (160-400) X10*3/uL BMP 02/12/22 02/13/22 10:27 08:04 Sodium 141 Potassium 4.6 Chloride 104 Carbon Dioxide 28 BUN 15 D Creatinine 0.66 0.69 Calcium 9.3 D Liver Function 02/12/22 Range/Units 10:27 Total Bilirubin 0.2 (0.0-1.0) mg/dL Direct Bilirubin < 0.2 (0.0-0.5) mg/dL AST 16 (5-31) U/L ALT 11 (0-31) U/L Alkaline Phosphatase 101 D (39-117) U/L Albumin 3.6 D (3.5-5.0) g/dL Urine 02/12/22 Range/Units 16:54 Urine Color Yellow Urine Appearance Clear Urine pH 7.5 (5.0-9.0) Ur Specific [place] 1.010 (1.005-1.025) Urine Protein Negative (Neg-Trace) mg/dL Urine Glucose (UA) Negative (Negative) mg/dL All other labs normal. Imaging Additional studies: X-ray images reviewed Assessment and Plan (1) PAD (peripheral artery disease): Status: Acute Plan in short patient has nonhealing ulcers of the right foot. We have reviewed her prior arterial testing which has been within normal limits. She will require right foot transmetatarsal amputation and debridement the ankle ulcer. Risks benefits complications were discussed in detail with the patient she would like to move forward. we will discuss with the family as well. We will schedule her for tomorrow. Thank you for allowing us to assist in her care. If there are any questions or concerns please do not hesitate to contact us. Procedures Date of Service Date of Service: 02/13/22
[2022-02-13] MEDS: vancomycin HCL 1,250 MG in 0.9 % Sodium Chloride 250 ML 166.67 MG IV (11:59)
--- NOTE | 2022-02-13 12:01 | MHC.CDI.CONC ---
CDI Concurrent Query Documentation Clarification: PHYSICIAN'S DOCUMENTATION REQUEST Date of Query: 02/13/22 1202 Patient Name: Alicia Tyson Admit Date: 02/12/22 Dear Doctor, A review of the medical record indicates additional documentation may be needed. Please review below and update the documentation accordingly. Clinical Indicators: Risk Factors/Clinical Indicators/Treatments Dementia without behavioral disturbances. Pleasantly confused. SNF If possible, please further clarify specifics of the Dementia: Dementia (Vascular, Senile, Alzheimer's, Frontal, Presenile or other) without behavioral disturbance Other, please specify if known Unable to determine Use of terms such as suspected, likely, concern for, or probable (associated with a specific diagnosis that is being evaluated, monitored, or treated as if it exists) are acceptable and can be coded in the inpatient setting, when documented at the time of discharge. Thank you, Ana Lazaro [facility], CDIS Extension: [phone] Please use your independent medical judgment in providing your response. THIS QUERY IS PART OF THE PERMANENT MEDICAL RECORD
--- NOTE | 2022-02-13 14:42 | MHC.CM.PN ---
PER [facility] [facility], PATIENT'S HCP IN INVOKED. HCP UPLOADED TO [employer] AND FILED IN CHART. ALSO ZAYRA PULLIAM'Fidencio [employer] 09/17/20, [employer] 01/10/22.
[2022-02-13 16:00] VITALS: BP 148/67; PULSE 69; RESP 16; TEMP 36.5; O2SAT 98
[2022-02-13] MEDS: 0.9 % Sodium Chloride Flush 3 ML SYRINGE IVFLUSH (16:59)
[2022-02-13 20:00] VITALS: BP 134/60; PULSE 72; RESP 16; TEMP 36.9; O2SAT 98
[2022-02-13] MEDS: Atorvastatin Calcium 80 MG TABLET PO (20:18)
[2022-02-13 23:20] VITALS: BP 171/76; PULSE 73; RESP 17; TEMP 36.9; O2SAT 96
[2022-02-14] VITALS (15 sets, daily range): BP systolic 118–151; BP diastolic 59–74; PULSE 61–92; RESP 16–20; TEMP 36.1–37.2; O2SAT 93–100
[2022-02-14] MEDS: Piperacillin Sodium/Tazobactam 4.5 GM in 0.9 % Sodium Chloride 100 ML IV ×4 (00:15→20:53)
[2022-02-14] MEDS: 0.9 % Sodium Chloride Flush 3 ML SYRINGE IVFLUSH ×4 (00:17→20:59)
[2022-02-14 09:20] LABS: MANUAL DIFF FLAG NO
[2022-02-14 09:22] LABS: Basophils Absolute Auto 0.1 X10*3/uL (0.0-0.2); Basophils Percent Auto 0.9 % (0-2); Eosinophils Absolute Auto 0.2 X10*3/uL (0.0-0.4); Hematocrit 32.3 % (37.0-47.0); Hemoglobin 9.8 g/dl (12.0-16.0); Imm Gran Abs Auto 0.04 X10*3/uL (0.00-0.03); Imm Gran Pct Auto 0.4 % (0.0-0.4); Lymphocytes Absolute Auto 2.6 X10*3/uL (1.2-4.9); Lymphocytes Percent Auto 26.9 % (20-40); Mean Corpuscular HGB Conc 30.3 g/dl (31.0-35.0); Mean Corpuscular Hemoglobin 25.7 pg (27.0-33.0); Mean Corpuscular Volume 84.8 fL (80.0-98.0); Mean Platelet Volume 9.8 fL (9.4-12.3); Monocytes Absolute Auto 0.7 X10*3/uL (0.1-1.2); Monocytes Percent Auto 6.9 % (2-11); Neutrophils Absolute Auto 6.1 x10*3/uL (2.0-8.3); Neutrophils Percent Auto 62.9 % (45-73); Platelet Count 578 X10*3/uL (160-400); Red Blood Count 3.81 X10*6/uL (4.20-5.50); Red Cell Distribution Width 15.9 % (11.0-16.0); White Blood Count 9.7 X10*3/uL (4.8-10.8)
--- NOTE | 2022-02-14 09:26 | HO.PM.IMPN ---
Subjective Subjective Date of Service: 02/14/22 Interval History: patient seen lying in hospital bed in no distress. Patient is a poor historian but denies any complaints at this time. No significant nursing events overnight. Review of Systems Unable to fully assess history and ROS to patient mental status though answers simple questions. General: No fevers, malaise, unintentional weight loss Cardiovascular: No chest pain, palpitations, or leg edema. +pad Respiratory: No shortness of breath, wheezing, cough GI: No abdominal pain, nausea, vomiting, diarrhea, constipation, melena, hematochezia Neuro: No headaches, weakness, paresthesias Skin: No rashes or lesions. +gangrene right toes, +ulcer right ankle Physical Exam Vital Signs: Vital Signs: Last Vital Signs Temp 98.5 F 02/14/22 07:32 Pulse 61 02/14/22 07:32 Resp 20 02/14/22 07:32 BP 145/67 H 02/14/22 07:32 Pulse Ox 99 02/14/22 07:32 O2 Del Method 02/14/22 07:32 BMI result Body Mass Index 24.7 Elderly female lying in bed in no distress neck is supple, no JVD regular rate and rhythm, S1-S2 heard equal breath sounds bilaterally, no wheezing or crackles appreciated abdomen soft nontender, non rigid lower extremity: photo attached ;? medial ulcer present and gangrene present on 2nd, 3rd and 4th toe patient is awake, alert and oriented only to self, disoriented to place and time Extrem: Other: Please refer to images above. Right foot digits 2-4 with noted gangrene and malodor. Swollen with erythema. DP pulses intact General: Yes normal to inspection Objective Data Active Medications Atorvastatin Calcium (Atorvastatin Calcium 80 Mg Tablet) 80 mg PO BEDTIME [facility] Last Admin: 02/13/22 20:18 Dose: 80 mg Documented By: ZAMZAM Folic Acid (Folic Acid 1 Mg Tablet) 1 mg PO DAILY [facility] Last Admin: 02/13/22 09:49 Dose: 1 mg Documented By: VIRY-THEODORA Gabapentin (Gabapentin 300 Mg Capsule) 600 mg PO TID [facility] Last Admin: 02/13/22 20:18 Dose: 600 mg Documented By: ZAMZAM Hydromorphone HCl (Hydromorphone Hcl 0.5 Mg/0.5 Ml Syringe) 0.5 mg IVPUSH Q4H PRN; Protocol PRN Reason: Pain, Severe (Pain Scale 7-10) Piperacillin Sod/Tazobactam (Sod 4.5 gm/ Sodium Chloride) 100 mls @ 200 mls/hr IV Q6H [facility] Last Infusion: 02/14/22 06:23 Dose: 0 mls/hr Documented By: LIZZY Vancomycin HCl 1,250 mg/ (Sodium Chloride) 250 mls @ 166.667 mls/hr IV Q24H [facility] Last Infusion: 02/13/22 13:57 Dose: 0 mls/hr Documented By: JESSA Oxycodone HCl (Oxycodone Hcl Immed Release 5 Mg Tablet) 5 mg PO Q4H PRN PRN Reason: Pain, Moderate (Pain Scale 4-6 Pharmacy Consult (Consult Rx Perform Med Rec) 1 each MISCELLANE ONCE PRN PRN Reason: Consult order Pharmacy Consult (Consult Rx Vancomycin Dosing) 1 each MISCELLANE DAILY PRN PRN Reason: Consult order Pharmacy Consult (Consult Rx Vancomycin Dosing) 1 each MISCELLANE DAILY PRN PRN Reason: Consult order Sertraline HCl (Sertraline Hcl 25 Mg Tablet) 25 mg PO DAILY [facility] Last Admin: 02/13/22 09:49 Dose: 25 mg Documented By: JESSA Sodium Chloride (0.9 % Sodium Chloride Flush 3 Ml Syringe) 3 ml IVFLUSH QSHIFT [facility] Last Admin: 02/14/22 00:17 Dose: 3 ml Documented By: LIZZY Thiamine HCl (Thiamine Hcl 100 Mg Tablet) 100 mg PO DAILY [facility] Last Admin: 02/13/22 09:49 Dose: 100 mg Documented By: JESSA Labs CBC & Chem 7: 02/14/22 09:08 02/13/22 08:04 Labs: Laboratory Results - last 24 hr 02/14/22 09:08 MCV 84.8 MCH 25.7 L MCHC 30.3 L RDW 15.9 Plt Count 578 H MPV 9.8 Immature Gran % (Auto) 0.4 Neut % (Auto) 62.9 Lymph % (Auto) 26.9 [place] % (Auto) 6.9 Eos % (Auto) 2.0 Baso % (Auto) 0.9 Lymph # (Auto) 2.6 [place] # (Auto) 0.7 Eos # (Auto) 0.2 Baso # (Auto) 0.1 Abs Immat Gran (auto) 0.04 H Absolute Neuts (auto) 6.1 Absolute Nucleated RBC 0.000 Nucleated RBC % (auto) 0.0 Microbiology Microbiology Results: Microbiology 02/12/22 10:36 Blood Culture - Preliminary Blood - Venous No growth after 24 hours. 02/12/22 10:27 Blood Culture - Preliminary Blood - Venous No growth after 24 hours. Assessment and Plan (1) Osteomyelitis: Status: Acute (2) Non-healing ulcer of right ankle: Status: Acute (3) Gangrene: Status: Acute (4) PAD (peripheral artery disease): Status: Acute (5) Dementia: Status: Acute Plan 76 y/o female with history of dementia without behavioral disturbance, peripheral arterial disease, and history of alcohol dependence in remission residing at [facility] admitted at the recommendation of vascular surgery for treatment of osteomyelitis and nonhealing wounds of the right foot/ankle with gangrene requiring transmetatarsal amputation. 1- Worsening wet Gangrene of 2nd, 3rd, 4th right toes with underlying osteomyelitis - imaging evidence of osteomyelitis, no concern for sepsis or bacteremia currently. Patient is on broad-spectrum antibiotics, vancomycin and Zosyn -Vascular surgery consult placed for transmetatarsal amputation of right foot per Dr. Ortiz, patient to go to the OR today -Hold asa and plavix -Continue atorvastatin -Pain management with oxycodone and dilaudid 2-Peripheral arterial disease -Angiogram 12/31/21 Dr. ortiz with plasty and stent R SFA and popliteal arteries. -As above 3-Hx alcohol depedence -No recent use. In remission 4-Dementia, unspecified, without behavioral disturbance -Pt pleasantly confused. At baseline DVT prophylaxis- mechanical for now. Hold anticoagulation as pt is going for surgery. Healthcare proxy on file- Epifanio Tyson Full code Pt requires inpt stay of at least 2 midnights for osteomyelitis with gangrene of the RLE requiring OV antibiotics and transmetatarsal amputation. Quality Stroke Does the patient have a stroke diagnosis?: No VTE Prior VTE?: No VTE Risk Level:: Medical - moderate - high VTE Device Contraindication: N/A - Device Ordered VTE Drug Contraindication: Treatment Not Indicated
[2022-02-14] MEDS: Thiamine HCL 100 MG TABLET PO (09:32)
[2022-02-14] MEDS: Sertraline HCL 25 MG TABLET PO (09:32)
[2022-02-14] MEDS: Gabapentin 300 MG CAPSULE 600 MG PO ×3 (09:32→20:58)
[2022-02-14] MEDS: Folic Acid 1 MG TABLET PO (09:32)
[2022-02-14 09:35] LABS: Anion Gap 13 (12-20); Blood Urea Nitrogen 12 mg/dL (9-16); Calcium 9.3 mg/dL (8.4-10.2); Carbon Dioxide 23 mmol/L (22-29); Chloride 109 mmol/L (96-108); Creatinine Clr Calc Pharmacy 65.1; Creatinine Clr Calc Pharmacy 67.1; Estimated Glomerular Filt Rate > 60; Glucose Random 99 mg/dL (60-115); Potassium 4.3 mmol/L (3.3-5.1); Sodium 141 mmol/L (135-145)
[2022-02-14 09:45] LABS: Vancomycin Random 7.4 mcg/mL (15-20)
--- NOTE | 2022-02-14 09:46 | HO.ANESPROP2 ---
[facility] Active Problems Active Problems: All Active Problems (Updated 02/14/22 @ 09:29 by Deonte Guevara MD) Dementia (Acute) Osteomyelitis (Acute) Non-healing ulcer of right ankle (Acute) Gangrene (Acute) PAD (peripheral artery disease) (Acute) Past Medical History Medical History Alcohol abuse Alcohol dependence Arterial insufficiency of lower extremity Cellulitis of right foot Cigarette smoker Dementia Dementia ETOH abuse Insufficiency, vascular Non-healing ulcer of right ankle PAD (peripheral artery disease) S/P angiogram of extremity (06/20/21) Surgical History Surgical History No pertinent past surgical history History of Problems with Anesthesia: No Social History Social History Household Members: Other Housing: Senior Care Unable to assess alcohol history related to: Unknown Alcohol intake: never Patient Tobacco Use Status: Former Tobacco user Tobacco use type: Cigarette Second Hand Smoke Exposure: No service: No Current occupational status: retired [employer] Allergies Allergy/AdvReac Type Severity Reaction Status Date / Time No Known Allergies Allergy Verified 02/11/22 13:12 Active Medications: Current Medications Atorvastatin Calcium (Atorvastatin Calcium 80 Mg Tablet) 80 mg PO BEDTIME [facility] Last Admin: 02/13/22 20:18 Dose: 80 mg Folic Acid (Folic Acid 1 Mg Tablet) 1 mg PO DAILY [facility] Last Admin: 02/14/22 09:32 Dose: 1 mg Gabapentin (Gabapentin 300 Mg Capsule) 600 mg PO TID [facility] Last Admin: 02/14/22 09:32 Dose: 600 mg Hydromorphone HCl (Hydromorphone Hcl 0.5 Mg/0.5 Ml Syringe) 0.5 mg IVPUSH Q4H PRN; Protocol PRN Reason: Pain, Severe (Pain Scale 7-10) Piperacillin Sod/Tazobactam (Sod 4.5 gm/ Sodium Chloride) 100 mls @ 200 mls/hr IV Q6H [facility] Last Infusion: 02/14/22 06:23 Dose: Infused Vancomycin HCl 1,250 mg/ (Sodium Chloride) 250 mls @ 166.667 mls/hr IV Q24H [facility] Last Infusion: 02/13/22 13:57 Dose: Infused Oxycodone HCl (Oxycodone Hcl Immed Release 5 Mg Tablet) 5 mg PO Q4H PRN PRN Reason: Pain, Moderate (Pain Scale 4-6 Pharmacy Consult (Consult Rx Perform Med Rec) 1 each MISCELLANE ONCE PRN PRN Reason: Consult order Pharmacy Consult (Consult Rx Vancomycin Dosing) 1 each MISCELLANE DAILY PRN PRN Reason: Consult order Pharmacy Consult (Consult Rx Vancomycin Dosing) 1 each MISCELLANE DAILY PRN PRN Reason: Consult order Sertraline HCl (Sertraline Hcl 25 Mg Tablet) 25 mg PO DAILY [facility] Last Admin: 02/14/22 09:32 Dose: 25 mg Sodium Chloride (0.9 % Sodium Chloride Flush 3 Ml Syringe) 3 ml IVFLUSH QSHIFT [facility] Last Admin: 02/14/22 09:32 Dose: 3 ml Thiamine HCl (Thiamine Hcl 100 Mg Tablet) 100 mg PO DAILY [facility] Last Admin: 02/14/22 09:32 Dose: 100 mg Home Medications Medication Instructions Recorded Confirmed Last Taken Type gabapentin 300 mg capsule 600 mg PO TID 01/10/21 02/12/22 Unknown History sertraline 25 mg tablet 1 tab PO DAILY 01/10/21 02/12/22 Unknown History oxycodone 5 mg tablet 5 mg PO TID PRN Pain 12/26/21 02/12/22 Unknown History thiamine HCl (vitamin B1) 100 mg 100 mg PO DAILY 12/26/21 02/12/22 Unknown History tablet folic acid 1 mg tablet 1 mg PO DAILY 12/31/21 02/12/22 Unknown History Exam Exam Date and Time: February 14, 2022 0946 Height,Weight and Vital Signs: Height 5 ft 3 in Weight 63.503 kg Last Vital Signs Temp 98.5 F 02/14/22 07:32 Pulse 61 02/14/22 07:32 Resp 20 02/14/22 07:32 BP 145/67 H 02/14/22 07:32 Pulse Ox 99 02/14/22 07:32 O2 Del Method 02/14/22 07:32 Pertinent Lab Results Pertinent Lab Results: Laboratory Tests 02/12/22 02/12/22 02/12/22 10:27 10:27 10:27 WBC 10.5 RBC 3.66 L D Hgb 9.6 L D Hct 31.7 L D MCV 86.6 MCH 26.2 L MCHC 30.3 L RDW 15.9 Plt Count 545 H MPV 9.2 L Immature Gran % (Auto) 0.3 Neut % (Auto) 67.2 Lymph % (Auto) 21.9 Darke % (Auto) 8.1 Eos % (Auto) 2.1 Baso % (Auto) 0.4 Lymph # (Auto) 2.3 Darke # (Auto) 0.9 Eos # (Auto) 0.2 Baso # (Auto) 0.0 Abs Immat Gran (auto) 0.03 Absolute Neuts (auto) 7.1 Absolute Nucleated RBC 0.000 Nucleated RBC % (auto) 0.0 PT 13.1 INR 1.1 Sodium 141 Potassium 4.6 Chloride 104 Carbon Dioxide 28 Anion Gap 14 BUN 15 D Creatinine 0.66 Estim Creat Clear Calc 67.1 Estimated GFR > 60 Random Glucose 94 Lactic Acid Calcium 9.3 D Magnesium 1.9 Total Bilirubin 0.2 Direct Bilirubin < 0.2 AST 16 ALT 11 Alkaline Phosphatase 101 D Total Protein 6.7 Albumin 3.6 D Urine Color Urine Appearance Urine pH Ur Specific Pilger Urine Protein Urine Glucose (UA) Urine Ketones Urine Blood Urine Nitrite Ur Leukocyte Esterase Urine RBC Urine WBC Ur Squamous Epith Cells Urine Bacteria Hyaline Casts Random Vancomycin COVID-19 ([facility]BER) COVID-19 Clin Com 02/12/22 02/12/22 02/12/22 10:27 10:27 16:54 WBC RBC Hgb Hct MCV MCH MCHC RDW Plt Count MPV Immature Gran % (Auto) Neut % (Auto) Lymph % (Auto) Darke % (Auto) Eos % (Auto) Baso % (Auto) Lymph # (Auto) Darke # (Auto) Eos # (Auto) Baso # (Auto) Abs Immat Gran (auto) Absolute Neuts (auto) Absolute Nucleated RBC Nucleated RBC % (auto) PT INR Sodium Potassium Chloride Carbon Dioxide Anion Gap BUN Creatinine Estim Creat Clear Calc Estimated GFR Random Glucose Lactic Acid 1.5 Calcium Magnesium Total Bilirubin Direct Bilirubin AST ALT Alkaline Phosphatase Total Protein Albumin Urine Color Yellow Urine Appearance Clear Urine pH 7.5 Ur Specific Pilger 1.010 Urine Protein Negative Urine Glucose (UA) Negative Urine Ketones Negative Urine Blood Negative Urine Nitrite Negative Ur Leukocyte Esterase Moderate (2+) H Urine RBC 0-2 Urine WBC 21-50 H Ur Squamous Epith Cells 0-2 Urine Bacteria None Seen Hyaline Casts 0-2 Random Vancomycin COVID-19 (AMBER) Negative COVID-19 Clin Com See Note 02/13/22 02/14/22 02/14/22 08:04 09:08 09:08 WBC RBC Hgb Hct MCV MCH MCHC RDW Plt Count MPV Immature Gran % (Auto) Neut % (Auto) Lymph % (Auto) Darke % (Auto) Eos % (Auto) Baso % (Auto) Lymph # (Auto) Darke # (Auto) Eos # (Auto) Baso # (Auto) Abs Immat Gran (auto) Absolute Neuts (auto) Absolute Nucleated RBC Nucleated RBC % (auto) PT INR Sodium Potassium Chloride Carbon Dioxide Anion Gap BUN Creatinine 0.69 0.66 Estim Creat Clear Calc 64.2 67.1 Estimated GFR > 60 > 60 Random Glucose Lactic Acid Calcium Magnesium Total Bilirubin Direct Bilirubin AST ALT Alkaline Phosphatase Total Protein Albumin Urine Color Urine Appearance Urine pH Ur Specific Pilger Urine Protein Urine Glucose (UA) Urine Ketones Urine Blood Urine Nitrite Ur Leukocyte Esterase Urine RBC Urine WBC Ur Squamous Epith Cells Urine Bacteria Hyaline Casts Random Vancomycin 7.4 L COVID-19 ([facility]BER) COVID-19 Clin Com 02/14/22 02/14/22 09:08 09:08 WBC 9.7 RBC 3.81 L Hgb 9.8 L Hct 32.3 L MCV 84.8 MCH 25.7 L MCHC 30.3 L RDW 15.9 Plt Count 578 H MPV 9.8 Immature Gran % (Auto) 0.4 Neut % (Auto) 62.9 Lymph % (Auto) 26.9 Darke % (Auto) 6.9 Eos % (Auto) 2.0 Baso % (Auto) 0.9 Lymph # (Auto) 2.6 Darke # (Auto) 0.7 Eos # (Auto) 0.2 Baso # (Auto) 0.1 Abs Immat Gran (auto) 0.04 H Absolute Neuts (auto) 6.1 Absolute Nucleated RBC 0.000 Nucleated RBC % (auto) 0.0 PT INR Sodium 141 Potassium 4.3 Chloride 109 H Carbon Dioxide 23 Anion Gap 13 BUN 12 Creatinine 0.68 Estim Creat Clear Calc 65.1 Estimated GFR > 60 Random Glucose 99 Lactic Acid Calcium 9.3 Magnesium Total Bilirubin Direct Bilirubin AST ALT Alkaline Phosphatase Total Protein Albumin Urine Color Urine Appearance Urine pH Ur Specific Pilger Urine Protein Urine Glucose (UA) Urine Ketones Urine Blood Urine Nitrite Ur Leukocyte Esterase Urine RBC Urine WBC Ur Squamous Epith Cells Urine Bacteria Hyaline Casts Random Vancomycin COVID-19 ([facility]) COVID-19 Clin Com Airway Mallampati Class: II TM Dist: >3cm Neck ROM: Full Denture: Upper Loose/Missing/Broken Teeth: Yes, Upper and Lower Heart: RRR Lungs: CTA Assessment and Plan Assessment Anesthesia Assessment: Anesthesia Plan Discussed and Chart Reviewed Final Anesthetic Review History of Problems with Anesthesia: No NPO: Yes ASA Class: III Final Preanesthetic Review: Meds/Allgs Chart Reviewed, Consent Obtained/Reviewed and Anes Risks/Benef Reviewed Patient Risk: Intermediate Procedure Risk: Low Anesthetic Plan Anesthetic Plan: GA Disposition: Standard PACU
--- NOTE | 2022-02-14 10:02 | HE.PHANOTE ---
RE SEEMA PATIENT TROUGH RETURNED LOW @ 7.4. INCREASING DOSE TO 750 Q 12H. GETTING RANDOM LEVEL AFTER 2 DOSES DUE TO INCREASED RISK IN TOXICITY. NEXT DUE 02/15 @0900
--- NOTE | 2022-02-14 11:05 | PC.NURSE ---
Answers to questions in computer are based on the knowledge that son, Epifanio Tyson, had when contacted regarding todays procedure, education and post op. Dr. Ortiz and Dr. Bowser received consent via telephone with author as witness. Patient is a poor historian, unable to process answers to basic questions (ex. pain) at times. patient alert to person and place. pt was cooerative and rested comfortably in bed in [facility].
--- NOTE | 2022-02-14 12:17 | P.OP_ITS ---
Operative Note Operative Note Date of Service: 02/14/22 Narrative: Operative note by [facility] Preoperative diagnosis:1. Right foot gangrene 2 right ankle ulcer Postoperative diagnosis: Same Procedure:1. Right foot transmetatarsal amputation 2. Right ankle excisional debridement into muscle Surgeon:Marcus Ortiz M.D. Sports Writer: None Anesthesia: General Specimens: 1 - deep culture ankle Drains: None Estimated blood loss:100 ml Indications: 76-year-old female with a history of peripheral vascular disease presented we toe gangrene to the emergency room. In addition she had an ankle ulcer. She had prior endovascular intervention and appear to be doing relatively well. She now presents for amputation. Consent was obtained by chiki Mtz who is healthcare proxy The patient has signed the informed consent after reviewing risks, complications, benefits, and alternatives previously discussed with the patient. The patient was given the opportunity to ask any additional questions or voice any concerns. All questions were answered to the patient's satisfaction. Procedure in detail: Patient was brought to the operating room prior to which a time-out was called for patient identification site verification. Right leg was prepped and draped in standard surgical fashion. Curvilinear incision was carried out over the metatarsals and a posterior flap as well. Once through the skin hemostasis had to be obtained using 2-0 Polysorb stick ties. Once this was all accomplished we created the posterior flap. Using a power saw we went across all metatarsal heads. This was of all 5 digits. Once across using electrocautery we created the posterior flap. This was then taken off and remove the table as specimen. Once this was accomplished using electrocautery we obtained good hemostasis. We irrigated the amputation site out thoroughly with saline. Once this was all accomplished we reapproximated the flap over on to the dorsal surface using 2 0 Polysorb in an interrupted manner. Superficial layer with a 3-0 poly Sorb and finally skin with a 3-0 nylon in a mattress fashion. We skin clips at the incision line. We then turned our attention to t he right medial ankle. There was a 4 cm diameter ulcer. This was debrided using curette pickups and a 15 blade. This was taken down into muscle. Once this was all done we took a deep culture of this area. Post debridement measurement was 4.2 x 4.5 x 0.3 cm. Once this was all accomplished we irrigated the entire foot cleaned we placed Xeroform over the ankle debridement site over and also over the incision line 4x4s fluffs Kerlix and a sterile dressing were applied. At the end the case sponge instrument counts were correct. Patient tolerated the procedure well. Returned to recovery with stable vitals. This note is constructed using voice recognition software. While every effort has been made to ensure accuracy, director of sustainability programs errors may have been included. Thank you for allowing me to participate in the care of your patient. Yours sincerely, Marcus Ortiz MD, FACS, R.P.V.I.
[2022-02-14] MEDS: fentaNYL citrate/PF 100 MCG/2 ML VIAL 25 MCG IVPUSH ×3 (12:34→12:44)
[2022-02-14] MEDS: oxyCODONE HCl Immed Release 5 MG TABLET PO ×2 (12:36→22:49)
[2022-02-14] MEDS: Atorvastatin Calcium 80 MG TABLET PO (20:58)
[2022-02-14] MEDS: vancomycin HCL 750 MG in 0.9 % Sodium Chloride 250 ML 265 MG IV (22:48)
[2022-02-15] VITALS (7 sets, daily range): BP systolic 93–137; BP diastolic 50–60; PULSE 78–95; RESP 14–20; TEMP 36.2–37.9; O2SAT 97–99
[2022-02-15] MEDS: Piperacillin Sodium/Tazobactam 4.5 GM in 0.9 % Sodium Chloride 100 ML IV ×4 (01:17→18:36)
[2022-02-15] MEDS: HYDROmorphone HCl 0.5 MG/0.5 ML SYRINGE IVPUSH ×2 (04:27→12:48)
--- NOTE | 2022-02-15 04:33 | PC.NURSE ---
around 0430, pt became restless and removed her rt foot dressing, she c/o pain when asked and seen grimacing, prn Dilaudid IV given, rt foot dressing replaced, pt was redirected, pt calmed down after and verbalized some relief from pain.
[2022-02-15] MEDS: oxyCODONE HCl Immed Release 5 MG TABLET PO ×2 (05:31→20:25)
--- NOTE | 2022-02-15 07:23 | PC.NURSE ---
Around 6am pt still restless c/o rt foot pain despite of prn Dilaudid and Oxycodone, pt grabbing her leg and grimacing, leg elevate and repositioned, ice pack provided, Dr. Drew was notified, tried to reach Dr. Ortiz, pt repositioned on supine and seen pt with some relief, reported to incoming RN .
[2022-02-15] MEDS: Sertraline HCL 25 MG TABLET PO (07:30)
[2022-02-15] MEDS: Gabapentin 300 MG CAPSULE 600 MG PO ×3 (07:30→20:24)
[2022-02-15] MEDS: Folic Acid 1 MG TABLET PO (07:30)
[2022-02-15] MEDS: Thiamine HCL 100 MG TABLET PO (07:30)
[2022-02-15] MEDS: 0.9 % Sodium Chloride Flush 3 ML SYRINGE IVFLUSH ×3 (07:31→20:25)
[2022-02-15 08:46] LABS: Estimated Glomerular Filt Rate > 60
[2022-02-15 08:53] LABS: Vancomycin Random 7.9 mcg/mL (15-20)
--- NOTE | 2022-02-15 09:03 | HO.PM.IMPN ---
Subjective Subjective Date of Service: 02/15/22 Interval History: seen in f/u for ampuation (right TMA) interval history: c/o pain in the foot Review of Systems no fever pain in the foot Physical Exam Vital Signs: Vital Signs: Last Vital Signs Temp 98.7 F 02/15/22 03:17 Pulse 95 02/15/22 03:17 Resp 20 02/15/22 03:17 BP 121/59 L 02/15/22 03:17 Pulse Ox 99 02/15/22 03:17 O2 Del Method 02/15/22 03:17 O2 Flow Rate 5 02/14/22 12:24 BMI result Body Mass Index 24.7 Const: Other: General: Oriented to self, place Resp: CTA bilateral CVS: S1,S2,RRR GI: +BS, NT, no distention Skin: right foot amputation site dry Neuro: motor grossly intact Psych: appropriate affect Objective Data Active Medications Acetaminophen (Acetaminophen 325 Mg Tablet) 650 mg PO ONCE PRN PRN Reason: Pain, Mild (Pain Scale 1-3) Albuterol Sulfate (Albuterol Sulfate (0.083%) 2.5 Mg/3 Ml Vial.Neb) 2.5 mg INHALE ONCE PRN PRN Reason: Wheezing Atorvastatin Calcium (Atorvastatin Calcium 80 Mg Tablet) 80 mg PO BEDTIME [facility] Last Admin: 02/14/22 20:58 Dose: 80 mg Documented By: LOUIS Fentanyl (Fentanyl Citrate/Pf 100 Mcg/2 Ml Vial) 25 mcg IVPUSH Q5M PRN; Protocol PRN Reason: Pain, Moderate (Pain Scale 4-6 Last Admin: 02/14/22 12:44 Dose: 25 mcg Documented By: DANIEL Folic Acid (Folic Acid 1 Mg Tablet) 1 mg PO DAILY [facility] Last Admin: 02/15/22 07:30 Dose: 1 mg Documented By: RENU Gabapentin (Gabapentin 300 Mg Capsule) 600 mg PO TID [facility] Last Admin: 02/15/22 07:30 Dose: 600 mg Documented By: RENU Hydromorphone HCl (Hydromorphone Hcl 0.5 Mg/0.5 Ml Syringe) 0.5 mg IVPUSH Q4H PRN; Protocol PRN Reason: Pain, Severe (Pain Scale 7-10) Last Admin: 02/15/22 04:27 Dose: 0.5 mg Documented By: LOUIS Vancomycin HCl 750 mg/ Sodium (Chloride) 265 mls @ 265 mls/hr IV Q12H [facility] Last Infusion: 02/15/22 00:00 Dose: 0 mls/hr Documented By: LOUIS Piperacillin Sod/Tazobactam (Sod 4.5 gm/ Sodium Chloride) 100 mls @ 200 mls/hr IV Q6H [facility] Last Infusion: 02/15/22 07:53 Dose: 0 mls/hr Documented By: RENU Ondansetron HCl (Ondansetron Hcl 4 Mg/2 Ml Vial) 4 mg IVPUSH ONCE PRN PRN Reason: Nausea and Vomiting Oxycodone HCl (Oxycodone Hcl Immed Release 5 Mg Tablet) 5 mg PO Q4H PRN PRN Reason: Pain, Moderate (Pain Scale 4-6 Last Admin: 02/15/22 05:31 Dose: 5 mg Documented By: LOUIS Pharmacy Consult (Consult Rx Perform Med Rec) 1 each MISCELLANE ONCE PRN PRN Reason: Consult order Pharmacy Consult (Consult Rx Vancomycin Dosing) 1 each MISCELLANE DAILY PRN PRN Reason: Consult order Pharmacy Consult (Consult Rx Vancomycin Dosing) 1 each MISCELLANE DAILY PRN PRN Reason: Consult order Sertraline HCl (Sertraline Hcl 25 Mg Tablet) 25 mg PO DAILY [facility] Last Admin: 02/15/22 07:30 Dose: 25 mg Documented By: RENU Sodium Chloride (0.9 % Sodium Chloride Flush 3 Ml Syringe) 3 ml IVFLUSH QSHIFT [facility] Last Admin: 02/15/22 07:31 Dose: 3 ml Documented By: RENU Thiamine HCl (Thiamine Hcl 100 Mg Tablet) 100 mg PO DAILY [facility] Last Admin: 02/15/22 07:30 Dose: 100 mg Documented By: RENU Labs CBC & Chem 7: 02/14/22 09:08 02/15/22 08:26 Labs: Laboratory Results - last 24 hr 02/14/22 02/14/22 02/14/22 09:08 09:08 09:08 MCV 84.8 MCH 25.7 L MCHC 30.3 L RDW 15.9 Plt Count 578 H MPV 9.8 Immature Gran % (Auto) 0.4 Neut % (Auto) 62.9 Lymph % (Auto) 26.9 Kimble % (Auto) 6.9 Eos % (Auto) 2.0 Baso % (Auto) 0.9 Lymph # (Auto) 2.6 Kimble # (Auto) 0.7 Eos # (Auto) 0.2 Baso # (Auto) 0.1 Abs Immat Gran (auto) 0.04 H Absolute Neuts (auto) 6.1 Absolute Nucleated RBC 0.000 Nucleated RBC % (auto) 0.0 Anion Gap Estim Creat Clear Calc 67.1 Estimated GFR > 60 Random Glucose Calcium Random Vancomycin 7.4 L 02/14/22 02/15/22 02/15/22 09:08 08:26 08:26 MCV MCH MCHC RDW Plt Count MPV Immature Gran % (Auto) Neut % (Auto) Lymph % (Auto) Kimble % (Auto) Eos % (Auto) Baso % (Auto) Lymph # (Auto) Kimble # (Auto) Eos # (Auto) Baso # (Auto) Abs Immat Gran (auto) Absolute Neuts (auto) Absolute Nucleated RBC Nucleated RBC % (auto) Anion Gap 13 Estim Creat Clear Calc 65.1 66.0 Estimated GFR > 60 > 60 Random Glucose 99 Calcium 9.3 Random Vancomycin 7.9 L Microbiology Microbiology Results: Microbiology 02/14/22 12:08 Gram Stain - Final Ankle Right Routine Culture - Preliminary No growth to date. 02/12/22 10:36 Blood Culture - Preliminary Blood - Venous No growth after 48 hours. 02/12/22 10:27 Blood Culture - Preliminary Blood - Venous No growth after 48 hours. Assessment and Plan (1) Osteomyelitis: Status: Acute (2) Non-healing ulcer of right ankle: Status: Acute (3) Gangrene: Status: Acute (4) PAD (peripheral artery disease): Status: Acute (5) Dementia: Status: Acute Plan 76 y/o female with history of dementia without behavioral disturbance, peripheral arterial disease, and history of alcohol dependence in remission residing at [facility] admitted at the recommendation of vascular surgery for treatment of osteomyelitis and nonhealing wounds of the right foot/ankle with gangrene requiring transmetatarsal amputation. 1- Worsening wet Gangrene of 2nd, 3rd, 4th right toes with underlying osteomyelitis - imaging evidence of osteomyelitis, no concern for sepsis or bacteremia currently. Patient is on broad-spectrum antibiotics, vancomycin and Zosyn -s/p Right TMA 02/14/22 -dressing change by surgery -Pain management with oxycodone and dilaudid 2-Peripheral arterial disease -Angiogram 12/31/21 Dr. robertson with plasty and stent R SFA and popliteal arteries. -resume ASA, Plavix if ok vascular surgery 3-Hx alcohol depedence -No recent use. In remission 4-Dementia, unspecified, without behavioral disturbance -Pt pleasantly confused. At baseline DVT prophylaxis- mechanical for now. Heparin. Healthcare proxy on file- Epifanio Tyson need for inpatient: s/p amputation and need for post op care, and still on IV Abx for osteo Quality Stroke Does the patient have a stroke diagnosis?: No VTE Prior VTE?: No VTE Risk Level:: Medical - moderate - high VTE Device Contraindication: N/A - Device Ordered VTE Drug Contraindication: Treatment Not Indicated
--- NOTE | 2022-02-15 09:17 | HE.PHANOTE ---
Vancomycin Dosing Addendum Vancomycin trough 7.9. Patient missed 02/14 @1100 dose. Continue with same dose for now and rechecking level tonight at 2100.
--- NOTE | 2022-02-15 11:18 | HO.POSTANES ---
Post Anesthesia Evaluation Post Anesthesia Evaluation Vital Signs: Vital Signs Temp Pulse Resp BP Pulse Ox O2 Del Method 02/15/22 03:17 98.7 F 95 20 121/59 L 99 Room Air 02/14/22 23:30 99.0 F 90 18 132/59 L 95 Room Air Anesthesia: General LMA Mental Status: Awake Pain Control: Satisfactory Nausea/Vomiting: None Hydration: Adequate Anesthesia-Related Issues: No Anes. Related Issues
[2022-02-15] MEDS: vancomycin HCL 750 MG in 0.9 % Sodium Chloride 250 ML 265 MG IV (11:34)
[2022-02-15] MEDS: Heparin Sodium,Porcine 5,000 UNIT/ML VIAL 5000 UNIT SUBCUT (12:49)
[2022-02-15] MEDS: Acetaminophen 325 MG TABLET 650 MG PO (20:24)
[2022-02-15] MEDS: Atorvastatin Calcium 80 MG TABLET PO (20:24)
[2022-02-15 22:02] LABS: Vancomycin Trough 7.9 mcg/mL (10.0-20.0)
[2022-02-15] MEDS: vancomycin HCL 1,000 MG in 0.9 % Sodium Chloride 250 ML 270 MG IV (23:20)
[2022-02-16] MEDS: Piperacillin Sodium/Tazobactam 4.5 GM in 0.9 % Sodium Chloride 100 ML IV ×4 (00:47→18:22)
[2022-02-16] MEDS: Heparin Sodium,Porcine 5,000 UNIT/ML VIAL 5000 UNIT SUBCUT ×3 (00:47→23:08)
[2022-02-16 03:52] VITALS: BP 132/63; PULSE 75; RESP 18; TEMP 36.4; O2SAT 97
[2022-02-16] MEDS: oxyCODONE HCl Immed Release 5 MG TABLET PO ×2 (04:37→18:23)
[2022-02-16 06:10] LABS: Creatinine Clr Calc Pharmacy 71.4; Estimated Glomerular Filt Rate > 60
[2022-02-16 07:08] VITALS: BP 132/64; PULSE 72; RESP 18; TEMP 36.6; O2SAT 97
[2022-02-16] MEDS: Gabapentin 300 MG CAPSULE 600 MG PO ×3 (07:17→21:03)
[2022-02-16] MEDS: Thiamine HCL 100 MG TABLET PO (07:17)
[2022-02-16] MEDS: Folic Acid 1 MG TABLET PO (07:17)
[2022-02-16] MEDS: Sertraline HCL 25 MG TABLET PO (07:18)
[2022-02-16] MEDS: 0.9 % Sodium Chloride Flush 3 ML SYRINGE IVFLUSH ×3 (07:18→21:03)
--- NOTE | 2022-02-16 09:19 | HO.PM.IMPN ---
Subjective Subjective Date of Service: 02/16/22 Interval History: seen in f/u for ampuation (right TMA) interval history: c/o some pain in the foot. Review of Systems no fever pain in the foot Physical Exam Vital Signs: Vital Signs: Last Vital Signs Temp 98 F 02/16/22 07:08 Pulse 72 02/16/22 07:08 Resp 18 02/16/22 07:08 BP 132/64 02/16/22 07:08 Pulse Ox 97 02/16/22 07:08 O2 Del Method 02/16/22 07:08 O2 Flow Rate 5 02/14/22 12:24 BMI result Body Mass Index 24.7 Const: Other: General: Oriented to self, place Resp: CTA bilateral CVS: S1,S2,RRR GI: +BS, NT, no distention Skin: right foot amputation site dry (dressing intact) Neuro: motor grossly intact Psych: appropriate affect Objective Data Active Medications Albuterol Sulfate (Albuterol Sulfate (0.083%) 2.5 Mg/3 Ml Vial.Neb) 2.5 mg INHALE ONCE PRN PRN Reason: Wheezing Atorvastatin Calcium (Atorvastatin Calcium 80 Mg Tablet) 80 mg PO BEDTIME [facility] Last Admin: 02/15/22 20:24 Dose: 80 mg Documented By: LOUIS Fentanyl (Fentanyl Citrate/Pf 100 Mcg/2 Ml Vial) 25 mcg IVPUSH Q5M PRN; Protocol PRN Reason: Pain, Moderate (Pain Scale 4-6 Last Admin: 02/14/22 12:44 Dose: 25 mcg Documented By: DANIEL Folic Acid (Folic Acid 1 Mg Tablet) 1 mg PO DAILY [facility] Last Admin: 02/16/22 07:17 Dose: 1 mg Documented By: RENU Gabapentin (Gabapentin 300 Mg Capsule) 600 mg PO TID [facility] Last Admin: 02/16/22 07:17 Dose: 600 mg Documented By: RENU Heparin Sodium (Porcine) (Heparin Sodium,Porcine 5,000 Unit/Ml Vial) 5,000 unit SUBCUT Q12H [facility] Last Admin: 02/16/22 00:47 Dose: 5,000 unit Documented By: LOUIS Hydromorphone HCl (Hydromorphone Hcl 0.5 Mg/0.5 Ml Syringe) 0.5 mg IVPUSH Q4H PRN; Protocol PRN Reason: Pain, Severe (Pain Scale 7-10) Last Admin: 02/15/22 12:48 Dose: 0.5 mg Documented By: RENU Piperacillin Sod/Tazobactam (Sod 4.5 gm/ Sodium Chloride) 100 mls @ 200 mls/hr IV Q6H [facility] Last Infusion: 02/16/22 06:46 Dose: 0 mls/hr Documented By: LOUIS Vancomycin HCl 1,000 mg/ (Sodium Chloride) 270 mls @ 270 mls/hr IV Q12H [facility] Last Infusion: 02/16/22 00:34 Dose: 0 mls/hr Documented By: LOUIS Ondansetron HCl (Ondansetron Hcl 4 Mg/2 Ml Vial) 4 mg IVPUSH ONCE PRN PRN Reason: Nausea and Vomiting Oxycodone HCl (Oxycodone Hcl Immed Release 5 Mg Tablet) 5 mg PO Q4H PRN PRN Reason: Pain, Moderate (Pain Scale 4-6 Last Admin: 02/16/22 04:37 Dose: 5 mg Documented By: LOUIS Pharmacy Consult (Consult Rx Perform Med Rec) 1 each MISCELLANE ONCE PRN PRN Reason: Consult order Pharmacy Consult (Consult Rx Vancomycin Dosing) 1 each MISCELLANE DAILY PRN PRN Reason: Consult order Pharmacy Consult (Consult Rx Vancomycin Dosing) 1 each MISCELLANE DAILY PRN PRN Reason: Consult order Sertraline HCl (Sertraline Hcl 25 Mg Tablet) 25 mg PO DAILY [facility] Last Admin: 02/16/22 07:18 Dose: 25 mg Documented By: RENU Sodium Chloride (0.9 % Sodium Chloride Flush 3 Ml Syringe) [facility] Admin: 02/16/22 07:18 Dose: 3 ml Documented By: RENU Thiamine HCl (Thiamine Hcl 100 Mg Tablet) 100 mg PO DAILY [facility] Last Admin: 02/16/22 07:17 Dose: 100 mg Documented By: RENU Labs CBC & Chem 7: 02/14/22 09:08 02/16/22 04:58 Labs: Laboratory Results - last 24 hr 02/15/22 02/16/22 21:32 04:58 Estim Creat Clear Calc 71.4 Estimated GFR > 60 Vancomycin Trough 7.9 L Microbiology Microbiology Results: Microbiology 02/14/22 12:08 Gram Stain - Final Ankle Right Routine Culture - Preliminary No growth to date. Assessment and Plan (1) Osteomyelitis: Status: Acute (2) Non-healing ulcer of right ankle: Status: Acute (3) Gangrene: Status: Acute (4) PAD (peripheral artery disease): Status: Acute (5) Dementia: Status: Acute Plan 76 y/o female with history of dementia without behavioral disturbance, peripheral arterial disease, and history of alcohol dependence in remission residing at [facility] admitted at the recommendation of vascular surgery for treatment of osteomyelitis and nonhealing wounds of the right foot/ankle with gangrene requiring transmetatarsal amputation. 1- Worsening wet Gangrene of 2nd, 3rd, 4th right toes with underlying osteomyelitis but no sepsis --s/p Right TMA 02/14/22 -Patient is on broad-spectrum antibiotics, vancomycin and Zosyn until until culture from OR available -dressing change by surgery -Pain management with oxycodone and dilaudid 2-Peripheral arterial disease -Angiogram 12/31/21 Dr. robertson with plasty and stent R SFA and popliteal arteries. -resume ASA, Plavix if ok vascular surgery 3-Hx alcohol depedence -No recent use. In remission 4-Dementia, unspecified, without behavioral disturbance -Pt pleasantly confused. At baseline DVT prophylaxis- mechanical for now. Heparin. Healthcare proxy on file- Epifanio Tyson need for inpatient: s/p amputation and need for post op care, and still on IV Abx for osteo Quality Stroke Does the patient have a stroke diagnosis?: No VTE Prior VTE?: No VTE Risk Level:: Medical - moderate - high VTE Device Contraindication: N/A - Device Ordered VTE Drug Contraindication: Treatment Not Indicated
[2022-02-16 11:26] VITALS: BP 101/54; PULSE 83; RESP 16; TEMP 36.1; O2SAT 96
[2022-02-16] MEDS: vancomycin HCL 1,000 MG in 0.9 % Sodium Chloride 250 ML 270 MG IV ×2 (11:42→23:08)
[2022-02-16] MEDS: HYDROmorphone HCl 0.5 MG/0.5 ML SYRINGE IVPUSH (14:03)
[2022-02-16 15:20] VITALS: BP 113/58; PULSE 80; RESP 15; TEMP 37.3; O2SAT 97
[2022-02-16 20:00] VITALS: BP 113/53; PULSE 78; RESP 18; TEMP 37.2; O2SAT 96
[2022-02-16] MEDS: Atorvastatin Calcium 80 MG TABLET PO (21:03)
[2022-02-16 21:38] LABS: Vancomycin Random 12.9 mcg/mL (15-20)
[2022-02-16 23:41] VITALS: BP 121/53; PULSE 84; RESP 18; TEMP 37.1; O2SAT 97
[2022-02-17] MEDS: oxyCODONE HCl Immed Release 5 MG TABLET PO ×3 (00:25→11:42)
[2022-02-17] MEDS: Piperacillin Sodium/Tazobactam 4.5 GM in 0.9 % Sodium Chloride 100 ML IV ×3 (01:04→14:28)
[2022-02-17] MEDS: HYDROmorphone HCl 0.5 MG/0.5 ML SYRINGE IVPUSH ×2 (01:18→07:57)
[2022-02-17 02:56] VITALS: BP 103/54; PULSE 79; RESP 16; TEMP 36.8; O2SAT 94
[2022-02-17 07:24] VITALS: BP 114/54; PULSE 78; RESP 16; TEMP 36.6; O2SAT 95
[2022-02-17] MEDS: Gabapentin 300 MG CAPSULE 600 MG PO ×2 (07:47→14:28)
[2022-02-17] MEDS: Folic Acid 1 MG TABLET PO (07:47)
[2022-02-17] MEDS: Thiamine HCL 100 MG TABLET PO (07:48)
[2022-02-17] MEDS: 0.9 % Sodium Chloride Flush 3 ML SYRINGE IVFLUSH ×2 (07:48→15:46)
[2022-02-17] MEDS: Sertraline HCL 25 MG TABLET PO (07:48)
--- NOTE | 2022-02-17 07:55 | HO.VASCPN ---
Subjective Subjective Date of Service: 02/17/22 Patient reports: no new complaints and still having pain Interval history: 76-year-old female status post transmetatarsal amputation and ankle debridement appears to be doing relatively well. No events over the past weekend. Pain is reasonably well controlled but does still continue to complain of some pain. She is now for dressing change today. Physical Exam Vital Signs: Vital Signs: Last Vital Signs Temp 97.9 F 02/17/22 07:24 Pulse 78 02/17/22 07:24 Resp 16 02/17/22 07:24 BP 114/54 L 02/17/22 07:24 Pulse Ox 95 02/17/22 07:24 O2 Del Method 02/17/22 07:24 O2 Flow Rate 5 02/14/22 12:24 BMI result Body Mass Index 24.7 Const: General: cooperative, healthy appearing and no acute distress Orientation/consciousness: oriented to person, oriented to place and oriented to time HEENT: Head: Yes normal to inspection Neck: Carotids: no bruits Chest: Chest palpation & inspection: normal inspection of the chest Resp: Effort & Inspection: normal respiratory effort and able to speak in complete sentences Auscultation: clear to auscultation bilaterally Cardio: Rate: regular rate Heart sounds: S1 normal heart sound present and S2 normal heart sound present GI: Inspection: Yes normal to inspection Skin: General skin exam: no rashes or lesions noted Wounds: amputation site (Trans met amp site clean) and wounds noted (Ankle wound clean) Neuro: General: oriented to person, oriented to place, oriented to time and CN's II-XI intact bilaterally Extrem: General: Yes normal to inspection, Yes full ROM and Yes no clubbing, cyanosis or edema Psych: Appearance: grossly normal and well kempt Speech and movement: Normal speech and movement present Affect: normal affect Progress Note: A&P Assessment and plan (1) PAD (peripheral artery disease): Status: Acute Assessment and Plan: In short patient is doing extremely well in terms the transmetatarsal amputation. Flap appears to be healing well. Staple line intact. In addition ankle wound seems to be granulating well as well. Will write for wound care instructions. The culture from the ankle is growing Corynebacterium. Would involve Infectious Disease in terms of type and duration of antibiotics. As far as the transmetatarsal amputation I believe all the osteomyelitis has been removed. It may be more short-term antibiotics but once again would discuss with Infectious Disease. Stable from my perspective once antibiotics is sorted out to return to her facility. She can follow up with me in approximately 2 weeks time. Time Spent With Patient Time: Total time spent is greater than 50% in coordination of care (as documented) at patient's floor/unit and/or counseling patient: Procedures Date of Service Date of Service: 02/17/22 Quality Stroke Does the patient have a stroke diagnosis?: No VTE Prior VTE?: No VTE Risk Level:: Medical - moderate - high VTE Device Contraindication: N/A - Device Ordered VTE Drug Contraindication: Treatment Not Indicated
[2022-02-17] MEDS: Heparin Sodium,Porcine 5,000 UNIT/ML VIAL 5000 UNIT SUBCUT (11:36)
[2022-02-17] MEDS: vancomycin HCL 1,000 MG in 0.9 % Sodium Chloride 250 ML 270 MG IV (11:36)
[2022-02-17 12:00] VITALS: BP 115/53; PULSE 74; RESP 18; TEMP 36.8; O2SAT 93
--- NOTE | 2022-02-17 14:11 | P.DS_ITS ---
DS: Providers Provider Date of Service: 02/17/22 Date of admission: 02/12/22 14:50 Primary care physician: Herlinda Guo MD Consults: 02/12/22 15:20 Consult to Vascular Surgery Routine Consulting Provider: Marcus Robertson Reason for consultation: gangrene right 2nd-4th toes Has provider been notified: No 02/17/22 08:24 Consult to Infectious Diseases Routine Consulting Provider: Brandy Jones Reason for consultation: rt foot gangrene s/p amputation Has provider been notified: No DS: Diagnosis Discharge Diagnosis (1) PAD (peripheral artery disease): Status: Acute DS: Summary Hospital Course Hospital Course: History of presenting illness Chief Complaint: gangrene right toes, osteomyelitis 76 y/o female with history of dementia without behavioral disturbance, peripheral arterial disease, and history of alcohol dependence in remission residing at [facility] transported to the hospital from [facility] where she resides at the recommendation of Dr. robertson in vascular surgery who has been following the patient for her PAD. Has slowly healing chronic ulcer of the right medial malleolus and worsening gangrene of the right 2nd, 3rd, 4th toes. Underwent plasty and stent of right SFA and popliteal arteries in 12/27 with no improvement of gangrene but some improvement of the right ankle ulcer. She was seen yesterday and advised to come to ED for possible transmetatarsal amputation right foot. Xray of right foot in ED showing osteomyelitis of the first, second, and fifth toes. No leukocytosis. Blood cultures pending. Afebrile. Vitals stable. She is pleasantly confused at baseline and unable to provide much history and is incontinent of urine. UA negative. Hospital course 76 y/o female with history of dementia without behavioral disturbance, peripheral arterial disease, and history of alcohol dependence in remission residing at [facility] admitted at the recommendation of vascular surgery for treatment of osteomyelitis and nonhealing wounds of the right foot/ankle with gangrene requiring transmetatarsal amputation. Patient admitted to [facility] with Worsening wet Gangrene of 2nd, 3rd, 4th right toes with underlying osteomyelitis , patient placed on IV vancomycin and Zosyn there was no sepsis noted subsequently patient seen by Dr. Robertson and underwent Right TMA 02/14/22 postoperatively patient has been doing well, says since all infected area removed IV vanco and Zosyn has been discontinued blood cultures are negative wound culture grew Corynebacterium patient is being discharged home on doxycycline 100 mg twice daily for 10 days dressing change ordered outpatient follow-up with Dr. Robertson for pain recommended to use Tylenol for mild pain and to use oxycodone for severe pain as needed. Peripheral arterial disease underwent Angiogram on 12/31/[address] robertson with plasty and stent R SFA and popliteal arteries, recommend to continue aspirin and Plavix and outpatient follow-up with Dr. Robertson in 2 week. Hx alcohol depedence -No recent use. In remission Dementia, unspecified, without behavioral disturbance Chronic nonhealing right ankle wound dressing change as per Dr. Robertson Time Spent with Patient Time attestation: Total time spent providing and/or coordinating discharge services: Discharge coordination time: Greater than 30 minutes Quality: Safe Use of Opioids Does Pt have an Active Cancer Diagnosis on the Problem List?: No Quality: Stroke Does the patient have a stroke diagnosis?: No Physical Exam Vital Signs: Vital Signs: Last Vital Signs Temp 98.2 F 02/17/22 12:00 Pulse 74 02/17/22 12:00 Resp 18 02/17/22 12:00 BP 115/53 L 02/17/22 12:00 Pulse Ox 93 02/17/22 12:00 O2 Del Method 02/17/22 12:00 O2 Flow Rate 5 02/14/22 12:24 BMI result Body Mass Index 24.7 Const: Other: General: Lying in bed no distress Oriented to self only Neck no JVD Resp:? CTA bilateral CVS: S1,S2,RRR GI: Abdomen soft nontender bowel sounds audible ,, no distention Skin: right foot amputation site dry (dressing intact) Neuro:? motor grossly intact Right malleolus wound no drainage no surrounding erythema DS: Data Data Completed and Pending Completed studies during hospitalization [Text1]: Procedures Dilation of Right Femoral Artery with Intraluminal Device, using Drug-Coated Balloon, Percutaneous Approach (06/18/21) Dilation of Right Popliteal Artery with Intraluminal Device, using Drug-Coated Balloon, Percutaneous Approach (12/31/21) Extirpation of Matter from Right Femoral Artery, Percutaneous Approach (06/18/21) Pending studies at discharge: Pending at discharge 02/14/22 11:47 Surgical [PTH] Routine Labs on day of discharge: Laboratory Results - last 24 hr 02/16/22 21:06 Random Vancomycin 12.9 L Discharge Plan Discharge Patient Disposition: er [facility] Discharge Diagnosis: Gangrene 2nd 3rd and 4th toes with underlying osteomyelitis Status post transmetatarsal amputation right foot Peripheral arterial disease Dementia Referrals: Herlinda Guo MD [Primary Care Provider] - 1 Week Discharge Medications: New doxycycline hyclate 100 mg capsule 100 mg PO BID Qty: 20 0RF acetaminophen [Tylenol Extra Strength] 500 mg tablet 500 mg PO Q6H PRN (Reason: mild pain) Qty: 20 0RF Continued gabapentin 300 mg capsule 600 mg PO TID sertraline 25 mg tablet 1 tab PO DAILY atorvastatin 80 mg Tablet 80 mg PO BEDTIME Qty: 30 0RF clopidogrel 75 mg Tablet 75 mg PO DAILY Qty: 30 0RF aspirin 81 mg Tablet,Chewable 81 mg PO DAILY Qty: 30 0RF folic acid 1 mg tablet 1 mg PO DAILY oxycodone 5 mg tablet 5 mg PO TID PRN (Reason: Pain) thiamine HCl (vitamin B1) 100 mg tablet 100 mg PO DAILY Discontinued oxycodone 5 mg Tablet 5 mg PO Q4H PRN (Reason: Pain, Moderate (Pain Scale 4-6) Qty: 20 0RF Rx Instructions: Partial Fill upon patient request. Discharge Orders: Discharge Order (Routine); Ordered 02/17/22 Ordered By: Aleksandar Tomlinson Diet: Advance to usual diet Activity on Discharge: Right foot nonweightbearing Stand Alone Forms: Patient Portal Discharge page Activity Restrictions/Additional Instructions: Wound care upon discharge: xeroform, 4x4 and Kerlix wrap to be changed daily on amputation site. Allyvn to ankle wound - Please call Dr. Robertson at [phone] for 2 week follow up for suture and staple removal Use offloading boot right foot, nonweightbearing right foot Care Plan Goals: Take all medications as prescribed use Tylenol for [id number] pain use oxycodone for severe pain, take by mouth antibiotic as prescribed resume all home medication as above Health Concerns: Peripheral arterial disease nonhealing right ankle wound continue dressing as per Dr. Robertson Plan of Treatment: Outpatient follow-up with PCP and Dr. Robertson in 2 weeks Assessment: As per discharge summary
--- NOTE | 2022-02-17 14:15 | P.CNID_ITS ---
History of Present Illness Data of Consult Service Date: 02/17/22 Requesting physician: Aleksandar Tomlinson Primary Care Provider: Herlinda Guo MD [facility] Reason for consult: right foot gangrene She presents with necrotic 2,3,4 toes She has had endovascular procedure three months ago and is doing better. She has no fever or chills. She has dementia. She has corynebacterium wound. She has just had right foot transmetatarsal amputation and ankle debridement. Review of Systems Review of Systems: Yes Unobtainable due to mental status PMFSH Past Medical History Medical History Alcohol abuse Alcohol dependence Arterial insufficiency of lower extremity Cellulitis of right foot Cigarette smoker Dementia Dementia ETOH abuse Insufficiency, vascular Non-healing ulcer of right ankle PAD (peripheral artery disease) S/P angiogram of extremity (06/20/21) Family History Family history: reviewed and not pertinent Surgical History Surgical History No pertinent past surgical history Social History Social History Household Members: Other Housing: Detention Unable to assess alcohol history related to: Unknown Alcohol intake: never Patient Tobacco Use Status: Current everyday Tobacco user Tobacco use type: Cigarette Second Hand Smoke Exposure: No service: No Current occupational status: retired [employer] Allergies Allergy/AdvReac Type Severity Reaction Status Date / Time No Known Allergies Allergy Verified 02/14/22 11:09 Active Medications: Current Medications Albuterol Sulfate (Albuterol Sulfate (0.083%) 2.5 Mg/3 Ml Vial.Neb) 2.5 mg INHALE ONCE PRN PRN Reason: Wheezing Atorvastatin Calcium (Atorvastatin Calcium 80 Mg Tablet) 80 mg PO BEDTIME [facility] Last Admin: 02/16/22 21:03 Dose: 80 mg Fentanyl (Fentanyl Citrate/Pf 100 Mcg/2 Ml Vial) 25 mcg IVPUSH Q5M PRN; Protocol PRN Reason: Pain, Moderate (Pain Scale 4-6 Last Admin: 02/14/22 12:44 Dose: 25 mcg Folic Acid (Folic Acid 1 Mg Tablet) 1 mg PO DAILY [facility] Last Admin: 02/17/22 07:47 Dose: 1 mg Gabapentin (Gabapentin 300 Mg Capsule) 600 mg PO TID [facility] Last Admin: 02/17/22 07:47 Dose: 600 mg Heparin Sodium (Porcine) (Heparin Sodium,Porcine 5,000 Unit/Ml Vial) 5,000 unit SUBCUT Q12H [facility] Last Admin: 02/17/22 11:36 Dose: 5,000 unit Hydromorphone HCl (Hydromorphone Hcl 0.5 Mg/0.5 Ml Syringe) 0.5 mg IVPUSH Q4H PRN; Protocol PRN Reason: Pain, Severe (Pain Scale 7-10) Last Admin: 02/17/22 07:57 Dose: 0.5 mg Piperacillin Sod/Tazobactam (Sod 4.5 gm/ Sodium Chloride) 100 mls @ 200 mls/hr IV Q6H [facility] Last Infusion: 02/17/22 08:09 Dose: Infused Vancomycin HCl 1,000 mg/ (Sodium Chloride) 270 mls @ 270 mls/hr IV Q12H [facility] Last Infusion: 02/17/22 13:48 Dose: Infused Ondansetron HCl (Ondansetron Hcl 4 Mg/2 Ml Vial) 4 mg IVPUSH ONCE PRN PRN Reason: Nausea and Vomiting Oxycodone HCl (Oxycodone Hcl Immed Release 5 Mg Tablet) 5 mg PO Q4H PRN PRN Reason: Pain, Moderate (Pain Scale 4-6 Last Admin: 02/17/22 11:42 Dose: 5 mg Pharmacy Consult (Consult Rx Perform Med Rec) 1 each MISCELLANE ONCE PRN PRN Reason: Consult order Pharmacy Consult (Consult Rx Vancomycin Dosing) 1 each MISCELLANE DAILY PRN PRN Reason: Consult order Pharmacy Consult (Consult Rx Vancomycin Dosing) 1 each MISCELLANE DAILY PRN PRN Reason: Consult order Sertraline HCl (Sertraline Hcl 25 Mg Tablet) 25 mg PO DAILY [facility] Last Admin: 02/17/22 07:48 Dose: 25 mg Sodium Chloride (0.9 % Sodium Chloride Flush 3 Ml Syringe) 3 ml IVFLUSH QSHIFT [facility] Last Admin: 02/17/22 07:48 Dose: 3 ml Thiamine HCl (Thiamine Hcl 100 Mg Tablet) 100 mg PO DAILY [facility] Last Admin: 02/17/22 07:48 Dose: 100 mg Home Medications Medication Instructions Recorded Confirmed Last Taken Type gabapentin 300 mg capsule 600 mg PO TID 01/10/21 02/12/22 Unknown History sertraline 25 mg tablet 1 tab PO DAILY 01/10/21 02/12/22 Unknown History oxycodone 5 mg tablet 5 mg PO TID PRN Pain 12/26/21 02/12/22 Unknown History thiamine HCl (vitamin B1) 100 mg 100 mg PO DAILY 12/26/21 02/12/22 Unknown History tablet folic acid 1 mg tablet 1 mg PO DAILY 12/31/21 02/12/22 Unknown History Physical Exam Vital Signs: Vital Signs: Last Vital Signs Temp 98.2 F 02/17/22 12:00 Pulse 74 02/17/22 12:00 Resp 18 02/17/22 12:00 BP 115/53 L 02/17/22 12:00 Pulse Ox 93 02/17/22 12:00 O2 Del Method 02/17/22 12:00 O2 Flow Rate 5 02/14/22 12:24 BMI result Body Mass Index 24.7 Const: General: cooperative HEENT: Head: Yes normal to inspection Face and sinus: Yes normal facial exam Mouth: Normal oral and palatal mucosa present Teeth and gingiva: dentition normal Eyes: General: appearance normal, both eyes and all related structures Pupils: Equal, round and reactive pupils present Resp: Effort & Inspection: normal respiratory effort Cardio: Rate: regular rate Rhythm: regular rhythm GI: Palpation (GI): Soft to palpation and nontender : General: Yes no CVA tenderness Back/Spine/Pelvis: Back: no CVA tenderness Skin: General skin exam: no rashes or lesions noted Neuro: General: moves all extremities Cranial nerves: Yes Equal, round and reactive pupils present Extrem: Other: right transmet,no cellulitis Psych: Other: confused,demented Results Labs CBC & Chem 7: 02/14/22 09:08 02/16/22 04:58 Microbiology Microbiology Results: Microbiology 02/12/22 10:36 Blood - Venous Blood Culture - Final No growth after 5 days. 02/12/22 10:27 Blood - Venous Blood Culture - Final No growth after 5 days. 02/14/22 12:08 Ankle Right Gram Stain - Final 02/14/22 12:08 Ankle Right Routine Culture - Final Corynebacterium species Assessment and Plan (1) Osteomyelitis: Status: Acute She has all infected bone removed. She has corynebacterium contaminant wound. She is not bacteremic. (2) Non-healing ulcer of right ankle: Status: Acute (3) Gangrene: Status: Acute Plan No ongoing IV antibiotics Would give po Doxycycline 100 mg bid for 10 days on discharge.
--- NOTE | 2022-02-17 15:36 | MHC.CM.PN ---
BACK TO [facility] TODAY PENDING [employer] INSURANCE AUTH. PLAN IS FOR 18-- FROM HERE. RN AND UNIT AWARE. SON, FABIOLA [phone] AWARE AND IN AGREEMENT IMM 02/16 IN CHART
[2022-02-17 15:37] LABS: COVID-19 Test Negative (Negative)
[2022-02-17 16:00] VITALS: BP 119/52; PULSE 77; RESP 18; TEMP 37.3; O2SAT 95
== END 2022-02-17 19:08 | disposition skilled nursing facility (03) | DRG 240 ==
LOC: HO.ED 12:06 → HO.EDOVER 15:06 → HO.S3 02-13 14:57
PROVIDERS: Physician Assistant; Student in an Organized Health Care Education/Training Program; Surgery Vascular Surgery; Admitting Provider Physician Assistant; Emergency Provider Emergency Medicine Emergency Medical Services; PCP Internal Medicine; Visit Provider Hospitalist
PROC: 0Y6M0Z9 Detachment at Right Foot, Partial 1st Ray, Open Approach (ICD-10-PCS; CPT 28805; principal; 2022-02-14 11:00)
DX: I70.261 Atherosclerosis of native arteries of extremities with gangrene, right leg (principal); L97.319 Non-pressure chronic ulcer of right ankle with unspecified severity; M86.9 Osteomyelitis, unspecified; B96.89 Other specified bacterial agents as the cause of diseases classified elsewhere; F03.90 Unspecified dementia, unspecified severity, without behavioral disturbance, psychotic disturbance, mood disturbance, and anxiety; F17.210 Nicotine dependence, cigarettes, uncomplicated; Z71.6 Tobacco abuse counseling; F10.21 Alcohol dependence, in remission; Z20.822 Contact with and (suspected) exposure to COVID-19; Z79.899 Other long term (current) drug therapy
CPT/HCPCS: 36415; 73630; 80048; 80076; 80202; 81001; 81003; 82565; 83605; 83735; 85025; 85610; 87040; 87071; 87205; 87635; 88305; 88311; 93005; 96361; 96365; 96366; 96367; 99285; J1170; J2250; J2370; J2543; J3010; J3370

== ENCOUNTER → 2022-03-04 13:47 | Outpatient (BNVA) | payer OTHER, SELFPAY | PROVIDERS: PCP Internal Medicine; Visit Provider Surgery Vascular Surgery | DX: Z47.81 Encounter for orthopedic aftercare following surgical amputation (principal); L97.309 Non-pressure chronic ulcer of unspecified ankle with unspecified severity; I73.9 Peripheral vascular disease, unspecified; Z89.431 Acquired absence of right foot | CPT/HCPCS: 99212 ==

== ENCOUNTER → 2022-03-25 10:57 | Outpatient (BNVA) | payer OTHER, SELFPAY | PROVIDERS: PCP Internal Medicine; Visit Provider Surgery Vascular Surgery | DX: I73.9 Peripheral vascular disease, unspecified (principal) | CPT/HCPCS: 99212 ==

== ENCOUNTER → 2022-04-15 13:23 | Outpatient (BNVA) | payer OTHER, SELFPAY | PROVIDERS: PCP Internal Medicine; Visit Provider Surgery Vascular Surgery | DX: I73.9 Peripheral vascular disease, unspecified (principal) | CPT/HCPCS: 99212 ==

== ENCOUNTER → 2022-05-13 14:23 | Outpatient (BNVA) | payer OTHER, SELFPAY | PROVIDERS: PCP Internal Medicine; Visit Provider Surgery Vascular Surgery | DX: Z47.81 Encounter for orthopedic aftercare following surgical amputation (principal); L97.319 Non-pressure chronic ulcer of right ankle with unspecified severity; I73.9 Peripheral vascular disease, unspecified; Z89.431 Acquired absence of right foot | CPT/HCPCS: 99212 ==

== ENCOUNTER 2022-09-01 10:30 | Outpatient (REF) | payer OTHER, SELFPAY ==
--- NOTE | ~2022-09-01 | US_ITS ---
EXAMINATION: ANKLE-BRACHIAL INDICES SINGLE LEVEL PULSE VOLUME RECORDING ARTERIAL DUPLEX BILATERAL LEGS CLINICAL INFORMATION: Peripheral vascular disease. COMPARISON: 01/24/2022. TECHNIQUE: Ankle-brachial indices and PVR at the ankle were obtained. Duplex Doppler of the bilateral lower extremity arterial systems was performed. FINDINGS: RIGHT: Ankle-brachial index: 1.03 PVR: Normal Common femoral: PSV 171 cm/s. Triphasic waveform. Deep femoral: PSV 172 cm/s. Triphasic waveform. [place] SFA proximal to stent: PSV 172 cm/s. Triphasic waveform. Proximal stent: PSV 147 cm/s. Biphasic waveform. Mid stent: PSV 80 cm/s. Biphasic waveform. Distal stent: PSV 73 cm/s. Biphasic waveform. [place] SFA distal to stent: PSV 73 cm/s. Biphasic waveform. Popliteal: PSV 122 cm/s. Biphasic waveform. Posterior tibial: PSV 25 cm/s. Monophasic waveform. Peroneal: PSV 89 cm/s. Biphasic waveform. LEFT: Ankle-brachial index: 0.40 PVR: Abnormal Common femoral: PSV 128 cm/s. Triphasic waveform. Deep femoral: PSV 131 cm/s. Triphasic waveform. Proximal superficial femoral: PSV 384 cm/s. Triphasic waveform. Greater than 2:1 velocity shift. Mid superficial femoral: PSV 95 cm/s. Triphasic waveform. Collaterals. Distal superficial femoral: PSV 69 cm/s. Triphasic waveform. Popliteal: PSV 280 cm/s. Monophasic waveform. 4:1 velocity shift. Posterior tibial: Occluded. Peroneal: PSV 46 cm/s. Monophasic waveform. US/US SINDI complete IMPRESSION: Right: Normal ankle-brachial index and PVR waveform. Patent SFA stent. Left: Abnormal SINDI of 0.40 with abnormal PVR waveform. Focal moderate stenosis proximal superficial femoral artery. Focal severe stenosis popliteal artery. Occluded posterior tibial artery.
--- NOTE | ~2022-09-01 | US_ITS ---
EXAMINATION: ANKLE-BRACHIAL INDICES SINGLE LEVEL PULSE VOLUME RECORDING ARTERIAL DUPLEX BILATERAL LEGS CLINICAL INFORMATION: Peripheral vascular disease. COMPARISON: 01/24/2022. TECHNIQUE: Ankle-brachial indices and PVR at the ankle were obtained. Duplex Doppler of the bilateral lower extremity arterial systems was performed. FINDINGS: RIGHT: Ankle-brachial index: 1.03 PVR: Normal Common femoral: PSV 171 cm/s. Triphasic waveform. Deep femoral: PSV 172 cm/s. Triphasic waveform. [place] SFA proximal to stent: PSV 172 cm/s. Triphasic waveform. Proximal stent: PSV 147 cm/s. Biphasic waveform. Mid stent: PSV 80 cm/s. Biphasic waveform. Distal stent: PSV 73 cm/s. Biphasic waveform. [place] SFA distal to stent: PSV 73 cm/s. Biphasic waveform. Popliteal: PSV 122 cm/s. Biphasic waveform. Posterior tibial: PSV 25 cm/s. Monophasic waveform. Peroneal: PSV 89 cm/s. Biphasic waveform. LEFT: Ankle-brachial index: 0.40 PVR: Abnormal Common femoral: PSV 128 cm/s. Triphasic waveform. Deep femoral: PSV 131 cm/s. Triphasic waveform. Proximal superficial femoral: PSV 384 cm/s. Triphasic waveform. Greater than 2:1 velocity shift. Mid superficial femoral: PSV 95 cm/s. Triphasic waveform. Collaterals. Distal superficial femoral: PSV 69 cm/s. Triphasic waveform. Popliteal: PSV 280 cm/s. Monophasic waveform. 4:1 velocity shift. Posterior tibial: Occluded. Peroneal: PSV 46 cm/s. Monophasic waveform. US/US arterial duplex LE BI IMPRESSION: Right: Normal ankle-brachial index and PVR waveform. Patent SFA stent. Left: Abnormal SINDI of 0.40 with abnormal PVR waveform. Focal moderate stenosis proximal superficial femoral artery. Focal severe stenosis popliteal artery. Occluded posterior tibial artery.
== END 2022-09-01 10:31 | disposition home or self-care (01) ==
LOC: HO.US 10:30
PROVIDERS: PCP Internal Medicine; Visit Provider Surgery Vascular Surgery
DX: I70.213 Atherosclerosis of native arteries of extremities with intermittent claudication, bilateral legs (principal)
CPT/HCPCS: 93923; 93925

== ENCOUNTER → 2022-09-30 09:02 | Outpatient (BNVA) | payer OTHER, SELFPAY | PROVIDERS: PCP Internal Medicine; Visit Provider Surgery Vascular Surgery | DX: I73.9 Peripheral vascular disease, unspecified (principal) | CPT/HCPCS: 99212 ==

== ENCOUNTER 2023-06-05 14:00 | Inpatient (IN) | payer MEDICARE, MEDICAID, SELFPAY ==
--- NOTE | ~2023-06-05 | CT_ITS ---
EXAMINATION: CT HEAD WITHOUT CONTRAST CLINICAL INFORMATION: Liver metastases. Confusion. Rule out metastatic disease. COMPARISON: Head CT July 30, 2020 TECHNIQUE: Contiguous axial imaging was performed from the skull base to vertex without intravenous administration of contrast. This CT examination was performed using dose optimization techniques as appropriate, variously including the following: *Automated exposure control *Adjustment of mA and/or kV according to patient size (this includes techniques or standardized protocols for targeted exams where dose is matched to indication/reason for exam; i.e. extremities or head) *Use of iterative reconstruction technique DLP: 731 mGy-cm FINDINGS: There is no evidence of acute intracranial hemorrhage or territorial infarction. No abnormal mass effect or midline shift is appreciated. Bah-white differentiation is well preserved. No extra-axial fluid collections. The ventricular system and cortical sulci are prominent, consistent with volume loss. There are areas of low density in the periventricular and subcortical white matter, most consistent with sequelae of microvascular ischemic change. Soft tissues and osseous structures are unremarkable. There are calcifications of the cavernous internal carotid arteries. Mucous retention cyst of the sphenoid sinus. The visualized paranasal sinuses and mastoid air cells are otherwise well aerated. CT/CT head/brain wo IV con IMPRESSION: Chronic microvascular ischemic changes with no CT evidence of acute intracranial abnormality.
--- NOTE | ~2023-06-05 | CT_ITS ---
EXAMINATION: CT CHEST, ABDOMEN AND PELVIS WITH CONTRAST. CLINICAL INFORMATION: Elevated white count. Abnormal chest x-ray abdo pain, tenderness, WBC 15, hypotension. COMPARISON: Chest x-ray today. TECHNIQUE: Multidetector volumetric imaging was performed from the thoracic inlet through the pubic symphysis following administration of 100 mL Omnipaque 300 intravenous contrast. Sagittal and coronal reformatted images were obtained on the technologist's workstation. This CT examination was performed using dose optimization techniques as appropriate, variously including the following: *Automated exposure control *Adjustment of mA and/or kV according to patient size (this includes techniques or standardized protocols for targeted exams where dose is matched to indication/reason for exam; i.e. extremities or head) *Use of iterative reconstruction technique DLP: 1022 mGy-cm FINDINGS: CHEST: Lung: Large bulky mass lesion in the right hilar region encasing the central vessels and bronchi extending into the mediastinal structures. There is associated airspace disease in the right base possibly due to postobstructive changes and additional airspace disease in the suprahilar right upper lobe with no air bronchograms more likely due to primary lesion. This is difficult to accurately measure as the lung finding is inseparable from the hilar and mediastinal adenopathy overall the length of tumor is at least 14 cm in size. There is encasement and narrowing of the main and more significantly right upper lobe pulmonary artery there is encasement and opacification of the right main, lower, right middle, and right upper bronchi there is poor visualization of the right upper pulmonary vein which is obscured by the tumor mass. Mediastinum: The confluent hilar or mediastinal adenopathy encases the channing measuring up to 4.1 cm in maximal short axis thickening. There is splaying of the main pulmonary arteries from this bulky subcarinal soft tissue component. There is encasement and narrowing of the innominate vein and superior vena cava. There is bulky disease extending into the upper mediastinum and visualized right greater than left supraclavicular regions which are not entirely included on this chest CT scan Pericardium/Pleura: Small right pleural effusion Chest Wall/Axilla: Left axillary adenopathy is partially seen as well measuring up to 2 cm short axis. ABDOMEN/PELVIS: Peritoneal Space:No significant free air or free fluid identified. Liver, Gallbladder, Biliary Tree: Innumerable low-attenuation mass lesions are seen to the liver concerning for metastatic disease. No biliary ductal dilatation The gallbladder is unremarkable with no evidence of radiopaque gallstones, gallbladder wall thickening, or obvious pericholecystic inflammatory changes. Pancreas: Atrophic Spleen: Unremarkable. Adrenal Glands: Unremarkable. Kidneys and Ureters: The kidneys are normal in size, shape, and attenuation. No hydronephrosis, hydroureter, or calculi seen. No perinephric stranding. Bladder: Unremarkable. Gastrointestinal Tract: Extensive colonic diverticulosis but no colonic wall thickening or pericolonic inflammatory change to suggest diverticulitis. Small bowel unremarkable Abdominal Wall: No significant hernia is appreciated. Lymphovascular Structures: Vascular calculation within the aorta iliac system. Pelvic Viscera: Unremarkable. Osseus Structures: Extensive multilevel degenerative changes in the spine with compression deformity of the superior L3 vertebral body and to less extent the T11 superior endplate do not appreciate any discrete bony destructive lesions CT/CT abdomen pelvis w IV con IMPRESSION: 1. Large bulky mass lesion in the right hilar region extending into the mediastinal structures as described above. Bulky hilar or mediastinal adenopathy as described above This is difficult to accurately measure as the tumor mass is inseparable from the hilar and mediastinal adenopathy. There is encasement and narrowing of the right main pulmonary artery and right upper lobe bronchi as well as encasement and narrowing of the superior vena cava and innominate vein. There is more confluent masslike airspace disease in the suprahilar right upper lobe likely due to primary lung lesion. 2. There are innumerable low-attenuation mass lesions within the liver concerning for metastatic disease. 3. There is left axillary adenopathy as well. 4. I do not appreciate any discrete bony destructive lesions. There are chronic appearing compression deformities of the L3 and T11 vertebral bodies. 5. There is extensive diverticulosis but no evidence for diverticulitis.
--- NOTE | ~2023-06-05 | XR_ITS ---
EXAMINATION: XR CHEST CLINICAL INFORMATION: Weakness COMPARISON: 01/02/2022 TECHNIQUE: Frontal view of the chest was obtained. FINDINGS: Heart size within normal limits. Right superior mediastinal/paratracheal soft tissue density, irregular masslike density right medial lung base, interval left hemidiaphragmatic volume loss, all representing interval change from previous. Mild left base atelectasis otherwise left lung is clear. Demineralization. Degenerative changes. XR/XR chest 1V IMPRESSION: Findings suspicious for right lung mass and right paratracheal/mediastinal lymphadenopathy. Chest CT recommended.
[2023-06-05 14:16] VITALS: BP 110/53; PULSE 87; O2SAT 96
[2023-06-05 14:18] VITALS: BP 108/59; PULSE 97; RESP 16; TEMP 37; O2SAT 95; BMI 32.2
--- NOTE | 2023-06-05 14:25 | ECG_ITS ---
Test Reason : WEAKNESS Blood Pressure : / mmHG Vent. Rate : 094 BPM Atrial Rate : 094 BPM P-R Int : 150 ms QRS Dur : 070 ms QT Int : 360 ms P-R-T Axes : 037 040 040 degrees QTc Int : 450 ms Sinus rhythm with Premature atrial complexes Otherwise normal ECG When compared with ECG of 12-FEB-2022 12:52, Premature atrial complexes are now Present Nonspecific T wave abnormality now evident in Anterior leads Referred By: Rosalina John Electronically Signed By:ALIDA FUNK
--- NOTE | 2023-06-05 14:50 | ED_ITS ---
HPI - Abdominal Pain General Chief Complaint: Abdominal Pain Stated Complaint: HYPOTENSION Time Seen by Provider: 06/05/23 14:12 Source: patient, EMS and old records reviewed Mode of arrival: EMS Limitations: altered mental status History of Present Illness HPI narrative: 77 yo female with PMH of dementia, PAD, ETOH use i past lives at SNF, chronic O2 use for respiratory failure, HLD, COPD, s/p R TMA comes from facility for low BPs reported in 80s, + hemoccult test in setting of green dark stool and abdominal distention - reportedly has known mass in RLL per records. States her HCP is invoked and it is son Mitul [phone]. The patient has had normal BPs with EMS tells me her stomach hurts and she has diarrhea but no other history known. She is on plavix. I do not see antibiotics on her EMR MD elicited complaint: abdominal pain Pertinent past history: none Onset (ago): unknown Pain Consistency: constant Location: diffuse Severity: moderate Quality: other Radiation: none Migration to: no migration Exacerbating factors: nothing Relieving factors: nothing Context: other (cannot tell me about it) Associated symptoms: diarrhea Related Data Home Medications Medication Instructions Recorded Confirmed gabapentin 300 mg capsule 600 mg PO TID 01/10/21 02/12/22 sertraline 25 mg tablet 1 tab PO DAILY 01/10/21 02/12/22 oxycodone 5 mg tablet 5 mg PO TID PRN Pain 12/26/21 02/12/22 thiamine HCl (vitamin B1) 100 mg 100 mg PO DAILY 12/26/21 02/12/22 tablet folic acid 1 mg tablet 1 mg PO DAILY 12/31/21 02/12/22 doxycycline hyclate 100 mg tablet 100 mg PO BID 03/04/22 gabapentin 600 mg tablet 600 mg PO TID 03/04/22 multivitamin with folic acid 400 1 tab PO DAILY 03/04/22 mcg tablet (Tab-A-Loy) gabapentin 800 mg tablet 800 mg PO TID 05/13/22 Previous Rx's Medication Instructions Recorded aspirin 81 mg chewable tablet 81 mg PO DAILY #30 tabs 06/25/21 atorvastatin 80 mg tablet 80 mg PO BEDTIME #30 tabs 06/25/21 clopidogrel 75 mg tablet 75 mg PO DAILY #30 tabs 06/25/21 acetaminophen 500 mg tablet 500 mg PO Q6H PRN mild pain #20 02/17/22 (Tylenol Extra Strength) tabs doxycycline hyclate 100 mg capsule 100 mg PO BID #20 caps 02/17/22 Allergies Allergy/AdvReac Type Severity Reaction Status Date / Time No Known Allergies Allergy Verified 09/30/22 09:49 Review of Systems Review of Systems ROS unable to be obtained due to dementia [facility] Past Medical History Attestation statement: The following information was validated with the patient. Source: old records reviewed Medical History Dementia Non-healing ulcer of right ankle S/P angiogram of extremity (06/20/21) Dementia Arterial insufficiency of lower extremity PAD (peripheral artery disease) Cigarette smoker Alcohol dependence Insufficiency, vascular Cellulitis of right foot ETOH abuse Dementia Alcohol abuse Surgical History No pertinent past surgical history Social History Social History Household Members: Other Housing: Long-Term Unable to assess alcohol history related to: Unknown Alcohol intake: never Comment: Ongoing bedrest Patient Tobacco Use Status: Current everyday Tobacco user Tobacco use type: Cigarette Second Hand Smoke Exposure: No Advance Directives: Yes Advance Directives on File: Yes Advance Directives Date on File: 02/28/22 service: No Current occupational status: retired Physical Exam ED Vital Signs: Vital Signs - 24 hr 06/05/23 14:18 Temperature 98.6 F Pulse Rate 97 Respiratory Rate 16 Blood Pressure 108/59 L Pulse Oximetry 95 Oxygen Delivery Method Nasal Cannula BMI result Body Mass Index 32.2 Appearance: Alert. confused but pleasant No acute distress. Eyes: Pupils equal, round and reactive to light. ENT: Pharynx normal. Neck: Normal inspection. Neck supple. CVS: Normal heart rate and rhythm. Pulses normal. Respiratory: No respiratory distress. Breath sounds diminished throughout. Abdomen: distended, ttp along abdomen no rebound Skin: Skin warm and dry. pale skin color. Normal skin turgor. Extremities: No lower extremity edema. No calf ttp Neuro: confused, follows commands No motor deficit. No sensory deficit. Course Course Course Narrative: WBC elevated with shift at this time infection suspected 327pm IV zosyn ordered Reevaluation(s) Reevaluation #1: signed out to Dr. Rios pending workup Medical Decision Making Medical Decision Making MDM Narrative: 77 yo female with PMH of dementia, PAD, ETOH use i past lives at SNF, chronic O2 use for respiratory failure, HLD, COPD, s/p R TMA here with distended abdomen green stools reported hypotension at facility but normal BPs with EMS and ED at this time labs, type and screen, EKG, CT scan IVF, stool studies, UA/CXR. unsure if this is viral, cdiff, volvulus, GIB, mass, dehydration. Differential Diagnosis Differential Diagnoses: The differential diagnosis associated with the presentation includes viral, cdiff, volvulus, GIB, mass, dehydration. Admission/Observation Consideration of admission/observation: Escalation of care including admission/observation considered Lab Data MDM Lab Attestation statement: I reviewed the patient's lab results. 06/05/23 15:10 06/05/23 15:10 Labs: Lab Results 06/05/23 06/05/23 06/05/23 Range/Units 15:05 15:07 15:10 WBC 15.5 H (4.8-10.8) X10*3/uL RBC 3.44 L (4.20-5.50) X10*6/uL Hgb 10.1 L (12.0-16.0) g/dl Hct 33.0 L (37.0-47.0) % MCV 95.9 (80.0-98.0) fL MCH 29.4 (27.0-33.0) pg MCHC 30.6 L (31.0-35.0) g/dl RDW 16.4 H (11.0-16.0) % Plt Count 507 H (160-400) X10*3/uL MPV 9.7 (9.4-12.3) fL Immature Gran % (Auto) 0.6 H (0.0-0.4) % Neut % (Auto) 74.3 H (45-73) % Lymph % (Auto) 15.2 L (20-40) % [place] % (Auto) 9.3 (2-11) % Eos % (Auto) 0.1 (0-4) % Baso % (Auto) 0.5 (0-2) % Lymph # (Auto) 2.4 (1.2-4.9) X10*3/uL [place] # (Auto) 1.4 H (0.1-1.2) X10*3/uL Eos # (Auto) 0.0 (0.0-0.4) X10*3/uL Baso # (Auto) 0.1 (0.0-0.2) X10*3/uL Abs Immat Gran (auto) 0.10 H (0.00-0.03) X10*3/uL Absolute Neuts (auto) 11.5 H (2.0-8.3) x10*3/uL Absolute Nucleated RBC 0.000 (0.0-0.012) X10*3/uL Nucleated RBC % (auto) 0.0 (0.0-0.2) /100WBC PT 16.5 H (11.1-13.3) SEC INR 1.4 H (0.9-1.1) Lactic Acid 2.7 H* (0.5-2.0) mmol/L Influenza Type A (PCR) NEGATIVE (Negative) Influenza Type B (PCR) NEGATIVE (Negative) RSV RNA Qual (PCR) NEGATIVE (Negative) SARS-CoV-2 RNA (RT-PCR) NEGATIVE (Negative) Independent Interpretation I performed an independent interpretation of an: EKG and CT Scan Interpretation: Rate: 94 Rhythm: NSR [place]: mpr,a; Normal P waves. Normal CHETNA. Normal QRS complex. ST T wave : no LIBERTAD, nonspecific ST T wave changes, inverted T wave V1 qTC: normal prior studies:no acute ischemia The study has been interpreted contemporaneously by me. . Independent Historian Clinical information obtained from an independent historian. History obtained from or confirmed by: EMS Medications Administered Discontinued Medications Generic Name Dose Route Start Last Admin Trade Name Freq PRN Reason Stop Dose Admin Sodium Chloride 1,000 mls @ 999 mls/hr 06/05/23 14:30 06/05/23 15:02 Ns IVCONT 06/05/23 15:30 999 mls/hr .Q1H1M STONEY Administration Discharge Plan Discharge Clinical Impression: Abdominal pain Qualifiers: Abdominal location: generalized Qualified Code(s): R10.84 - Generalized abdominal pain Elevated WBC count Qualifiers: Leukocytosis type: unspecified Qualified Code(s): D72.829 - Elevated white blood cell count, unspecified Patient Disposition: Still a Patient Prescriptions: No Action gabapentin 300 mg capsule 600 mg PO TID sertraline 25 mg tablet 1 tab PO DAILY atorvastatin 80 mg Tablet 80 mg PO BEDTIME Qty: 30 0RF clopidogrel 75 mg Tablet 75 mg PO DAILY Qty: 30 0RF aspirin 81 mg Tablet,Chewable 81 mg PO DAILY Qty: 30 0RF folic acid 1 mg tablet 1 mg PO DAILY doxycycline hyclate 100 mg capsule 100 mg PO BID Qty: 20 0RF acetaminophen [Tylenol Extra Strength] 500 mg tablet 500 mg PO Q6H PRN (Reason: mild pain) Qty: 20 0RF oxycodone 5 mg tablet 5 mg PO TID PRN (Reason: Pain) thiamine HCl (vitamin B1) 100 mg tablet 100 mg PO DAILY doxycycline hyclate 100 mg tablet 100 mg PO BID multivitamin with folic acid [Tab-A-Loy] 400 mcg tablet 1 tab PO DAILY gabapentin 600 mg tablet 600 mg PO TID gabapentin 800 mg tablet 800 mg PO TID
[2023-06-05] MEDS: 0.9 % Sodium Chloride 1,000 ML 999 ML IVCONT (15:02)
[2023-06-05 15:23] LABS: MANUAL DIFF FLAG NO
[2023-06-05 15:24] LABS: Basophils Absolute Auto 0.1 X10*3/uL (0.0-0.2); Basophils Percent Auto 0.5 % (0-2); Eosinophils Percent Auto 0.1 % (0-4); Hemoglobin 10.1 g/dl (12.0-16.0); Imm Gran Pct Auto 0.6 % (0.0-0.4); Lymphocytes Absolute Auto 2.4 X10*3/uL (1.2-4.9); Lymphocytes Percent Auto 15.2 % (20-40); Mean Corpuscular HGB Conc 30.6 g/dl (31.0-35.0); Mean Corpuscular Hemoglobin 29.4 pg (27.0-33.0); Mean Corpuscular Volume 95.9 fL (80.0-98.0); Mean Platelet Volume 9.7 fL (9.4-12.3); Monocytes Absolute Auto 1.4 X10*3/uL (0.1-1.2); Monocytes Percent Auto 9.3 % (2-11); Neutrophils Absolute Auto 11.5 x10*3/uL (2.0-8.3); Neutrophils Percent Auto 74.3 % (45-73); Platelet Count 507 X10*3/uL (160-400); Red Blood Count 3.44 X10*6/uL (4.20-5.50); Red Cell Distribution Width 16.4 % (11.0-16.0); White Blood Count 15.5 X10*3/uL (4.8-10.8)
[2023-06-05 15:29] LABS: INTERNATIONAL NORM RATIO 1.4 (0.9-1.1); Prothrombin Time 16.5 SEC (11.1-13.3)
[2023-06-05 15:41] LABS: Lactic Acid 2.7 mmol/L (0.5-2.0)
[2023-06-05 16:10] LABS: Influenza A PCR NEGATIVE (Negative); Influenza B PCR NEGATIVE (Negative); Resp Syncy Virus RNA Qual PCR NEGATIVE (Negative); SARS COV2 PCR INHOUSE NEGATIVE (Negative)
[2023-06-05 16:36] VITALS: BP 139/70; PULSE 99; RESP 20; O2SAT 95
[2023-06-05] MEDS: Piperacillin Sodium/Tazobactam 3.375 GM in 0.9 % Sodium Chloride 50 ML IV (16:37)
[2023-06-05] MEDS: 0.9 % Sodium Chloride 1,000 ML 999 ML IV (16:46)
[2023-06-05 17:21] LABS: Reflex Lactate? Lactic Acid Added
[2023-06-05 18:09] LABS: Alanine Aminotransferase 11 U/L (0-31); Albumin Level 2.7 g/dL (3.5-5.0); Alkaline Phosphatase 115 U/L (39-117); Anion Gap 13 (12-20); Aspartate Amino Transferase 48 U/L (5-31); Bilirubin Direct 0.2 mg/dL (0.0-0.5); Bilirubin Total 0.4 mg/dL (0.0-1.0); Blood Urea Nitrogen 7 mg/dL (9-16); C Reactive Protein 8.48 mg/dL (< or = 0.50); Calcium 8.1 mg/dL (8.4-10.2); Carbon Dioxide 21 mmol/L (22-29); Chloride 107 mmol/L (96-108); Creatinine Clr Calc Pharmacy 79.8; Estimated Glomerular Filt Rate > 60; Glucose Random 106 mg/dL (60-115); Lipase 8 U/L (8-78); Magnesium 1.9 mg/dL (1.6-2.6); Potassium 4.4 mmol/L (3.3-5.1); Sodium 137 mmol/L (135-145); Total Protein 6.4 g/dL (6.5-8.0)
[2023-06-05 18:16] LABS: Troponin-I High Sensitivity < 2.7 ng/L (<3.5-17.0)
[2023-06-05] MEDS: 0.9 % Sodium Chloride 500 ML IV (18:17)
[2023-06-05 19:31] VITALS: BP 139/79; PULSE 104; RESP 18; TEMP 37.1; O2SAT 93
[2023-06-05] MEDS: iohexoL 350 MG/ML 100 ML INFUS..BTL 85 ML IV (20:30)
[2023-06-05 21:23] LABS: Appearance Urine Clear; Color Urine Yellow; Glucose Urine UA Negative (Negative); Leukocyte Esterase Urine Negative (Negative); Nitrite Urine Negative (Negative); PH 6.5 (5.0-9.0); Specific Gravity - Urine >= 1.030 (1.005-1.025); Urine Blood Negative (Negative); Urine Ketones Negative (Negative); Urine Protein Negative (Neg-Trace)
--- NOTE | 2023-06-05 23:51 | PM.IMHP ---
History of Present Illness Date of Service: 06/05/23 Attending physician on admission: Didier Vides Chief Complaint: Dizziness and low blood pressure at SNF Patient is a 77 year old white female with history of dementia (HCP is invoked and is son Mitul [phone]), COPD, anxiety/depression, PVD (s/p right transmetatarsal amputation), hypertension, hyperlipidemia, and atrial fibrillation who was sent to the emergency room from her SNF because of hypotension (her blood pressure was in the 80s). She was also reportedly passing green stool and had abdominal distension and pain. Initial lab work done in the emergency room was notable for a leucocytosis of 15 k/mm3. A CT scan done showed a large bulky mass in the right hilar region with encasement and narrowing of the right main pulmonary artery and right upper lobe bronchi as well as encasement and narrowing of the SVC and innominate vein. She also has confluent mass-like airspace disease in the suprahilar RUL that is likely due to primary lung lesion. She also has innumerable mass lesions within the liver concerning for metastatic disease. Admission was requested for further management. Patient unfortunately has dementia and so was not able to provide any additional history. Review of Systems Review of Systems: Patient has dementia and is not a good or reliable historian. Yes Unobtainable due to mental status [facility] Medical History Dementia Non-healing ulcer of right ankle S/P angiogram of extremity (06/20/21) Dementia Arterial insufficiency of lower extremity PAD (peripheral artery disease) Cigarette smoker Alcohol dependence Insufficiency, vascular Cellulitis of right foot ETOH abuse Dementia Alcohol abuse Surgical History No pertinent past surgical history Social History Household Members: Other Housing: Alf Unable to assess alcohol history related to: Unknown Alcohol intake: never Comment: Ongoing bedrest Patient Tobacco Use Status: Tobacco use Unknown Tobacco use type: Cigarette Second Hand Smoke Exposure: No Use of substances other than those prescribed or required for medical reasons: Unknown Advance Directives: Yes Advance Directives on File: Yes Advance Directives Date on File: 02/28/22 Do you have thoughts of harming others: None Do you have a plan to hurt others: No Plan Recently lost weight without trying: Unsure Nutrition Risks: No Nutritional Risk Patient : No : No Poor oral hygiene: Yes service: No Current occupational status: retired Meds Allergies Allergy/AdvReac Type Severity Reaction Status Date / Time No Known Allergies Allergy Verified 09/30/22 09:49 Active Medications: Home Medications Medication Instructions Recorded Confirmed Last Taken Type sertraline 25 mg tablet 1 tab PO DAILY 01/10/21 02/12/22 Unknown History oxycodone 5 mg tablet 5 mg PO TID PRN Pain 12/26/21 02/12/22 Unknown History thiamine HCl (vitamin B1) 100 mg 100 mg PO DAILY 12/26/21 02/12/22 Unknown History tablet folic acid 1 mg tablet 1 mg PO DAILY 12/31/21 02/12/22 Unknown History multivitamin with folic acid 400 1 tab PO DAILY 03/04/22 Unknown History mcg tablet (Tab-A-Loy) gabapentin 800 mg tablet 800 mg PO TID 05/13/22 Unknown History Physical Exam Vital Signs and Narrative: Vital Signs: Last Vital Signs Temp 98.7 F 06/05/23 19:31 Pulse 104 H 06/05/23 19:31 Resp 18 06/05/23 19:31 BP 139/79 06/05/23 19:31 Pulse Ox 93 06/05/23 19:31 O2 Del Method Nasal Cannula 06/05/23 19:31 O2 Flow Rate 2 06/05/23 19:31 Oxygen Flow Rate 2 06/05/23 14:18 BMI result Body Mass Index 32.2 General: Awake and alert but confused. No apparent distress Eyes: No pallor or jaundice. PERRLA, EOMI HENT: Moist oral mucus membranes. No oropharyngeal lesions. Neck: Supple. No cervical adenopathy. No JVD Cardiovascular: Regular rate & rhythm. Normal heart sounds. No murmurs, rubs or gallops. No JVD. No peripheral edema. Respiratory: Normal respiratory effort with no accessory muscle use. CTAB. Gastrointestinal: Abdomen is soft, non-tender, non-distended. NABS. No hepatosplenomegaly Extremities: No edema. No calf tenderness. Good peripheral pulses Skin: Warm/Dry. No rashes. No mottling. Capillary refill is < 2 seconds Neurological: In bed confused and not able to give a history or follow instructions. Hematologic: No bleeding. No ecchymosis. No swollen or tender lymph nodes. Psychiatric: Cooperative. Appropriate mood and affect. Results Labs 06/06/23 06:13 06/05/23 17:44 Labs: Laboratory Results - last 24 hr 06/05/23 06/05/23 06/05/23 15:05 15:07 15:10 MCV 95.9 MCH 29.4 MCHC 30.6 L RDW 16.4 H Plt Count 507 H MPV 9.7 Immature Gran % (Auto) 0.6 H Neut % (Auto) 74.3 H Lymph % (Auto) 15.2 L [place] % (Auto) 9.3 Eos % (Auto) 0.1 Baso % (Auto) 0.5 Lymph # (Auto) 2.4 [place] # (Auto) 1.4 H Eos # (Auto) 0.0 Baso # (Auto) 0.1 Abs Immat Gran (auto) 0.10 H Absolute Neuts (auto) 11.5 H Absolute Nucleated RBC 0.000 Nucleated RBC % (auto) 0.0 PT 16.5 H INR 1.4 H Anion Gap Estim Creat Clear Calc Estimated GFR Random Glucose Lactic Acid 2.7 H* Lactic Acid F/U @ 2Hr Calcium Magnesium Total Bilirubin Direct Bilirubin AST ALT Alkaline Phosphatase C-Reactive Protein Total Protein Albumin Lipase Urine Color Urine Appearance Urine pH Ur Specific [place] Urine Protein Urine Glucose (UA) Urine Ketones Urine Blood Urine Nitrite Ur Leukocyte Esterase Influenza Type A (PCR) NEGATIVE Influenza Type B (PCR) NEGATIVE RSV RNA Qual (PCR) NEGATIVE SARS-CoV-2 RNA (RT-PCR) NEGATIVE Blood Type Antibody Screen 06/05/23 06/05/23 06/05/23 16:14 17:44 20:50 MCV MCH MCHC RDW Plt Count MPV Immature Gran % (Auto) Neut % (Auto) Lymph % (Auto) [place] % (Auto) Eos % (Auto) Baso % (Auto) Lymph # (Auto) [place] # (Auto) Eos # (Auto) Baso # (Auto) Abs Immat Gran (auto) Absolute Neuts (auto) Absolute Nucleated RBC Nucleated RBC % (auto) PT INR Anion Gap 13 Estim Creat Clear Calc 79.8 Estimated GFR > 60 Random Glucose 106 Lactic Acid 2.0 Lactic Acid F/U @ 2Hr 2.0 Calcium 8.1 L D Magnesium 1.9 Total Bilirubin 0.4 Direct Bilirubin 0.2 AST 48 H ALT 11 Alkaline Phosphatase 115 C-Reactive Protein 8.48 H Total Protein 6.4 L Albumin 2.7 L Lipase 8 Urine Color Urine Appearance Urine pH Ur Specific [place] Urine Protein Urine Glucose (UA) Urine Ketones Urine Blood Urine Nitrite Ur Leukocyte Esterase Influenza Type A (PCR) Influenza Type B (PCR) RSV RNA Qual (PCR) SARS-CoV-2 RNA (RT-PCR) Blood Type O Positive Antibody Screen NEGATIVE 06/05/23 21:13 MCV MCH MCHC RDW Plt Count MPV Immature Gran % (Auto) Neut % (Auto) Lymph % (Auto) [place] % (Auto) Eos % (Auto) Baso % (Auto) Lymph # (Auto) [place] # (Auto) Eos # (Auto) Baso # (Auto) Abs Immat Gran (auto) Absolute Neuts (auto) Absolute Nucleated RBC Nucleated RBC % (auto) PT INR Anion Gap Estim Creat Clear Calc Estimated GFR Random Glucose Lactic Acid Lactic Acid F/U @ 2Hr Calcium Magnesium Total Bilirubin Direct Bilirubin AST ALT Alkaline Phosphatase C-Reactive Protein Total Protein Albumin Lipase Urine Color Yellow Urine Appearance Clear Urine pH 6.5 Ur Specific [place] >= 1.030 H Urine Protein Negative Urine Glucose (UA) Negative Urine Ketones Negative Urine Blood Negative Urine Nitrite Negative Ur Leukocyte Esterase Negative Influenza Type A (PCR) Influenza Type B (PCR) RSV RNA Qual (PCR) SARS-CoV-2 RNA (RT-PCR) Blood Type Antibody Screen ECG ECG interpretation date: 06/06/23 ECG interpretation time: 08:31 Interpretation: NSR at 94 bpm with PACS with no acute ischemic changes. Imaging Radiologist's Impressions: Impressions Chest X-Ray 06/05/23 14:44 Findings suspicious for right lung mass and right paratracheal/mediastinal lymphadenopathy. Chest CT recommended. Chest & Abdomen/Pelvis CT 06/05/23 20:30 1. Large bulky mass lesion in the right hilar region extending into the mediastinal structures as described above. Bulky hilar or mediastinal adenopathy as described above This is difficult to accurately measure as the tumor mass is inseparable from the hilar and mediastinal adenopathy. There is encasement and narrowing of the right main pulmonary artery and right upper lobe bronchi as well as encasement and narrowing of the superior vena cava and innominate vein. There is more confluent masslike airspace disease in the suprahilar right upper lobe likely due to primary lung lesion. 2. There are innumerable low-attenuation mass lesions within the liver concerning for metastatic disease. 3. There is left axillary adenopathy as well. 4. I do not appreciate any discrete bony destructive lesions. There are chronic appearing compression deformities of the L3 and T11 vertebral bodies. 5. There is extensive diverticulosis but no evidence for diverticulitis. Assessment and Plan (1) Hilar mass: Status: Acute (2) Metastasis to liver: Status: Acute (3) Elevated WBC count: Qualifiers: Leukocytosis type: unspecified Qualified Code(s): D72.829 - Elevated white blood cell count, unspecified Status: Acute (4) Abdominal pain: Qualifiers: Abdominal location: generalized Qualified Code(s): R10.84 - Generalized abdominal pain Status: Acute Plan 77 year old white female with history of dementia, COPD, anxiety/depression, PVD (s/p right transmetatarsal amputation), hypertension, hyperlipidemia, and atrial fibrillation here with 1. Hilar lung mass - likely lung cancer - will need biopsy and further evaluation by Oncology team 2. 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 Dementia - could be at baseline - monitor 4. Hyperlipidemia - resume atorvastatin DVT: SC Lovenox CODE STATUS: Full code Admission for at least 2 midnights for management of newly found lung mass Total time managing care of this patient today: 75 minutes. Quality Stroke Does the patient have a stroke diagnosis?: No VTE Prior VTE?: No VTE Risk Level:: Medical - moderate - high VTE Device Contraindication: N/A - Device Ordered VTE Drug Contraindication: N/A - Med Ordered
[2023-06-06] VITALS (7 sets, daily range): BP systolic 126–165; BP diastolic 58–85; PULSE 95–109; RESP 16–20; TEMP 36–36.9; O2SAT 94–99; BMI 30.1
[2023-06-06] MEDS: Enoxaparin Sodium 40 MG/0.4 ML SYRINGE SUBCUT ×2 (00:40→19:31)
[2023-06-06] MEDS: 0.9 % Sodium Chloride Flush 3 ML SYRINGE IVFLUSH ×4 (01:42→22:40)
[2023-06-06] MEDS: Dextrose 5 % and 0.9 % NaCl 1,000 ML 125 ML IVCONT ×2 (01:45→08:25)
[2023-06-06 07:09] LABS: MANUAL DIFF FLAG NO
[2023-06-06 07:23] LABS: Basophils Absolute Auto 0.1 X10*3/uL (0.0-0.2); Basophils Percent Auto 0.4 % (0-2); Eosinophils Percent Auto 0.2 % (0-4); Hematocrit 31.9 % (37.0-47.0); Hemoglobin 10.1 g/dl (12.0-16.0); Imm Gran Pct Auto 0.7 % (0.0-0.4); Lymphocytes Absolute Auto 2.6 X10*3/uL (1.2-4.9); Mean Corpuscular HGB Conc 31.7 g/dl (31.0-35.0); Mean Corpuscular Hemoglobin 30.1 pg (27.0-33.0); Mean Corpuscular Volume 95.2 fL (80.0-98.0); Mean Platelet Volume 9.8 fL (9.4-12.3); Monocytes Absolute Auto 1.4 X10*3/uL (0.1-1.2); Monocytes Percent Auto 10.6 % (2-11); Neutrophils Absolute Auto 9.4 x10*3/uL (2.0-8.3); Neutrophils Percent Auto 69.1 % (45-73); Platelet Count 485 X10*3/uL (160-400); Red Blood Count 3.35 X10*6/uL (4.20-5.50); Red Cell Distribution Width 16.3 % (11.0-16.0); White Blood Count 13.6 X10*3/uL (4.8-10.8)
[2023-06-06 08:17] LABS: Anion Gap 11 (12-20); Blood Urea Nitrogen 4 mg/dL (9-16); Calcium 8.3 mg/dL (8.4-10.2); Carbon Dioxide 24 mmol/L (22-29); Chloride 106 mmol/L (96-108); Creatinine Clr Calc Pharmacy 90.3; Estimated Glomerular Filt Rate > 60; Glucose Random 97 mg/dL (60-115); Potassium 3.3 mmol/L (3.3-5.1); Sodium 138 mmol/L (135-145)
[2023-06-06] MEDS: Docusate Sodium 100 MG CAPSULE PO ×2 (08:25→19:31)
[2023-06-06] MEDS: Albuterol/Iprat 2.5/0.5MG 3 ML AMPUL.NEB INHALE ×3 (09:07→20:04)
[2023-06-06 09:13] LABS: CDiff Gene PCR NEGATIVE (Negative)
[2023-06-06] MEDS: methylPREDNISolone Sod Succ 40 MG/ML VIAL IVPUSH ×2 (09:54→19:31)
[2023-06-06] MEDS: Acetaminophen 325 MG TABLET 650 MG PO (09:54)
[2023-06-06] MEDS: Piperacillin Sodium/Tazobactam 4.5 GM in 0.9 % Sodium Chloride 100 ML IV ×3 (11:31→22:40)
--- NOTE | 2023-06-06 11:39 | PHA.MEDREC ---
Pharmacy Consult ? Medication Reconciliation Pharmacy has completed the medication reconciliation. LIST OBTAINED FROM [facility] AND [facility]
--- NOTE | 2023-06-06 14:11 | P.PNIM_ITS ---
Subjective Subjective Date of Service: 06/06/23 Interval History: seen and examined this morning follow up for hypotension, lung mass, abdominal pain patient with dementia, unable to provide any significant history, unable to obtain full ROS appears sob Physical Exam 2 Vital Signs: Vital Signs: Last Vital Signs Temp 98.2 F 06/06/23 07:24 Pulse 106 H 06/06/23 09:07 Resp 20 06/06/23 09:07 BP 165/85 H 06/06/23 07:24 Pulse Ox 96 06/06/23 07:24 O2 Del Method Nasal Cannula 06/06/23 07:24 O2 Flow Rate 2.5 06/06/23 07:24 Oxygen Flow Rate 2 06/05/23 14:18 BMI result Body Mass Index 30.1 Const: Other: elderly appearing female appears mildly sob General: alert and awake Nutritional Appearance: average body habitus Resp: Other: b/l expiratory wheeze; mild sob Cardio: Rate: tachycardic GI: Other: +BS Inspection: No distended Palpation (GI): Soft to palpation Neuro: Other: grossly nonfocal, moving all extremities Extrem: Other: s/p right transmetatarsal amputation Objective Data Active Medications Acetaminophen (Acetaminophen 325 Mg Tablet) 650 mg PO Q6H PRN PRN Reason: Pain, Mild (Pain Scale 1-3) Last Admin: 06/06/23 09:54 Dose: 650 mg Documented By: DESTINY Al Hydroxide/Mg Hydroxide (Magnesium Hydrox/Alum Hydrox 30 Ml Oral.Susp) 30 ml PO Q4H PRN PRN Reason: Heartburn/Nausea Albuterol Sulfate (Albuterol Sulfate (0.083%) 2.5 Mg/3 Ml Vial.Neb) 2.5 mg INHALE Q4H PRN PRN Reason: Shortness of Breath/Wheezing Albuterol/Ipratropium (Albuterol/Iprat 2.5/0.5mg 3 Ml Ampul.Neb) 3 ml INHALE RQ6H WHILE AWAKE [facility] Docusate Sodium (Docusate Sodium 100 Mg Capsule) 100 mg PO BID [facility] Last Admin: 06/06/23 08:25 Dose: 100 mg Documented By: DESTINY Enoxaparin Sodium (Enoxaparin Sodium 40 Mg/0.4 Ml Syringe) 40 mg SUBCUT BEDTIME [facility] Last Admin: 06/06/23 00:40 Dose: 40 mg Documented By: JOSE Dextrose/Sodium Chloride (D5ns) 1,000 mls @ 125 mls/hr IVCONT .Q8H [facility] Last Infusion: 06/06/23 08:45 Dose: 0 mls/hr Documented By: DESTINY Piperacillin Sod/Tazobactam (Sod 4.5 gm/ Sodium Chloride) 100 mls @ 200 mls/hr IV Q6H [facility] Last Infusion: 06/06/23 12:13 Dose: Infused Documented By: DESTINY Melatonin (Melatonin 3 Mg Tablet) 6 mg PO BEDTIME PRN PRN Reason: Insomnia Methylprednisolone Sodium Succinate (Methylprednisolone Sod Succ 40 Mg/Ml Vial) 40 mg IVPUSH Q12H [facility] Last Admin: 06/06/23 09:54 Dose: 40 mg Documented By: DESTINY Ondansetron HCl (Ondansetron Hcl 4 Mg/2 Ml Vial) 4 mg IVPUSH Q8H PRN PRN Reason: Nausea and Vomiting Sodium Chloride (0.9 % Sodium Chloride Flush 3 Ml Syringe) 3 ml IVFLUSH QSHIFT [facility] Last Admin: 06/06/23 08:23 Dose: Not Given Documented By: DESTINY Non-Admin Reason: IV Running Labs 06/06/23 06:13 06/06/23 06:13 Labs: Laboratory Results - last 24 hr 06/05/23 06/05/23 06/05/23 15:05 15:07 15:10 MCV 95.9 MCH 29.4 MCHC 30.6 L RDW 16.4 H Plt Count 507 H MPV 9.7 Immature Gran % (Auto) 0.6 H Neut % (Auto) 74.3 H Lymph % (Auto) 15.2 L [place] % (Auto) 9.3 Eos % (Auto) 0.1 Baso % (Auto) 0.5 Lymph # (Auto) 2.4 [place] # (Auto) 1.4 H Eos # (Auto) 0.0 Baso # (Auto) 0.1 Abs Immat Gran (auto) 0.10 H Absolute Neuts (auto) 11.5 H Absolute Nucleated RBC 0.000 Nucleated RBC % (auto) 0.0 PT 16.5 H INR 1.4 H Anion Gap Estim Creat Clear Calc Estimated GFR Random Glucose Lactic Acid 2.7 H* Lactic Acid F/U @ 2Hr Calcium Magnesium Total Bilirubin Direct Bilirubin AST ALT Alkaline Phosphatase C-Reactive Protein Total Protein Albumin Lipase TSH Urine Color Urine Appearance Urine pH Ur Specific [place] Urine Protein Urine Glucose (UA) Urine Ketones Urine Blood Urine Nitrite Ur Leukocyte Esterase C. difficile Tox B Gene Influenza Type A (PCR) NEGATIVE Influenza Type B (PCR) NEGATIVE RSV RNA Qual (PCR) NEGATIVE SARS-CoV-2 RNA (RT-PCR) NEGATIVE Blood Type Antibody Screen 06/05/23 06/05/23 06/05/23 16:14 17:44 20:50 MCV MCH MCHC RDW Plt Count MPV Immature Gran % (Auto) Neut % (Auto) Lymph % (Auto) [place] % (Auto) Eos % (Auto) Baso % (Auto) Lymph # (Auto) [place] # (Auto) Eos # (Auto) Baso # (Auto) Abs Immat Gran (auto) Absolute Neuts (auto) Absolute Nucleated RBC Nucleated RBC % (auto) PT INR Anion Gap 13 Estim Creat Clear Calc 79.8 Estimated GFR > 60 Random Glucose 106 Lactic Acid 2.0 Lactic Acid F/U @ 2Hr 2.0 Calcium 8.1 L D Magnesium 1.9 Total Bilirubin 0.4 Direct Bilirubin 0.2 AST 48 H ALT 11 Alkaline Phosphatase 115 C-Reactive Protein 8.48 H Total Protein 6.4 L Albumin 2.7 L Lipase 8 TSH Urine Color Urine Appearance Urine pH Ur Specific [place] Urine Protein Urine Glucose (UA) Urine Ketones Urine Blood Urine Nitrite Ur Leukocyte Esterase C. difficile Tox B Gene Influenza Type A (PCR) Influenza Type B (PCR) RSV RNA Qual (PCR) SARS-CoV-2 RNA (RT-PCR) Blood Type O Positive Antibody Screen NEGATIVE 06/05/23 06/06/23 06/06/23 21:13 06:13 06:44 MCV 95.2 MCH 30.1 MCHC 31.7 RDW 16.3 H Plt Count 485 H MPV 9.8 Immature Gran % (Auto) 0.7 H Neut % (Auto) 69.1 Lymph % (Auto) 19.0 L [place] % (Auto) 10.6 Eos % (Auto) 0.2 Baso % (Auto) 0.4 Lymph # (Auto) 2.6 [place] # (Auto) 1.4 H Eos # (Auto) 0.0 Baso # (Auto) 0.1 Abs Immat Gran (auto) 0.10 H Absolute Neuts (auto) 9.4 H Absolute Nucleated RBC 0.000 Nucleated RBC % (auto) 0.0 PT INR Anion Gap 11 L Estim Creat Clear Calc 90.3 Estimated GFR > 60 Random Glucose 97 Lactic Acid Lactic Acid F/U @ 2Hr Calcium 8.3 L Magnesium Total Bilirubin Direct Bilirubin AST ALT Alkaline Phosphatase C-Reactive Protein Total Protein Albumin Lipase TSH 1.50 Urine Color Yellow Urine Appearance Clear Urine pH 6.5 Ur Specific [place] >= 1.030 H Urine Protein Negative Urine Glucose (UA) Negative Urine Ketones Negative Urine Blood Negative Urine Nitrite Negative Ur Leukocyte Esterase Negative C. difficile Tox B Gene NEGATIVE Influenza Type A (PCR) Influenza Type B (PCR) RSV RNA Qual (PCR) SARS-CoV-2 RNA (RT-PCR) Blood Type Antibody Screen Assessment and Plan (1) Hilar mass: Status: Acute (2) Metastasis to liver: Status: Acute (3) COPD exacerbation: Status: Acute Plan 77 year old white female with history of dementia, COPD, anxiety/depression, PVD (s/p right transmetatarsal amputation), hypertension, hyperlipidemia, and atrial fibrillation here with Acute respiratory failure with hypoxia multifactorial due to COPD, lung mass and possible post-obstructive pneumonia Imaging with hilar lung mass with encasement of right main pulmonary artery and RUL bronchi and SVC and airspace disease in RUL - appears to be metastatic with liver lesions as well -breathing treatments, steroids, IV zosyn -pulmonary consult -possible biopsy if pt wants to pursue treatment - discussed with son as pt HCP in invoked 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 small HCP - Epifanio Tyson, son - updated on new lung findings. He is not sure if he would want biopsy or further workup, will think about it, but did want code status to be DNR/DNI. Requires ongoing admission for management of extensive new lung mass, respiratory failure and need for specialist evaluation and close monitoring of respiratory status Quality Stroke Does the patient have a stroke diagnosis?: No VTE Prior VTE?: No VTE Risk Level:: Medical - moderate - high VTE Device Contraindication: N/A - Device Ordered VTE Drug Contraindication: N/A - Med Ordered
[2023-06-06] MEDS: Pregabalin 75 MG CAPSULE PO ×2 (15:46→19:31)
--- NOTE | 2023-06-06 16:05 | MHC.CM.PN ---
PT IS A LTC RESIDENT OF [facility] SHE USES A WHEEL CHAIR PRIMARILY, BUT IS ABLE TO AMBULATE WITH A WALKER AND SUPERVISION FOR SHORT DISTANCES PER HER SONS REPORT PT SEES THE PROVIDER AT [facility] FOR PRIMARY CARE SON FABIOLA IS PTS HCP ([phone]) COPY OF IMM WILL [facility] [id number] OF NOTE: FABIOLA STATES THE SNF TOLD HIM THERE WAS AN ISSUE WITH PTS INSURANCE, HOWEVER HE DOES NOT HAVE DETAILS REFERRAL SENT TO SNF TO ENSURE PT IS CLEAR TO RETURN ONCE MEDICALLY READY DCP: RETURN TO [facility] VIA BLS
[2023-06-06] MEDS: Atorvastatin Calcium 80 MG TABLET PO (19:31)
--- NOTE | 2023-06-06 19:45 | MHC.PIE ---
p; fungal areas noted to groin and under breast. i; dr egan notified e; will cont to monitor
[2023-06-06] MEDS: Nystatin Powder 15 GM BOTTLE 1 APPL TOPICAL (22:37)
[2023-06-07] VITALS (8 sets, daily range): BP systolic 104–147; BP diastolic 63–78; PULSE 83–101; RESP 15–18; TEMP 36–36.9; O2SAT 93–98
[2023-06-07] MEDS: Melatonin 3 MG TABLET 6 MG PO (00:32)
[2023-06-07] MEDS: Piperacillin Sodium/Tazobactam 4.5 GM in 0.9 % Sodium Chloride 100 ML IV ×4 (04:43→22:44)
[2023-06-07 05:46] LABS: Hematocrit 31.3 % (37.0-47.0); Hemoglobin 9.7 g/dl (12.0-16.0); Mean Corpuscular Hemoglobin 29.1 pg (27.0-33.0); Mean Platelet Volume 9.7 fL (9.4-12.3); Platelet Count 491 X10*3/uL (160-400); Red Blood Count 3.33 X10*6/uL (4.20-5.50); Red Cell Distribution Width 15.9 % (11.0-16.0); White Blood Count 10.2 X10*3/uL (4.8-10.8)
[2023-06-07 05:59] LABS: Anion Gap 12 (12-20); Blood Urea Nitrogen 6 mg/dL (9-16); Calcium 8.6 mg/dL (8.4-10.2); Carbon Dioxide 27 mmol/L (22-29); Chloride 105 mmol/L (96-108); Creatinine Clr Calc Pharmacy 83.1; Estimated Glomerular Filt Rate > 60; Glucose Random 129 mg/dL (60-115); Potassium 3.1 mmol/L (3.3-5.1); Sodium 141 mmol/L (135-145)
[2023-06-07] MEDS: Albuterol/Iprat 2.5/0.5MG 3 ML AMPUL.NEB INHALE ×2 (08:43→15:53)
[2023-06-07] MEDS: Aspirin 81 MG TAB.CHEW PO (08:49)
[2023-06-07] MEDS: 0.9 % Sodium Chloride Flush 3 ML SYRINGE IVFLUSH ×3 (08:49→22:33)
[2023-06-07] MEDS: Folic Acid 1 MG TABLET PO (08:49)
[2023-06-07] MEDS: Pregabalin 75 MG CAPSULE PO ×3 (08:49→22:31)
[2023-06-07] MEDS: Sertraline HCL 50 MG TABLET PO (08:49)
[2023-06-07] MEDS: Potassium Chloride Packet 20 MEQ PACKET 40 MEQ PO (08:49)
[2023-06-07] MEDS: methylPREDNISolone Sod Succ 40 MG/ML VIAL IVPUSH ×2 (08:50→22:33)
[2023-06-07] MEDS: Docusate Sodium 100 MG CAPSULE PO (08:50)
[2023-06-07] MEDS: Clopidogrel Bisulfate 75 MG TABLET PO (08:50)
[2023-06-07] MEDS: Thiamine HCL 100 MG TABLET PO (08:50)
[2023-06-07] MEDS: Nystatin Powder 15 GM BOTTLE 1 APPL TOPICAL ×2 (10:41→22:33)
--- NOTE | 2023-06-07 11:49 | PM.CNPUL ---
History of Present Illness History of Present Illness Consult date: 06/07/23 Chief complaint: Lung mass; metastatic liver lesions Narrative: This is an inpatient pulmonary consultation.Patient is a 77 year old white female with history of dementia (HCP is invoked and is son Mitul [phone]), COPD, anxiety/depression, PVD (s/p right transmetatarsal amputation), hypertension, hyperlipidemia, and atrial fibrillation who was sent to the emergency room from her SNF because of hypotension (her blood pressure was in the 80s). She was also reportedly passing green stool and had abdominal distension and pain. Initial lab work done in the emergency room was notable for a leucocytosis of 15 k/mm3. A CT scan done showed a large bulky mass in the right hilar region with encasement and narrowing of the right main pulmonary artery and right upper lobe bronchi as well as encasement and narrowing of the SVC and innominate vein. She also has confluent mass-like airspace disease in the suprahilar RUL that is likely due to primary lung lesion. She also has innumerable mass lesions within the liver concerning for metastatic disease. The patient is feeling better. She still on oxygen. She is on antibiotics as well. I did explain to the patient that while she is here that she should get a liver biopsy in order to assess this aggressive process. The patient is agreeable at this time. Based on the location of the mediastinal component of the mass it is pressing on the trachea and therefore any type of anesthesia or bronchoscopy would be with increased risk due to the potential extrinsic compression of the airway. Review of Systems Review of Systems: Yes all other systems are reviewed and are negative Constitutional: Constitutional: Reports no additional constitutional complaints and Denies fever(s) ENT: Reports Normal hearing present Cardiovascular: Cardiovascular: Denies chest pain, Denies chest pain at rest, Denies chest pain with activity, Denies pedal edema and Reports dyspnea on exertion Respiratory: Respiratory: Reports cough and Reports dyspnea on exertion Gastrointestinal: Gastrointestinal: Denies abdominal pain Musculoskeletal: Musculoskeletal: Denies abnormal gait, Denies muscle cramps and Denies radiating pain into limb Integumentary/Breasts: Skin/Breast: Denies skin ulcer and Denies wounds Neurologic: Reports Normal hearing present and Denies abnormal gait Psychiatric: Psychiatric: Reports no additional psychiatric complaints PMFSH Past Medical History Medical History Dementia Non-healing ulcer of right ankle S/P angiogram of extremity (06/20/21) Dementia Arterial insufficiency of lower extremity PAD (peripheral artery disease) Cigarette smoker Alcohol dependence Insufficiency, vascular Cellulitis of right foot ETOH abuse Dementia Alcohol abuse Surgical History Surgical History No pertinent past surgical history Social History Social History Household Members: Other Housing: Correction Unable to assess alcohol history related to: Unknown Alcohol intake: never Comment: Ongoing bedrest Patient Tobacco Use Status: Tobacco use Unknown Tobacco use type: Cigarette Second Hand Smoke Exposure: No Use of substances other than those prescribed or required for medical reasons: Unknown Currently Displaying Signs/Symptoms of Drug Intoxication Withdrawal: No Advance Directives: Yes Advance Directives on File: Yes Advance Directives Date on File: 02/28/22 Do you have thoughts of harming others: None Do you have a plan to hurt others: No Plan Recently lost weight without trying: Unsure Nutrition Risks: No Nutritional Risk Patient : No : No Poor oral hygiene: Yes service: No Current occupational status: retired [employer] Allergies Allergy/AdvReac Type Severity Reaction Status Date / Time No Known Allergies Allergy Verified 09/30/22 09:49 Active Medications: Current Medications Acetaminophen (Acetaminophen 325 Mg Tablet) 650 mg PO Q6H PRN PRN Reason: Pain, Mild (Pain Scale 1-3) Last Admin: 06/06/23 09:54 Dose: 650 mg Al Hydroxide/Mg Hydroxide (Magnesium Hydrox/Alum Hydrox 30 Ml Oral.Susp) 30 ml PO Q4H PRN PRN Reason: Heartburn/Nausea Albuterol Sulfate (Albuterol Sulfate (0.083%) 2.5 Mg/3 Ml Vial.Neb) 2.5 mg INHALE Q4H PRN PRN Reason: Shortness of Breath/Wheezing Albuterol/Ipratropium (Albuterol/Iprat 2.5/0.5mg 3 Ml Ampul.Neb) 3 ml INHALE RQ6H WHILE AWAKE [facility] Last Admin: 06/07/23 08:43 Dose: 3 ml Aspirin (Aspirin 81 Mg Tab.Chew) 81 mg PO DAILY [facility] Last Admin: 06/07/23 08:49 Dose: 81 mg Atorvastatin Calcium (Atorvastatin Calcium 80 Mg Tablet) 80 mg PO BEDTIME [facility] Last Admin: 06/06/23 19:31 Dose: 80 mg Bisacodyl (Bisacodyl 10 Mg Supp.Rect) 10 mg GA Q24H PRN PRN Reason: Constipation Clopidogrel Bisulfate (Clopidogrel Bisulfate 75 Mg Tablet) 75 mg PO DAILY [facility] Last Admin: 06/07/23 08:50 Dose: 75 mg Docusate Sodium (Docusate Sodium 100 Mg Capsule) 100 mg PO BID [facility] Last Admin: 06/07/23 08:50 Dose: 100 mg Enoxaparin Sodium (Enoxaparin Sodium 40 Mg/0.4 Ml Syringe) 40 mg SUBCUT BEDTIME [facility] Last Admin: 06/06/23 19:31 Dose: 40 mg Folic Acid (Folic Acid 1 Mg Tablet) 1 mg PO DAILY [facility] Last Admin: 06/07/23 08:49 Dose: 1 mg Guaifenesin (Guaifenesin 100 Mg/5 Ml Liquid) 200 ml PO Q4H PRN PRN Reason: Cough Dextrose/Sodium Chloride (D5ns) 1,000 mls @ 125 mls/hr IVCONT .Q8H [facility] Last Admin: 06/07/23 08:49 Dose: Not Given Piperacillin Sod/Tazobactam (Sod 4.5 gm/ Sodium Chloride) 100 mls @ 200 mls/hr IV Q6H [facility] Last Admin: 06/07/23 11:44 Dose: 200 mls/hr Melatonin (Melatonin 3 Mg Tablet) 6 mg PO BEDTIME PRN PRN Reason: Insomnia Last Admin: 06/07/23 00:32 Dose: 6 mg Methylprednisolone Sodium Succinate (Methylprednisolone Sod Succ 40 Mg/Ml Vial) 40 mg IVPUSH Q12H [facility] Last Admin: 06/07/23 08:50 Dose: 40 mg Nystatin (Nystatin Powder 15 Gm Bottle) 1 appl TOPICAL BID [facility]; Protocol Last Admin: 06/07/23 10:41 Dose: 1 appl Ondansetron HCl (Ondansetron Hcl 4 Mg/2 Ml Vial) 4 mg IVPUSH Q8H PRN PRN Reason: Nausea and Vomiting Oxycodone HCl (Oxycodone Hcl Immed Release 5 Mg Tablet) 5 mg PO Q8H PRN PRN Reason: Pain (Scale Score 4-6) Pregabalin (Pregabalin 75 Mg Capsule) 75 mg PO TID [facility] Last Admin: 06/07/23 08:49 Dose: 75 mg Sertraline HCl (Sertraline Hcl 50 Mg Tablet) 50 mg PO DAILY [facility] Last Admin: 06/07/23 08:49 Dose: 50 mg Sodium Chloride (0.9 % Sodium Chloride Flush 3 Ml Syringe) 3 ml IVFLUSH QSHIFT [facility] Last Admin: 06/07/23 08:49 Dose: 3 ml Thiamine HCl (Thiamine Hcl 100 Mg Tablet) 100 mg PO DAILY [facility] Last Admin: 06/07/23 08:50 Dose: 100 mg Home Medications Medication Instructions Recorded Confirmed Last Taken Type oxycodone 5 mg tablet 5 mg PO DAILY Pain 12/26/21 06/06/23 Unknown History thiamine HCl (vitamin B1) 100 mg 100 mg PO DAILY 12/26/21 06/06/23 Unknown History tablet folic acid 1 mg tablet 1 mg PO DAILY 12/31/21 06/06/23 Unknown History acetaminophen 500 mg tablet 500 mg PO Q8H PRN PAIN/FEVER 06/06/23 06/06/23 Unknown History acetaminophen 500 mg tablet 500 mg PO TID mild pain 06/06/23 06/06/23 Unknown History (Tylenol Extra Strength) ascorbic acid (vitamin C) 500 mg 500 mg PO DAILY 06/06/23 06/06/23 Unknown History tablet bisacodyl 10 mg rectal suppository 10 mg GA Q24H PRN Constipation 06/06/23 06/06/23 Unknown History ferrous sulfate 325 mg (65 mg 325 mg PO BID 06/06/23 06/06/23 Unknown History iron) tablet guaifenesin 100 mg/5 mL oral 200 mg PO Q4H PRN Cough 06/06/23 06/06/23 Unknown History liquid (Cat-Tussin) ipratropium 0.5 mg-albuterol 3 mg 3 ml inhalation Q4H PRN COUGH/WHEZE 06/06/23 06/06/23 Unknown History (2.5 mg base)/3 mL nebulization soln ipratropium 20 mcg-albuterol 100 1 puff inhalation Q8H 06/06/23 06/06/23 Unknown History mcg/actuation mist for inhalation (Combivent Respimat) magnesium citrate (Citrate of 300 ml PO Q24H PRN Constipation 06/06/23 06/06/23 Unknown History Magnesia oral) magnesium hydroxide 400 mg/5 mL 30 ml PO Q24H PRN Constipation 06/06/23 06/06/23 Unknown History oral suspension (Milk of Magnesia) oxycodone 5 mg tablet 5 mg PO Q8H PRN Pain (Scale Score 06/06/23 06/06/23 Unknown History 4-6) pregabalin 75 mg capsule (Lyrica) 75 mg PO TID 06/06/23 06/06/23 Unknown History sertraline 50 mg tablet 50 mg PO DAILY 06/06/23 06/06/23 Unknown History umeclidinium 62.5 mcg-vilanterol 1 inh inhalation DAILY 06/06/23 06/06/23 Unknown History 25 mcg/actuation powdr for inhalation (Anoro Ellipta) Physical Exam Vital Signs: Vital Signs: Last Vital Signs Temp 98 F 06/07/23 06:54 Pulse 99 06/07/23 08:48 Resp 16 06/07/23 08:48 BP 129/67 06/07/23 06:54 Pulse Ox 98 06/07/23 06:54 O2 Del Method Nasal Cannula 06/07/23 06:54 O2 Flow Rate 2 06/07/23 06:54 Oxygen Flow Rate 2 06/05/23 14:18 BMI result Body Mass Index 30.1 Const: Other: elderly appearing female appears mildly sob General: alert and awake Nutritional Appearance: average body habitus Chest: Chest palpation & inspection: normal inspection of the chest Resp: Other: b/l expiratory wheeze; mild sob Effort & Inspection: normal respiratory effort Auscultation: wheezes and diminished lung sounds Cardio: Rate: tachycardic GI: Other: +BS Inspection: No distended Palpation (GI): Soft to palpation Skin: General skin exam: no rashes or lesions noted Neuro: Other: grossly nonfocal, moving all extremities Cranial nerves: Yes Normal hearing present Extrem: Other: s/p right transmetatarsal amputation General: No clubbing and No cyanosis Results Laboratory Findings 06/07/23 05:14 06/07/23 05:14 ABG, PT/INR, D-dimer: PT/INR, D-dimer PT 16.5 SEC (11.1-13.3) H 06/05/23 15:10 INR 1.4 (0.9-1.1) H 06/05/23 15:10 Abnormal lab findings: Abnormal Labs 06/05/23 06/05/23 06/05/23 15:05 15:10 17:44 WBC 15.5 H RBC 3.44 L Hgb 10.1 L Hct 33.0 L MCHC 30.6 L RDW 16.4 H Plt Count 507 H Immature Gran % (Auto) 0.6 H Neut % (Auto) 74.3 H Lymph % (Auto) 15.2 L [place] # (Auto) 1.4 H Abs Immat Gran (auto) 0.10 H Absolute Neuts (auto) 11.5 H PT 16.5 H INR 1.4 H Potassium Carbon Dioxide 21 L Anion Gap BUN 7 L Creatinine Random Glucose Lactic Acid 2.7 H* Calcium 8.1 L D AST 48 H C-Reactive Protein 8.48 H Total Protein 6.4 L Albumin 2.7 L Ur Specific [place] 06/05/23 06/06/23 06/07/23 21:13 06:13 05:14 WBC 13.6 H RBC 3.35 L 3.33 L Hgb 10.1 L 9.7 L Hct 31.9 L 31.3 L MCHC RDW 16.3 H Plt Count 485 H 491 H Immature Gran % (Auto) 0.7 H Neut % (Auto) Lymph % (Auto) 19.0 L [place] # (Auto) 1.4 H Abs Immat Gran (auto) 0.10 H Absolute Neuts (auto) 9.4 H PT INR Potassium 3.1 L Carbon Dioxide Anion Gap 11 L BUN 4 L 6 L Creatinine 0.47 L Random Glucose 129 H Lactic Acid Calcium 8.3 L AST C-Reactive Protein Total Protein Albumin Ur Specific [place] >= 1.030 H Microbiology: Microbiology 06/05/23 15:18 Blood - Venous Blood Culture - Preliminary No growth after 24 hours. 06/05/23 15:10 Blood - Venous Blood Culture - Preliminary No growth after 24 hours. Assessment and Plan (1) COPD exacerbation: Status: Acute (2) Pneumonia: Qualifiers: Pneumonia type: due to unspecified organism Laterality: right Lung location: lower lobe of lung Qualified Code(s): J18.9 - Pneumonia, unspecified organism Status: Acute (3) Metastasis to liver: Status: Acute (4) Hilar mass: Status: Acute Plan Agree with zosyn post obstructive pneumonia, then switch to Augmentin to complete a 10-14 day course nebs continue solumedrol stopped the plavix should hopefully get a tissue biopsy prior to d/c. Although, it will depend on how much time she needs to be off the plavix prior to a biopsy Bronchoscopy may be high risk due to the extrinsic compression on the airway due to the large mass Consider imaging of the brain for metastatic disease Procedures Date of Service Date of Service: 06/07/23
--- NOTE | 2023-06-07 14:18 | P.PNIM_ITS ---
Subjective Subjective Date of Service: 06/07/23 Interval History: seen and examined this morning follow up for respiratory failure, new lung mass no overnight events reports she is feeling better; looks more comfortable; pleasantly confused Review of Systems Review of Systems: Yes all other systems are reviewed and are negative Cardiovascular Cardiovascular: Denies chest pain Gastrointestinal Gastrointestinal: Denies abdominal pain Physical Exam 2 Vital Signs: Vital Signs: Last Vital Signs Temp 98 F 06/07/23 06:54 Pulse 99 06/07/23 08:48 Resp 16 06/07/23 08:48 BP 129/67 06/07/23 06:54 Pulse Ox 98 06/07/23 06:54 O2 Del Method Nasal Cannula 06/07/23 06:54 O2 Flow Rate 2 06/07/23 06:54 Oxygen Flow Rate 2 06/05/23 14:18 BMI result Body Mass Index 30.1 Const: Other: elderly appearing female appears mildly sob General: alert and awake Nutritional Appearance: average body habitus Orientation/consciousness: oriented to person Resp: Other: diminished breath sounds Cardio: Rate: regular rate GI: Other: +BS Inspection: No distended Palpation (GI): Soft to palpation and nontender Neuro: Other: grossly nonfocal, moving all extremities General: oriented to person Extrem: Other: s/p right transmetatarsal amputation Objective Data Active Medications Acetaminophen (Acetaminophen 325 Mg Tablet) 650 mg PO Q6H PRN PRN Reason: Pain, Mild (Pain Scale 1-3) Last Admin: 06/06/23 09:54 Dose: 650 mg Documented By: DESTINY Al Hydroxide/Mg Hydroxide (Magnesium Hydrox/Alum Hydrox 30 Ml Oral.Susp) 30 ml PO Q4H PRN PRN Reason: Heartburn/Nausea Albuterol Sulfate (Albuterol Sulfate (0.083%) 2.5 Mg/3 Ml Vial.Neb) 2.5 mg INHALE Q4H PRN PRN Reason: Shortness of Breath/Wheezing Albuterol/Ipratropium (Albuterol/Iprat 2.5/0.5mg 3 Ml Ampul.Neb) 3 ml INHALE RQ6H WHILE AWAKE [facility] Last Admin: 06/07/23 08:43 Dose: 3 ml Documented By: GALE Aspirin (Aspirin 81 Mg Tab.Chew) 81 mg PO DAILY [facility] Last Admin: 06/07/23 08:49 Dose: 81 mg Documented By: DESTINY Atorvastatin Calcium (Atorvastatin Calcium 80 Mg Tablet) 80 mg PO BEDTIME [facility] Last Admin: 06/06/23 19:31 Dose: 80 mg Documented By: ABHISHEK Bisacodyl (Bisacodyl 10 Mg Supp.Rect) 10 mg ND Q24H PRN PRN Reason: Constipation Docusate Sodium (Docusate Sodium 100 Mg Capsule) 100 mg PO BID [facility] Last Admin: 06/07/23 08:50 Dose: 100 mg Documented By: DESTINY Enoxaparin Sodium (Enoxaparin Sodium 40 Mg/0.4 Ml Syringe) 40 mg SUBCUT BEDTIME [facility] Last Admin: 06/06/23 19:31 Dose: 40 mg Documented By: ABHISHEK Folic Acid (Folic Acid 1 Mg Tablet) 1 mg PO DAILY [facility] Last Admin: 06/07/23 08:49 Dose: 1 mg Documented By: DESTINY Guaifenesin (Guaifenesin 100 Mg/5 Ml Liquid) 200 ml PO Q4H PRN PRN Reason: Cough Dextrose/Sodium Chloride (D5ns) 1,000 mls @ 125 mls/hr IVCONT .Q8H [facility] Last Admin: 06/07/23 08:49 Dose: Not Given Documented By: DESTINY Non-Admin Reason: Physician Held Med Piperacillin Sod/Tazobactam (Sod 4.5 gm/ Sodium Chloride) 100 mls @ 200 mls/hr IV Q6H [facility] Last Infusion: 06/07/23 12:24 Dose: Infused Documented By: DESTINY Melatonin (Melatonin 3 Mg Tablet) 6 mg PO BEDTIME PRN PRN Reason: Insomnia Last Admin: 06/07/23 00:32 Dose: 6 mg Documented By: ABHISHEK Methylprednisolone Sodium Succinate (Methylprednisolone Sod Succ 40 Mg/Ml Vial) 40 mg IVPUSH Q12H [facility] Last Admin: 06/07/23 08:50 Dose: 40 mg Documented By: DESTINY Nystatin (Nystatin Powder 15 Gm Bottle) 1 appl TOPICAL BID [facility]; Protocol Last Admin: 06/07/23 10:41 Dose: 1 appl Documented By: DESTINY Ondansetron HCl (Ondansetron Hcl 4 Mg/2 Ml Vial) 4 mg IVPUSH Q8H PRN PRN Reason: Nausea and Vomiting Oxycodone HCl (Oxycodone Hcl Immed Release 5 Mg Tablet) 5 mg PO Q8H PRN PRN Reason: Pain (Scale Score 4-6) Pregabalin (Pregabalin 75 Mg Capsule) 75 mg PO TID [facility] Last Admin: 06/07/23 08:49 Dose: 75 mg Documented By: DESTINY Sertraline HCl (Sertraline Hcl 50 Mg Tablet) 50 mg PO DAILY [facility] Last Admin: 06/07/23 08:49 Dose: 50 mg Documented By: DESTINY Sodium Chloride (0.9 % Sodium Chloride Flush 3 Ml Syringe) 3 ml IVFLUSH QSHIFT [facility] Last Admin: 06/07/23 08:49 Dose: 3 ml Documented By: DESTINY Thiamine HCl (Thiamine Hcl 100 Mg Tablet) 100 mg PO DAILY [facility] Last Admin: 06/07/23 08:50 Dose: 100 mg Documented By: DESTINY Labs 06/07/23 05:14 06/07/23 05:14 Labs: Laboratory Results - last 24 hr 06/07/23 05:14 MCV 94.0 MCH 29.1 MCHC 31.0 RDW 15.9 Plt Count 491 H MPV 9.7 Absolute Nucleated RBC 0.000 Nucleated RBC % (auto) 0.0 Anion Gap 12 Estim Creat Clear Calc 83.1 Estimated GFR > 60 Random Glucose 129 H Calcium 8.6 Magnesium 2.0 Microbiology Microbiology Results: Microbiology 06/05/23 15:18 Blood Culture - Preliminary Blood - Venous No growth after 24 hours. 06/05/23 15:10 Blood Culture - Preliminary Blood - Venous No growth after 24 hours. Assessment and Plan (1) Pneumonia: Status: Acute (2) COPD exacerbation: Status: Acute (3) Hilar mass: Status: Acute Plan 77 year old white female with history of dementia, COPD, anxiety/depression, PVD (s/p right transmetatarsal amputation), hypertension, hyperlipidemia, and atrial fibrillation here with Acute respiratory failure with hypoxia multifactorial due to COPD, lung mass and possible post-obstructive pneumonia Imaging with hilar lung mass with encasement of right main pulmonary artery and RUL bronchi and SVC and airspace disease in RUL - appears to be metastatic with liver lesions as well -breathing treatments, steroids -continue IV zosyn, will plan to transition to po augmentin for 10-14 days -seen by pulmonary - rec liver biopsy prior to d/c as bronchoscopy high risk extrinsic compression on the airway due to the large mass (plavix on hold) -consider brain imaging to rule out brain mets 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 small HCP - Epifanio Tyson, son [phone] - updated on new lung findings. He is not sure if he would want biopsy or further workup, will think about it, but did want code status to be DNR/DNI. Requires ongoing admission for management of extensive new lung mass, respiratory failure and need for specialist evaluation and close monitoring of respiratory status Quality Stroke Does the patient have a stroke diagnosis?: No VTE Prior VTE?: No VTE Risk Level:: Medical - moderate - high VTE Device Contraindication: N/A - Device Ordered VTE Drug Contraindication: N/A - Med Ordered
[2023-06-07] MEDS: Atorvastatin Calcium 80 MG TABLET PO (22:31)
[2023-06-07] MEDS: Enoxaparin Sodium 40 MG/0.4 ML SYRINGE SUBCUT (22:32)
[2023-06-07] MEDS: Albuterol Sulfate (0.083%) 2.5 MG/3 ML VIAL.NEB INHALE (23:58)
[2023-06-08] VITALS (7 sets, daily range): BP systolic 141–145; BP diastolic 69–85; PULSE 87–107; RESP 16–20; TEMP 36–36.6; O2SAT 95–99; BMI 30.1
[2023-06-08] MEDS: Piperacillin Sodium/Tazobactam 4.5 GM in 0.9 % Sodium Chloride 100 ML IV ×4 (05:14→22:24)
[2023-06-08 07:09] LABS: Anion Gap 10 (12-20); Blood Urea Nitrogen 8 mg/dL (9-16); Calcium 8.8 mg/dL (8.4-10.2); Carbon Dioxide 28 mmol/L (22-29); Chloride 108 mmol/L (96-108); Creatinine Clr Calc Pharmacy 75.7; Estimated Glomerular Filt Rate > 60; Glucose Random 110 mg/dL (60-115); Potassium 3.8 mmol/L (3.3-5.1); Sodium 142 mmol/L (135-145)
[2023-06-08] MEDS: Albuterol/Iprat 2.5/0.5MG 3 ML AMPUL.NEB INHALE ×3 (09:09→19:16)
[2023-06-08] MEDS: Folic Acid 1 MG TABLET PO (09:40)
[2023-06-08] MEDS: Thiamine HCL 100 MG TABLET PO (09:40)
[2023-06-08] MEDS: Sertraline HCL 50 MG TABLET PO (09:40)
[2023-06-08] MEDS: 0.9 % Sodium Chloride Flush 3 ML SYRINGE IVFLUSH ×2 (09:41→16:06)
[2023-06-08] MEDS: methylPREDNISolone Sod Succ 40 MG/ML VIAL IVPUSH ×2 (09:41→20:43)
[2023-06-08] MEDS: Pregabalin 75 MG CAPSULE PO ×3 (09:41→20:42)
[2023-06-08] MEDS: Nystatin Powder 15 GM BOTTLE 1 APPL TOPICAL ×2 (09:41→20:44)
[2023-06-08] MEDS: Docusate Sodium 100 MG CAPSULE PO ×2 (09:41→20:43)
[2023-06-08] MEDS: Aspirin 81 MG TAB.CHEW PO (09:41)
--- NOTE | 2023-06-08 11:07 | HO.PM.IMPN ---
Subjective Subjective Date of Service: 06/08/23 Interval History: seen and examined this morning follow up for respiratory failure, new lung mass no overnight events, no increase resp difficulty, pleasantly confused. Physical Exam Vital Signs: Vital Signs: Last Vital Signs Temp 96.8 F 06/08/23 07:36 Pulse 96 06/08/23 09:09 Resp 20 06/08/23 09:09 BP 142/85 H 06/08/23 07:36 Pulse Ox 95 06/08/23 07:36 O2 Del Method Nasal Cannula 06/08/23 07:36 O2 Flow Rate 2 06/08/23 07:36 Oxygen Flow Rate 2 06/05/23 14:18 BMI result Body Mass Index 30.1 Const: Other: General: oriented to self, no acute distress Resp: CTA bilateral CVS: S1,S2,RRR GI: +BS, NT, no distention Skin: No rash Neuro: motor grossly intact Psych: appropriate affect Objective Data Active Medications Acetaminophen (Acetaminophen 325 Mg Tablet) 650 mg PO Q6H PRN PRN Reason: Pain, Mild (Pain Scale 1-3) Last Admin: 06/06/23 09:54 Dose: 650 mg Documented By: DESTINY Al Hydroxide/Mg Hydroxide (Magnesium Hydrox/Alum Hydrox 30 Ml Oral.Susp) 30 ml PO Q4H PRN PRN Reason: Heartburn/Nausea Albuterol Sulfate (Albuterol Sulfate (0.083%) 2.5 Mg/3 Ml Vial.Neb) 2.5 mg INHALE Q4H PRN PRN Reason: Shortness of Breath/Wheezing Last Admin: 06/07/23 23:58 Dose: 2.5 mg Documented By: FOX Albuterol/Ipratropium (Albuterol/Iprat 2.5/0.5mg 3 Ml Ampul.Neb) 3 ml INHALE RQ6H WHILE AWAKE [facility] Last Admin: 06/08/23 09:09 Dose: 3 ml Documented By: BRADLEY Aspirin (Aspirin 81 Mg Tab.Chew) 81 mg PO DAILY [facility] Last Admin: 06/08/23 09:41 Dose: 81 mg Documented By: ANAIS Atorvastatin Calcium (Atorvastatin Calcium 80 Mg Tablet) 80 mg PO BEDTIME [facility] Last Admin: 06/07/23 22:31 Dose: 80 mg Documented By: ANNALISE Bisacodyl (Bisacodyl 10 Mg Supp.Rect) 10 mg IA Q24H PRN PRN Reason: Constipation Docusate Sodium (Docusate Sodium 100 Mg Capsule) 100 mg PO BID [facility] Last Admin: 06/08/23 09:41 Dose: 100 mg Documented By: ANAIS Enoxaparin Sodium (Enoxaparin Sodium 40 Mg/0.4 Ml Syringe) 40 mg SUBCUT BEDTIME [facility] Last Admin: 06/07/23 22:32 Dose: 40 mg Documented By: ANNALISE Folic Acid (Folic Acid 1 Mg Tablet) 1 mg PO DAILY [facility] Last Admin: 06/08/23 09:40 Dose: 1 mg Documented By: ANAIS Guaifenesin (Guaifenesin 100 Mg/5 Ml Liquid) 10 ml PO Q4H PRN PRN Reason: Cough Piperacillin Sod/Tazobactam (Sod 4.5 gm/ Sodium Chloride) 100 mls @ 200 mls/hr IV Q6H [facility] Last Infusion: 06/08/23 05:51 Dose: Infused Documented By: ANNALISE Melatonin (Melatonin 3 Mg Tablet) 6 mg PO BEDTIME PRN PRN Reason: Insomnia Last Admin: 06/07/23 00:32 Dose: 6 mg Documented By: ABHISHEK Methylprednisolone Sodium Succinate (Methylprednisolone Sod Succ 40 Mg/Ml Vial) 40 mg IVPUSH Q12H [facility] Last Admin: 06/08/23 09:41 Dose: 40 mg Documented By: ANAIS Nystatin (Nystatin Powder 15 Gm Bottle) 1 appl TOPICAL BID [facility]; Protocol Last Admin: 06/08/23 09:41 Dose: 1 appl Documented By: ANAIS Ondansetron HCl (Ondansetron Hcl 4 Mg/2 Ml Vial) 4 mg IVPUSH Q8H PRN PRN Reason: Nausea and Vomiting Oxycodone HCl (Oxycodone Hcl Immed Release 5 Mg Tablet) 5 mg PO Q8H PRN PRN Reason: Pain (Scale Score 4-6) Pregabalin (Pregabalin 75 Mg Capsule) 75 mg PO TID [facility] Last Admin: 06/08/23 09:41 Dose: 75 mg Documented By: ANAIS Sertraline HCl (Sertraline Hcl 50 Mg Tablet) 50 mg PO DAILY [facility] Last Admin: 06/08/23 09:40 Dose: 50 mg Documented By: ANAIS Sodium Chloride (0.9 % Sodium Chloride Flush 3 Ml Syringe) 3 ml IVFLUSH QSHIFT [facility] Last Admin: 06/08/23 09:41 Dose: 3 ml Documented By: ANAIS Thiamine HCl (Thiamine Hcl 100 Mg Tablet) 100 mg PO DAILY [facility] Last Admin: 06/08/23 09:40 Dose: 100 mg Documented By: ANAIS Labs 06/07/23 05:14 06/08/23 06:15 Labs: Laboratory Results - last 24 hr 06/08/23 06:15 Anion Gap 10 L Estim Creat Clear Calc 75.7 Estimated GFR > 60 Random Glucose 110 Calcium 8.8 Microbiology Microbiology Results: Microbiology 06/05/23 15:18 Blood Culture - Preliminary Blood - Venous No growth after 48 hours. 06/05/23 15:10 Blood Culture - Preliminary Blood - Venous No growth after 48 hours. Assessment and Plan (1) Pneumonia: Status: Acute (2) COPD exacerbation: Status: Acute (3) Hilar mass: Status: Acute Plan 77 year old white female with history of dementia, COPD, anxiety/depression, PVD (s/p right transmetatarsal amputation), hypertension, hyperlipidemia, and atrial fibrillation here with Acute respiratory failure with hypoxia multifactorial due to COPD, lung mass and possible post-obstructive pneumonia Imaging with hilar lung mass with encasement of right main pulmonary artery and RUL bronchi and SVC and airspace disease in RUL - appears to be metastatic with liver lesions as well -breathing treatments, steroids -continue IV zosyn, will plan to transition to po augmentin for 10-14 days -seen by pulmonary - rec liver biopsy prior to d/c as bronchoscopy high risk extrinsic compression on the airway due to the large mass (plavix on hold) -consider brain imaging to rule out brain mets 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 small HCP - Epifanio Tyson, son [phone] - updated and he 's ok with Bx, and head imaging. DNR/DNI confirmed. Requires ongoing admission for management of extensive new lung mass, respiratory failure and need for specialist evaluation and close monitoring of respiratory status Quality Stroke Does the patient have a stroke diagnosis?: No VTE Prior VTE?: No VTE Risk Level:: Medical - moderate - high VTE Device Contraindication: N/A - Device Ordered VTE Drug Contraindication: N/A - Med Ordered
--- NOTE | 2023-06-08 16:34 | MHC.CLN ---
NUTRITION CONSULT. DIET=REGULAR GROUND. NEW LUNG MASS WITH LIKELY METS TO LIVER. SKIN WITH MASD TO BUTTOCKS. REPORTS GOOD APPETITE BUT INTAKE 0-50% THIS ADMISSION. FOLLOW FOR PO INTAKE AND SUPPLEMENT IF NEEDED. SEE CLINICAL NUTRITION ASSESSMENT 06/08/23.
[2023-06-08] MEDS: Atorvastatin Calcium 80 MG TABLET PO (20:42)
[2023-06-08] MEDS: Enoxaparin Sodium 40 MG/0.4 ML SYRINGE SUBCUT (20:43)
[2023-06-09] MEDS: 0.9 % Sodium Chloride Flush 3 ML SYRINGE IVFLUSH ×3 (00:01→15:54)
[2023-06-09] MEDS: oxyCODONE HCl Immed Release 5 MG TABLET PO (00:12)
[2023-06-09 03:13] VITALS: BP 114/58; PULSE 72; RESP 18; TEMP 37.1; O2SAT 92
[2023-06-09] MEDS: Piperacillin Sodium/Tazobactam 4.5 GM in 0.9 % Sodium Chloride 100 ML IV ×3 (05:43→16:00)
[2023-06-09 07:23] VITALS: BP 155/75; PULSE 80; RESP 20; TEMP 36; O2SAT 96
--- NOTE | 2023-06-09 08:01 | PC.NURSE ---
Hold AM meds, NPO, can't take without AP. made aware.
[2023-06-09] MEDS: Albuterol/Iprat 2.5/0.5MG 3 ML AMPUL.NEB INHALE ×2 (08:11→14:52)
[2023-06-09 08:15] VITALS: PULSE 86; RESP 20; O2SAT 95
--- NOTE | 2023-06-09 08:17 | PM.EVENT ---
Event Note Date of Service: 06/09/23 Event Note: Order for liver biopsy reviewed. Patient received aspirin yesterday (06/08). Will need to hold for 5 full days prior to biopsy. The earliest the procedure can be performed is Thursday (06/15). Prophylactic lovenox will also need be held the day of procedure as well if she is still admitted next week. Cullen RAMIREZ Interventional Radiology Time Spent With Patient Time: Total time managing care of this patient today ____ minutes.
[2023-06-09] MEDS: methylPREDNISolone Sod Succ 40 MG/ML VIAL IVPUSH (08:57)
[2023-06-09] MEDS: Nystatin Powder 15 GM BOTTLE 1 APPL TOPICAL (08:58)
--- NOTE | 2023-06-09 09:22 | P.PNIM_ITS ---
Subjective Subjective Date of Service: 06/09/23 Interval History: seen and examined this morning No issues overnight, no resp difficulty, good O2 sat Physical Exam 2 Vital Signs: Vital Signs: Last Vital Signs Temp 96.8 F 06/09/23 07:23 Pulse 80 06/09/23 07:23 Resp 20 06/09/23 07:23 BP 155/75 H 06/09/23 07:23 Pulse Ox 96 06/09/23 07:23 O2 Del Method Nasal Cannula 06/09/23 07:23 O2 Flow Rate 2 06/09/23 07:23 Oxygen Flow Rate 2 06/05/23 14:18 BMI result Body Mass Index 30.1 Const: Other: General: oriented to self, no acute distress Resp: CTA bilateral CVS: S1,S2,RRR GI: +BS, NT, no distention Skin: No rash Neuro: motor grossly intact Psych: appropriate affect Objective Data Active Medications Acetaminophen (Acetaminophen 325 Mg Tablet) 650 mg PO Q6H PRN PRN Reason: Pain, Mild (Pain Scale 1-3) Last Admin: 06/06/23 09:54 Dose: 650 mg Documented By: DESTINY Al Hydroxide/Mg Hydroxide (Magnesium Hydrox/Alum Hydrox 30 Ml Oral.Susp) 30 ml PO Q4H PRN PRN Reason: Heartburn/Nausea Albuterol Sulfate (Albuterol Sulfate (0.083%) 2.5 Mg/3 Ml Vial.Neb) 2.5 mg INHALE Q4H PRN PRN Reason: Shortness of Breath/Wheezing Last Admin: 06/07/23 23:58 Dose: 2.5 mg Documented By: FOX Albuterol/Ipratropium (Albuterol/Iprat 2.5/0.5mg 3 Ml Ampul.Neb) 3 ml INHALE RQ6H WHILE AWAKE [facility] Last Admin: 06/09/23 08:11 Dose: 3 ml Documented By: TANNA Aspirin (Aspirin 81 Mg Tab.Chew) 81 mg PO DAILY [facility] Last Admin: 06/09/23 08:57 Dose: Not Given Documented By: SOBEIDA Non-Admin Reason: hold per Atorvastatin Calcium (Atorvastatin Calcium 80 Mg Tablet) 80 mg PO BEDTIME [facility] Last Admin: 06/08/23 20:42 Dose: 80 mg Documented By: ZAMZAM Bisacodyl (Bisacodyl 10 Mg Supp.Rect) 10 mg [place] Q24H PRN PRN Reason: Constipation Docusate Sodium (Docusate Sodium 100 Mg Capsule) 100 mg PO BID [facility] Last Admin: 06/09/23 08:57 Dose: Not Given Documented By: SOBEIDA Non-Admin Reason: hold per Enoxaparin Sodium (Enoxaparin Sodium 40 Mg/0.4 Ml Syringe) 40 mg SUBCUT BEDTIME [facility] Last Admin: 06/08/23 20:43 Dose: 40 mg Documented By: ZAMZAM Folic Acid (Folic Acid 1 Mg Tablet) 1 mg PO DAILY [facility] Last Admin: 06/09/23 08:57 Dose: Not Given Documented By: SOBEIDA Non-Admin Reason: hold per Guaifenesin (Guaifenesin 100 Mg/5 Ml Liquid) 10 ml PO Q4H PRN PRN Reason: Cough Piperacillin Sod/Tazobactam (Sod 4.5 gm/ Sodium Chloride) 100 mls @ 200 mls/hr IV Q6H [facility] Last Infusion: 06/09/23 06:39 Dose: Infused Documented By: JEY Melatonin (Melatonin 3 Mg Tablet) 6 mg PO BEDTIME PRN PRN Reason: Insomnia Last Admin: 06/07/23 00:32 Dose: 6 mg Documented By: ABHISHEK Methylprednisolone Sodium Succinate (Methylprednisolone Sod Succ 40 Mg/Ml Vial) 40 mg IVPUSH Q12H [facility] Last Admin: 06/09/23 08:57 Dose: 40 mg Documented By: SOBEIDA Nystatin (Nystatin Powder 15 Gm Bottle) 1 appl TOPICAL BID [facility]; Protocol Last Admin: 06/09/23 08:58 Dose: 1 appl Documented By: SOBEIDA Ondansetron HCl (Ondansetron Hcl 4 Mg/2 Ml Vial) 4 mg IVPUSH Q8H PRN PRN Reason: Nausea and Vomiting Oxycodone HCl (Oxycodone Hcl Immed Release 5 Mg Tablet) 5 mg PO Q8H PRN PRN Reason: Pain (Scale Score 4-6) Last Admin: 06/09/23 00:12 Dose: 5 mg Documented By: JEY Pregabalin (Pregabalin 75 Mg Capsule) 75 mg PO TID [facility] Last Admin: 06/09/23 08:58 Dose: Not Given Documented By: SOBEIDA Non-Admin Reason: hold per Sertraline HCl (Sertraline Hcl 50 Mg Tablet) 50 mg PO DAILY [facility] Last Admin: 06/09/23 08:58 Dose: Not Given Documented By: SOBEIDA Non-Admin Reason: hold per Sodium Chloride (0.9 % Sodium Chloride Flush 3 Ml Syringe) 3 ml IVFLUSH QSHIFT [facility] Last Admin: 06/09/23 08:57 Dose: 3 ml Documented By: SOBEIDA Thiamine HCl (Thiamine Hcl 100 Mg Tablet) 100 mg PO DAILY [facility] Last Admin: 06/09/23 08:58 Dose: Not Given Documented By: SOBEIDA Non-Admin Reason: hold per Labs 06/07/23 05:14 06/08/23 06:15 Assessment and Plan (1) COPD exacerbation: Status: Acute (2) Metastasis to liver: Status: Acute Plan 77 year old white female with history of dementia, COPD, anxiety/depression, PVD (s/p right transmetatarsal amputation), hypertension, hyperlipidemia, and atrial fibrillation here with Acute respiratory failure with hypoxia -multifactorial due to COPD, lung mass and possible post-obstructive pneumonia Imaging with hilar lung mass with encasement of right main pulmonary artery and RUL bronchi and SVC and airspace disease in RUL - appears to be metastatic with liver lesions as well -continue breathing treatments, steroids -continue IV zosyn with plan to transition to po augmentin for 10-14 days -seen by pulmonary - rec liver biopsy prior, but they won't be able to do it until next thursday 06/15 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 small HCP - Epifanio Tyson, son [phone] - updated and he 's ok with Bx, and head imaging. DNR/DNI confirmed. Requires ongoing admission for management of extensive new lung mass, respiratory failure and need for specialist evaluation and close monitoring of respiratory status will try to arrange for Bx as outpatient Quality Stroke Does the patient have a stroke diagnosis?: No VTE Prior VTE?: No VTE Risk Level:: Medical - moderate - high VTE Device Contraindication: N/A - Device Ordered VTE Drug Contraindication: N/A - Med Ordered
[2023-06-09 10:27] LABS: INTERNATIONAL NORM RATIO 1.1 (0.9-1.1); Prothrombin Time 13.1 SEC (11.1-13.3)
--- NOTE | 2023-06-09 13:04 | P.DS_ITS ---
DS: Providers Provider Date of Service: 06/09/23 Date of admission: 06/05/23 23:47 Primary care physician: Unknown Physician Consults: 06/06/23 01:22 Consult to Wound Care Routine Reason for consultation: fungal infection skin 06/06/23 10:53 Consult to Pulmonology Routine Consulting Provider: [facility] Reason for consultation: new lung ca Has provider been notified: No DS: Diagnosis Discharge Diagnosis (1) COPD exacerbation: Status: Acute (2) Metastasis to liver: Status: Acute DS: Summary Hospital Course Hospital Course: [facility] Complaint: Dizziness and low blood pressure at SNF Patient is a 77 year old white female with history of dementia (HCP is invoked and is son Mitul [phone]), COPD, anxiety/depression, PVD (s/p right transmetatarsal amputation), hypertension, hyperlipidemia, and atrial fibrillation who was sent to the emergency room from her SNF because of hypotension (her blood pressure was in the 80s). She was also reportedly passing green stool and had abdominal distension and pain. Initial lab work done in the emergency room was notable for a leucocytosis of 15 k/mm3. A CT scan done showed a large bulky mass in the right hilar region with encasement and narrowing of the right main pulmonary artery and right upper lobe bronchi as well as encasement and narrowing of the SVC and innominate vein. She also has confluent mass-like airspace disease in the suprahilar RUL that is likely due to primary lung lesion. She also has innumerable mass lesions within the liver concerning for metastatic disease. Admission was requested for further management. Patient unfortunately has dementia and so was not able to provide any additional history. Hospital course: She initially presented with low blood pressure and dizziness and work up in the ED revealed Lung mass with possible underlying post obstructive Pneumonia and liver lesion suspcious with metastatic disease. She was admitted for further work up and treatment and work up Acute respiratory failure with hypoxia -multifactorial due to COPD, lung mass and possible post-obstructive pneumonia. Imaging show hilar lung mass with encasement of right main pulmonary artery and RUL bronchi and SVC and airspace disease in RUL - appears to be metastatic with liver lesions as well. Patient was treated with steroid, bronchodilators by neb and Oxygen. Additionally, she was treated with IV Zosyn to cover possible post obtructive pneumonia and was evaluated by pulmonology with recommendation for tissue biopsy via liver, initially son was reluctant but ultimately agreed. At this point IR is unable to perform the procedure until the patient is off antipletlets (ie ASA, or Plavix) for at least 5 days and so will be done on outpatient basis.. Patient has been otherwise doing ok and will diascharge with oral Augmentin for total of 10 days of antibiotics Metastases to liver lesion, likely mets, FNA as stated above Abdominal pain, presently without pain, CT scan again showed--1. Large bulky mass lesion in the right hilar region extending into the mediastinal structures as described above. Bulky hilar or mediastinal adenopathy as described above This is difficult to accurately measure as the tumor mass is inseparable from the hilar and mediastinal adenopathy. There is encasement and narrowing of the right main pulmonary artery and right upper lobe bronchi as well as encasement and narrowing of the superior vena cava and innominate vein. There is more confluent masslike airspace disease in the suprahilar right upper lobe likely due to primary lung lesion. 2. There are innumerable low-attenuation mass lesions within the liver concerning for metastatic disease. A CT of head showed no evidence of metastatic disease The patient was evaluated by oncology with the following discussion with by Dr. Gonzalez to son. Her presentation is suspicious for an aggressive disease process such as small cell lung cancer. Her performance status appears to be rather poor at this time, it appears that at baseline she uses wheelchair primarily. She is not oriented to place or time. I discussed with the son that she probably has metastatic lung cancer. A biopsy of liver lesion would establish diagnosis. He does not want to pursue any aggressive measures such as chemo or immunotherapy because of her underlying dementia and performance status. He is undecided at this time if he wants to proceed with biopsy At this point the patient will be discharged and so will decide at later to either pursuit or not pursuit biopsy Abdominal pain likey from liver mets PVD--was on ASA, Plavix and statin. If a decision is made to have biopsy done, these will need to be on hold for 5 days Dementia/mood continue baseline meds chronic pain unclear cause continue home oxycodone h/o etoh use no recent use continue thiamine, folic acid Time Attestation Discharge coordination time: Greater than 30 minutes Quality: Safe Use of Opioids Does Pt have an Active Cancer Diagnosis on the Problem List?: Yes Opioid Measure Date for [facility] Report: 05/10/23 Opioid Measure Time for [facility] Report: 17:28 Quality: Stroke Does the patient have a stroke diagnosis?: No Physical Exam Vital Signs: Vital Signs: Last Vital Signs Temp 96.8 F 06/09/23 07:23 Pulse 86 06/09/23 08:15 Resp 20 06/09/23 08:15 BP 155/75 H 06/09/23 07:23 Pulse Ox 96 06/09/23 07:23 O2 Del Method Nasal Cannula 06/09/23 07:23 O2 Flow Rate 2 06/09/23 07:23 Oxygen Flow Rate 2 06/05/23 14:18 BMI result Body Mass Index 30.1 Const: Other: General: oriented to self, no acute distress Resp: CTA bilateral CVS: S1,S2,RRR GI: +BS, NT, no distention Skin: No rash Neuro: motor grossly intact Psych: appropriate affect DS: Data Data Completed and Pending Completed studies during hospitalization [Text1]: Procedures Labs on day of discharge: Laboratory Results - last 24 hr 06/09/23 09:45 PT 13.1 D INR 1.1 Preliminary micro results at discharge 06/05/23 15:18 Blood Culture - Preliminary Blood - Venous No growth after 48 hours. 06/05/23 15:10 Blood Culture - Preliminary Blood - Venous No growth after 48 hours. Discharge Plan Discharge Anticipated Discharge Date/Time: 06/09/23 13:27 Patient Disposition: Xfer [facility] Discharge Diagnosis: copd exacerbation, lung mass, liver masses concern for metastatic disease Referrals: [facility] [Outside] - 1 Day (resume intermediate care) Physician,Unknown J [Primary Care Provider] - 1 Week Discharge Medications: New amoxicillin-pot clavulanate 875-125 mg tablet 1 tab PO BID Qty: 12 0RF prednisone 20 mg tablet 40 mg PO DAILY Qty: 4 0RF Continued atorvastatin 80 mg Tablet 80 mg PO BEDTIME Qty: 30 0RF aspirin 81 mg Tablet,Chewable 81 mg PO DAILY Qty: 30 0RF folic acid 1 mg tablet 1 mg PO DAILY ipratropium-albuterol [DuoNeb] 0.5 mg-3 mg(2.5 mg base)/3 mL Solution For Nebulization 3 ml INHALATION Q4H PRN (Reason: COUGH/WHEZE) acetaminophen 500 mg Tablet 500 mg PO Q8H PRN (Reason: PAIN/FEVER) guaifenesin [Cat-Tussin] 100 mg/5 mL Liquid 200 mg PO Q4H PRN (Reason: Cough) magnesium hydroxide [Milk of Magnesia] 400 mg/5 mL Suspension 30 ml PO Q24H PRN (Reason: Constipation) ascorbic acid (vitamin C) 500 mg Tablet 500 mg PO DAILY bisacodyl 10 mg Suppository [address] Q24H PRN (Reason: Constipation) ferrous sulfate 325 mg (65 mg iron) Tablet 325 mg PO BID magnesium citrate [Citrate of Magnesia] Solution 300 ml PO Q24H PRN (Reason: Constipation) sertraline 50 mg Tablet 50 mg PO DAILY oxycodone 5 mg tablet 5 mg PO Q8H PRN (Reason: Pain (Scale Score 4-6)) pregabalin [Lyrica] 75 mg Capsule 75 mg PO TID Anoro Ellipta 62.5-25 mcg/actuation Blister With Device 1 inh INHALATION DAILY Combivent Respimat 20-100 mcg/actuation Mist 1 puff INHALATION Q8H acetaminophen [Tylenol Extra Strength] 500 mg tablet 500 mg PO TID oxycodone 5 mg tablet 5 mg PO DAILY thiamine HCl (vitamin B1) 100 mg tablet 100 mg PO DAILY Held clopidogrel 75 mg Tablet 75 mg PO DAILY Qty: 30 0RF Hold Instructions: Resume on 06/16/23. Discharge Orders: Discharge Order (Routine); Ordered 06/09/23 Ordered By: Tommy Giang Diet: Advance to usual diet Activity on Discharge: As tolerated Stand Alone Forms: Patient Portal Discharge page Care Plan Goals: Full recovery from copd and pneumonia and work of lung and liver masses Health Concerns: Lung mass, liver mass concern for cancer Plan of Treatment: To have outpatient liver biopys for diagnosis stop taking Aspirin or Plavix until after a decision is made about biopsy Use oxygen to keep O2 sat 88 to 92% Assessment: as above
--- NOTE | 2023-06-09 14:00 | MHC.CM.PN ---
Per MD patient is medically cleared for DC. BLS transportation booked for 6:30pm. Facility, son and RN aware. IMM delivered.
[2023-06-09 14:53] VITALS: PULSE 88; RESP 22; O2SAT 95
--- NOTE | 2023-06-09 15:13 | P.CNHO_ITS ---
Subjective - Subjective Chief complaint: Not reported Patient: new to practice Consult date: 06/09/23 Requesting Physician: Dr. Giang Primary Care Provider: Unknown Physician HPI - Consult Narrative Reason for consult: Probable metastatic lung cancer Narrative: Alicia Tyson is a 77 year old female with history of advanced dementia, COPD, peripheral vascular disease, atrial fibrillation and hypertension who has been diagnosed with probable metastatic lung cancer. Her son is healthcare proxy. Patient is unable to provide any history. As per chart review, patient was sent from [facility] where she has been residing for the last year or so for hypotension and abdominal distension. Imaging revealed large/bulky right hilar mass along with multiple liver metastasis. I spoke to her HCP, Mitul over the phone. He states that mother has had dementia and has been resident of [facility] for over a year. He is unable to provide any more history than the patient. Review of Systems - Neurologic Reports hearing normal, Denies abnormal gait Oncology Screenings - ECOG Performance Status ECOG Performance Status: 3 [facility] Medical History: Medical History (Last Reviewed 06/06/23 @ 08:24 by Didier Vides MD) Alcohol abuse Alcohol dependence Arterial insufficiency of lower extremity Cellulitis of right foot Cigarette smoker Dementia Dementia Dementia ETOH abuse Insufficiency, vascular Non-healing ulcer of right ankle PAD (peripheral artery disease) S/P angiogram of extremity Onset Date: 06/20/21 Surgical History: Surgical History (Last Reviewed 06/06/23 @ 08:24 by Didier Vides MD) No pertinent past surgical history Social History: Social History (Last Reviewed 06/06/23 @ 08:24 by Didier Vides MD) Living Situation History: Household Members: Other Housing: Custodial Do you presently have visiting nurse or other home services: Do you presently have visiting nurse or other home services comment: [facility] resident Alcohol History: Unable to assess alcohol history related to: Unknown Alcohol History Details: Currently Displaying Signs/Symptoms of Alcohol Withdrawal: No Tobacco History: Patient Tobacco Use Status: Tobacco use Unknown Tobacco use type: Cigarette Second Hand Smoke Exposure: No Substance Use History: Use of substances other than those prescribed or required for medical reasons : Unknown Currently Displaying Signs/Symptoms of Drug Intoxication Withdrawal: No Advance Directives: Advance Directives: Yes Advance Directives on File: Yes Advance Directives Date on File: 02/28/22 Homicidal Assessment: Do you have thoughts of harming others: None Do you have a plan to hurt others: No Plan Nutrition Assessment: Recently lost weight without trying: Unsure Nutrition Risks: No Nutritional Risk Patient : No : No Poor oral hygiene: Yes Occupation Assessmet: service: No Current occupational status: retired Home Medications and Allergies Current Medications: Current Medications Acetaminophen (Acetaminophen 325 Mg Tablet) 650 mg PO Q6H PRN PRN Reason: Pain, Mild (Pain Scale 1-3) Last Admin: 06/06/23 09:54 Dose: 650 mg Al Hydroxide/Mg Hydroxide (Magnesium Hydrox/Alum Hydrox 30 Ml Oral.Susp) 30 ml PO Q4H PRN PRN Reason: Heartburn/Nausea Albuterol Sulfate (Albuterol Sulfate (0.083%) 2.5 Mg/3 Ml Vial.Neb) 2.5 mg INHALE Q4H PRN PRN Reason: Shortness of Breath/Wheezing Last Admin: 06/07/23 23:58 Dose: 2.5 mg Albuterol/Ipratropium (Albuterol/Iprat 2.5/0.5mg 3 Ml Ampul.Neb) 3 ml INHALE RQ6H WHILE AWAKE [facility] Last Admin: 06/09/23 14:52 Dose: 3 ml Aspirin (Aspirin 81 Mg Tab.Chew) 81 mg PO DAILY [facility] Last Admin: 06/09/23 08:57 Dose: Not Given Atorvastatin Calcium (Atorvastatin Calcium 80 Mg Tablet) 80 mg PO BEDTIME [facility] Last Admin: 06/08/23 20:42 Dose: 80 mg Bisacodyl (Bisacodyl 10 Mg Supp.Rect) 10 mg HI Q24H PRN PRN Reason: Constipation Docusate Sodium (Docusate Sodium 100 Mg Capsule) 100 mg PO BID [facility] Last Admin: 06/09/23 08:57 Dose: Not Given Enoxaparin Sodium (Enoxaparin Sodium 40 Mg/0.4 Ml Syringe) 40 mg SUBCUT BEDTIME [facility] Last Admin: 06/08/23 20:43 Dose: 40 mg Folic Acid (Folic Acid 1 Mg Tablet) 1 mg PO DAILY [facility] Last Admin: 06/09/23 08:57 Dose: Not Given Guaifenesin (Guaifenesin 100 Mg/5 Ml Liquid) 10 ml PO Q4H PRN PRN Reason: Cough Piperacillin Sod/Tazobactam (Sod 4.5 gm/ Sodium Chloride) 100 mls @ 200 mls/hr IV Q6H [facility] Last Infusion: 06/09/23 11:44 Dose: Infused Melatonin (Melatonin 3 Mg Tablet) 6 mg PO BEDTIME PRN PRN Reason: Insomnia Last Admin: 06/07/23 00:32 Dose: 6 mg Methylprednisolone Sodium Succinate (Methylprednisolone Sod Succ 40 Mg/Ml Vial) 40 mg IVPUSH Q12H [facility] Last Admin: 06/09/23 08:57 Dose: 40 mg Nystatin (Nystatin Powder 15 Gm Bottle) 1 appl TOPICAL BID [facility]; Protocol Last Admin: 06/09/23 08:58 Dose: 1 appl Ondansetron HCl (Ondansetron Hcl 4 Mg/2 Ml Vial) 4 mg IVPUSH Q8H PRN PRN Reason: Nausea and Vomiting Oxycodone HCl (Oxycodone Hcl Immed Release 5 Mg Tablet) 5 mg PO Q8H PRN PRN Reason: Pain (Scale Score 4-6) Last Admin: 06/09/23 00:12 Dose: 5 mg Pregabalin (Pregabalin 75 Mg Capsule) 75 mg PO TID [facility] Last Admin: 06/09/23 08:58 Dose: Not Given Sertraline HCl (Sertraline Hcl 50 Mg Tablet) 50 mg PO DAILY [facility] Last Admin: 06/09/23 08:58 Dose: Not Given Sodium Chloride (0.9 % Sodium Chloride Flush 3 Ml Syringe) [facility] Last Admin: 06/09/23 08:57 Dose: 3 ml Thiamine HCl (Thiamine Hcl 100 Mg Tablet) 100 mg PO DAILY [facility] Last Admin: 06/09/23 08:58 Dose: Not Given Home Medications Medication Instructions Recorded Confirmed Type oxycodone 5 mg tablet 5 mg PO DAILY Pain 12/26/21 06/06/23 History thiamine HCl (vitamin B1) 100 mg 100 mg PO DAILY 12/26/21 06/06/23 History tablet folic acid 1 mg tablet 1 mg PO DAILY 12/31/21 06/06/23 History acetaminophen 500 mg tablet 500 mg PO Q8H PRN PAIN/FEVER 06/06/23 06/06/23 History acetaminophen 500 mg tablet 500 mg PO TID mild pain 06/06/23 06/06/23 History (Tylenol Extra Strength) ascorbic acid (vitamin C) 500 mg 500 mg PO DAILY 06/06/23 06/06/23 History tablet bisacodyl 10 mg rectal suppository 10 mg HI Q24H PRN Constipation 06/06/23 06/06/23 History ferrous sulfate 325 mg (65 mg 325 mg PO BID 06/06/23 06/06/23 History iron) tablet guaifenesin 100 mg/5 mL oral 200 mg PO Q4H PRN Cough 06/06/23 06/06/23 History liquid (Cat-Tussin) ipratropium 0.5 mg-albuterol 3 mg 3 ml inhalation Q4H PRN COUGH/WHEZE 06/06/23 06/06/23 History (2.5 mg base)/3 mL nebulization soln ipratropium 20 mcg-albuterol 100 1 puff inhalation Q8H 06/06/23 06/06/23 History mcg/actuation mist for inhalation (Combivent Respimat) magnesium citrate (Citrate of 300 ml PO Q24H PRN Constipation 06/06/23 06/06/23 History Magnesia oral) magnesium hydroxide 400 mg/5 mL 30 ml PO Q24H PRN Constipation 06/06/23 06/06/23 History oral suspension (Milk of Magnesia) oxycodone 5 mg tablet 5 mg PO Q8H PRN Pain (Scale Score 06/06/23 06/06/23 History 4-6) pregabalin 75 mg capsule (Lyrica) 75 mg PO TID 06/06/23 06/06/23 History sertraline 50 mg tablet 50 mg PO DAILY 06/06/23 06/06/23 History umeclidinium 62.5 mcg-vilanterol 1 inh inhalation DAILY 06/06/23 06/06/23 History 25 mcg/actuation powdr for inhalation (Anoro Ellipta) Allergies Allergy/AdvReac Type Severity Reaction Status Date / Time No Known Allergies Allergy Verified 09/30/22 09:49 Physical Exam Vital signs: Vital Signs Temp 96.8 F 06/09/23 07:23 Pulse 88 06/09/23 14:53 Resp 22 H 06/09/23 14:53 BP 155/75 H 06/09/23 07:23 Pulse Ox 96 06/09/23 07:23 O2 Del Method Nasal Cannula 06/09/23 07:23 O2 Flow Rate 2 06/09/23 07:23 Intake & Output 06/08/23 06/09/23 06/09/23 18:59 06:59 18:59 Intake Total 680 / 1120 440 / 1120 340 / 340 Balance 680 / 1120 440 / 1120 340 / 340 Intake: Intake, Oral Amount 480 / 720 240 / 720 240 / 240 Intake, IV Amount 200 / 400 200 / 400 100 / 100 Piperacillin Sodium/Tazobactam 200 / 400 200 / 400 100 / 100 4.5 gm In 0.9 % Sodium Chloride 100 ml @ 200 mls/hr IV Q6H [facility] Rx#:[id number] Other: Meal Refused No No No NPO No No Yes Breakfast % Eaten 100% npo Lunch % Eaten 100% 100% Dinner % Eaten 25% Number of Incontinent Voids 1 2 Number of Unmeasured Voids 1 Number of Bowel Movements 1 2 Urine Bathroom Urine Color Yellow Last Bowel Movement 06/08/23 Stool Incontinent Incontinent Stool Amount Large Moderate Stool Color Green Brown Stool Consistency Mushy Loose Weight 70 kg Weight 70 kg - Constitutional Present: no acute distress, disheveled - Routine HEENT Exam Eye: Present: PERRL - Routine Neck Exam Absent: lymphadenopathy - Routine Respiratory Exam Absent: accessory muscle use - Routine Cardiovascular Exam Cardiovascular: Present: S2 Hem/Onc Consult Result - Labs CBC & Chem 7: 06/07/23 05:14 06/08/23 06:15 Assessment and Plan Patient Active problem list reviewed?: Yes (1) Hilar mass Status: Acute Assessment and plan: 1. This is a 77-year-old woman was been diagnosed with large right hilar mass suspicious for primary lung cancer with numerous liver metastasis. She has advanced dementia and HCP invoked is son Mitul. Patient has been long-term resident of [facility] as she has been unable to care for herself because of dementia. She was sent from SNF because of hypotension and abdominal distension. A CT scan showed large bulky mass in the right hilar region with encasement and narrowing of right pulmonary artery, right upper lobe bronchi as well as narrowing is for SVC and innominate vein. She had confluent mass like airspace disease in the suprahilar right upper lobe that is likely due to primary lung lesion. She has innumerable mass lesions within the liver concerning for metastatic disease. I discussed above findings with her son. Her presentation is suspicious for an aggressive disease process such as small cell lung cancer. Her performance status appears to be rather poor at this time, it appears that at baseline she uses wheelchair primarily. She is not oriented to place or time. I discussed with the son that she probably has metastatic lung cancer. A biopsy of liver lesion would establish diagnosis. He does not want to pursue any aggressive measures such as chemo or immunotherapy because of her underlying dementia and performance status. He is undecided at this time if he wants to proceed with biopsy. I will be happy to talk to him further in follow-up upon discharge from hospital. I thank you for this consultation. - Time Spent With Patient Time Spent with Patient (in minutes): 20
[2023-06-09 15:24] VITALS: BP 127/68; PULSE 88; RESP 20; TEMP 36; O2SAT 96
[2023-06-09] MEDS: Pregabalin 75 MG CAPSULE PO (15:54)
--- NOTE | 2023-06-09 17:06 | HO.WOUND ---
Wound Consult: Initial 77yr old female admitted to [facility] [place] on? 06/05/23 23:47- See progress notes and H&P for detailed history. Wound consult placed for groin and bilateral breast - arrival to bedside pt agreeable to assessment. Pt reports mild itching - Bilateral breasts and perineal area observed for MASD - [place] erythema intact tissue no open lesions noted. No active s/s of fungal dermatitis at this time however Nystatin in place and may ave provided benefit. May consider interdry application to aid in translocating moisture awate from skin fold. Perineal area will benfit from barrier cream to protect tissue from moisture. Recommendations: Perineal - Off Load Pressure - Cleanse with PH balance spray or wipes, pat dry. ?Apply thin layer of Triad to wound bed - only pat and dab no scrub and rub when soiling occurs. Reapply thin layer PRN after each episode of incontinence. Bilateral Breast - Tuck Interdry AG Sheet into skin fold to wick and translocate moisture away from skin fold.? Be sure to leave at least 2 inch of fabric exposed outside of skin fold.? Change when soiled. Re-consult wound care Nurse for wound deterioration or wound changes.
--- NOTE | 2023-06-09 18:50 | PC.NURSE ---
Part of DC paper work faxed to SNF in [place]. Paperwork with physical chart.
== END 2023-06-09 18:51 | disposition skilled nursing facility (03) | DRG 180 ==
LOC: HO.ED 23:18 → HO.EDOVER 23:53 → HO.S3 06-06 00:10
PROVIDERS: Emergency Medicine; Physician Assistant Medical; Admitting Provider Internal Medicine; Emergency Provider Emergency Medicine; Visit Provider Internal Medicine
DX: C34.01 Malignant neoplasm of right main bronchus (principal); J18.9 Pneumonia, unspecified organism; J96.01 Acute respiratory failure with hypoxia; C78.7 Secondary malignant neoplasm of liver and intrahepatic bile duct; J44.0 Chronic obstructive pulmonary disease with (acute) lower respiratory infection; J44.1 Chronic obstructive pulmonary disease with (acute) exacerbation; E87.21 Acute metabolic acidosis; I95.9 Hypotension, unspecified; F10.21 Alcohol dependence, in remission; Z66 Do not resuscitate; G89.3 Neoplasm related pain (acute) (chronic); I73.9 Peripheral vascular disease, unspecified; E86.0 Dehydration; E78.5 Hyperlipidemia, unspecified; F03.90 Unspecified dementia, unspecified severity, without behavioral disturbance, psychotic disturbance, mood disturbance, and anxiety; Z20.822 Contact with and (suspected) exposure to COVID-19; Z99.81 Dependence on supplemental oxygen; Z79.82 Long term (current) use of aspirin; Z79.02 Long term (current) use of antithrombotics/antiplatelets; Z79.899 Other long term (current) drug therapy
CPT/HCPCS: 0241U; 36415; 70450; 71045; 71260; 74177; 80048; 80076; 81003; 83605; 83690; 83735; 84443; 84484; 85025; 85027; 85610; 86140; 86850; 86900; 86901; 87040; 87493; 93005; 94640; 99285; J1650; J2543; J2550; J2920; J3370; Q9967

== ENCOUNTER → 2023-06-05 14:25 | Outpatient (BNV) | payer MEDICARE, SELFPAY | PROVIDERS: Admitting Provider Internal Medicine; Emergency Provider Emergency Medicine; Visit Provider Internal Medicine | DX: I49.1 Atrial premature depolarization (principal); R53.1 Weakness | CPT/HCPCS: 93010 ==

== ENCOUNTER → 2023-06-05 23:47 | Outpatient (BNV) | payer MEDICARE, SELFPAY | PROVIDERS: Admitting Provider Internal Medicine; Emergency Provider Emergency Medicine; Visit Provider Hospitalist | DX: J44.1 Chronic obstructive pulmonary disease with (acute) exacerbation (principal); J18.9 Pneumonia, unspecified organism; C78.7 Secondary malignant neoplasm of liver and intrahepatic bile duct; R91.8 Other nonspecific abnormal finding of lung field | CPT/HCPCS: 99223 ==

== ENCOUNTER → 2023-06-05 23:47 | Outpatient (BNV) | payer MEDICARE, MEDICAID, SELFPAY | PROVIDERS: Admitting Provider Internal Medicine; Emergency Provider Emergency Medicine; Visit Provider Internal Medicine | DX: J44.1 Chronic obstructive pulmonary disease with (acute) exacerbation (principal); C78.7 Secondary malignant neoplasm of liver and intrahepatic bile duct | CPT/HCPCS: 99223; 99232; 99233; 99239 ==

== ENCOUNTER → 2023-06-05 23:47 | Outpatient (BNV) | payer MEDICARE, MEDICAID, SELFPAY | PROVIDERS: Admitting Provider Internal Medicine; Emergency Provider Emergency Medicine; Visit Provider Internal Medicine | DX: R91.8 Other nonspecific abnormal finding of lung field (principal); K76.89 Other specified diseases of liver | CPT/HCPCS: 99222 ==